=== PATIENT | male | born 1960 | race African-American/Black ===

== ENCOUNTER → 2019-12-31 13:37 | Outpatient (CLI) | payer MEDICAID, SELFPAY ==
--- NOTE | 2019-12-31 13:46 | CT_ITS ---
STUDY: CT BRAIN WITH AND WITHOUT CONTRAST REASON FOR EXAM: Male, 59 years old. HYPOPITUITARISM,HX-DB RADIATION DOSAGE (If Supplied By Facility): CTDIvol = ( 44.99 ) mGy, DLP = ( 1648.46 ) mGycm TECHNIQUE: Transaxial CT imaging of the brain was performed pre and post contrast administration. The examination was performed with intravenous administration of IV 50mL Isovue-370. Individualized dose optimization techniques were used for this CT. COMPARISON: None. FINDINGS: Normal soft tissue structures. Normal calvarium. Normal size ventricles and extra-axial spaces for the patient''s age. Normal white matter tracts of the cerebral hemispheres. Normal basal ganglia and thalami. Normal brainstem. Normal cerebellum. There is no intracranial hemorrhage. There are no findings of an acute ischemic infarction. Normal visualized paranasal sinuses. CT/Brain/Head W/WO Contrast IMPRESSION: Normal unenhanced and enhanced CT scan of the brain. Electronically Signed: Shai Vega, at 14:35 EDT , Service support ,
[2019-12-31 14:11] LABS: CREATININE FINGERSTICK 0.8 mg/dL (0.70-1.30); EGFR FINGERSTICK > 60.0000 mL/min (>60)
== END ==
PROVIDERS: PCP Family Medicine; Referring Provider Nurse Practitioner Family
DX: E23.0 Hypopituitarism (principal)
CPT/HCPCS: 70470; Q9967

== ENCOUNTER → 2020-03-03 | Outpatient (CLI) | payer MEDICAID, SELFPAY ==
--- NOTE | 2020-03-03 14:35 | CT_ITS ---
STUDY: CT ABDOMEN AND PELVIS WITH CONTRAST REASON FOR EXAM: Male, 59 years old. RT GROIN SWELLING X 2 DAYS, NO PREV SURG, HX-DB, HTN RADIATION DOSAGE (If Supplied By Facility): CTDIvol = ( 17.07 ) mGy, DLP = ( 1206.62 ) mGycm TECHNIQUE: Transaxial images were obtained from the dome of the diaphragm to the symphysis pubis with oral contrast. Oral and amp; IV Readi-CAT and amp; 100mL Isovue-300 was administered. Sagittal and coronal images were reconstructed. Individualized dose optimization techniques were used for this CT. COMPARISON: None. FINDINGS: The visualized lung bases are unremarkable. The visualized portions of the heart are within normal limits. There is decreased attenuation of the liver consistent with steatosis, there is a 1 cm right hepatic cyst. Normal gallbladder and extrahepatic biliary system. Normal spleen. Normal pancreas. Normal bilateral adrenal glands. Normal right kidney. Normal left kidney. Normal visualized stomach. Normal small intestine. Normal colon. The appendix is visualized and appears normal. Appendix best seen on coronal recon images 68 through 73 There is diffuse atherosclerotic calcification of the abdominal aorta, without a demonstrated aneurysm. Normal inferior vena cava. Normal retroperitoneum. Normal urinary bladder. There are subcentimeter right inguinal lymph nodes Normal abdominal wall. There are diffuse degenerative changes of the visualized lumbar spine, and pelvis. CT/Abdomen/Pelvis WITH Contrast IMPRESSION: No suspicious solid organ abnormality, right hepatic cyst. No specific follow-up needed No CT evidence of acute inflammatory process, normal appendix visualized No mass or fluid collection the right inguinal area, there are subcentimeter right inguinal lymph nodes Degenerative bony changes Electronically Signed: Cory Pickens MD at 16:32 EDT , Service support ,
[2020-03-03 15:00] LABS: CREATININE FINGERSTICK 1.1 mg/dL (0.70-1.30)
== END | disposition home or self-care (01) ==
LOC: CT 14:34
PROVIDERS: PCP Family Medicine; Referring Provider Nurse Practitioner Family; Visit Provider Nurse Practitioner Family
DX: R10.30 Lower abdominal pain, unspecified (principal)
CPT/HCPCS: 74177; Q9967

== ENCOUNTER → 2020-03-17 12:05 | Outpatient (CLI) | payer MEDICAID, SELFPAY ==
[2017-07-15 10:05] VITALS: BMI 43.4
[2020-03-17 13:49] LABS: Anion Gap 7 (5-15); BUN 8 mg/dL (7-18); BUN/Creat Ratio 7.5 RATIO (10-20); Calcium,Total 9.7 mg/dL (8.5-10.1); Chloride 103 mmol/L (98-107); Creatinine, Serum 1.07 mg/dL (0.70-1.30); EST Glomerular Filtration Rate 75 mL/min (>60); Est Glom Filt Rate - Afr Amer 91 mL/min (>60); Glucose 114 mg/dL (74-106); Potassium 3.1 mmol/L (3.5-5.1); Sodium Level 138 mmol/L (136-145)
== END ==
PROVIDERS: Nurse Practitioner Family
DX: E87.6 Hypokalemia (principal); I10 Essential (primary) hypertension
CPT/HCPCS: 36415; 80048

== ENCOUNTER → 2020-04-04 08:16 | Outpatient (CLI) | payer MEDICAID, SELFPAY ==
[2017-07-15 10:05] VITALS: BMI 43.4
[2020-04-04 09:40] LABS: Absolute Lymphocyte Count 1.81 X10^3/uL (0.83-4.51); Absolute Neutrophil Count 4.8 X10^3/uL (2.0-7.7); Basophil# 0.07 X10^3/uL; Basophil% 0.9 % (0-1); Eosinophil# 0.19 X10^3/uL; Eosinophils% 2.5 % (0-5); Hematocrit 40.3 % (40-54); Hemoglobin 13.4 g/dL (13.0-16.5); Lymphocyte # 1.81 X10^3/ul (4.0); Lymphocyte % 24.2 % (19-41); Mean Corp Hgb Conc 33.3 g/dL (32-36); Mean Corpuscular Hgb 28.5 pg (27.0-32.0); Mean Corpuscular Volume 85.7 fL (80-94); Mean Platelet Vol. 9.9 fl (6.2-12.0); Monocyte# 0.55 X10^3/uL; Monocyte% 7.4 % (0-10); NRBC Flagged by Analyzer 0 % (0-5); Neutrophil # 4.84 X10^3/uL (2.7-7.7); Neutrophil % 64.7 % (47-70); Platelet Count 325 K/mm3 (150-450); RBC Distribution Width SD 43.8 fl (35.1-43.9); White Blood Count 7.5 K/mm3 (4.4-11.0)
[2020-04-04 10:03] LABS: Vitamin D,25 Hydroxy 45.5 ng/mL
[2020-04-04 10:07] LABS: Hemoglobin A1c 8.1 % (3.8-5.6)
[2020-04-04 10:12] LABS: ALB/GLOB Ratio 0.8 RATIO (0.9-2.4); AST(SGOT) 31 U/L (15-37); Alanine Aminotransfer ALT/SGPT 38 U/L (16-61); Albumin, Serum 3.7 g/dL (3.2-5.0); Alkaline Phosphatase 102 U/L (45-117); Anion Gap 10 (5-15); BUN 10 mg/dL (7-18); BUN/Creat Ratio 8.5 RATIO (10-20); Calcium,Total 8.8 mg/dL (8.5-10.1); Chloride 98 mmol/L (98-107); Cholesterol 157 mg/dL (200); Creatinine, Serum 1.18 mg/dL (0.70-1.30); EST Glomerular Filtration Rate 67 mL/min (>60); Est Glom Filt Rate - Afr Amer 81 mL/min (>60); Globulin 4.4 g/dL (2.2-4.2); Glucose 144 mg/dL (74-106); High Density Lipoprotein 45 mg/dL; Potassium 3.3 mmol/L (3.5-5.1); Protein, Total 8.1 g/dL (6.4-8.2); Sodium Level 137 mmol/L (136-145); T4 Free Direct 0.95 ng/dL (0.76-1.46); Thyroid Stim Hormone (TSH) 2.39 uIU/mL (0.358-3.74); Triglycerides 58 mg/dL; Very Low Density Lipoprotein 12 mg/dL (5-40)
== END ==
PROVIDERS: Nurse Practitioner Family
DX: E11.9 Type 2 diabetes mellitus without complications (principal); I10 Essential (primary) hypertension; E78.5 Hyperlipidemia, unspecified; E23.0 Hypopituitarism; E55.9 Vitamin D deficiency, unspecified
CPT/HCPCS: 36415; 80053; 80061; 82306; 83036; 84439; 84443; 85025

== ENCOUNTER → 2020-04-16 08:17 | Outpatient (CLI) | payer MEDICAID, SELFPAY ==
[2020-04-16 09:27] LABS: Anion Gap 4 (5-15); BUN 11 mg/dL (7-18); BUN/Creat Ratio 9.2 RATIO (10-20); Calcium,Total 9.4 mg/dL (8.5-10.1); Chloride 100 mmol/L (98-107); Creatinine, Serum 1.19 mg/dL (0.70-1.30); EST Glomerular Filtration Rate 66 mL/min (>60); Est Glom Filt Rate - Afr Amer 80 mL/min (>60); Glucose 126 mg/dL (74-106); Sodium Level 136 mmol/L (136-145)
== END ==
PROVIDERS: Nurse Practitioner Family
DX: E87.6 Hypokalemia (principal)
CPT/HCPCS: 36415; 80048

== ENCOUNTER → 2020-06-27 12:25 | Outpatient (CLI) | payer MEDICAID, SELFPAY ==
[2020-06-24 13:29] VITALS: BMI 47.5
[2020-06-27 16:29] LABS: Anion Gap 7 (5-15); BUN 12 mg/dL (7-18); BUN/Creat Ratio 11.9 RATIO (10-20); Calcium,Total 8.9 mg/dL (8.5-10.1); Chloride 105 mmol/L (98-107); Creatinine, Serum 1.01 mg/dL (0.70-1.30); EST Glomerular Filtration Rate 80 mL/min (>60); Est Glom Filt Rate - Afr Amer 97 mL/min (>60); Glucose 143 mg/dL (74-106); Magnesium 2.1 mg/dL (1.6-2.6); Potassium 3.3 mmol/L (3.5-5.1); Sodium Level 138 mmol/L (136-145)
[2020-07-02 12:09] LABS: Testosterone, Free 4.88 ng/dL (5.00-21.00)
[2020-07-02 15:22] LABS: Testosterone, % Free 3.34 % (1.50-4.20); Testosterone, Total 146 ng/dL (264-916)
== END ==
PROVIDERS: PCP Internal Medicine; Referring Provider Internal Medicine; Visit Provider Internal Medicine
DX: R79.89 Other specified abnormal findings of blood chemistry (principal); E87.6 Hypokalemia; G47.30 Sleep apnea, unspecified
CPT/HCPCS: 36415; 80048; 83735; 84402; 84403

== ENCOUNTER → 2020-09-04 14:14 | Outpatient (CLI) | payer MEDICAID, SELFPAY ==
[2020-06-24 13:29] VITALS: BMI 47.5
[2020-09-04 15:18] LABS: Microalbumin,Random Urine 28.3 mg/L (NO RANGE EST.); Microalbumin:Creatinine Ratio 65.4 mg/g CRE (<30 mg/g CRE)
[2020-09-04 15:46] LABS: Anion Gap 6 (5-15); BUN 22 mg/dL (7-18); BUN/Creat Ratio 18.6 RATIO (10-20); Calcium,Total 9.3 mg/dL (8.5-10.1); Chloride 103 mmol/L (98-107); Creatinine, Serum 1.18 mg/dL (0.70-1.30); EST Glomerular Filtration Rate 67 mL/min (>60); Est Glom Filt Rate - Afr Amer 81 mL/min (>60); Glucose 93 mg/dL (74-106); Potassium 3.4 mmol/L (3.5-5.1); Sodium Level 136 mmol/L (136-145)
[2020-09-09 15:17] LABS: Testosterone, % Free 4.88 % (1.50-4.20); Testosterone, Total > 1500 ng/dL (264-916)
== END ==
PROVIDERS: PCP Internal Medicine; Visit Provider Internal Medicine Nephrology
DX: E87.6 Hypokalemia (principal); E11.9 Type 2 diabetes mellitus without complications; E29.1 Testicular hypofunction
CPT/HCPCS: 36415; 80048; 82043; 82570; 84133; 84402; 84403

== ENCOUNTER → 2020-09-10 10:54 | Outpatient (CLI) | payer MEDICAID, SELFPAY ==
[2020-09-10 09:38] VITALS: BMI 49.5
--- NOTE | 2020-09-10 10:55 | VDLE_ITS ---
Reason For Study: Swelling Procedure LEFT Exam performed in department. GSV is normal. A preliminary report was called and/or faxed CFV is compressible, spontaneous, phasic, to Dr. Chun. competent, and demonstrates normal augmentation. FV is compressible, spontaneous, phasic, competent and demonstrates normal augmentation. POP V is compressible, spontaneous, phasic, competent and demonstrates normal augmentation. T/P Trunk is compressible. PTV is compressible. LT PerV is compressible. Interpretation Summary Deep veins of the left lower extremity are patent and compressible segmentally. There is no evidence of left lower extremity deep vein thrombosis. Valvular competence appears intact within the proximal deep venous system on the left . The left great saphenous vein appears patent and compressible segmentally. Ordering Physician: Leydi Chun Referring Physician: Leydi Chun Performed By: Hanane Whyte, ERNST, RVT
== END ==
PROVIDERS: PCP Internal Medicine; Referring Provider Internal Medicine; Visit Provider Internal Medicine
DX: R60.0 Localized edema (principal)
CPT/HCPCS: 93971

== ENCOUNTER → 2020-09-19 13:16 | Outpatient (CLI) | payer MEDICAID, SELFPAY ==
[2020-09-10 09:38] VITALS: BMI 49.5
--- NOTE | 2020-09-19 13:19 | RAD_ITS ---
STUDY: X-RAY - LEFT ANKLE REASON FOR EXAM: Left foot pain and swelling for one week, no specific injury. TECHNIQUE: 3 view(s) of the ankle. COMPARISON: None. FINDINGS: Normal visualized distal tibia and fibula. Normal medial and lateral malleoli. There is a small posterior tibiotalar intra-articular body. Normal visualized talus and calcaneus. The visualized subtalar, talonavicular, calcaneocuboid and tarsal articulations are normal. There is soft tissue swelling. There is pes planus deformity. RAD/Ankle min 3 Views IMPRESSION: Small posterior tibiotalar intra-articular body. Pes planus deformity. Soft tissue swelling. Electronically Signed: Amauri Griggs MD at 14:52 EST Tel , Service support ,
--- NOTE | 2020-09-19 13:19 | RAD_ITS ---
STUDY: X-RAY - LEFT FOOT CLINICAL: Left lateral foot pain and swelling, no specific injury. TECHNIQUE: 3 view(s) of the foot. COMPARISON: None. FINDINGS: Normal talus, calcaneus, and tarsal bones. There is a small accessory navicular. Normal visualized subtalar, talonavicular, calcaneocuboid, tarsal and tarsometatarsal articulations. Normal metatarsi. Normal metatarsophalangeal joint of the great toe. Normal tibial and fibular sesamoid bones. There are marginal osteophytes and joint space loss of the interphalangeal joint of the great toe. Normal phalanges of the great toe. Normal second through fifth metatarsophalangeal joints. Normal interphalangeal joints and phalanges of the lesser toes. There is pes planus deformity. 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 Pes planus deformity. Electronically Signed: Amauri Griggs MD at 14:51 EST Tel , Service support ,
== END ==
PROVIDERS: PCP Internal Medicine; Referring Provider Internal Medicine; Visit Provider Internal Medicine
DX: M19.072 Primary osteoarthritis, left ankle and foot (principal)
CPT/HCPCS: 73610; 73630

== ENCOUNTER → 2020-11-06 13:40 | Outpatient (CLI) | payer MEDICAID, SELFPAY ==
[2020-06-24 13:29] VITALS: BMI 47.5
[2020-10-03 14:20] VITALS: BMI 49.5
[2020-11-06 15:35] LABS: BUN 21 mg/dL (7-18); BUN/Creat Ratio 15.8 RATIO (10-20); Calcium,Total 9.3 mg/dL (8.5-10.1); Chloride 105 mmol/L (98-107); Creatinine, Serum 1.33 mg/dL (0.70-1.30); EST Glomerular Filtration Rate 58 mL/min (>60); Est Glom Filt Rate - Afr Amer 71 mL/min (>60); Glucose 88 mg/dL (74-106); Magnesium 1.8 mg/dL (1.6-2.6); Phosphorus 3.4 mg/dL (2.5-4.9); Sodium Level 140 mmol/L (136-145)
[2020-11-13 09:08] LABS: Testosterone, Free 4.44 ng/dL (5.00-21.00)
[2020-11-13 11:34] LABS: Testosterone, % Free 2.63 % (1.50-4.20); Testosterone, Total 169 ng/dL (264-916)
== END ==
PROVIDERS: PCP Internal Medicine; Referring Provider Internal Medicine Nephrology; Visit Provider Internal Medicine Nephrology
DX: E87.6 Hypokalemia (principal); E29.1 Testicular hypofunction
CPT/HCPCS: 36415; 80069; 83735; 84402; 84403

== ENCOUNTER 2020-12-12 16:09 | Inpatient (IN) | payer MEDICAID, SELFPAY ==
[2020-10-03 14:20] VITALS: BMI 49.5
[2020-12-12] VITALS (16 sets, daily range): BP systolic 119–143; BP diastolic 78–116; PULSE 92–143; RESP 13–21; TEMP 36.4–36.9; O2SAT 18–99; BMI 44.7; BMI 48.1
--- NOTE | 2020-12-12 16:22 | EKG12_ITS ---
Test Reason : PALPS Blood Pressure : / mmHG Vent. Rate : 123 BPM Atrial Rate : 113 BPM P-R Int : 000 ms QRS Dur : 092 ms QT Int : 318 ms P-R-T Axes : 000 -34 059 degrees QTc Int : 455 ms Poor data quality, interpretation may be adversely affected Atrial fibrillation with rapid ventricular response Left axis deviation Inferior infarct , age undetermined Abnormal ECG Confirmed by SHAHEED ARDON, LINDA ([id number]), editor map RAE CARDOZA ([id number]) on 12/16/2020 1:43:03 PM Referred By: ROSALVA/GUERITA Confirmed By:LINDA HUMMEL MD
--- NOTE | 2020-12-12 16:40 | RAD_ITS ---
STUDY: X-RAY CHEST REASON FOR EXAM: Male, 59 years old. chest pain TECHNIQUE: 1 view COMPARISON: Prior chest radiograph of 04/20/2016 FINDINGS: The lungs are clear and expanded. There is no demonstrated pleural abnormality. Normal size heart. Normal mediastinum and brittany. Normal visualized pulmonary arteries. There is atherosclerotic tortuosity of the aortic arch and descending thoracic aorta. Normal visualized thoracic spine. Anterior cervical spine fusion hardware partly included in the [id number]. Normal visualized ribs, clavicles, and shoulders. There is no demonstrated abnormality of the visualized soft tissue structures of the upper abdomen. RAD/Chest 1 View (Portable) IMPRESSION: No acute cardiopulmonary findings or changes. Negative for new consolidation, focal atelectasis, cardiomegaly or pleural effusion. Electronically Signed: Maty Berger MD at 16:56 EDT , Service support ,
[2020-12-12] MEDS: dilTIAZem 25 MG/5 ML Vial IV BOLUS (16:58)
[2020-12-12 17:16] LABS: Absolute Lymphocyte Count 2.18 X10^3/uL (0.83-4.51); Absolute Neutrophil Count 5.7 X10^3/uL (2.0-7.7); Basophil# 0.08 X10^3/uL; Basophil% 0.9 % (0-1); Eosinophil# 0.26 X10^3/uL; Eosinophils% 2.9 % (0-5); Hematocrit 45.8 % (40-54); Hemoglobin 14.7 g/dL (13.0-16.5); Lymphocyte # 2.18 X10^3/ul (0.83-4.51); Lymphocyte % 24.3 % (19-41); Mean Corp Hgb Conc 32.1 g/dL (32-36); Mean Corpuscular Hgb 26.5 pg (27.0-32.0); Mean Corpuscular Volume 82.7 fL (80-94); Mean Platelet Vol. 9.8 fl (6.2-12.0); Monocyte% 7.8 % (0-10); NRBC Flagged by Analyzer 0 % (0-5); Neutrophil # 5.72 X10^3/uL (2.7-7.7); Neutrophil % 63.8 % (47-70); Platelet Count 314 K/mm3 (150-450); RBC Distribution Width CV 15.3 % (11.6-14.6); RBC Distribution Width SD 46.2 fl (35.1-43.9); Red Blood Count 5.54 M/mm3 (4.6-6.2)
[2020-12-12 17:24] LABS: Prothrombin Time (Protime)PT. 12.9 SECONDS (11.7-14.9)
[2020-12-12 17:26] LABS: Anion Gap 8 (5-15); BUN 17 mg/dL (7-18); BUN/Creat Ratio 13.8 RATIO (10-20); Calcium,Total 9.2 mg/dL (8.5-10.1); Chloride 102 mmol/L (98-107); Creatinine, Serum 1.23 mg/dL (0.70-1.30); EST Glomerular Filtration Rate 64 mL/min (>60); Est Glom Filt Rate - Afr Amer 77 mL/min (>60); Estimated Creatinine Clearance 70.98 ml/min; Glucose 163 mg/dL (74-106); Potassium 3.5 mmol/L (3.5-5.1); Sodium Level 137 mmol/L (136-145)
--- NOTE | 2020-12-12 18:09 | EDS_ITS ---
HPI History of Present Illness Chief Complaint: Palpitations Informant: patient Onset/Context/Timing Onset: Today Context: Sudden Onset Timing: Continuous Quality: Irregular Location: Chest Worsened by: Exertion Relieved by: Nothing Narrative Narrative: Patient presents with palpitations that began this morning. Patient states they began approximately 7 hours prior to arrival. Patient states that they began after he was eating this morning. Patient states he has had a history of atrial fibrillation in the past but his last episode was many years ago. Patient states he did break out into a sweat and felt short of breath with this. Patient states he can feel his heart beating irregularly. Patient states this is worse with exertion. Patient is on amlodipine for his blood pressure but does not take any medication to control his rate. Patient is not on any anticoagulants. Prior similar symptoms: Yes PFSH PFSH Medical History Arthritis Diabetes Diabetes Gout Hyperlipemia Hypertension Hypertension Primary hypogonadism in male Sleep apnea Vitamin D deficiency Home Medications atorvastatin 40 mg tablet 40 mg PO DAILY #90 tab 06/24/20 [Rx Last Taken Unknown] metformin 1,000 mg tablet 1,000 mg PO BID #180 tab 06/24/20 [Rx Last Taken Unknown] alcohol swabs 1 pad TOPICAL .weekly #100 ea 07/07/20 [Rx Last Taken Unknown] potassium chloride 10 mEq tablet,extended release 10 meq PO .QID #120 tab 07/16/20 [Rx Last Taken Unknown] cholecalciferol (vitamin D3) 1,250 mcg (50,000 unit) capsule 1,250 mcg PO QWEEK #90 cap 09/05/20 [Rx Last Taken Unknown] tamsulosin 0.4 mg capsule 0.4 mg PO DAILY cap 09/10/20 [History Last Taken Unknown] valsartan 320 mg-hydrochlorothiazide 12.5 mg tablet 1 tab PO DAILY #30 tab 11/26/20 [Rx Last Taken Unknown] amlodipine 10 mg tablet 10 mg PO DAILY #90 tab 12/02/20 [Rx Last Taken Unknown] testosterone 1 % (50 mg/5 gram) transdermal gel packet 50 mg TD DAILY #150 g 12/10/20 [Rx Last Taken Unknown] Allergy/AdvReac Type Severity Reaction Status Date / Time No Known Allergies Allergy Verified 12/12/20 16:12 Family History Other Adopted Surgical History History of left knee surgery History of neck surgery Hx of cardiac catheterization Hx of colonoscopy Social History Smoking Status: Never smoker second hand exposure: No alcohol intake: never substance use type: does not use caffeine: Yes what type of physical activity do you participate in: weight training frequency: 3-4 times per week seatbelt use: always ROS ROS ED Constitutional Constitutional ED: Denies fever(s) or subjective Eyes Eyes: Denies blurry vision or change in vision ENT ENT ED: Denies rhinorrhea or sore throat Cardiovascular Cardiovascular: Reports palpitations; Denies chest pain Respiratory/Chest Respiratory/Chest: Reports dyspnea; Denies cough Gastrointestinal Gastrointestinal: Denies nausea or vomiting Genitourinary Genitourinary ED: Denies dysuria or hematuria Musculoskeletal Musculoskeletal: Reports neck pain; Denies back pain Integumentary Denies abscess or rash Neurologic Neurologic: Reports headache(s); Denies weakness Allergic/Immunologic Allergic/Immunologic ED: Denies mouth swelling or urticaria EXAM Physical Exam Const Vital Signs: 12/12/20 16:11 12/12/20 16:20 12/12/20 16:26 Temperature 97.6 F L Temperature Source Temporal Pulse Rate 106 H Respiratory Rate 15 Respiratory Effort Normal Non-Labored Respiratory Pattern Normal Blood Pressure 139/78 H Blood Pressure Mean 98 Pulse Ox 97 98 Oxygen Delivery Method Room Air Room Air 12/12/20 18:17 Temperature Temperature Source Pulse Rate 108 H Respiratory Rate 21 H Respiratory Effort Respiratory Pattern Blood Pressure 143/116 H Blood Pressure Mean 125 Pulse Ox 96 Oxygen Delivery Method Room Air Positive well nourished and well developed General Appearance ED: well developed HEENT Reports moist mucous membranes Neck supple and no JVD Resp normal respiratory effort and clear to auscultation bilaterally Cardio Rate: tachycardic and other Rhythm: abnormal rhythm irregularly irregular GI normal to inspection, nondistended, normoactive bowel sounds and non-tender Palpation: soft Neuro oriented x3, CN's II-XII intact bilaterally and no sensory deficits noted Sensorium / Orientation: alert Motor Exam: strength 5/5 throughout Psych mental status grossly normal MDM MDM MDM Narrative Medical decision making narrative: EKG was obtained. On my interpretation, it showed atrial fibrillation with a rate of 123. There is left axis deviation. There are no acute ST or T wave changes. The atrial fibrillation is new compared to previous EKG dated 04/21/2016. Portable 1 view chest x-ray was obtained. On my interpretation, lung antoine are clear. There is normal cardiac silhouette. Bony thorax is normal. There is no acute process noted. Radiologist also interpreted the x-ray and agrees. CBC, PT with INR, basic metabolic profile, and troponin were obtained were all within normal limits. Case was discussed with the hospitalist. She will admit the patient to her service to PCU. Patient understood and was agreeable with the plan. All questions were answered. Lab Data Attestation: I reviewed the patient's lab results. Labs: Laboratory Results - last 24 hr 12/12/20 12/12/20 12/12/20 16:35 16:35 16:35 WBC 9.0 RBC 5.54 Hgb 14.7 Hct 45.8 MCV 82.7 MCH 26.5 L MCHC 32.1 RDW Std Deviation 46.2 H RDW Coeff of Cornelius 15.3 H Plt Count 314 MPV 9.8 Immature Gran % (Auto) 0.300 Neut % (Auto) 63.8 Lymph % (Auto) 24.3 [place] % (Auto) 7.8 Eos % (Auto) 2.9 Baso % (Auto) 0.9 Absolute Neuts (auto) 5.7 Absolute Lymphs (auto) 2.18 Nucleated RBC % 0 PT 12.9 INR 1.0 Sodium 137 Potassium 3.5 Chloride 102 Carbon Dioxide 27.0 Anion Gap 8 BUN 17 Creatinine 1.23 Estim Creat Clear Calc 70.98 Est GFR (MDRD) Af Amer 77 Est GFR (MDRD) Non-Af 64 BUN/Creatinine Ratio 13.8 Glucose 163 H Calcium 9.2 Troponin I < 0.015 Radiography Diagnostic Testing: Radiology Impression Chest X-Ray 12/12/20 16:40 IMPRESSION: No acute cardiopulmonary findings or changes. Negative for new consolidation, focal atelectasis, cardiomegaly or pleural effusion. Electronically Signed: Maty Berger MD at 16:56 EDT , Service support , EKG Initial EKG: Attestation: I personally reviewed and interpreted this EKG as follows: Interpretation: Atrial Fibrillation (123) and Non-Specific ST Changes Prior: Changed (The atrial fibrillation is new. The nonspecific ST-T wave changes are unchanged compared to previous EKG dated 04/21/2016.) Treatment and Re-Evaluation Vital Sign Attestation:: Vital signs were reviewed prior to patient being admitted. They are stable. Discharge Plan Dx/Rx/DC Orders Clinical Impression: Atrial fibrillation with rapid ventricular response Disposition Disposition: Acute Care Hospital [facility]
--- NOTE | 2020-12-12 18:15 | NURSING ---
HOSPITALIST FOR DR BLACKWELL
--- NOTE | 2020-12-12 18:18 | NURSING ---
WYATT Pearl RVR
--- NOTE | 2020-12-12 18:22 | HP.PCM.HOS_ITS ---
HPI - General General Date of Admission: 12/12/20 Date of Service: 12/12/20 Chief Complaint: Palpitations - 1 day HPI Narrative TOBY GARCIA, is a 59 M who presents with palpitations that started on the day of admission. Patient gives a history of A. fib diagnosed in the 80s, that went away. He has history of type II DM, hypertension, morbid obesity, SAÚL. He woke up this morning with palpitations and felt his heart rate was irregular. He had some lightheadedness and diaphoresis with it. He denied any chest discomfort or leg swelling or PND orthopnea. In the ED, patient was found to be in A. fib with RVR, his heart rate was 123. He received a dose of Cardizem. [facility] Medical History Arthritis Chronic pain CPAP (continuous positive airway pressure) dependence Diabetes Diabetes Former smoker GI bleed Gout Hyperlipemia Hypertension Hypertension Irregular heart beat Primary hypogonadism in male Sleep apnea Vitamin D deficiency Home Medications tamsulosin 0.4 mg capsule 0.4 mg PO DAILY cap 09/10/20 [History Last Taken 12/12/20] testosterone 1 % (50 mg/5 gram) transdermal gel packet 50 mg TD DAILY #150 g 12/10/20 [Rx Last Taken Unknown] amlodipine 10 mg PO DAILY 12/12/20 [History Last Taken 12/12/20] atorvastatin 40 mg PO DAILY 12/12/20 [History Last Taken 12/11/20] cholecalciferol (vitamin D3) 1,250 mcg PO QWEEK 12/12/20 [History Last Taken 12/10/20] metformin 1,000 mg PO BID 12/12/20 [History Last Taken 12/12/20] potassium chloride 10 meq PO .QID 12/12/20 [History Last Taken 12/12/20] valsartan-hydrochlorothiazide 1 tab PO DAILY 12/12/20 [History Last Taken 12/12/20] Allergy/AdvReac Type Severity Reaction Status Date / Time No Known Allergies Allergy Verified 12/12/20 16:12 Family History Other Adopted no significant family history Surgical History History of left knee surgery History of neck surgery Hx of cardiac catheterization Hx of colonoscopy Social History Smoking Status: Former smoker quit date: 07/18/15 second hand exposure: No alcohol intake: never substance use type: does not use caffeine: Yes what type of physical activity do you participate in: weight training frequency: 3-4 times per week seatbelt use: always ROS ROS Narrative Constitutional: Denies: Anorexia, Chills, Fever, Night Sweats, Weight Change, Malaise, Weakness, Fatigue. Eyes: Denies: Blurred vision, Cataracts, Conjunctivae Inflammation, Pain, Redness, Vision Change HEENT: Denies: Difficulty Hearing, Difficulty Swallowing, Head Aches, Hearing Changes, Sinus Congestion, Sinus Drainage Cardiovascular: See HPI Respiratory: Denies: Cough, Shortness of breath at rest, Sputum production Gastrointestinal: Denies: Abdominal Pain, Nausea, Vomiting Genitourinary: Denies: Dysuria Musculoskeletal: Denies: Joint Pain, Joint stiffness, Joint swelling, Joint Tenderness Skin: Denies: Rash, Wounds Neurological: Denies: Numbness, Tingling, Focal weakness Vital Signs Vital Signs Vital Signs: 12/12/20 16:11 12/12/20 16:20 12/12/20 16:26 Temperature 97.6 F L Temperature Source Temporal Pulse Rate 106 H Respiratory Rate 15 Respiratory Effort Normal Non-Labored Respiratory Pattern Normal Blood Pressure 139/78 H Blood Pressure Mean 98 Pulse Ox 97 98 Oxygen Delivery Method Room Air Room Air 12/12/20 18:17 Temperature Temperature Source Pulse Rate 108 H Respiratory Rate 21 H Respiratory Effort Respiratory Pattern Blood Pressure 143/116 H Blood Pressure Mean 125 Pulse Ox 96 Oxygen Delivery Method Room Air Weight Weight: 149.685 kg Body Mass Index (BMI) 44.7 Physical Exam Narrative Physical exam: General: Alert, Oriented x3, Cooperative, No apparent distress, Well developed HEENT: Atraumatic Oral: Moist Mucosa Neck: Supple Lungs: Clear to auscultation Cardiovascular: HS I+II, regular, no murmurs Abdomen: Bowel Sounds Present, Soft, Non Tender Extremities: No edema Skin: No rashes, No breakdown Neurological: Grossly intact Psych/Mental Status: Appropriate Lab / Micro Data Result Diagrams: 12/12/20 16:35 12/12/20 16:35 Labs: Laboratory Results - last 24 hr 12/12/20 12/12/20 12/12/20 16:35 16:35 16:35 WBC 9.0 RBC 5.54 Hgb 14.7 Hct 45.8 MCV 82.7 MCH 26.5 L MCHC 32.1 RDW Std Deviation 46.2 H RDW Coeff of Cornelius 15.3 H Plt Count 314 MPV 9.8 Immature Gran % (Auto) 0.300 Neut % (Auto) 63.8 Lymph % (Auto) 24.3 [place] % (Auto) 7.8 Eos % (Auto) 2.9 Baso % (Auto) 0.9 Absolute Neuts (auto) 5.7 Absolute Lymphs (auto) 2.18 Nucleated RBC % 0 PT 12.9 INR 1.0 Sodium 137 Potassium 3.5 Chloride 102 Carbon Dioxide 27.0 Anion Gap 8 BUN 17 Creatinine 1.23 Estim Creat Clear Calc 70.98 Est GFR (MDRD) Af Amer 77 Est GFR (MDRD) Non-Af 64 BUN/Creatinine Ratio 13.8 Glucose 163 H Calcium 9.2 Troponin I < 0.015 Radiology Impression Chest X-Ray 12/12/20 16:40 IMPRESSION: No acute cardiopulmonary findings or changes. Negative for new consolidation, focal atelectasis, cardiomegaly or pleural effusion. 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 use: without intermediate school teacher use Diabetes mellitus complication status: with other specified com plication Qualified Code(s): E11.69 - Type 2 diabetes mellitus with other specified complication (2) Morbid obesity with BMI of 45.0-49.9, adult: (3) Hypertension: QUALIFIERS: Hypertension type: essential hypertension Qualified Code(s): I10 - Essential (primary) hypertension (4) Atrial fibrillation with rapid ventricular response: (5) Sleep apnea: QUALIFIERS: Sleep apnea type: obstructive Qualified Code(s): G47.33 - Obstructive sleep apnea (adult) (pediatric) (6) Hyperlipemia: QUALIFIERS: Hyperlipidemia type: unspecified Qualified Code(s): E78.5 - Hyperlipidemia, unspecified PLAN: 1. A. fib with RVR, patient with remote history of A. fib Status post IV Cardizem bolus in the ED We will continue on Cardizem drip, 2D echo, Lovenox twice daily Cardiology consult, trend troponins, check TSH and magnesium 2. Type II DM, on Metformin, will hold Metformin, continue with blood glucose checks with insulin sliding scale 3. Rest of chronic medical conditions including morbid obesity, hypertension, sleep apnea, hyperlipidemia, all complicates care remain stable at this moment Continue on amlodipine, atorvastatin, hydrochlorothiazide, losartan 4. DVT prophylaxis?on therapeutic Lovenox Visit Charges Inpatient E&M: 31577 Init Hosp L3
--- NOTE | 2020-12-12 21:22 | ECHOCS_ITS ---
Reason For Study: Afib, Aflutter Procedure This was a 2D Doppler, Color Flow transthoracic echocardiogram. The study was technically difficult. Contrast injection was performed. Exam performed portable in patient room. Left Ventricle Normal left ventricle. The estimated ejection fraction is EF 55-60% %. Right Ventricle Normal right ventricle. Normal systolic function. Atria Normal left atrium. Normal right atrium. Mitral Valve The mitral valve is structurally normal. No prolapse or stenosis seen. Trivial mitral valve insufficiency. Tricuspid Valve Normal tricuspid valve. Trivial tricuspid valve insufficiency. Aortic Valve Normal aortic valve. Pulmonic Valve The pulmonic valve is not well visualized. Great Vessels Normal aortic root. Pericardium/Pleural No pericardial effusion. Medication Diluted definity 3ml given slow IV push to enhance endocardial definition. MMode/2D Measurements & Calculations LVIDd: 5.0 cm IVSd: 1.5 cm Ao root diam: 3.6 cm LVIDs: 3.5 cm LVPWd: 1.5 cm RVDd: 4.3 cm FS: 28.8 % LAV(MOD-bp): 43.3 ml LVAd ap4: 26.2 cm2 SV(MOD-sp4): 48.2 ml LAV(MOD-bp) Indexed: 15.9 ml/m2 LVLd ap4: 7.8 cm LAV(MOD-sp2): 32.5 ml EDV(MOD-sp4): 74.9 ml LAV(MOD-sp4): 56.4 ml EDV(sp4-el): 74.3 ml LVAs ap4: 12.9 cm2 LVLs ap4: 5.4 cm ESV(MOD-sp4): 26.7 ml ESV(sp4-el): 26.2 ml EF(MOD-sp4): 64.4 % EF(sp4-el): 64.8 % SV(sp4-el): 48.2 ml LA A4 area: 19.5 cm2 LA dimension(2D): 4.6 cm RA A4 area: 16.7 cm2 Doppler Measurements & Calculations MV E max arlen: 62.3 cm/sec Ao V2 max: 117.6 cm/sec LV V1 max: 82.3 cm/sec Ao max P.6 mmHg LV V1 max P.7 mmHg Ao V2 mean: 89.2 cm/sec Ao mean P.4 mmHg Ao V2 VTI: 18.9 cm PA V2 max: 55.9 cm/sec ECHO/Echo Complete W/ Contrast Interpretation Summary The estimated ejection fraction is EF 55-60% %. Normal LV systolic function Cardiac rhythm A fib Ordering Physician: Aliyah Osborne Referring Physician: Leydi Chun Performed By: Roof, Hanane, RDCS, RVT
[2020-12-12 21:55] LABS: Thyroid Stim Hormone (TSH) 1.78 uIU/mL (0.358-3.74)
[2020-12-12] MEDS: Enoxaparin 150 MG/ML Syringe SC (23:00)
[2020-12-12 23:05] LABS: Bedside Glucose 142 mg/dL (70-110)
[2020-12-13] VITALS (44 sets, daily range): BP systolic 105–151; BP diastolic 66–128; PULSE 80–119; RESP 14–25; TEMP 36.6–36.9; O2SAT 95–100
[2020-12-13] MEDS: Enoxaparin 150 MG/ML Syringe SC (06:42)
[2020-12-13 06:50] LABS: Bedside Glucose 142 mg/dL (70-110)
[2020-12-13 07:08] LABS: Absolute Lymphocyte Count 2.39 X10^3/uL (0.83-4.51); Absolute Neutrophil Count 4.2 X10^3/uL (2.0-7.7); Basophil# 0.07 X10^3/uL; Basophil% 0.9 % (0-1); Eosinophil# 0.23 X10^3/uL; Hematocrit 44.6 % (40-54); Hemoglobin 14.3 g/dL (13.0-16.5); Lymphocyte # 2.39 X10^3/ul (0.83-4.51); Lymphocyte % 31.4 % (19-41); Mean Corp Hgb Conc 32.1 g/dL (32-36); Mean Corpuscular Hgb 26.5 pg (27.0-32.0); Mean Corpuscular Volume 82.7 fL (80-94); Monocyte# 0.64 X10^3/uL; Monocyte% 8.4 % (0-10); NRBC Flagged by Analyzer 0 % (0-5); Neutrophil # 4.24 X10^3/uL (2.7-7.7); Neutrophil % 55.9 % (47-70); Platelet Count 318 K/mm3 (150-450); RBC Distribution Width CV 15.3 % (11.6-14.6); RBC Distribution Width SD 45.9 fl (35.1-43.9); Red Blood Count 5.39 M/mm3 (4.6-6.2); White Blood Count 7.6 K/mm3 (4.4-11.0)
[2020-12-13 07:40] LABS: ALB/GLOB Ratio 0.8 RATIO (0.9-2.4); AST(SGOT) 18 U/L (15-37); Alanine Aminotransfer ALT/SGPT 26 U/L (16-61); Albumin, Serum 3.4 g/dL (3.2-5.0); Alkaline Phosphatase 92 U/L (45-117); Anion Gap 7 (5-15); BUN 15 mg/dL (7-18); BUN/Creat Ratio 14.3 RATIO (10-20); Calcium,Total 8.8 mg/dL (8.5-10.1); Chloride 103 mmol/L (98-107); Creatinine, Serum 1.05 mg/dL (0.70-1.30); EST Glomerular Filtration Rate 77 mL/min (>60); Est Glom Filt Rate - Afr Amer 93 mL/min (>60); Estimated Creatinine Clearance 83.14 ml/min; Glucose 134 mg/dL (74-106); Potassium 3.5 mmol/L (3.5-5.1); Protein, Total 7.4 g/dL (6.4-8.2); Sodium Level 138 mmol/L (136-145)
[2020-12-13] MEDS: Potassium Chloride Oral Tablet 10 MEQ PO ×4 (09:10→21:37)
[2020-12-13] MEDS: hydroCHLOROthiazide 12.5mg 12.5 MG PO (09:11)
[2020-12-13] MEDS: Atorvastatin Calcium 40 MG Tablet PO (09:11)
[2020-12-13] MEDS: amLODIPine 10 MG Tablet PO (09:11)
[2020-12-13] MEDS: Losartan Potassium 100 MG Tablet PO (09:11)
[2020-12-13] MEDS: Acetaminophen 325 MG Tablet 650 MG PO (09:11)
[2020-12-13] MEDS: Tamsulosin HCl 0.4 MG Capsule PO (09:11)
--- NOTE | 2020-12-13 10:04 | CASEMGMT ---
RN FERNANDA Assessment: RN CM in to pt room for initial transition planning/care coordination assessment. RN CM introduced self and role at [facility], pt voices understanding and consents to assessment. Pt lying in bed in no distress. Care providers, pharmacy, and demographics verified/updated. Admitting Dx: Afib with RVR PCP: [facility] Specialists: melina Preston Preferred Pharmacy: [facility] Insurance: [place] Prescription Benefit: yes LW/HPOA: Pt states he has a LW/DPOA and the DPOA is his son Cali August. He is aware that it is not on file at [facility] and pt states he does not want it to be on file. LNOK: Jailyn August, sister; Cali August, son Living Arrangements: Pt lives alone in a two story duplex with 12 steps to enter with a rail. Pt reports being I in ADL's and denies concerns at home. Transportation: Pt states he drives self and denies issues with transportation. DME/HHC/SNF: Pt has a cane at home and denies further DME. Pt denies previous SNF or HHC. Pt states no further concerns/needs. CM to follow. Advised pt to contact CM if any further question/concerns/needs arise, voices understanding. Pt Goal: Home Plan: Home
--- NOTE | 2020-12-13 11:16 | PCM.DC ---
Discharge Instructions Follow Up Care Test Results: Test results from this visit will be discussed in further detail at your follow-up appointment, if applicable. Discharge Plan Admission Admit Date/Time: 12/12/20 21:00 Attending Provider: Nicole Preston Primary Care Provider: Leydi Chun Consulting Providers: Leslie Capone Discharge Orders/Prescriptions Prescriptions: No Action tamsulosin 0.4 mg capsule 0.4 mg PO DAILY RF: 0 atorvastatin 40 mg tablet 40 mg PO DAILY RF: 0 potassium chloride 10 mEq tablet extended release 10 meq PO .QID RF: 0 amlodipine 10 mg tablet 10 mg PO DAILY RF: 0 metformin 1,000 mg tablet 1,000 mg PO BID RF: 0 valsartan-hydrochlorothiazide 320-12.5 mg tablet 1 tab PO DAILY RF: 0 cholecalciferol (vitamin D3) 1,250 mcg (50,000 unit) capsule 1,250 mcg PO QWEEK RF: 0 testosterone 1 % (50 mg/5 gram) gel in packet 50 mg TD DAILY Qty: 150 RF: 2 Referrals / Follow Up: Leydi Chun MD [Primary Care Provider] -
[2020-12-13] MEDS: Insulin Lispro 100 UNIT/ML INSULN.PEN SC ×2 (11:36→21:32)
[2020-12-13 11:46] LABS: Bedside Glucose 168 mg/dL (70-110)
--- NOTE | 2020-12-13 13:03 | PCM.CONS.C ---
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 fib with RVR Has history of diabetes mellitus, hypertension, morbid obesity Bedside echocardiogram performed today I reviewed the echo showed LV function preserved Recommendation and plan; 1. I reviewed all his current medication patient is a high risk for stroke, according to [id number]. 2. I reviewed the current medication will start the patient on Eliquis based on his creatinine clearance. 3. Long-acting calcium channel rhett verapamil LA 4. Continue to cardiac care plan and follow-up with the delinquent tax collector assistant as outpatient With possible event monitor for monitoring of heart rate. We will follow-up clinically during this admission HPI Consult Data Date of Consult: 12/13/20 HPI Narrative Reason for Consultation: Cardiac consultation requested to evaluate this patient, for A. fib with RV HPI Narrative: TOBY GARCIA, is a 59 M who presents [facility] Medical History Arthritis Chronic pain CPAP (continuous positive airway pressure) dependence Diabetes Diabetes Former smoker GI bleed Gout Hyperlipemia Hypertension Hypertension Irregular heart beat Primary hypogonadism in male Sleep apnea Vitamin D deficiency Home Medications tamsulosin 0.4 mg capsule 0.4 mg PO DAILY cap 09/10/20 [History Last Taken 12/12/20] testosterone 1 % (50 mg/5 gram) transdermal gel packet 50 mg TD DAILY #150 g 12/10/20 [Rx Last Taken Unknown] amlodipine 10 mg PO DAILY 12/12/20 [History Last Taken 12/12/20] atorvastatin 40 mg PO DAILY 12/12/20 [History Last Taken 12/11/20] cholecalciferol (vitamin D3) 1,250 mcg PO QWEEK 12/12/20 [History Last Taken 12/10/20] metformin 1,000 mg PO BID 12/12/20 [History Last Taken 12/12/20] potassium chloride 10 meq PO .QID 12/12/20 [History Last Taken 12/12/20] valsartan-hydrochlorothiazide 1 tab PO DAILY 12/12/20 [History Last Taken 12/12/20] Allergy/AdvReac Type Severity Reaction Status Date / Time No Known Allergies Allergy Verified 12/12/20 16:12 Family History Other Adopted Surgical History History of left knee surgery History of neck surgery Hx of cardiac catheterization Hx of colonoscopy Social History Smoking Status: Former smoker quit date: 07/18/15 second hand exposure: No alcohol intake: never substance use type: does not use caffeine: Yes what type of physical activity do you participate in: weight training frequency: 3-4 times per week seatbelt use: always Physical Exam Narrative This patient seen and evaluated today at bedside along with the nursing staff Alert orientated x3 Not in acute distress Cardiac exam review of the telemetry showed underlying A. fib with better controlled ventricular rate on the current treatment with IV Cardizem Cardiac exam revealed also S1-S2 is irregular There is no murmur Chest exam clear to auscultation Examination of the abdomen is soft Examination lower extremity no lower extremity edema Pedal pulses palpable +2. Central nervous system exam no focal neurological deficit noted. Objective Data Vital Signs: Vital Signs Temp Pulse Resp BP Pulse Ox 98.1 F 99 18 118/85 H 97 12/13/20 07:00 12/13/20 12:10 12/13/20 12:10 12/13/20 12:10 12/13/20 12:10 Oxygen Delivery Method Room Air Weight: 355 lb 6.162 oz Body Mass Index (BMI) 48.1 Intake & Output: Intake and Output for Last 24 Hours 12/11/20 12/12/20 12/13/20 23:59 23:59 23:59 Intake Total 250.92 / 253.42 869.75 / 869.75 Output Total 150 / 150 1150 / 1150 Balance 100.92 / 103.42 -280.25 / -280.25 Lab / Micro Data Result Diagrams: 12/13/20 06:28 12/13/20 06:28 Labs: Laboratory Results - last 24 hr 12/12/20 12/12/20 12/12/20 16:35 16:35 16:35 WBC 9.0 RBC 5.54 Hgb 14.7 Hct 45.8 MCV 82.7 MCH 26.5 L MCHC 32.1 RDW Std Deviation 46.2 H RDW Coeff of Cornelius 15.3 H Plt Count 314 MPV 9.8 Immature Gran % (Auto) 0.300 Neut % (Auto) 63.8 Lymph % (Auto) 24.3 [place] % (Auto) 7.8 Eos % (Auto) 2.9 Baso % (Auto) 0.9 Absolute Neuts (auto) 5.7 Absolute Lymphs (auto) 2.18 Nucleated RBC % 0 PT 12.9 INR 1.0 Sodium 137 Potassium 3.5 Chloride 102 Carbon Dioxide 27.0 Anion Gap 8 BUN 17 Creatinine 1.23 Estim Creat Clear Calc 70.98 Est GFR (MDRD) Af Amer 77 Est GFR (MDRD) Non-Af 64 BUN/Creatinine Ratio 13.8 Glucose 163 H Calcium 9.2 Magnesium Total Bilirubin AST ALT Alkaline Phosphatase Troponin I < 0.015 Total Protein Albumin Globulin Albumin/Globulin Ratio TSH POC Glucose 12/12/20 12/12/20 12/12/20 16:35 16:35 22:59 WBC RBC Hgb Hct MCV MCH MCHC RDW Std Deviation RDW Coeff of Cornelius Plt Count MPV Immature Gran % (Auto) Neut % (Auto) Lymph % (Auto) [place] % (Auto) Eos % (Auto) Baso % (Auto) Absolute Neuts (auto) Absolute Lymphs (auto) Nucleated RBC % PT INR Sodium Potassium Chloride Carbon Dioxide Anion Gap BUN Creatinine Estim Creat Clear Calc Est GFR (MDRD) Af Amer Est GFR (MDRD) Non-Af BUN/Creatinine Ratio Glucose Calcium Magnesium 2.0 Total Bilirubin AST ALT Alkaline Phosphatase Troponin I Total Protein Albumin Globulin Albumin/Globulin Ratio TSH 1.78 POC Glucose 142 H 12/13/20 12/13/20 12/13/20 06:28 06:28 06:40 WBC 7.6 RBC 5.39 Hgb 14.3 Hct 44.6 MCV 82.7 MCH 26.5 L MCHC 32.1 RDW Std Deviation 45.9 H RDW Coeff of Cornelius 15.3 H Plt Count 318 MPV 10.0 Immature Gran % (Auto) 0.400 Neut % (Auto) 55.9 Lymph % (Auto) 31.4 [place] % (Auto) 8.4 Eos % (Auto) 3.0 Baso % (Auto) 0.9 Absolute Neuts (auto) 4.2 Absolute Lymphs (auto) 2.39 Nucleated RBC % 0 PT INR Sodium 138 Potassium 3.5 Chloride 103 Carbon Dioxide 28.0 Anion Gap 7 BUN 15 Creatinine 1.05 Estim Creat Clear Calc 83.14 Est GFR (MDRD) Af Amer 93 Est GFR (MDRD) Non-Af 77 BUN/Creatinine Ratio 14.3 Glucose 134 H Calcium 8.8 Magnesium Total Bilirubin 1.20 H AST 18 ALT 26 Alkaline Phosphatase 92 Troponin I Total Protein 7.4 Albumin 3.4 Globulin 4.0 Albumin/Globulin Ratio 0.8 L TSH POC Glucose 142 H 12/13/20 11:35 WBC RBC Hgb Hct MCV MCH MCHC RDW Std Deviation RDW Coeff of Cornelius Plt Count MPV Immature Gran % (Auto) Neut % (Auto) Lymph % (Auto) [place] % (Auto) Eos % (Auto) Baso % (Auto) Absolute Neuts (auto) Absolute Lymphs (auto) Nucleated RBC % PT INR Sodium Potassium Chloride Carbon Dioxide Anion Gap BUN Creatinine Estim Creat Clear Calc Est GFR (MDRD) Af Amer Est GFR (MDRD) Non-Af BUN/Creatinine Ratio Glucose Calcium Magnesium Total Bilirubin AST ALT Alkaline Phosphatase Troponin I Total Protein Albumin Globulin Albumin/Globulin Ratio TSH POC Glucose 168 H Cardiology Labs/Tests 12/12/20 16:35: WBC 9.0, RBC 5.54, Hgb 14.7, Hct 45.8, MCV 82.7, MCH 26.5 L, MCHC 32.1, Plt Count 314, MPV 9.8, Immature Gran % (Auto) 0.300, Neut % (Auto) 63.8, Lymph % (Auto) 24.3, [place] % (Auto) 7.8, Eos % (Auto) 2.9, Baso % (Auto) 0.9, Absolute Neuts (auto) 5.7, Nucleated RBC % 0 12/12/20 16:35: PT 12.9, INR 1.0 12/12/20 16:35: Sodium 137, Potassium 3.5, Chloride 102, Carbon Dioxide 27.0, Anion Gap 8, BUN 17, Creatinine 1.23, Est GFR (MDRD) Af Amer 77, Est GFR (MDRD) Non-Af 64, BUN/Creatinine Ratio 13.8, Glucose 163 H, Calcium 9.2, Troponin I < 0.015 12/12/20 16:35: Magnesium 2.0 12/13/20 06:28: WBC 7.6, RBC 5.39, Hgb 14.3, Hct 44.6, MCV 82.7, MCH 26.5 L, MCHC 32.1, Plt Count 318, MPV 10.0, Immature Gran % (Auto) 0.400, Neut % (Auto) 55.9, Lymph % (Auto) 31.4, [place] % (Auto) 8.4, Eos % (Auto) 3.0, Baso % (Auto) 0.9, Absolute Neuts (auto) 4.2, Nucleated RBC % 0 12/13/20 06:28: Sodium 138, Potassium 3.5, Chloride 103, Carbon Dioxide 28.0, Anion Gap 7, BUN 15, Creatinine 1.05, Est GFR (MDRD) Af Amer 93, Est GFR (MDRD) Non-Af 77, BUN/Creatinine Ratio 14.3, Glucose 134 H, Calcium 8.8, Total Bilirubin 1.20 H Rhythm: Atrial fibrillation with rapid ventricular rate. EKG: Atrial fibrillation rapid ventricular rate ECHO: Review of bedside echocardiogram with contrast revealed LV function preserved. Radiography Diagnostic Testing: Radiology Impression Chest X-Ray 12/12/20 16:40 IMPRESSION: No acute cardiopulmonary findings or changes. Negative for new consolidation, focal atelectasis, cardiomegaly or pleural effusion. Electronically Signed: Maty Berger MD at 16:56 EDT , Service support ,
--- NOTE | 2020-12-13 13:34 | PN.HOSP_ITS ---
Documented by User: Kingston MANCIA 12/13/20 14:01 Subjective Subjective Patient is a 59-year-old male comfortably resting in bed, alert and orient x3. Patient reports no progression of symptoms from admission. Denies chest pain, shortness of breath, palpitations, sputum production, hemoptysis, fever, chills, N/V/D. Objective Data Objective Data Vital Signs: Vital Signs Temp Pulse Resp BP Pulse Ox 97.8 F 102 H 17 142/121 H 95 12/13/20 13:00 12/13/20 13:00 12/13/20 13:00 12/13/20 13:00 12/13/20 13:00 Oxygen Delivery Method Room Air Weight: 355 lb 6.162 oz Body Mass Index (BMI) 48.1 Intake & Output: Intake and Output for Last 24 Hours 12/11/20 12/12/20 12/13/20 23:59 23:59 23:59 Intake Total 250.92 / 253.42 874.75 / 874.75 Output Total 150 / 150 1150 / 1150 Balance 100.92 / 103.42 -275.25 / -275.25 Lab / Micro Data Result Diagrams: 12/13/20 06:28 12/13/20 06:28 Labs: Laboratory Results - last 24 hr 12/12/20 12/12/20 12/12/20 16:35 16:35 16:35 WBC 9.0 RBC 5.54 Hgb 14.7 Hct 45.8 MCV 82.7 MCH 26.5 L MCHC 32.1 RDW Std Deviation 46.2 H RDW Coeff of Cornelius 15.3 H Plt Count 314 MPV 9.8 Immature Gran % (Auto) 0.300 Neut % (Auto) 63.8 Lymph % (Auto) 24.3 [place] % (Auto) 7.8 Eos % (Auto) 2.9 Baso % (Auto) 0.9 Absolute Neuts (auto) 5.7 Absolute Lymphs (auto) 2.18 Nucleated RBC % 0 PT 12.9 INR 1.0 Sodium 137 Potassium 3.5 Chloride 102 Carbon Dioxide 27.0 Anion Gap 8 BUN 17 Creatinine 1.23 Estim Creat Clear Calc 70.98 Est GFR (MDRD) Af Amer 77 Est GFR (MDRD) Non-Af 64 BUN/Creatinine Ratio 13.8 Glucose 163 H Calcium 9.2 Magnesium Total Bilirubin AST ALT Alkaline Phosphatase Troponin I < 0.015 Total Protein Albumin Globulin Albumin/Globulin Ratio TSH POC Glucose 12/12/20 12/12/20 12/12/20 16:35 16:35 22:59 WBC RBC Hgb Hct MCV MCH MCHC RDW Std Deviation RDW Coeff of Cornelius Plt Count MPV Immature Gran % (Auto) Neut % (Auto) Lymph % (Auto) [place] % (Auto) Eos % (Auto) Baso % (Auto) Absolute Neuts (auto) Absolute Lymphs (auto) Nucleated RBC % PT INR Sodium Potassium Chloride Carbon Dioxide Anion Gap BUN Creatinine Estim Creat Clear Calc Est GFR (MDRD) Af Amer Est GFR (MDRD) Non-Af BUN/Creatinine Ratio Glucose Calcium Magnesium 2.0 Total Bilirubin AST ALT Alkaline Phosphatase Troponin I Total Protein Albumin Globulin Albumin/Globulin Ratio TSH 1.78 POC Glucose 142 H 12/13/20 12/13/20 12/13/20 06:28 06:28 06:40 WBC 7.6 RBC 5.39 Hgb 14.3 Hct 44.6 MCV 82.7 MCH 26.5 L MCHC 32.1 RDW Std Deviation 45.9 H RDW Coeff of Cornelius 15.3 H Plt Count 318 MPV 10.0 Immature Gran % (Auto) 0.400 Neut % (Auto) 55.9 Lymph % (Auto) 31.4 [place] % (Auto) 8.4 Eos % (Auto) 3.0 Baso % (Auto) 0.9 Absolute Neuts (auto) 4.2 Absolute Lymphs (auto) 2.39 Nucleated RBC % 0 PT INR Sodium 138 Potassium 3.5 Chloride 103 Carbon Dioxide 28.0 Anion Gap 7 BUN 15 Creatinine 1.05 Estim Creat Clear Calc 83.14 Est GFR (MDRD) Af Amer 93 Est GFR (MDRD) Non-Af 77 BUN/Creatinine Ratio 14.3 Glucose 134 H Calcium 8.8 Magnesium Total Bilirubin 1.20 H AST 18 ALT 26 Alkaline Phosphatase 92 Troponin I Total Protein 7.4 Albumin 3.4 Globulin 4.0 Albumin/Globulin Ratio 0.8 L TSH POC Glucose 142 H 12/13/20 11:35 WBC RBC Hgb Hct MCV MCH MCHC RDW Std Deviation RDW Coeff of Cornelius Plt Count MPV Immature Gran % (Auto) Neut % (Auto) Lymph % (Auto) [place] % (Auto) Eos % (Auto) Baso % (Auto) Absolute Neuts (auto) Absolute Lymphs (auto) Nucleated RBC % PT INR Sodium Potassium Chloride Carbon Dioxide Anion Gap BUN Creatinine Estim Creat Clear Calc Est GFR (MDRD) Af Amer Est GFR (MDRD) Non-Af BUN/Creatinine Ratio Glucose Calcium Magnesium Total Bilirubin AST ALT Alkaline Phosphatase Troponin I Total Protein Albumin Globulin Albumin/Globulin Ratio TSH POC Glucose 168 H Radiography Diagnostic Testing: Radiology Impression Chest X-Ray 12/12/20 16:40 IMPRESSION: No acute cardiopulmonary findings or changes. Negative for new consolidation, focal atelectasis, cardiomegaly or pleural effusion. Electronically Signed: Maty Berger MD at 16:56 EDT , Service support , Physical Exam Narrative See subjective. Const alert, oriented x3 and no apparent distress HEENT head/scalp atraumatic and moist oral mucous membranes Head and Scalp: normocephalic Eyes PERRL, EOMs intact bilaterally and conjunctivae normal Neck no lymphadenopathy, supple and no JVD Resp normal respiratory effort, no retractions, no use of accessory muscles and clear to auscultation bilaterally Cardio regular rate, regular rhythm, no murmurs and no JVD GI normal to inspection, nondistended, normoactive bowel sounds, soft to palpation, non-tender and non-distended Extremity normal to inspection and full ROM Skin no rashes or lesions noted, no wounds, skin turgor normal and no jaundice Neuro CN's II-XII intact bilaterally Psych affect normal Assessment & Plan Assessment/Plan (1) Diabetes mellitus, type II: QUALIFIERS: Diabetes mellitus complication status: with other specified complication Diabetes mellitus longterm insulin use: without long wall shear operator use Qualified Code(s): E11.69 - Type 2 diabetes mellitus with other specified complication (2) Morbid obesity with BMI of 45.0-49.9, adult: (3) Hypertension: QUALIFIERS: Hypertension type: essential hypertension Qualified Code(s): I10 - Essential (primary) hypertension (4) Atrial fibrillation with rapid ventricular response: (5) Sleep apnea: QUALIFIERS: Sleep apnea type: obstructive Qualified Code(s): G47 .33 - Obstructive sleep apnea (adult) (pediatric) (6) Hyperlipemia: QUALIFIERS: Hyperlipidemia type: unspecified Qualified Code(s): E78.5 - Hyperlipidemia, unspecified PLAN: See subjective for patient presentation. Will monitor overnight for medication changes as indicated below. If patient tolerates well, will be discharged tomorrow morning. 1) A-Fib w/ RVR Cardiology following; echocardiogram demonstrated preserved left ventricular systolic function. Plan; initiate Eliquis, initiate verapamil, discontinue Cardizem after infusion is complete, discontinue amlodipine. 2) DM2 Plan; hold metformin, sliding scale insulin ordered, continue blood glucose checks, hemoglobin A1c ordered. 3) HTN Continue hydrochlorothiazide and losartan. 4) Hyperlipidemia Continue statin. DVT prophylaxis - Eliquis initiated Patient seen by Kingston Cabral PA-C, under the supervision of Dr. Preston Documented by User: Dr. Nicole Preston DO 12/13/20 16:26 Subjective Subjective This patient was seen in conjunction with GAVINO Riggins. The following is representation my independent history and physical examination. Patient reports that he has had A. fib a couple times in the past and he knows immediately when he goes into it. He states that this episode started yesterday morning while he was at work and did not laurie and therefore he came to the emergency department. He reports he feels better now that his heart rates better. He noticed that he got very winded and fatigued with even minimal exertion. Objective Data Lab / Micro Data Result Diagrams: 12/13/20 06:28 12/13/20 06:28 Physical Exam Const alert, oriented x3 and no apparent distress Constitutional Narrative: Very pleasant, morbidly obese, middle-aged - [place] male, lying in bed, watching television, appears comfortable, nontoxic Exam Limitations: no limitations HEENT head/scalp atraumatic and moist oral mucous membranes HEENT Narrative: Mallampati 3-4, no thrush Head and Scalp: normocephalic Mouth: oral and palatal mucosa normal Eyes PERRL, EOMs intact bilaterally and conjunctivae normal Neck no lymphadenopathy, supple, no JVD and no carotid bruits Neck Narrative: Short thick neck Resp normal respiratory effort, no retractions, no use of accessory muscles and clear to auscultation bilaterally Auscultation: Negative for crackles, rales, rhonchi or wheezes Cardio S1 normal heart sound, S2 normal heart sound, no murmurs, no rub, no gallops, no clicks and no JVD Cardio Narrative: Tachycardia with irregular rhythm GI normal to inspection, nondistended, normoactive bowel sounds, soft to palpation, non-tender and non-distended; Negative for hepatosplenomegaly Palpation: Negative for tender, guarding or hernia Extremity normal to inspection and no clubbing, cyanosis or edema Peripheral Pulses: Yes pulses 2+ throughout Skin no rashes or lesions noted, no wounds, skin turgor normal, no jaundice, no petechiae and no mottling Neuro oriented x3, CN's II-XII intact bilaterally, moves all extremities, no focal motor deficits and no sensory deficits noted Sensorium / Orientation: awake, alert, oriented to person, oriented to place and oriented to time Speech: speech normal Motor Exam: strength 5/5 throughout Psych affect normal Assessment & Plan Assessment/Plan (1) Atrial fibrillation with rapid ventricular response: PLAN: Assessment: A. fib with RVR Mild hyperbilirubinemia DM-2 Hypertension Hyperlipidemia Plan: -Cardiology has evaluated the patient discontinued the Cardizem drip and placed patient on p.o. Cardizem -If Cardizem at current dose maintains rate control patient should be able to be discharged tomorrow -Transitioned from therapeutic Lovenox to Eliquis -Echo was performed and shows an ejection fraction of 55 to 60% and normal LV function, no valvular abnormalities were noted -Not noted on this echo but noticed on previous echo from 2015 a faintly positive agitated saline contrast study for a right to left intra-atrial shunt was noted and was consistent for small PFO versus ASD--> this places patient at high risk for stroke -[id number] score is 2 giving him a yearly stroke risk of 2.9% -Probable discharge home tomorrow with follow-up in the outpatient office with cardiology Visit Charges Inpatient E&M: 21446 Subs Hosp L2
[2020-12-13 16:16] LABS: Bedside Glucose 133 mg/dL (70-110)
[2020-12-13] MEDS: APIXABAN 5 MG TABLET PO (21:32)
[2020-12-13 21:50] LABS: Bedside Glucose 182 mg/dL (70-110)
[2020-12-14] VITALS (14 sets, daily range): BP systolic 105–150; BP diastolic 77–96; PULSE 71–89; RESP 17–20; TEMP 36.4–36.7; O2SAT 94–99
--- NOTE | 2020-12-14 05:55 | EKG12_ITS ---
Test Reason : AM EKG Blood Pressure : / mmHG Vent. Rate : 071 BPM Atrial Rate : 071 BPM P-R Int : 176 ms QRS Dur : 104 ms QT Int : 396 ms P-R-T Axes : 067 007 034 degrees QTc Int : 430 ms Normal sinus rhythm Nonspecific T wave abnormality Abnormal ECG Confirmed by SOFIA ARDON, DAGMAR ([id number]), editorial specialist RAE CARDOZA ([id number]) on 12/17/2020 1:09:23 PM Referred By: WING Confirmed By:DAGMAR BLACK MD
[2020-12-14] MEDS: Insulin Lispro 100 UNIT/ML INSULN.PEN SC ×2 (06:40→12:22)
[2020-12-14 06:51] LABS: Bedside Glucose 157 mg/dL (70-110)
[2020-12-14 06:52] LABS: Anion Gap 6 (5-15); BUN 19 mg/dL (7-18); BUN/Creat Ratio 16.5 RATIO (10-20); Calcium,Total 9.2 mg/dL (8.5-10.1); Chloride 105 mmol/L (98-107); Creatinine, Serum 1.15 mg/dL (0.70-1.30); EST Glomerular Filtration Rate 69 mL/min (>60); Est Glom Filt Rate - Afr Amer 83 mL/min (>60); Estimated Creatinine Clearance 75.91 ml/min; Glucose 133 mg/dL (74-106); Potassium 3.6 mmol/L (3.5-5.1); Sodium Level 138 mmol/L (136-145)
[2020-12-14 07:56] LABS: Hemoglobin A1c 6.9 % (3.8-5.6)
[2020-12-14] MEDS: Tamsulosin HCl 0.4 MG Capsule PO (08:53)
[2020-12-14] MEDS: hydroCHLOROthiazide 12.5mg 12.5 MG PO (08:53)
[2020-12-14] MEDS: Losartan Potassium 100 MG Tablet PO (08:53)
[2020-12-14] MEDS: APIXABAN 5 MG TABLET PO (08:53)
[2020-12-14] MEDS: Atorvastatin Calcium 40 MG Tablet PO (08:54)
[2020-12-14] MEDS: Potassium Chloride Oral Tablet 10 MEQ PO ×2 (08:59→12:23)
--- NOTE | 2020-12-14 10:22 | PCM.DC ---
Discharge Instructions Diet Discharge Diet: No restrictions Activity Discharge Activity: Return to Normal Activity Follow Up Care Please Follow Up With: Primary care provider When: Within the next two weeks. Test Results: Test results from this visit will be discussed in further detail at your follow-up appointment, if applicable. Discharge Plan Admission Admit Date/Time: 12/12/20 21:00 Primary Reason for Your Visit: Atrial Fibrillation Attending Provider: Nicole Preston Primary Care Provider: Leydi Chun Consulting Providers: Leslie Capone Instructions Patient Instructions: Atrial Fibrillation Discharge Orders/Prescriptions Prescriptions: New Eliquis 5 mg tablet 5 mg PO BID Qty: 60 RF: 0 verapamil 120 mg tablet extended release 120 mg PO DAILY Qty: 30 RF: 0 metoprolol tartrate 25 mg tablet 25 mg PO DAILY Qty: 30 RF: 0 Continued tamsulosin 0.4 mg capsule 0.4 mg PO DAILY RF: 0 atorvastatin 40 mg tablet 40 mg PO DAILY RF: 0 potassium chloride 10 mEq tablet extended release 10 meq PO .QID RF: 0 metformin 1,000 mg tablet 1,000 mg PO BID RF: 0 valsartan-hydrochlorothiazide 320-12.5 mg tablet 1 tab PO DAILY RF: 0 cholecalciferol (vitamin D3) 1,250 mcg (50,000 unit) capsule 1,250 mcg PO QWEEK RF: 0 testosterone 1 % (50 mg/5 gram) gel in packet 50 mg TD DAILY Qty: 150 RF: 2 Discontinued amlodipine 10 mg tablet 10 mg PO DAILY RF: 0 Referrals / Follow Up: Leslie Capone MD [STAFF PHYSICIAN] - Leydi Chun MD [Primary Care Provider] - Disposition Disposition (needs filled in before D/C Order can be placed): Home, self care
[2020-12-14] MEDS: Verapamil SR 180 MG CAPSULE PO (10:35)
--- NOTE | 2020-12-14 12:23 | PCM.DC.SUM ---
Providers Date of Admission: 12/12/20 Primary Care Physician: Dr. Leydi Chun MD Consultations 12/12/20 21:17 Consult: Cardiology Routine Consulting Provider: Leslie Capone Reason for Consult: A fib with RVR EMERGENT Consult: No MD Notified: Yes Date Notified:: 12/13/20 Time Notified: 07:12 Method of Notification: Text Reason For Visit: AFIB WITH RVR Diagnosis Discharge Diagnosis (1) Atrial fibrillation with rapid ventricular response: Status: Acute Code(s): I48.91 - Unspecified atrial fibrillation Medications at Discharge Home Medications tamsulosin 0.4 mg capsule 0.4 mg PO DAILY cap 09/10/20 testosterone 1 % (50 mg/5 gram) transdermal gel packet 50 mg TD DAILY #150 g 12/10/20 atorvastatin 40 mg PO DAILY 12/12/20 cholecalciferol (vitamin D3) 1,250 mcg PO QWEEK 12/12/20 metformin 1,000 mg PO BID 12/12/20 potassium chloride 10 meq PO .QID 12/12/20 valsartan-hydrochlorothiazide 1 tab PO DAILY 12/12/20 apixaban [Eliquis] 5 mg PO BID #60 tab 12/14/20 metoprolol tartrate 25 mg PO DAILY #30 tab 12/14/20 verapamil 120 mg PO DAILY #30 tab 12/14/20 Hospital Course Summary of Care Provided Minutes Spent on Discharge: 35 Hospital Course: See subjective for patient presentation. Patient is a 59-year-old male who was admitted to [facility] on 12/12/2020 for atrial fibrillation with RVR. Echocardiogram was obtained and demonstrated an estimated EF of 55 to 60% and normal LV systolic function. [id number] score 2, not on anticoagulation prior to admission. Cardiology was consulted due to intermittent history of A. fib. Cardiology recommends outpatient follow-up as well as initiate metoprolol 25 mg p.o. twice daily, Eliquis 5 mg p.o. twice daily and verapamil 120 mg p.o. daily. 1) A-Fib w/ RVR As above. 2) DM2 Hemoglobin A1c 6.9, Within goal. Plan; continue Metformin, follow-up with primary care provider within the next 2 weeks. 3) HTN Continue hydrochlorothiazide and losartan. 4) Hyperlipidemia Continue statin. Patient seen by Kingston Cabral PA-C, under the supervision of Dr. Preston Physical Exam Narrative Patient is a 59-year-old male who is comfortably resting in bed, alert and oriented x3. Patient reports no change or progression of symptoms from yesterday. Denies chest pain, shortness of breath, palpitations, sputum production, hemoptysis, fever, chills, N/V/D. Const alert, oriented x3 and no apparent distress HEENT normocephalic, head/scalp atraumatic and hearing grossly normal bilaterally Eyes PERRL, EOMs intact bilaterally and conjunctivae normal Neck no lymphadenopathy, supple and no JVD Resp normal respiratory effort, no retractions, no use of accessory muscles and clear to auscultation bilaterally Cardio regular rate, regular rhythm, no murmurs and no JVD GI normal to inspection, nondistended, normoactive bowel sounds, soft to palpation, non-tender and non-distended Extremity normal to inspection, full ROM and no clubbing, cyanosis or edema Skin no rashes or lesions noted and no wounds Neuro CN's II-XII intact bilaterally Psych affect normal ABG / Lab / Microbiology Data Result Diagrams: 12/13/20 06:28 12/14/20 06:00 Laboratory: Laboratory Results - last 24 hr 12/13/20 12/13/20 12/14/20 16:07 21:28 06:00 Sodium Potassium Chloride Carbon Dioxide Anion Gap BUN Creatinine Estim Creat Clear Calc Est GFR (MDRD) Af Amer Est GFR (MDRD) Non-Af BUN/Creatinine Ratio Glucose Hemoglobin A1c 6.9 H Calcium POC Glucose 133 H 182 H 12/14/20 12/14/20 06:00 06:38 Sodium 138 Potassium 3.6 Chloride 105 Carbon Dioxide 27.0 Anion Gap 6 BUN 19 H Creatinine 1.15 Estim Creat Clear Calc 75.91 Est GFR (MDRD) Af Amer 83 Est GFR (MDRD) Non-Af 69 BUN/Creatinine Ratio 16.5 Glucose 133 H Hemoglobin A1c Calcium 9.2 POC Glucose 157 H Radiography Diagnostic Testing: Radiology Impression Echocardiogram 12/12/20 21:22 Interpretation Summary The estimated ejection fraction is EF 55-60% %. Normal LV systolic function Cardiac rhythm A fib Ordering Physician: Aliyah Osborne Referring Physician: Leydi Chun Performed By: Hanane Whyte, ERNST, RVT D/C Instructions Discharge Diet: No restrictions Discharge Activity: Return to Normal Activity Please Follow Up With: Primary care provider When: Within the next two weeks. Meaningful Use Info Meaningful Use Diagnoses (Choose all that apply): None applicable Discharge Plan Admission Admit Date/Time: 12/12/20 21:00 Primary Reason for Your Visit: Atrial Fibrillation Attending Provider: Nicole Preston Primary Care Provider: Leydi Chun Consulting Providers: Leslie Capone Instructions Patient Instructions: Atrial Fibrillation Additional Instructions / Restrictions: Patient Problems: Altered Health Status related to Hospitalization Patient Goals: *Optimal Level of Health *Keep Appointments *Medication Compliance *Remain Safe Discharge Orders/Prescriptions Prescriptions: New Eliquis 5 mg tablet 5 mg PO BID Qty: 60 RF: 0 verapamil 120 mg tablet extended release 120 mg PO DAILY Qty: 30 RF: 0 metoprolol tartrate 25 mg tablet 25 mg PO DAILY Qty: 30 RF: 0 Continued tamsulosin 0.4 mg capsule 0.4 mg PO DAILY RF: 0 atorvastatin 40 mg tablet 40 mg PO DAILY RF: 0 potassium chloride 10 mEq tablet extended release 10 meq PO .QID RF: 0 metformin 1,000 mg tablet 1,000 mg PO BID RF: 0 valsartan-hydrochlorothiazide 320-12.5 mg tablet 1 tab PO DAILY RF: 0 cholecalciferol (vitamin D3) 1,250 mcg (50,000 unit) capsule 1,250 mcg PO QWEEK RF: 0 testosterone 1 % (50 mg/5 gram) gel in packet 50 mg TD DAILY Qty: 150 RF: 2 Discontinued amlodipine 10 mg tablet 10 mg PO DAILY RF: 0 Referrals / Follow Up: Leslie Capone MD [STAFF PHYSICIAN] - (Please call to schedule follow up appointment) Leydi Chun MD [Primary Care Provider] - (Please call to schedule follow up appointment) Disposition Disposition (needs filled in before D/C Order can be placed): Home, self care
[2020-12-14 12:40] LABS: Bedside Glucose 172 mg/dL (70-110)
--- NOTE | 2020-12-14 12:58 | PCM.PN.CARD ---
Subjective Subjective Patient seen and evaluated today at bedside along with the nursing staff, sister at bedside at time of evaluation He been stable clinically he had no symptoms to report this morning. Objective Data Vital Signs: Vital Signs Temp Pulse Resp BP Pulse Ox 97.9 F 87 17 146/87 H 98 12/14/20 08:40 12/14/20 09:00 12/14/20 09:00 12/14/20 09:00 12/14/20 09:00 Oxygen Delivery Method Room Air Weight: 355 lb 2.635 oz Body Mass Index (BMI) 48.1 Intake & Output: Intake and Output for Last 24 Hours 12/12/20 12/13/20 12/14/20 23:59 23:59 23:59 Intake Total 250.92 / 253.42 1578.08 / 1588.08 452.5 / 452.5 Output Total 150 / 150 1974 350 / 350 Balance 100.92 / 103.42 -396.92 / -386.92 102.5 / 102.5 Lab / Micro Data Result Diagrams: 12/13/20 06:28 12/14/20 06:00 Labs: Laboratory Results - last 24 hr 12/13/20 12/13/20 12/14/20 16:07 21:28 06:00 Sodium Potassium Chloride Carbon Dioxide Anion Gap BUN Creatinine Estim Creat Clear Calc Est GFR (MDRD) Af Am Est GFR (MDRD) Non-Af BUN/Creatinine Ratio Glucose Hemoglobin A1c 6.9 H Calcium POC Glucose 133 H 182 H 12/14/20 12/14/20 12/14/20 06:00 06:38 11:54 Sodium 138 Potassium 3.6 Chloride 105 Carbon Dioxide 27.0 Anion Gap 6 BUN 19 H Creatinine 1.15 Estim Creat Clear Calc 75.91 Est GFR (MDRD) Af Amer 83 Est GFR (MDRD) Non-Af 69 BUN/Creatinine Ratio 16.5 Glucose 133 H Hemoglobin A1c Calcium 9.2 POC Glucose 157 H 172 H Cardiology Labs/Tests 12/14/20 06:00: Hemoglobin A1c 6.9 H 12/14/20 06:00: Sodium 138, Potassium 3.6, Chloride 105, Carbon Dioxide 27.0, Anion Gap 6, BUN 19 H, Creatinine 1.15, Est GFR (MDRD) Af Amer 83, Est GFR (MDRD) Non-Af 69, BUN/Creatinine Ratio 16.5, Glucose 133 H, Calcium 9.2 Rhythm: EKG: ECHO: Stress Test: Cardiac Cath: PCI: CT Surgery: Holter monitor: EPS: PPM: CXR: Chest CT Scan: Radiography Diagnostic Testing: Radiology Impression Echocardiogram 12/12/20 21:22 Interpretation Summary The estimated ejection fraction is EF 55-60% %. 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 fib with RVR Cardiac examination S1-S2 is regular There is no murmur no systolic or diastolic murmur. Chest examination is clear to auscultation with no added sounds Examination abdomen soft Examination of central nervous system no focal neurological deficit. Examination lower extremity no clubbing no cyanosis pedal pulses palpable no lower extremity edema. Assessment & Plan Assessment/Plan (1) Atrial fibrillation with rapid ventricular response: PLAN: 59-year-old patient who admitted with A. fib with RVR, converted to normal sinus rhythm. Review his risk for stroke patient had history of diabetes, hypertension. With a high risk for stroke according to [id number] Patient converted to normal sinus rhythm. Recommendation and plan; 1. We reviewed his current medication patient started on anticoagulation with Eliquis, risk-benefit explained in detail to the patient. 2. We will continue on verapamil LA with a beta-rhett metoprolol 3. The echocardiographic evaluation showed LV function is preserved. 4. Recommended to follow-up with cardiology, [facility] store mgr/for continuity of cardiac care plan and monitoring his medication. (2) Hypertension: QUALIFIERS: Hypertension type: essential hypertension Qualified Code(s): I10 - Essential (primary) hypertension (3) Morbid obesity with BMI of 45.0-49.9, adult:
--- NOTE | 2020-12-14 13:57 | DS.PCM_ITS ---
Providers Date of Admission: 12/12/20 Primary Care Physician: Dr. Leydi Chun MD Consultations 12/12/20 21:17 Consult: Cardiology Routine Consulting Provider: Leslie Capone Reason for Consult: A fib with RVR EMERGENT Consult: No MD Notified: Yes Date Notified:: 12/13/20 Time Notified: 07:12 Method of Notification: Text Reason For Visit: AFIB WITH RVR Diagnosis Discharge Diagnosis (1) Atrial fibrillation with rapid ventricular response: Status: Acute Code(s): I48.91 - Unspecified atrial fibrillation (2) Hypertension: Status: Chronic Code(s): I10 - Essential (primary) hypertension Qualifiers: Hypertension type: essential hypertension Qualified Code(s): I10 - Essential (primary) hypertension (3) Morbid obesity with BMI of 45.0-49.9, adult: Status: Chronic Code(s): E66.01 - Morbid (severe) obesity due to excess calories; Z68.42 - Body mass index [BMI] 45.0-49.9, adult Medications at Discharge Home Medications tamsulosin 0.4 mg capsule 0.4 mg PO DAILY cap 09/10/20 testosterone 1 % (50 mg/5 gram) transdermal gel packet 50 mg TD DAILY #150 g 12/10/20 atorvastatin 40 mg PO DAILY 12/12/20 cholecalciferol (vitamin D3) 1,250 mcg PO QWEEK 12/12/20 metformin 1,000 mg PO BID 12/12/20 potassium chloride 10 meq PO .QID 12/12/20 valsartan-hydrochlorothiazide 1 tab PO DAILY 12/12/20 apixaban [Eliquis] 5 mg PO BID #60 tab 12/14/20 metoprolol tartrate 25 mg PO DAILY #30 tab 12/14/20 verapamil 120 mg PO DAILY #30 tab 12/14/20 Hospital Course Operations None Procedures 2-D Echocardiogram (EF was 55 to 60% with normal LV systolic function, patient was in atrial fibrillation at the time of the study) Summary of Care Provided Minutes Spent on Discharge: 29 Hospital Course: Mr. August is a 59-year-old male who presented to the emergency department at [facility] on 12/12/2020 with a 1 day history of palpitations. Upon admission he reported that he had a history of atrial fibrillation although he had not been in atrial fibrillation for some time. On the morning of admission he woke up and stated he had palpitations and he felt that his heart rate was irregular. He had some associated lightheadedness and diaphoresis and exertional shortness of breath. Upon admission he denied chest pain PND or orthopnea. EKG in the emergency department revealed A. fib with RVR heart rate was 123 and he was given Cardizem and placed on a Cardizem drip. He was admitted to PCU with continued Cardizem drip and therapeutic Lovenox. He was evaluated by cardiology. They discontinued the Cardizem drip and placed him on verapamil and metoprolol as well as Eliquis for anticoagulation. He has a [id number] score of 2. His TSH was in with normal limits. His echocardiogram showed a normal EF with no left ventricular abnormalities. Upon questioning the patient states that he was taking something called vapor 5 which is a preworkout supplement he feels that this is likely what threw him in atrial fibrillation as it made him super focused and hyperactive for about 24 hours after taking it. I suggested that he stop taking this. He questioned if he could have some coffee daily. I asked him how much he takes and he reported he drinks probably 8 to 16 ounces daily. I told him was okay to continue doing this but with recurrence of atrial fibrillation he may need to stop this as micky oliver. Hemoglobin A1c was obtained and was 6.9 indicating good control. He is to follow-up in the outpatient office with cardiology in 4 to 6 weeks. He is to follow-up with primary care physician within the week. Discharge diagnoses Paroxysmal atrial fibrillation with rapid ventricular rate Mild hyperbilirubinemia DM-2 Hypertension Hyperlipidemia SAÚL Morbid obesity Physical Exam Narrative Physical exam: General: Alert, Oriented x3, Cooperative, No apparent distress, Well developed HEENT: Atraumatic Oral: Moist Mucosa Neck: Supple Lungs: Clear to auscultation Cardiovascular: HS I+II, regular, no murmurs Abdomen: Bowel Sounds Present, Soft, Non Tender Extremities: No edema Skin: No rashes, No breakdown Neurological: Grossly intact Psych/Mental Status: Appropriate Const alert, oriented x3 and no apparent distress Constitutional Narrative: Very pleasant, morbidly obese, middle-aged - [place] male, sitting up in bed watching television, appears comfortable, nontoxic General Appearance: cooperative, comfortable, well kempt and well developed Exam Limitations: no limitations HEENT normocephalic and head/scalp atraumatic Neck Neck Narrative: Short thick neck Resp normal respiratory effort, no retractions, no use of accessory muscles and clear to auscultation bilaterally Auscultation: Negative for crackles, rales, rhonchi or wheezes Cardio regular rate, regular rhythm, S1 normal heart sound, S2 normal heart sound, no murmurs, no rub, no gallops, no clicks and no JVD GI normal to inspection, nondistended, normoactive bowel sounds, soft to palpation, non-tender and non-distended; Negative for hepatosplenomegaly Palpation: Negative for tender, guarding or hernia Extremity normal to inspection and no clubbing, cyanosis or edema Skin no petechiae and no mottling Neuro oriented x3 Sensorium / Orientation: awake, alert, oriented to person, oriented to place and oriented to time ABG / Lab / Microbiology Data Result Diagrams: 12/13/20 06:28 12/14/20 06:00 Laboratory: Laboratory Results - last 24 hr 12/13/20 12/13/20 12/14/20 16:07 21:28 06:00 Sodium Potassium Chloride Carbon Dioxide Anion Gap BUN Creatinine Estim Creat Clear Calc Est GFR (MDRD) Af Amer Est GFR (MDRD) Non-Af BUN/Creatinine Ratio Glucose Hemoglobin A1c 6.9 H Calcium POC Glucose 133 H 182 H 12/14/20 12/14/20 12/14/20 06:00 06:38 11:54 Sodium 138 Potassium 3.6 Chloride 105 Carbon Dioxide 27.0 Anion Gap 6 BUN 19 H Creatinine 1.15 Estim Creat Clear Calc 75.91 Est GFR (MDRD) Af Amer 83 Est GFR (MDRD) Non-Af 69 BUN/Creatinine Ratio 16.5 Glucose 133 H Hemoglobin A1c Calcium 9.2 POC Glucose 157 H 172 H Radiography Diagnostic Testing: Radiology Impression Echocardiogram 12/12/20 21:22 Interpretation Summary The estimated ejection fraction is EF 55-60% %. Normal LV systolic function Cardiac rhythm A fib Ordering Physician: Aliyah Osborne Referring Physician: Leydi Chun Performed By: Hanane Whyte RDCS, RVT D/C Instructions Discharge Diet: No restrictions Discharge Activity: Return to Normal Activity Please Follow Up With: Primary care provider When: Within the next two weeks. Meaningful Use Info Meaningful Use Diagnoses (Choose all that apply): None applicable Discharge Plan Admission Admit Date/Time: 12/12/20 21:00 Primary Reason for Your Visit: Atrial Fibrillation Attending Provider: Nicole Preston Primary Care Provider: Leydi Chun Consulting Providers: Leslie Capone Instructions Patient Instructions: Atrial Fibrillation Additional Instructions / Restrictions: Patient Problems: Altered Health Status related to Hospitalization Patient Goals: *Optimal Level of Health *Keep Appointments *Medication Compliance *Remain Safe Discharge Orders/Prescriptions Prescriptions: New Eliquis 5 mg tablet 5 mg PO BID Qty: 60 RF: 0 verapamil 120 mg tablet extended release 120 mg PO DAILY Qty: 30 RF: 0 metoprolol tartrate 25 mg tablet 25 mg PO DAILY Qty: 30 RF: 0 Continued tamsulosin 0.4 mg capsule 0.4 mg PO DAILY RF: 0 atorvastatin 40 mg tablet 40 mg PO DAILY RF: 0 potassium chloride 10 mEq tablet extended release 10 meq PO .QID RF: 0 metformin 1,000 mg tablet 1,000 mg PO BID RF: 0 valsartan-hydrochlorothiazide 320-12.5 mg tablet 1 tab PO DAILY RF: 0 cholecalciferol (vitamin D3) 1,250 mcg (50,000 unit) capsule 1,250 mcg PO QWEEK RF: 0 testosterone 1 % (50 mg/5 gram) gel in packet 50 mg TD DAILY Qty: 150 RF: 2 Discontinued amlodipine 10 mg tablet 10 mg PO DAILY RF: 0 Referrals / Follow Up: Leslie Capone MD [STAFF PHYSICIAN] - (Please call to schedule follow up appointment) Leydi Chun MD [Primary Care Provider] - (Please call to schedule follow up appointment) Disposition Disposition (needs filled in before D/C Order can be placed): Home, self care Visit Charges Inpatient E&M: [id number] Disch Hosp
== END 2020-12-14 14:39 | disposition home or self-care (01) | DRG 201 ==
LOC: ED 18:18 → PCU 18:50
PROVIDERS: Physician Assistant; Admitting Provider Internal Medicine; Emergency Provider Emergency Medicine; PCP Internal Medicine; Visit Provider Internal Medicine
DX: I48.0 Paroxysmal atrial fibrillation (principal); I10 Essential (primary) hypertension; E66.01 Morbid (severe) obesity due to excess calories; G47.33 Obstructive sleep apnea (adult) (pediatric); E78.5 Hyperlipidemia, unspecified; R17 Unspecified jaundice; Z68.42 Body mass index [BMI] 45.0-49.9, adult; Z79.01 Long term (current) use of anticoagulants; Z79.84 Long term (current) use of oral hypoglycemic drugs; Z79.899 Other long term (current) drug therapy; Z87.891 Personal history of nicotine dependence
CPT/HCPCS: 36415; 71045; 80048; 80053; 82962; 83036; 83735; 84443; 84484; 85025; 85610; 93005; 93306; 99251; 99285; Q9957; A4216; C8929; G0463; J3490

== ENCOUNTER 2021-09-08 10:02 | Outpatient (CLI) | payer MEDICAID, SELFPAY ==
[2021-09-08 12:51] LABS: Vitamin D,25 Hydroxy 45.8 ng/mL
[2021-09-08 13:07] LABS: Hemoglobin A1c 7.3 % (3.8-5.6)
[2021-09-08 13:15] LABS: ALB/GLOB Ratio 0.8 RATIO (0.9-2.4); AST(SGOT) 25 U/L (15-37); Alanine Aminotransfer ALT/SGPT 38 U/L (16-61); Albumin, Serum 3.7 g/dL (3.2-5.0); Alkaline Phosphatase 104 U/L (45-117); Anion Gap 6 (5-15); BUN 13 mg/dL (7-18); BUN/Creat Ratio 12.7 RATIO (10-20); Calcium,Total 9.1 mg/dL (8.5-10.1); Chloride 103 mmol/L (98-107); Cholesterol 140 mg/dL (200); Creatinine, Serum 1.02 mg/dL (0.70-1.30); EST Glomerular Filtration Rate 79 mL/min (>60); Est Glom Filt Rate - Afr Amer 96 mL/min (>60); Globulin 4.7 g/dL (2.2-4.2); Glucose 157 mg/dL (74-106); High Density Lipoprotein 45 mg/dL; PSA,Total - Annual Screen 0.92 ng/mL (0.00-4.00); Potassium 3.5 mmol/L (3.5-5.1); Protein, Total 8.4 g/dL (6.4-8.2); Sodium Level 137 mmol/L (136-145); Thyroid Stim Hormone (TSH) 2.09 uIU/mL (0.358-3.74); Triglycerides 46 mg/dL; Very Low Density Lipoprotein 9 mg/dL (5-40)
[2021-09-08 14:11] LABS: Absolute Lymphocyte Count 1.26 X10^3/uL (0.83-4.51); Absolute Neutrophil Count 5.5 X10^3/uL (2.0-7.7); Basophil# 0.05 X10^3/uL; Basophil% 0.7 % (0-1); Eosinophil# 0.13 X10^3/uL; Eosinophils% 1.7 % (0-5); Hematocrit 44.9 % (40-54); Hemoglobin 14.6 g/dL (13.0-16.5); Lymphocyte # 1.26 X10^3/ul (0.83-4.51); Lymphocyte % 16.8 % (19-41); Mean Corp Hgb Conc 32.5 g/dL (32-36); Mean Corpuscular Hgb 27.1 pg (27.0-32.0); Mean Corpuscular Volume 83.3 fL (80-94); Monocyte# 0.54 X10^3/uL; Monocyte% 7.2 % (0-10); NRBC Flagged by Analyzer 0 % (0-5); Neutrophil # 5.48 X10^3/uL (2.7-7.7); Neutrophil % 73.3 % (47-70); Platelet Count 319 K/mm3 (150-450); RBC Distribution Width CV 14.6 % (11.6-14.6); RBC Distribution Width SD 43.7 fl (35.1-43.9); Red Blood Count 5.39 M/mm3 (4.6-6.2); White Blood Count 7.5 K/mm3 (4.4-11.0)
[2021-09-17 10:09] LABS: Testosterone, Free 8.71 ng/dL (5.00-21.00)
[2021-09-17 18:49] LABS: Testosterone, % Free 2.25 % (1.50-4.20); Testosterone, Total 387 ng/dL (264-916)
== END 2021-09-08 23:59 | disposition home or self-care (01) ==
LOC: BIMLAB 10:02
PROVIDERS: PCP Internal Medicine; Referring Provider Internal Medicine; Visit Provider Internal Medicine
DX: R53.83 Other fatigue (principal); E11.69 Type 2 diabetes mellitus with other specified complication; E66.01 Morbid (severe) obesity due to excess calories; Z68.42 Body mass index [BMI] 45.0-49.9, adult; G47.33 Obstructive sleep apnea (adult) (pediatric); I10 Essential (primary) hypertension; E78.5 Hyperlipidemia, unspecified; E55.9 Vitamin D deficiency, unspecified; Z12.5 Encounter for screening for malignant neoplasm of prostate
CPT/HCPCS: 84153; 36415; 80053; 80061; 82306; 83036; 84402; 84403; 84443; 85025; G0103

== ENCOUNTER 2021-09-20 17:22 | Inpatient (IN) | payer MEDICAID, SELFPAY ==
[2021-09-20] VITALS (10 sets, daily range): BP systolic 187–209; BP diastolic 101–119; PULSE 87–117; RESP 17–20; TEMP 36.9; O2SAT 95–97; BMI 48.8
--- NOTE | 2021-09-20 18:43 | EKG12_ITS ---
Test Reason : SOB Blood Pressure : / mmHG Vent. Rate : 088 BPM Atrial Rate : 088 BPM P-R Int : 176 ms QRS Dur : 098 ms QT Int : 376 ms P-R-T Axes : 073 026 036 degrees QTc Int : 454 ms Normal sinus rhythm Normal ECG Confirmed by SHAHEED ARDON, LINDA ([id number]), metropolitan editor RAE CARDOZA ([id number]) on 09/22/2021 9:22:19 AM Referred By: BETHEL Confirmed By:LINDA HUMMEL MD
[2021-09-20] MEDS: Ipratropium/Albuterol Sulfate 3 ML AMPUL.NEB INHALATION (18:53)
--- NOTE | 2021-09-20 18:55 | RAD_ITS ---
STUDY: X-RAY CHEST REASON FOR EXAM: Male, 60 years old. Dyspnea TECHNIQUE: AP portable COMPARISON: 12/12/2020 FINDINGS: Elevated right hemidiaphragm and mild subsegmental atelectasis at the right base. There is no demonstrated pleural abnormality. Normal size heart. Normal mediastinum and brittany. Normal visualized pulmonary arteries. Normal visualized aortic arch and descending thoracic aorta. Dorsal spine demonstrates mild degenerative change. Normal visualized ribs, clavicles, and shoulders. There is no demonstrated abnormality of the visualized soft tissue structures of the upper abdomen. RAD/Chest 1 View (Portable) IMPRESSION: Elevated right hemidiaphragm and mild subsegmental atelectasis at the right base Electronically Signed: James Dickerson MD at 19:25 EST ,
[2021-09-20 19:02] LABS: Absolute Neutrophil Count 6.5 X10^3/uL (2.0-7.7); Basophil# 0.07 X10^3/uL; Basophil% 0.8 % (0-1); Eosinophil# 0.38 X10^3/uL; Eosinophils% 4.2 % (0-5); Hematocrit 44.1 % (40-54); Hemoglobin 14.6 g/dL (13.0-16.5); Lymphocyte % 16.5 % (19-41); Mean Corp Hgb Conc 33.1 g/dL (32-36); Mean Corpuscular Hgb 27.5 pg (27.0-32.0); Mean Corpuscular Volume 83.2 fL (80-94); Mean Platelet Vol. 9.9 fl (6.2-12.0); Monocyte# 0.55 X10^3/uL; Monocyte% 6.1 % (0-10); NRBC Flagged by Analyzer 0 % (0-5); Neutrophil # 6.53 X10^3/uL (2.7-7.7); Platelet Count 307 K/mm3 (150-450); RBC Distribution Width CV 14.6 % (11.6-14.6); RBC Distribution Width SD 44.1 fl (35.1-43.9); White Blood Count 9.1 K/mm3 (4.4-11.0)
[2021-09-20 19:21] LABS: International Normalized Ratio 1.1; Prothrombin Time (Protime)PT. 13.9 SECONDS (11.7-14.9)
[2021-09-20 19:22] LABS: ALB/GLOB Ratio 0.8 RATIO (0.9-2.4); AST(SGOT) 26 U/L (15-37); Alanine Aminotransfer ALT/SGPT 38 U/L (16-61); Albumin, Serum 3.8 g/dL (3.2-5.0); Alkaline Phosphatase 104 U/L (45-117); Anion Gap 6 (5-15); BUN 13 mg/dL (7-18); BUN/Creat Ratio 12.7 RATIO (10-20); Calcium,Total 9.3 mg/dL (8.5-10.1); Chloride 104 mmol/L (98-107); Creatinine, Serum 1.02 mg/dL (0.70-1.30); EST Glomerular Filtration Rate 79 mL/min (>60); Est Glom Filt Rate - Afr Amer 96 mL/min (>60); Estimated Creatinine Clearance 84.53 ml/min; Globulin 4.6 g/dL (2.2-4.2); Glucose 128 mg/dL (74-106); Partial Thromboplast Time 31.1 Seconds (24.1-36.2); Potassium 3.4 mmol/L (3.5-5.1); Protein, Total 8.4 g/dL (6.4-8.2); Sodium Level 138 mmol/L (136-145); Troponin-I HS 21 pg/mL (3.0-78.0)
[2021-09-20 19:35] LABS: BNP,B-Type NATRIURETIC PEPTIDE 7.3 pg/mL (0-100)
[2021-09-20] MEDS: Albuterol 2.5 MG/3 ML VIAL.NEB. INHALATION (20:29)
[2021-09-20] MEDS: hydrALAZINE 20 MG/ML Vial 5 MG IV ×2 (20:48→21:49)
[2021-09-20] MEDS: predniSONE 20 MG Tablet 60 MG PO (20:50)
--- NOTE | 2021-09-20 22:05 | CT_ITS ---
EXAM: CT ANGIOGRAPHY CHEST WITHOUT AND WITH INTRAVENOUS CONTRAST : 1960 CLINICAL INDICATION: Dyspnea TECHNIQUE: Helically acquired angiography images were obtained of the chest without and with intravenous contrast. This CT exam was performed using one or more of the following dose reduction techniques: automated exposure control, adjustment of the mA and/or kV according to patient size, and/or use of iterative reconstruction technique. This report was created using [employer] report generation technology. MIP reconstructed images were created and reviewed. CONTRAST: IV 100mL [id number] COMPARISON: None. FINDINGS: PULMONARY ARTERIES: Unremarkable. Normal in caliber. No evidence of pulmonary embolism. AORTA: Unremarkable. Normal in caliber. No evidence of dissection. GREAT VESSELS OF AORTIC ARCH: Unremarkable. Normal in caliber. No evidence of dissection. LUNGS AND PLEURAL SPACES: Unremarkable. No mass. No consolidation or edema. No pleural effusion or thickening. No pneumothorax. HEART: Unremarkable. Heart size is normal. No pericardial effusion. No signs of right heart strain, ratio of right ventricle to left ventricle measures less than 1. MEDIASTINUM: Unremarkable. No mediastinal or hilar adenopathy. Esophagus is unremarkable. No hiatal hernia. THYROID: Unremarkable. No thyroid lesions. BONES/JOINTS: Unremarkable. No suspicious lytic or blastic abnormality. CT/CTA Chest W/WO Contrast IMPRESSION: Negative CTA chest. Individualized dose optimization techniques were used for this CT. at 2307 Reported and signed by: Leonard Green MD Electronically Signed: Leonard Green MD at 23:06 RUST ,
--- NOTE | 2021-09-20 22:18 | EDS_ITS ---
HPI History of Present Illness Chief Complaint: Shortness of Breath Informant: patient Onset/Context/Timing Onset: Yesterday Context: sudden Timing: Continuous Quality: Positive for Dyspnea on exertion and Wheezing Worsened by: Exertion Relieved by: Albuterol Associated Symptoms cough; Negative for rhinorrhea, ear pain, fever, sore throat, chills, clear sputum, white sputum, yellow sputum or green sputum Chest Pain: Positive for None Narrative Narrative: Patient presents with shortness of breath that has been getting worse since yesterday. Patient states it is constant. Patient states he feels like he is wheezing. Patient states his breathing is also worse with any exertion. Patient states he was using albuterol at home which has been helping. Patient admits to a mild cough. Patient denies any sputum production. Patient denies any chest pain. Patient denies any fevers or chills. Patient does have a history of atrial fibrillation and is on Eliquis for that. PE Risk Factors: Negative for Cancer, OCP + Smoking + > 35, Prior DVT or PE, Recent immobilization, Recent surgery and Recent travel [facility] Medical History Arthritis Chronic pain CPAP (continuous positive airway pressure) dependence Diabetes Diabetes Former smoker GI bleed Gout Hyperlipemia Hypersomnia Hypertension Hypertension Irregular heart beat SAÚL (obstructive sleep apnea) Paroxysmal A-fib Primary hypogonadism in male Sleep apnea Vitamin D deficiency Home Medications atorvastatin 40 mg tablet 40 mg PO DAILY #90 tab 01/30/21 [Rx Last Taken Unknown] metoprolol tartrate 50 mg tablet 50 mg PO BID #180 tab 01/30/21 [Rx Last Taken Unknown] potassium chloride 10 mEq tablet,extended release 10 meq PO 4X/DAY #120 tab 02/23/21 [Rx Last Taken Unknown] metformin 1,000 mg tablet 1,000 mg PO BID #180 tab 04/16/21 [Rx Last Taken Unknown] valsartan 320 mg-hydrochlorothiazide 12.5 mg tablet 1 tab PO DAILY #90 tab 05/07/21 [Rx Last Taken Unknown] apixaban 5 mg tablet 5 mg PO BID #60 tab 07/14/21 [Rx Last Taken Unknown] amlodipine 10 mg tablet 10 mg PO DAILY #90 tab 08/03/21 [Rx Last Taken Unknown] tamsulosin 0.4 mg capsule 0.4 mg PO DAILY #90 cap 09/03/21 [Rx Last Taken Unknown] albuterol sulfate 90 mcg/actuation aerosol inhaler 2 puff INHALATION Q6H PRN #8.5 g 09/08/21 [Rx Last Taken Unknown] testosterone 1 % (50 mg/5 gram) transdermal gel packet 50 mg TD DAILY #150 g 09/08/21 [Rx Last Taken Unknown] cholecalciferol (vitamin D3) 1,250 mcg (50,000 unit) capsule 1,250 mcg PO QWEEK #12 cap 09/09/21 [Rx Last Taken Unknown] BP monitor #1 ea 09/17/21 [Rx Last Taken Unknown] Allergy/AdvReac Type Severity Reaction Status Date / Time No Known Allergies Allergy Verified 09/20/21 17:25 Family History Other Adopted Surgical History History of left knee surgery History of neck surgery Hx of cardiac catheterization Hx of colonoscopy Social History Smoking Status: Former smoker quit date: 07/18/15 second hand exposure: No alcohol intake: never substance use type: does not use caffeine: Yes what type of physical activity do you participate in: weight training frequency: 3-4 times per week seatbelt use: always ROS ROS ED Constitutional Constitutional ED: Denies chills or fever(s) Eyes Eyes: Denies blurry vision or change in vision ENT ENT ED: Denies rhinorrhea or sore throat Cardiovascular Cardiovascular: Denies chest pain or palpitations Respiratory/Chest Respiratory/Chest: Reports cough and dyspnea Gastrointestinal Gastrointestinal: Denies nausea or vomiting Genitourinary Genitourinary ED: Denies dysuria or hematuria Musculoskeletal Musculoskeletal: Reports neck pain; Denies back pain Integumentary Denies abscess or rash Neurologic Neurologic: Denies headache(s) or weakness Allergic/Immunologic Allergic/Immunologic ED: Denies mouth swelling or urticaria EXAM Physical Exam Const Vital Signs: 09/20/21 17:22 09/20/21 18:30 09/20/21 18:49 Temperature 98.4 F Temperature Source Temporal Pulse Rate 100 Respiratory Rate 20 H Respiratory Effort Short of Breath Pursed Lip Respiratory Depth Deep Respiratory Pattern Tachypnea Blood Pressure 201/110 H Blood Pressure Mean 140 Pulse Ox 95 96 Oxygen Delivery Method Room Air Room Air Nasal Cannula Oxygen Flow Rate (L/min) 2 09/20/21 18:54 09/20/21 20:30 09/20/21 20:52 Temperature Temperature Source Pulse Rate 87 91 107 H Respiratory Rate 20 H 17 20 H Respiratory Effort Respiratory Depth Respiratory Pattern Blood Pressure 191/118 H Blood Pressure Mean 142 Pulse Ox 95 Oxygen Delivery Method Nasal Cannula Oxygen Flow Rate (L/min) 2 09/20/21 21:17 Temperature Temperature Source Pulse Rate Respiratory Rate Respiratory Effort Respiratory Depth Respiratory Pattern Blood Pressure 187/105 H Blood Pressure Mean 132 Pulse Ox Oxygen Delivery Method Oxygen Flow Rate (L/min) Positive well nourished and well developed General Appearance ED: well developed HEENT Reports moist mucous membranes Neck supple and no JVD Resp normal respiratory effort Auscultation: wheezes throughout Cardio regular rate, regular rhythm and no murmurs GI normal to inspection, nondistended, normoactive bowel sounds and non-tender Palpation: soft Extremity normal to inspection General Extremety ED: Negative for edema or tenderness General Extremity: Negative for edema Neuro oriented x3, CN's II-XII intact bilaterally and no sensory deficits noted Sensorium / Orientation: alert Motor Exam: strength 5/5 throughout Psych mental status grossly normal Skin no rashes or lesions noted MDM MDM MDM Narrative Medical decision making narrative: Patient was given a DuoNeb aerosol. EKG was obtained. On my interpretation, it showed a normal sinus rhythm with a rate of 88. IN interval, QRS interval, and QTc intervals were all normal. [place] was normal. There are no acute ST or T wave changes. Portable 1 view chest x-ray was obtained. On my interpretation, lung antoine show some subsegmental atelectasis on the right. There is normal cardiac silhouette. Bony thorax is normal. There is no acute process noted. Radiologist also interpreted the x- ray and agrees. CBC was within normal limits. PT with INR and PTT were normal. Comprehensive metabolic profile was essentially within normal limits. BNP was normal at 7.3. High-sensitivity troponin was normal at 21. Patient was given a repeat dose of albuterol aerosol here. Patient was given a dose of prednisone. Patient's blood pressure was persistently elevated. Patient was given a dose of hydralazine. This started to improve and then it returned to 201/110. Patient was given a repeat dose of hydralazine. Patient states his breathing still is n ot feeling better. Because of this, CTA of the chest was ordered. There is no evidence of pulmonary embolism or aortic dissection. This was interpreted by the radiologist and reviewed by myself. Patient's blood pressure went back up again to over 200 systolic. Because of this, patient was started on a Cardene drip. Case was discussed with the hospitalist. He'll be in to evaluate the patient and admit the patient to his service. Lab Data Attestation: I reviewed the patient's lab results. Labs: Laboratory Results - last 24 hr 09/20/21 09/20/21 09/20/21 18:50 18:50 18:50 WBC 9.1 RBC 5.30 Hgb 14.6 Hct 44.1 MCV 83.2 MCH 27.5 MCHC 33.1 RDW Std Deviation 44.1 H RDW Coeff of Cornelius 14.6 Plt Count 307 MPV 9.9 Immature Gran % (Auto) 0.400 Neut % (Auto) 72.0 H Lymph % (Auto) 16.5 L [place] % (Auto) 6.1 Eos % (Auto) 4.2 Baso % (Auto) 0.8 Absolute Neuts (auto) 6.5 Absolute Lymphs (auto) 1.50 Nucleated RBC % 0 PT 13.9 INR 1.1 APTT 31.1 Sodium 138 Potassium 3.4 L Chloride 104 Carbon Dioxide 28.0 Anion Gap 6 BUN 13 Creatinine 1.02 Estim Creat Clear Calc 84.53 Est GFR (MDRD) Af Amer 96 Est GFR (MDRD) Non-Af 79 BUN/Creatinine Ratio 12.7 Glucose 128 H Calcium 9.3 Total Bilirubin 0.80 AST 26 ALT 38 Alkaline Phosphatase 104 Troponin I High Sens 21 B-Natriuretic Peptide Total Protein 8.4 H Albumin 3.8 Globulin 4.6 H Albumin/Globulin Ratio 0.8 L 09/20/21 18:50 WBC RBC Hgb Hct MCV MCH MCHC RDW Std Deviation RDW Coeff of Cornelius Plt Count MPV Immature Gran % (Auto) Neut % (Auto) Lymph % (Auto) [place] % (Auto) Eos % (Auto) Baso % (Auto) Absolute Neuts (auto) Absolute Lymphs (auto) Nucleated RBC % PT INR APTT Sodium Potassium Chloride Carbon Dioxide Anion Gap BUN Creatinine Estim Creat Clear Calc Est GFR (MDRD) Af Amer Est GFR (MDRD) Non-Af BUN/Creatinine Ratio Glucose Calcium Total Bilirubin AST ALT Alkaline Phosphatase Troponin I High Sens B-Natriuretic Peptide 7.3 Total Protein Albumin Globulin Albumin/Globulin Ratio Radiography Chest X-Ray - ED: 1 View, Read by ED Physician, Read by Radiologist and No Acute Disease Diagnostic Testing: Clinical Impression(s) from Imaging Studies Chest X-Ray 09/20/21 18:55 IMPRESSION: Elevated right hemidiaphragm and mild subsegmental atelectasis at the right base Electronically Signed: James Dickerson MD at 19:25 EST , Chest CTA 09/20/21 22:05 IMPRESSION: Negative CTA chest. Individualized dose optimization techniques were used for this CT. at 2307 Reported and signed by: Leonard Green MD Electronically Signed: Leonard Green MD at 23:06 EST , EKG Initial EKG: Attestation: I personally reviewed and interpreted this EKG as follows: Interpretation: Sinus Rhythm (88) and No Acute Injury Pattern Prior EKG tracings: available for review Prior: Unchanged (12/14/2020) Treatment and Re-Evaluation Vital Sign Attestation:: Vital signs reviewed prior to admission. Patient's blood pressure is still elevated. Discharge Plan Dx/Rx/DC Orders Clinical Impression: Hypertensive urgency, Dyspnea Disposition Disposition: Acute Care Hospital [facility]
[2021-09-20] MEDS: Nicardipine HCl-0.9% Sod Chlor 20 MG/200 ML IV.SOLN 50 MG IV (23:15)
[2021-09-21] VITALS (51 sets, daily range): BP systolic 121–191; BP diastolic 68–122; PULSE 69–128; RESP 15–31; TEMP 36.2–37.1; O2SAT 92–98; BMI 48.8
--- NOTE | 2021-09-21 00:13 | HP.PCM.HOS_ITS ---
HPI - General General Date of Admission: 09/21/21 HPI Narrative TOBY GARCIA, is a 60 M who presents to the hospital with shortness of breath over the last couple of days. He presented because it had been getting worse, it does look like he has a history of asthma that he takes albuterol for and he has been wheezing. He denies any fevers or chills. There are some concern in the ER that this could be cardiogenic in nature secondary to his hypertensive urgency with blood pressures over. Of note on 09/17/2021, he met with his transport assistant and at that time though he has not taken any of his nighttime doses since he was here in the hospital. He denies any recent illnesses, states he has not been around anyone sick, he is vaccinated against Covid but did not obtain his [facility] Medical History Arthritis Chronic pain CPAP (continuous positive airway pressure) dependence Diabetes Diabetes Former smoker GI bleed Gout Hyperlipemia Hypersomnia Hypertension Hypertension Irregular heart beat SAÚL (obstructive sleep apnea) Paroxysmal A-fib Primary hypogonadism in male Sleep apnea Vitamin D deficiency Home Medications atorvastatin 40 mg tablet 40 mg PO DAILY #90 tab 01/30/21 [Rx Last Taken Unknown] potassium chloride 10 mEq tablet,extended release 10 meq PO 4X/DAY #120 tab 02/23/21 [Rx Last Taken Unknown] metformin 1,000 mg tablet 1,000 mg PO BID #180 tab 04/16/21 [Rx Last Taken Unknown] albuterol sulfate 90 mcg/actuation aerosol inhaler 2 puff INHALATION Q6H PRN #8.5 g 09/08/21 [Rx Last Taken Unknown] cholecalciferol (vitamin D3) 1,250 mcg (50,000 unit) capsule 1,250 mcg PO QWEEK #12 cap 09/09/21 [Rx Last Taken Unknown] BP monitor #1 ea 09/17/21 [Rx Last Taken Unknown] amlodipine 10 mg PO DAILY 09/20/21 [History Last Taken Unknown] apixaban [Eliquis] 5 mg PO BID 09/20/21 [History Last Taken Unknown] metoprolol tartrate 50 mg PO BID 09/20/21 [History Last Taken Unknown] tamsulosin 0.4 mg PO DAILY 09/20/21 [History Last Taken Unknown] testosterone 50 mg TD DAILY 09/20/21 [History Last Taken Unknown] valsartan-hydrochlorothiazide 1 tab PO DAILY 09/20/21 [History Last Taken Unknown] Allergy/AdvReac Type Severity Reaction Status Date / Time No Known Allergies Allergy Verified 09/20/21 17:25 Family History Other Adopted Surgical History History of left knee surgery History of neck surgery Hx of cardiac catheterization Hx of colonoscopy Social History Smoking Status: Former smoker quit date: 07/18/15 second hand exposure: No alcohol intake: never substance use type: does not use caffeine: Yes what type of physical activity do you participate in: weight training frequency: 3-4 times per week seatbelt use: always ROS Constitutional Constitutional: Denies chills, fatigue, fever(s) or malaise Eyes Eyes: Denies blurry vision ENT HEENT: Denies headache(s) or nasal discharge Cardiovascular Cardiovascular: Denies chest pain, dyspnea on exertion or syncope Respiratory/Chest Respiratory/Chest: Reports cough and shortness of breath at rest; Denies shortn ess of breath with exertion Gastrointestinal Gastrointestinal: Denies constipation, diarrhea, nausea or vomiting Genitourinary Genitourinary: Denies dysuria Neurologic Neurologic: Denies focal weakness, numbness or tremor(s) Psychiatric Psychiatric: Denies anxiety or depression Vital Signs Vital Signs Vital Signs: 09/20/21 17:22 09/20/21 18:30 09/20/21 18:49 Temperature 98.4 F Temperature Source Temporal Pulse Rate 100 Respiratory Rate 20 H Respiratory Effort Short of Breath Pursed Lip Respiratory Depth Deep Respiratory Pattern Tachypnea Blood Pressure 201/110 H Blood Pressure Mean 140 Pulse Ox 95 96 Oxygen Delivery Method Room Air Room Air Nasal Cannula Oxygen Flow Rate (L/min) 2 09/20/21 18:54 09/20/21 20:30 09/20/21 20:52 Temperature Temperature Source Pulse Rate 87 91 107 H Respiratory Rate 20 H 17 20 H Respiratory Effort Respiratory Depth Respiratory Pattern Blood Pressure 191/118 H Blood Pressure Mean 142 Pulse Ox 95 Oxygen Delivery Method Nasal Cannula Oxygen Flow Rate (L/min) 2 09/20/21 21:17 09/20/21 23:15 09/20/21 23:20 Temperature 98.4 F Temperature Source Temporal Pulse Rate 102 H 105 H Respiratory Rate 20 H 19 H Respiratory Effort Respiratory Depth Respiratory Pattern Blood Pressure 187/105 H 209/119 H 193/106 H Blood Pressure Mean 132 149 135 Pulse Ox 95 97 Oxygen Delivery Method Nasal Cannula Room Air Oxygen Flow Rate (L/min) 2 2 09/20/21 23:35 Temperature Temperature Source Pulse Rate 117 H Respiratory Rate Respiratory Effort Respiratory Depth Respiratory Pattern Blood Pressure 189/101 H Blood Pressure Mean 130 Pulse Ox Oxygen Delivery Method Oxygen Flow Rate (L/min) Weight Weight: 360 lb Body Mass Index (BMI) 48.8 Physical Exam Const alert, oriented x3 and no apparent distress General Appearance: cooperative HEENT normocephalic Mouth: dry mucous membranes Eyes PERRL, EOMs intact bilaterally and conjunctivae normal Neck supple and no JVD Resp normal respiratory effort, no retractions and no use of accessory muscles Auscultation: wheezes; Negative for crackles, rales or rhonchi Cardio S1 normal heart sound, S2 normal heart sound and no murmurs Rate: tachycardic Rhythm: abnormal rhythm GI soft to palpation, non-tender and non-distended; Negative for hepatosplenomegaly Extremity General Extremity: edema; Negative for clubbing or cyanosis Skin no rashes or lesions noted Neuro no focal motor deficits and no sensory deficits noted Psych affect normal Appearance: appropriate Results Lab / Micro Data Result Diagrams: 09/20/21 18:50 09/20/21 18:50 Labs: Laboratory Results - last 24 hr 09/20/21 18:50: WBC 9.1, RBC 5.30, Hgb 14.6, Hct 44.1, MCV 83.2, MCH 27.5, MCHC 33.1, RDW Std Deviation 44.1 H, RDW Coeff of Cornelius 14.6, Plt Count 307, MPV 9.9, Immature Gran % (Auto) 0.400, Neut % (Auto) 72.0 H, Lymph % (Auto) 16.5 L, [place] % (Auto) 6.1, Eos % (Auto) 4.2, Baso % (Auto) 0.8, Absolute Neuts (auto) 6.5, Absolute Lymphs (auto) 1.50, Nucleated RBC % 0 09/20/21 18:50: PT 13.9, INR 1.1, APTT 31.1 09/20/21 18:50: Sodium 138, Potassium 3.4 L, Chloride 104, Carbon Dioxide 28.0, Anion Gap 6, BUN 13, Creatinine 1.02, Estim Creat Clear Calc 84.53, Est GFR (MDRD) Af Amer 96, Est GFR (MDRD) Non-Af 79, BUN/Creatinine Ratio 12.7, Glucose 128 H, Calcium 9.3, Total Bilirubin 0.80, AST 26, ALT 38, Alkaline Phosphatase 104, Troponin I High Sens 21, Total Protein 8.4 H, Albumin 3.8, Globulin 4.6 H, Albumin/Globulin Ratio 0.8 L 09/20/21 18:50: B-Natriuretic Peptide 7.3 Radiology Impression Chest X-Ray 09/20/21 18:55 IMPRESSION: Elevated right hemidiaphragm and mild subsegmental atelectasis at the right base Electronically Signed: James Dickerson MD at 19:25 EST , Chest CTA 09/20/21 22:05 IMPRESSION: Negative CTA chest. Individualized dose optimization techniques were used for this CT. at 2307 Reported and signed by: Leonard Green MD Electronically Signed: Leonard Green MD at 23:06 EST , Assessment & Plan Assessment/Plan (1) Hypertensive urgency: PLAN: 1. Hypertensive urgency/A. fib/HTN/HLD ?Blood pressures were in the 200s systolic he was started on nicardipine drip in the ER ?We will transition his metoprolol to Coreg to better blood pressure support and also help control heart rate ?We will continue his other home blood pressure medications ?May benefit from Imdur ?He did have an echo in November 2020 with normal EF ?CT of the chest was negative for any PEs, and chest x-ray was unremarkable ?We will obtain a viral panel to see if this explains any of his respiratory symptoms ?Continue with Lipitor and Eliquis 2. DM2 ?Hold his Metformin and place him on sliding scale insulin ?Accu-Cheks AC at bedtime ?We will make adjustments as necessary 3. BPH ?Stable ?Continue with Flomax DVT: Eliquis Charges/Coding Visit Charges Inpatient E&M: 64359 Init Hosp L3
[2021-09-21] MEDS: Carvedilol 6.25 MG Tablet PO ×3 (01:09→21:37)
[2021-09-21] MEDS: Nicardipine HCl-0.9% Sod Chlor 20 MG/200 ML IV.SOLN 150 MG IV (01:26)
[2021-09-21 01:41] LABS: Bedside Glucose 280 mg/dL (74-106)
[2021-09-21] MEDS: Nicardipine HCl-0.9% Sod Chlor 20 MG/200 ML IV.SOLN 125 MG IV ×5 (02:47→09:32)
[2021-09-21 04:55] LABS: Absolute Lymphocyte Count 0.67 X10^3/uL (0.83-4.51); Absolute Neutrophil Count 7.9 X10^3/uL (2.0-7.7); Basophil# 0.04 X10^3/uL; Basophil% 0.5 % (0-1); Eosinophil# 0.01 X10^3/uL; Eosinophils% 0.1 % (0-5); Hematocrit 43.6 % (40-54); Hemoglobin 14.5 g/dL (13.0-16.5); Lymphocyte # 0.67 X10^3/ul (0.83-4.51); Lymphocyte % 7.6 % (19-41); Mean Corp Hgb Conc 33.3 g/dL (32-36); Mean Corpuscular Hgb 27.7 pg (27.0-32.0); Mean Corpuscular Volume 83.4 fL (80-94); Mean Platelet Vol. 10.2 fl (6.2-12.0); Monocyte# 0.17 X10^3/uL; Monocyte% 1.9 % (0-10); NRBC Flagged by Analyzer 0 % (0-5); Neutrophil # 7.85 X10^3/uL (2.7-7.7); Neutrophil % 89.6 % (47-70); Platelet Count 318 K/mm3 (150-450); RBC Distribution Width CV 14.6 % (11.6-14.6); RBC Distribution Width SD 44.2 fl (35.1-43.9); Red Blood Count 5.23 M/mm3 (4.6-6.2); White Blood Count 8.8 K/mm3 (4.4-11.0)
[2021-09-21 05:08] LABS: Anion Gap 7 (5-15); BUN 16 mg/dL (7-18); BUN/Creat Ratio 13.7 RATIO (10-20); Calcium,Total 9.3 mg/dL (8.5-10.1); Chloride 101 mmol/L (98-107); Creatinine, Serum 1.17 mg/dL (0.70-1.30); EST Glomerular Filtration Rate 67 mL/min (>60); Est Glom Filt Rate - Afr Amer 82 mL/min (>60); Estimated Creatinine Clearance 73.69 ml/min; Glucose 288 mg/dL (74-106); Potassium 3.9 mmol/L (3.5-5.1); Sodium Level 135 mmol/L (136-145)
[2021-09-21 07:30] LABS: Bedside Glucose 229 mg/dL (74-106)
[2021-09-21] MEDS: Insulin Lispro 100 UNIT/ML INSULN.PEN SC ×3 (07:30→21:38)
[2021-09-21] MEDS: amLODIPine 10 MG Tablet PO (09:29)
[2021-09-21] MEDS: hydroCHLOROthiazide 12.5mg 12.5 MG PO (09:29)
[2021-09-21] MEDS: Tamsulosin HCl 0.4 MG Capsule PO (09:29)
[2021-09-21] MEDS: Losartan Potassium 100 MG Tablet PO (09:30)
[2021-09-21] MEDS: APIXABAN 5 MG TABLET PO ×2 (09:30→21:38)
--- NOTE | 2021-09-21 10:00 | CASEMGMT ---
RN CM Face to Face with patient for initial transition planning/care coordination assessment. RN CM introduced self and role at [facility]. Patient sitting in chair, alert and oriented. Patient willing to participate in assessment and is able to answer all questions appropriately. Care providers, pharmacy, and demographics verified. Patient wishes to discharge home, denies need for home health at this time. Patient states he has no further needs or concerns at this time. CM to follow for discharge planning needs that may arise. PCP: [employer]: [employer] Preferred Pharmacy: [facility] retail Insurance: [place] Prescription Benefit: yes Living Will/HPOA: none LNOK: sister Living Arrangements: Patient lives alone in an apartment 12 steps enter the apartment with railing. Patient states he is independent and able to ambulate stairs. Transportation: [facility] Van DME/HHC: Patient states he has cpap machine at home. No previous HHC or SNF. Disposition Plan: Patient to discharge home with family support and follow-up plans in place. Emely ARCHER, RN, CM
[2021-09-21 11:11] LABS: Bedside Glucose 239 mg/dL (74-106)
--- NOTE | 2021-09-21 14:10 | PN.HOSP_ITS ---
Subjective Subjective Patient is on nicardipine drip. Blood pressure 146/78. Heart rate 83 per note. Objective Data Objective Data Vital Signs: Vital Signs Temp Pulse Resp BP Pulse Ox 98.4 F 83 22 H 146/78 H 95 09/21/21 12:00 09/21/21 14:00 09/21/21 14:00 09/21/21 14:00 09/21/21 14:00 Oxygen Flow Rate (L/min) 2 Oxygen Delivery Method Room Air Weight: 359 lb 12.71 oz Body Mass Index (BMI) 48.8 Intake & Output: Intake and Output for Last 24 Hours 09/19/21 09/20/21 09/21/21 23:59 23:59 23:59 Intake Total 16.67 / 47.92 2916.67 / 2916.67 Output Total 850 / 850 Balance 16.67 / -102.08 2066.67 / 2066.67 Lab / Micro Data Result Diagrams: 09/21/21 04:25 09/21/21 04:25 Labs: Laboratory Results - last 24 hr 09/20/21 18:50: WBC 9.1, RBC 5.30, Hgb 14.6, Hct 44.1, MCV 83.2, MCH 27.5, MCHC 33.1, RDW Std Deviation 44.1 H, RDW Coeff of Cornelius 14.6, Plt Count 307, MPV 9.9, Immature Gran % (Auto) 0.400, Neut % (Auto) 72.0 H, Lymph % (Auto) 16.5 L, [place] % (Auto) 6.1, Eos % (Auto) 4.2, Baso % (Auto) 0.8, Absolute Neuts (auto) 6.5, Absolute Lymphs (auto) 1.50, Nucleated RBC % 0 09/20/21 18:50: PT 13.9, INR 1.1, APTT 31.1 09/20/21 18:50: Sodium 138, Potassium 3.4 L, Chloride 104, Carbon Dioxide 28.0, Anion Gap 6, BUN 13, Creatinine 1.02, Estim Creat Clear Calc 84.53, Est GFR (M DRD) Af Amer 96, Est GFR (MDRD) Non-Af 79, BUN/Creatinine Ratio 12.7, Glucose 128 H, Calcium 9.3, Total Bilirubin 0.80, AST 26, ALT 38, Alkaline Phosphatase 104, Troponin I High Sens 21, Total Protein 8.4 H, Albumin 3.8, Globulin 4.6 H, Albumin/Globulin Ratio 0.8 L 09/20/21 18:50: B-Natriuretic Peptide 7.3 09/21/21 01:34: POC Glucose 280 H 09/21/21 04:25: WBC 8.8, RBC 5.23, Hgb 14.5, Hct 43.6, MCV 83.4, MCH 27.7, MCHC 33.3, RDW Std Deviation 44.2 H, RDW Coeff of Cornelius 14.6, Plt Count 318, MPV 10.2, Immature Gran % (Auto) 0.300, Neut % (Auto) 89.6 H, Lymph % (Auto) 7.6 L, [place] % (Auto) 1.9, Eos % (Auto) 0.1, Baso % (Auto) 0.5, Absolute Neuts (auto) 7.9 H, Absolute Lymphs (auto) 0.67 L, Nucleated RBC % 0 09/21/21 04:25: Sodium 135 L, Potassium 3.9, Chloride 101, Carbon Dioxide 27.0, Anion Gap 7, BUN 16, Creatinine 1.17, Estim Creat Clear Calc 73.69, Est GFR (MDRD) Af Amer 82, Est GFR (MDRD) Non-Af 67, BUN/Creatinine Ratio 13.7, Glucose 288 H, Calcium 9.3 09/21/21 07:25: POC Glucose 229 H 09/21/21 11:04: POC Glucose 239 H Radiography Diagnostic Testing: Radiology Impression Chest X-Ray 09/20/21 18:55 IMPRESSION: Elevated right hemidiaphragm and mild subsegmental atelectasis at the right base Electronically Signed: James Dickerson MD at 19:25 EST Reading Location ID and State: [facility] / [place] , Service support , Chest CTA 09/20/21 22:05 IMPRESSION: Negative CTA chest. Individualized dose optimization techniques were used for this CT. at 2307 Reported and signed by: Leonard Green MD Electronically Signed: Leonard Green MD at 23:06 EST , Physical Exam Narrative General: Alert, Oriented x3, Cooperative, morbid obese 48.8 kg/m? HEENT: Atraumatic, PERRLA, EOMI, Normocephalic Oral: No Gingival or Mucosal Lesions/ Ulcerations Neck: Supple, No JVD, Negative Carotid Bruits Lungs: Air entry diminished in bilateral lung bases. No crepitation/rhonchi Cardiovascular: Regular rate, Regular Rhythm, Normal S1, Normal S2, No murmurs Abdomen: Bowel Sounds Present, Soft, Non Tender, Non-Distended : No renal angle tenderness. No suprapubic tenderness. Extremities: Bilateral pitting edema, Capillary Refill Less than 3 Seconds Skin: No rashes, No breakdown Musculoskeletal: No Tenderness to Palpation of Joints or Extremities Neurological: Cranial nerves II-XII grossly intact, DTR 2+/4 and Symmetrical, Neuro grossly intact Psych/Mental Status: Normal Affect, Appropriate. Assessment & Plan Assessment/Plan (1) Hypertensive urgency: PLAN: 1. Hypertensive urgency with chronic essential hypertension: Patient blood pressure is chronically elevated in the range of 160 to 180 mmHg at home. Currently on nicardipine drip. Blood pressure was in 200s systolic in ED. Echo in November 2020 shows normal EF. CTA chest negative for PE. Patient on carvedilol HCTZ 12.5 mg daily and amlodipine 10 mg daily and losartan 100 mg daily.. Patient said for last 6-month he has leg swelling probably after start of a mlodipine. We will decrease the dose of amlodipine to 5 mg daily and increase HCTZ to 25 mg daily. 2. paroxysmal A. fib: threat monitoring analyst shows sinus rhythm. Heart rate is controlled. On Eliquis. 3. Dyslipidemia on atorvastatin. 2. DM2 ?Hold his Metformin and on short-acting insulin. Accu-Chek before meals and at bedtime, on Humalog sliding scale. 3. BPH: No acute symptoms of irritative or obstructive lower intact symptoms. On Flomax DVT: Eliquis
[2021-09-21 16:01] LABS: Bedside Glucose 134 mg/dL (74-106)
[2021-09-21] MEDS: Atorvastatin Calcium 40 MG Tablet PO (21:38)
[2021-09-21 21:50] LABS: Bedside Glucose 256 mg/dL (74-106)
[2021-09-21] MEDS: Albuterol 2.5 MG/3 ML VIAL.NEB. INHALATION (22:14)
--- NOTE | 2021-09-21 22:26 | CPS ---
patient refused wearing our CPAP machine tonight; He states that he doesn't like the way our mask fits his face. RN notified.
[2021-09-22] VITALS (33 sets, daily range): BP systolic 139–185; BP diastolic 79–115; PULSE 82–123; RESP 15–28; TEMP 36.2–37.2; O2SAT 91–97
[2021-09-22] MEDS: Albuterol 2.5 MG/3 ML VIAL.NEB. INHALATION ×4 (03:58→21:02)
[2021-09-22 04:37] LABS: Absolute Lymphocyte Count 1.87 X10^3/uL (0.83-4.51); Absolute Neutrophil Count 6.4 X10^3/uL (2.0-7.7); Basophil# 0.07 X10^3/uL; Basophil% 0.7 % (0-1); Eosinophil# 0.55 X10^3/uL; Eosinophils% 5.7 % (0-5); Hematocrit 41.5 % (40-54); Hemoglobin 13.6 g/dL (13.0-16.5); Lymphocyte # 1.87 X10^3/ul (0.83-4.51); Lymphocyte % 19.3 % (19-41); Mean Corp Hgb Conc 32.8 g/dL (32-36); Mean Corpuscular Hgb 27.5 pg (27.0-32.0); Mean Corpuscular Volume 83.8 fL (80-94); Mean Platelet Vol. 9.7 fl (6.2-12.0); Monocyte% 8.3 % (0-10); NRBC Flagged by Analyzer 0 % (0-5); Neutrophil # 6.35 X10^3/uL (2.7-7.7); Neutrophil % 65.7 % (47-70); Platelet Count 294 K/mm3 (150-450); RBC Distribution Width CV 15.1 % (11.6-14.6); RBC Distribution Width SD 45.2 fl (35.1-43.9); Red Blood Count 4.95 M/mm3 (4.6-6.2); White Blood Count 9.7 K/mm3 (4.4-11.0)
[2021-09-22 04:49] LABS: Anion Gap 6 (5-15); BUN 18 mg/dL (7-18); BUN/Creat Ratio 19.5 RATIO (10-20); Calcium,Total 8.2 mg/dL (8.5-10.1); Chloride 104 mmol/L (98-107); Creatinine, Serum 0.92 mg/dL (0.70-1.30); EST Glomerular Filtration Rate 89 mL/min (>60); Est Glom Filt Rate - Afr Amer 108 mL/min (>60); Estimated Creatinine Clearance 93.72 ml/min; Glucose 197 mg/dL (74-106); Potassium 3.6 mmol/L (3.5-5.1); Sodium Level 138 mmol/L (136-145)
[2021-09-22 07:46] LABS: Bedside Glucose 172 mg/dL (74-106)
[2021-09-22] MEDS: Insulin Lispro 100 UNIT/ML INSULN.PEN SC ×3 (07:47→17:23)
[2021-09-22] MEDS: Insulin Lispro 100 UNIT/ML INSULN.PEN 15 UNIT SC ×3 (07:47→17:23)
--- NOTE | 2021-09-22 08:10 | PN.HOSP_ITS ---
Subjective Subjective Seen and examined Patient blood pressure is controlled. Patient is transferred to PCU. Patient shortness of breath and wheezing. Getting breathing treatment. Objective Data Objective Data Vital Signs: Vital Signs Temp Pulse Resp BP Pulse Ox 97.2 F L 99 22 H 149/99 H 96 09/22/21 08:00 09/22/21 08:00 09/22/21 08:00 09/22/21 08:00 09/22/21 08:00 Oxygen Flow Rate (L/min) 2 Oxygen Delivery Method Room Air Weight: 359 lb 12.71 oz Body Mass Index (BMI) 48.8 Intake & Output: Intake and Output for Last 24 Hours 09/20/21 09/21/21 09/22/21 23:59 23:59 23:59 Intake Total 16.67 / 47.92 3416.67 / 3816.67 400 / 400 Output Total 1525 / 1525 500 / 500 Balance 16.67 / -102.08 1891.67 / 2291.67 -100 / -100 Lab / Micro Data Result Diagrams: 09/22/21 04:15 09/22/21 04:15 Labs: Laboratory Results - last 24 hr 09/21/21 11:04: POC Glucose 239 H 09/21/21 15:51: POC Glucose 134 H 09/21/21 21:34: POC Glucose 256 H 09/22/21 04:15: WBC 9.7, RBC 4.95, Hgb 13.6, Hct 41.5, MCV 83.8, MCH 27.5, MCHC 32.8, RDW Std Deviation 45.2 H, RDW Coeff of Cornelius 15.1 H, Plt Count 294, MPV 9.7, Immature Gran % (Auto) 0.300, Neut % (Auto) 65.7, Lymph % (Auto) 19.3, Kings % (Auto) 8.3, Eos % (Auto) 5.7 H, Baso % (Auto) 0.7, Absolute Neuts (auto) 6.4, Absolute Lymphs (auto) 1.87, Nucleated RBC % 0 09/22/21 04:15: Sodium 138, Potassium 3.6, Chloride 104, Carbon Dioxide 28.0, Anion Gap 6, BUN 18, Creatinine 0.92, Estim Creat Clear Calc 93.72, Est GFR (MDRD) Af Amer 108, Est GFR (MDRD) Non-Af 89, BUN/Creatinine Ratio 19.5, Glucose 197 H, Calcium 8.2 L 09/22/21 07:41: POC Glucose 172 H Physical Exam Narrative General: Alert, Oriented x3, Cooperative, morbid obese 48.8 kg/m? HEENT: Atraumatic, PERRLA, EOMI, Normocephalic Oral: No Gingival or Mucosal Lesions/ Ulcerations Neck: Supple, No JVD, Negative Carotid Bruits Lungs: Air entry diminished in bilateral lung bases. Bilateral wheezing and rhonchi Cardiovascular: Regular rate, Regular Rhythm, Normal S1, Normal S2, No murmurs Abdomen: Bowel Sounds Present, Soft, Non Tender, Non-Distended : No renal angle tenderness. No suprapubic tenderness. Extremities: Bilateral pitting edema, Capillary Refill Less than 3 Seconds Skin: No rashes, No breakdown Musculoskeletal: No Tenderness to Palpation of Joints or Extremities Neurological: Cranial nerves II-XII grossly intact, DTR 2+/4 and Symmetrical, Neuro grossly intact Psych/Mental Status: Normal Affect, Appropriate. Assessment & Plan Assessment/Plan (1) Hypertensive urgency: PLAN: 1. Hypertensive urgency with chronic essential hypertension: Patient blood pressure is chronically elevated in the range of 160 to 180 mmHg at home. Currently on nicardipine drip. Blood pressure was in 200s systolic in ED. Echo in November 2020 shows normal EF. CTA chest negative for PE. Patient on carvedilol HCTZ 12.5 mg daily and amlodipine 10 mg daily and losartan 100 mg daily.. Patient said for last 6-month he has leg swelling probably after start of amlodipine. We will decrease the dose of amlodipine to 5 mg daily and increase HCTZ to 25 mg daily. 09/22: Nicardipine drip was tapered and discontinued yesterday. Patient is transferred to PCU. Possible COPD undiagnosed: Patient has wheezing and crepitation. Does not seem to be acute respiratory distress. Patient had 1 DuoNeb and is getting better. Continue to monitor. Will need outpatient pulmonary follow-up for PFT sleep study. 2. paroxysmal A. fib: surveillance system monitor shows sinus rhythm. Heart rate is controlled. On Eliquis. 3. Dyslipidemia on atorvastatin. 2. DM2 ?Hold his Metformin and on short-acting insulin. Accu-Chek before meals and at bedtime, on Humalog sliding scale. 3. BPH: No acute symptoms of irritative or obstructive lower intact symptoms. On Flomax DVT: Eliquis Charges/Coding Visit Charges Inpatient E&M: 58363 Subs Hosp L2
[2021-09-22] MEDS: Losartan Potassium 100 MG Tablet PO (08:52)
[2021-09-22] MEDS: hydroCHLOROthiazide 12.5mg 25 MG PO (08:52)
[2021-09-22] MEDS: Tamsulosin HCl 0.4 MG Capsule PO (08:52)
[2021-09-22] MEDS: amLODIPine 5 MG Tablet PO (08:52)
[2021-09-22] MEDS: Carvedilol 6.25 MG Tablet PO ×2 (08:52→17:53)
[2021-09-22] MEDS: APIXABAN 5 MG TABLET PO ×2 (08:52→21:15)
[2021-09-22 11:15] LABS: Bedside Glucose 170 mg/dL (74-106)
[2021-09-22] MEDS: Ipratropium/Albuterol Sulfate 3 ML AMPUL.NEB INHALATION ×3 (12:03→18:53)
[2021-09-22 18:02] LABS: Bedside Glucose 164 mg/dL (74-106)
[2021-09-22] MEDS: Atorvastatin Calcium 40 MG Tablet PO (21:16)
[2021-09-22 21:31] LABS: Bedside Glucose 148 mg/dL (74-106)
[2021-09-22] MEDS: Ondansetron 4 MG/2 ML Vial IV (21:36)
[2021-09-22] MEDS: hydrALAZINE 20 MG/ML Vial 5 MG IV (22:56)
[2021-09-23] VITALS (12 sets, daily range): BP systolic 143–180; BP diastolic 81–115; PULSE 98–120; RESP 18–27; TEMP 36.7–37; O2SAT 96–98
[2021-09-23] MEDS: Albuterol 2.5 MG/3 ML VIAL.NEB. INHALATION (00:35)
[2021-09-23] MEDS: hydrALAZINE 20 MG/ML Vial 5 MG IV (03:01)
[2021-09-23] MEDS: Insulin Lispro 100 UNIT/ML INSULN.PEN SC (06:54)
[2021-09-23] MEDS: Insulin Lispro 100 UNIT/ML INSULN.PEN 15 UNIT SC (06:54)
[2021-09-23 07:01] LABS: Bedside Glucose 171 mg/dL (74-106)
[2021-09-23] MEDS: amLODIPine 5 MG Tablet PO (08:41)
[2021-09-23] MEDS: APIXABAN 5 MG TABLET PO (08:41)
[2021-09-23] MEDS: Carvedilol 6.25 MG Tablet PO ×2 (08:41→10:07)
[2021-09-23] MEDS: hydroCHLOROthiazide 12.5mg 25 MG PO (08:41)
[2021-09-23] MEDS: Tamsulosin HCl 0.4 MG Capsule PO (08:42)
[2021-09-23] MEDS: Losartan Potassium 100 MG Tablet PO (08:42)
[2021-09-23 08:59] LABS: Absolute Lymphocyte Count 1.32 X10^3/uL (0.83-4.51); Absolute Neutrophil Count 8.3 X10^3/uL (2.0-7.7); Basophil# 0.07 X10^3/uL; Basophil% 0.6 % (0-1); Eosinophil# 0.52 X10^3/uL; Eosinophils% 4.7 % (0-5); Hemoglobin 14.5 g/dL (13.0-16.5); Lymphocyte # 1.32 X10^3/ul (0.83-4.51); Mean Corp Hgb Conc 32.2 g/dL (32-36); Mean Corpuscular Volume 83.6 fL (80-94); Mean Platelet Vol. 9.6 fl (6.2-12.0); Monocyte# 0.77 X10^3/uL; NRBC Flagged by Analyzer 0 % (0-5); Neutrophil # 8.33 X10^3/uL (2.7-7.7); Neutrophil % 75.4 % (47-70); Platelet Count 341 K/mm3 (150-450); RBC Distribution Width CV 15.1 % (11.6-14.6); RBC Distribution Width SD 45.6 fl (35.1-43.9); Red Blood Count 5.38 M/mm3 (4.6-6.2)
[2021-09-23 09:33] LABS: Anion Gap 6 (5-15); BUN 19 mg/dL (7-18); BUN/Creat Ratio 18.4 RATIO (10-20); Calcium,Total 8.9 mg/dL (8.5-10.1); Chloride 101 mmol/L (98-107); Creatinine, Serum 1.03 mg/dL (0.70-1.30); EST Glomerular Filtration Rate 78 mL/min (>60); Est Glom Filt Rate - Afr Amer 95 mL/min (>60); Estimated Creatinine Clearance 83.71 ml/min; Glucose 140 mg/dL (74-106); Potassium 3.8 mmol/L (3.5-5.1); Sodium Level 137 mmol/L (136-145)
--- NOTE | 2021-09-23 10:58 | PCM.DC ---
Discharge Instructions Diet Discharge Diet: Low fat / Low cholesterol, 1800 Calorie Control Diet and 2000 mg Sodium Diet Activity Discharge Activity: Return to Normal Activity Dressing / Incision Call your doctor if you observe: Fever of 101 or Higher, Coldness, Increased Pain, Numbness or Tingling, Change in Color, Inability to urinate, Inability to have a bowel movement, Shortness of breath, Dizziness, Fainting spells, Swelling in the ankles, Chest pain, Prolonged hiccupping, Increased palpitations (irregular heartbeat), Calf discomfort and Uncontrolled pain Follow Up Care Test Results: Test results from this visit will be discussed in further detail at your follow-up appointment, if applicable. Discharge Plan Admission Admit Date/Time: 09/21/21 00:02 Primary Reason for Your Visit: Hypertensive urgency Attending Provider: Ajith De La Fuente Primary Care Provider: Leydi Chun Instructions Additional Instructions / Restrictions: Follow with PCP to follow-up for diabetes mellitus with hyperglycemia. In near future, he might need insulin. Discharge Orders/Prescriptions Prescriptions: New carvedilol 12.5 mg Tablet 12.5 mg PO BID Qty: 60 RF: 2 hydrochlorothiazide 12.5 mg tablet 12.5 mg PO DAILY Qty: 30 RF: 2 potassium chloride 20 mEq tablet,ER particles/crystals 20 meq PO DAILY Qty: 30 RF: 0 glipizide 10 mg tablet 10 mg PO BID Qty: 60 RF: 0 Continued albuterol sulfate 90 mcg/actuation HFA aerosol inhaler 2 puff inhalation Q6H PRN (Reason: shortness of breath or wheezing) Qty: 8.5 RF: 1 tamsulosin 0.4 mg capsule 0.4 mg PO DAILY RF: 0 testosterone 1 % (50 mg/5 gram) gel in packet 50 mg TD DAILY RF: 0 valsartan-hydrochlorothiazide 320-12.5 mg tablet 1 tab PO DAILY RF: 0 Eliquis 5 mg tablet 5 mg PO BID RF: 0 atorvastatin 40 mg tablet 40 mg PO DAILY Qty: 90 RF: 3 potassium chloride 10 mEq tablet extended release 10 meq PO 4X/DAY Qty: 120 RF: 5 metformin 1,000 mg tablet 1,000 mg PO BID Qty: 180 RF: 3 cholecalciferol (vitamin D3) 1,250 mcg (50,000 unit) capsule 1,250 mcg PO QWEEK Qty: 12 RF: 3 (DME) BP monitor Large cuff See Rx Instructions .Route .MEDSUPPLY Qty: 1 RF: 0 Changed amlodipine 10 mg tablet 5 mg PO DAILY Qty: 0 RF: 0 Discontinued metoprolol tartrate 50 mg tablet 50 mg PO BID RF: 0 Referrals / Follow Up: Sam Garcia DO [STAFF PHYSICIAN] - 10/07/21 11:15 am (Follow her PFT and sleep study.) Leydi Chun MD [Primary Care Provider] - Within 2 Weeks
--- NOTE | 2021-09-23 11:14 | DS.PCM_ITS ---
Providers Date of Admission: 09/21/21 Primary Care Physician: Dr. Leydi Chun MD Reason For Visit: HYPERTENSIVE URGENCY, DYSPNEA Diagnosis Discharge Diagnosis (1) Hypertensive urgency: Status: Acute Code(s): I16.0 - Hypertensive urgency Medications at Discharge Home Medications atorvastatin 40 mg tablet 40 mg PO DAILY #90 tab 01/30/21 potassium chloride 10 mEq tablet,extended release 10 meq PO 4X/DAY #120 tab 02/23/21 metformin 1,000 mg tablet 1,000 mg PO BID #180 tab 04/16/21 albuterol sulfate 90 mcg/actuation aerosol inhaler 2 puff INHALATION Q6H PRN #8.5 g 09/08/21 cholecalciferol (vitamin D3) 1,250 mcg (50,000 unit) capsule 1,250 mcg PO QWEEK #12 cap 09/09/21 BP monitor #1 ea 09/17/21 Eliquis 5 mg PO BID 09/20/21 tamsulosin 0.4 mg PO DAILY 09/20/21 testosterone 50 mg TD DAILY 09/20/21 valsartan-hydrochlorothiazide 1 tab PO DAILY 09/20/21 amlodipine 5 mg PO DAILY #0 tab 09/23/21 carvedilol 12.5 mg PO BID #60 tab 09/23/21 glipizide 10 mg PO BID #60 tab 09/23/21 hydrochlorothiazide 12.5 mg PO DAILY #30 tab 09/23/21 potassium chloride 20 meq PO DAILY #30 tab 09/23/21 Hospital Course Summary of Care Provided Hospital Course: This is a 60-year-old male admitted with shortness of breath along with wheezing for couple days along with history of asthma/COPD on albuterol at home. Patient was admitted with hypertensive urgency with blood pressure systolic in 200s in ED. Patient also had uncontrolled hyperglycemia, only on Metformin 1000 mg p.o. twice daily at home. 1. Hypertensive urgency with chronic essential hypertension: Patient blood pressure is chronically elevated in the range of 160 to 180 mmHg at home. Currently on nicardipine drip. Blood pressure was in 200s systolic in ED. Echo in November 2020 shows normal EF. CTA chest negative for PE. Patient on carvedilol, HCTZ 12.5 mg daily and amlodipine 10 mg daily and losartan 100 mg daily. Patient said for last 6-month he has leg swelling therefore amlodipine dose was decreased to 5 mg daily and HCTZ was increased to 25 mg daily. Patient on valsartan 320 mg daily at home continued. Blood pressure is controlled at this regimen. 2. paroxysmal A. 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 Heart rate is controlled. On Eliquis. 3. Dyslipidemia on atorvastatin. 2. DM2 During hospital course his Metformin was held and controlled with insulin short- acting and Lantus. On discharge, Metformin was resumed. Prescription given for glipizide 10 mg p.o. Advised follow-up PCP in 1 week to monitor blood sugar trend. Patient might need insulin in the near future. 3. BPH: No acute symptoms of irritative or obstructive lower intact symptoms. On Flomax 5. Possible COPD/asthma overlap syndrome and SAÚL/OHS: Patient has seen some associate manager affiliate marketing in [place] longtime back and a CPAP machine at home. It seems his CPAP machine is not titrated in recent past. Follow-up with Dr. Garcia for PFTs and sleep study. Patient has albuterol at home. His wheezing and shortness of breath got better during hospital course. DVT: Eliquis Discharge medication reconciliation done. Discharge follow-up instructions completed. Discharge process discussed with the patient and all questions were answered to patient's satisfaction. Total time spent, exact 35 minutes on discharge meds reconciliation, examination, coordination of care with nurses and ancillary staff, review of imaging and blood test and discussion with the patient on follow-up instructions. Physical Exam Narrative General: Alert, Oriented x3, Cooperative, morbid obese 48.8 kg/m? HEENT: Atraumatic, PERRLA, EOMI, Normocephalic Oral: No Gingival or Mucosal Lesions/ Ulcerations Neck: Supple, No JVD, Negative Carotid Bruits Lungs: Air entry diminished in bilateral lung bases. Bilateral wheezing and rhonchi improved. On CPAP. Cardiovascular: Regular rate, Regular Rhythm, Normal S1, Normal S2, No murmurs Abdomen: Bowel Sounds Present, Soft, Non Tender, Non-Distended : No renal angle tenderness. No suprapubic tenderness. Extremities: Bilateral pitting edema improved, Capillary Refill Less than 3 Seconds Skin: No rashes, No breakdown Musculoskeletal: No Tenderness to Palpation of Joints or Extremities Neurological: Cranial nerves II-XII grossly intact, DTR 2+/4 and Symmetrical, Neuro grossly intact Psych/Mental Status: Normal Affect, Appropriate. Weight / BMI Weight Weight: 359 lb 12.71 oz Body Mass Index (BMI) 48.8 ABG / Lab / Microbiology Data Result Diagrams: 09/23/21 08:45 09/23/21 08:45 Laboratory: Laboratory Results - last 24 hr 09/22/21 11:09: POC Glucose 170 H 09/22/21 17:22: POC Glucose 164 H 09/22/21 21:08: POC Glucose 148 H 09/23/21 06:46: POC Glucose 171 H 09/23/21 08:45: WBC 11.0, RBC 5.38, Hgb 14.5, Hct 45.0, MCV 83.6, MCH 27.0, MCHC 32.2, RDW Std Deviation 45.6 H, RDW Coeff of Cornelius 15.1 H, Plt Count 341, MPV 9.6, Immature Gran % (Auto) 0.300, Neut % (Auto) 75.4 H, Lymph % (Auto) 12.0 L, Taney % (Auto) 7.0, Eos % (Auto) 4.7, Baso % (Auto) 0.6, Absolute Neuts (auto) 8.3 H, Absolute Lymphs (auto) 1.32, Nucleated RBC % 0 09/23/21 08:45: Sodium 137, Potassium 3.8, Chloride 101, Carbon Dioxide 30.0, Anion Gap 6, BUN 19 H, Creatinine 1.03, Estim Creat Clear Calc 83.71, Est GFR (MDRD) Af Amer 95, Est GFR (MDRD) Non-Af 78, BUN/Creatinine Ratio 18.4, Glucose 140 H, Calcium 8.9 D/C Instructions Discharge Diet: Low fat / Low cholesterol, 1800 Calorie Control Diet and 2000 mg Sodium Diet Call your doctor if you observe: Fever of 101 or Higher, Coldness, Increased Pain, Numbness or Tingling, Change in Color, Inability to urinate, Inability to have a bowel movement, Shortness of breath, Dizziness, Fainting spells, Swelling in the ankles, Chest pain, Prolonged hiccupping, Increased palpitations (irregular heartbeat), Calf discomfort and Uncontrolled pain Meaningful Use Info Meaningful Use Diagnoses (Choose all that apply): None applicable Discharge Plan Admission Admit Date/Time: 09/21/21 00:02 Primary Reason for Your Visit: Hypertensive urgency Attending Provider: Ajith De La Fuente Primary Care Provider: Leydi Chun Instructions Additional Instructions / Restrictions: Follow with PCP to follow-up for diabetes mellitus with hyperglycemia. In near future, he might need insulin. Discharge Orders/Prescriptions Prescriptions: New carvedilol 12.5 mg Tablet 12.5 mg PO BID Qty: 60 RF: 2 hydrochlorothiazide 12.5 mg tablet 12.5 mg PO DAILY Qty: 30 RF: 2 potassium chloride 20 mEq tablet,ER particles/crystals 20 meq PO DAILY Qty: 30 RF: 0 glipizide 10 mg tablet 10 mg PO BID Qty: 60 RF: 0 Continued albuterol sulfate 90 mcg/actuation HFA aerosol inhaler 2 puff inhalation Q6H PRN (Reason: shortness of breath or wheezing) Qty: 8.5 RF: 1 tamsulosin 0.4 mg capsule 0.4 mg PO DAILY RF: 0 testosterone 1 % (50 mg/5 gram) gel in packet 50 mg TD DAILY RF: 0 valsartan-hydrochlorothiazide 320-12.5 mg tablet 1 tab PO DAILY RF: 0 Eliquis 5 mg tablet 5 mg PO BID RF: 0 atorvastatin 40 mg tablet 40 mg PO DAILY Qty: 90 RF: 3 potassium chloride 10 mEq tablet extended release 10 meq PO 4X/DAY Qty: 120 RF: 5 metformin 1,000 mg tablet 1,000 mg PO BID Qty: 180 RF: 3 cholecalciferol (vitamin D3) 1,250 mcg (50,000 unit) capsule 1,250 mcg PO QWEEK Qty: 12 RF: 3 (DME) BP monitor Large cuff See Rx Instructions .Route .MEDSUPPLY Qty: 1 RF: 0 Changed amlodipine 10 mg tablet 5 mg PO DAILY Qty: 0 RF: 0 Discontinued metoprolol tartrate 50 mg tablet 50 mg PO BID RF: 0 Referrals / Follow Up: Sam Garcia DO [STAFF PHYSICIAN] - 10/07/21 11:15 am (Follow her PFT and sleep study.) Leydi Chun MD [Primary Care Provider] - Within 2 Weeks Charges/Coding Visit Charges Inpatient E&M: 97023 Disch Hosp
[2021-09-23 11:37] LABS: Bedside Glucose 154 mg/dL (74-106)
--- NOTE | 2021-09-23 11:41 | CASEMGMT ---
Pt has been up independent in room and states no concerns with going home at time of discharge. SStmagali DE LEON CM
[2021-09-23] MEDS: Ipratropium/Albuterol Sulfate 3 ML AMPUL.NEB INHALATION (11:58)
== END 2021-09-23 12:39 | disposition home or self-care (01) | DRG 199 ==
LOC: ED 23:03 → ICU 09-21 00:11 → PCU 09-23 10:50
PROVIDERS: Admitting Provider Family Medicine; Emergency Provider Emergency Medicine; PCP Internal Medicine; Visit Provider Internal Medicine
DX: I16.0 Hypertensive urgency (principal); E66.2 Morbid (severe) obesity with alveolar hypoventilation; E11.65 Type 2 diabetes mellitus with hyperglycemia; I48.0 Paroxysmal atrial fibrillation; J44.9 Chronic obstructive pulmonary disease, unspecified; Z68.42 Body mass index [BMI] 45.0-49.9, adult; E78.5 Hyperlipidemia, unspecified; I10 Essential (primary) hypertension; N40.0 Benign prostatic hyperplasia without lower urinary tract symptoms; E55.9 Vitamin D deficiency, unspecified; Z79.01 Long term (current) use of anticoagulants; Z79.51 Long term (current) use of inhaled steroids; Z79.84 Long term (current) use of oral hypoglycemic drugs; Z79.899 Other long term (current) drug therapy; Z87.891 Personal history of nicotine dependence
CPT/HCPCS: 71045; 71275; 80048; 80053; 82962; 83880; 84484; 85025; 85610; 85730; 93005; 94003; 94640; 94660; 94667; 94668; 99251; 99285; J7050; Q9967; A4216; G0463; J2405

== ENCOUNTER → 2022-09-16 | Outpatient (CLI) | payer MEDICAID, SELFPAY ==
[2022-09-16 12:40] LABS: Absolute Lymphocyte Count 1.51 X10^3/uL (0.83-4.51); Basophil# 0.07 X10^3/uL; Eosinophil# 0.16 X10^3/uL; Eosinophils% 2.2 % (0-5); Hematocrit 44.6 % (40-54); Hemoglobin 14.3 g/dL (13.0-16.5); Lymphocyte # 1.51 X10^3/ul (0.83-4.51); Lymphocyte % 20.6 % (19-41); Mean Corp Hgb Conc 32.1 g/dL (32-36); Mean Corpuscular Hgb 26.6 pg (27.0-32.0); Mean Corpuscular Volume 82.9 fL (80-94); Mean Platelet Vol. 10.4 fl (6.2-12.0); Monocyte# 0.55 X10^3/uL; Monocyte% 7.5 % (0-10); NRBC Flagged by Analyzer 0 % (0-5); Neutrophil # 5.02 X10^3/uL (2.7-7.7); Neutrophil % 68.3 % (47-70); Platelet Count 342 K/mm3 (150-450); RBC Distribution Width CV 14.7 % (11.6-14.6); RBC Distribution Width SD 43.8 fl (35.1-43.9); Red Blood Count 5.38 M/mm3 (4.6-6.2); White Blood Count 7.3 K/mm3 (4.4-11.0)
[2022-09-16 13:19] LABS: Vitamin B12 1206 pg/mL (211-911); Vitamin D,25 Hydroxy 54.5 ng/mL
[2022-09-16 13:31] LABS: ALB/GLOB Ratio 0.8 RATIO (0.9-2.4); AST(SGOT) 27 U/L (15-37); Alanine Aminotransfer ALT/SGPT 32 U/L (16-61); Albumin, Serum 3.8 g/dL (3.2-5.0); Alkaline Phosphatase 88 U/L (45-117); Anion Gap 10 (5-15); BUN 15 mg/dL (7-18); BUN/Creat Ratio 12.4 RATIO (10-20); Calcium,Total 9.3 mg/dL (8.5-10.1); Chloride 103 mmol/L (98-107); Cholesterol 153 mg/dL (200); Creatinine, Serum 1.21 mg/dL (0.70-1.30); EST Glomerular Filtration Rate 65 mL/min (>60); Est Glom Filt Rate - Afr Amer 78 mL/min (>60); Globulin 4.9 g/dL (2.2-4.2); Glucose 116 mg/dL (74-106); High Density Lipoprotein 46 mg/dL; Magnesium 1.9 mg/dL (1.6-2.6); PSA,Total - Annual Screen 1.15 ng/mL (0.00-4.00); Potassium 3.6 mmol/L (3.5-5.1); Protein, Total 8.7 g/dL (6.4-8.2); Sodium Level 139 mmol/L (136-145); Thyroid Stim Hormone (TSH) 2.33 uIU/mL (0.358-3.74); Triglycerides 51 mg/dL; Very Low Density Lipoprotein 10 mg/dL (5-40)
[2022-09-16 13:57] LABS: Hemoglobin A1c 7.3 % (3.8-5.6)
[2022-09-19 14:05] LABS: Testosterone, % Free 2.71 % (1.50-4.20); Testosterone, Total > 1500 ng/dL (264-916)
== END | disposition home or self-care (01) ==
PROVIDERS: PCP Internal Medicine; Referring Provider Internal Medicine; Visit Provider Internal Medicine
DX: R06.00 Dyspnea, unspecified (principal); E66.01 Morbid (severe) obesity due to excess calories; Z68.42 Body mass index [BMI] 45.0-49.9, adult; E11.9 Type 2 diabetes mellitus without complications; R53.83 Other fatigue; G47.33 Obstructive sleep apnea (adult) (pediatric); I10 Essential (primary) hypertension; E78.5 Hyperlipidemia, unspecified; M19.90 Unspecified osteoarthritis, unspecified site; G47.30 Sleep apnea, unspecified; E29.1 Testicular hypofunction; Z12.5 Encounter for screening for malignant neoplasm of prostate
CPT/HCPCS: 84153; 36415; 80053; 80061; 82306; 82607; 83036; 83735; 84402; 84403; 84443; 85025; G0103

== ENCOUNTER 2022-10-30 23:07 | Emergency (ER) | payer MEDICAID, SELFPAY ==
[2022-10-30 23:07] VITALS: BP 200/93; PULSE 92; RESP 16; TEMP 36.6; O2SAT 97; BMI 50.5
[2022-10-31 00:18] LABS: Bacteria 0 SEEN /hpf (None Seen); Mucous, Urine 0 SEEN /hpf (<or=2+); Squamous Epithelial Cells - UA 0 SEEN /hpf (0-5); White Blood Cells 0 SEEN /hpf (0-5)
[2022-10-31 00:20] LABS: Color, Urine Yellow (Yellow); Glucose, Dipstick Normal (Normal); Ketone-Dipstick Negative (Negative); Leukocyte Esterase-Dipstick Negative /ul (Negative); Nitrite-Dipstick Negative (Negative); Occult Blood-Urine 150 /ul (Negative); Protein-Dipstick 15 mg/dl (Negative); Urine Bilirubin Dipstick Negative (Negative); Urine Clarity Clear (Clear); Urine Urobilinogen Normal (Normal); Urine pH 6.5 (5.0 - 8.0)
[2022-10-31 00:26] LABS: Absolute Lymphocyte Count 0.87 X10^3/uL (0.83-4.51); Basophil# 0.07 X10^3/uL; Basophil% 0.7 % (0-1); Eosinophil# 0.07 X10^3/uL; Eosinophils% 0.7 % (0-5); Hematocrit 41.7 % (40-54); Hemoglobin 13.6 g/dL (13.0-16.5); Lymphocyte # 0.87 X10^3/ul (0.83-4.51); Lymphocyte % 8.9 % (19-41); Mean Corp Hgb Conc 32.6 g/dL (32-36); Mean Corpuscular Hgb 26.7 pg (27.0-32.0); Mean Corpuscular Volume 81.8 fL (80-94); Mean Platelet Vol. 10.6 fl (6.2-12.0); Monocyte# 0.57 X10^3/uL; Monocyte% 5.8 % (0-10); NRBC Flagged by Analyzer 0 % (0-5); Neutrophil # 8.04 X10^3/uL (2.7-7.7); Platelet Count 308 K/mm3 (150-450); RBC Distribution Width CV 14.6 % (11.6-14.6); RBC Distribution Width SD 43.6 fl (35.1-43.9); White Blood Count 9.8 K/mm3 (4.4-11.0)
[2022-10-31 00:43] LABS: Red Blood Cells-Urine 0-5 SEEN /hpf (0-5)
[2022-10-31 01:01] LABS: ALB/GLOB Ratio 0.7 RATIO (0.9-2.4); AST(SGOT) 49 U/L (15-37); Alanine Aminotransfer ALT/SGPT 33 U/L (16-61); Albumin, Serum 3.5 g/dL (3.2-5.0); Alkaline Phosphatase 83 U/L (45-117); Anion Gap 6 (5-15); BUN 22 mg/dL (7-18); BUN/Creat Ratio 17.1 RATIO (10-20); Calcium,Total 9.4 mg/dL (8.5-10.1); Chloride 101 mmol/L (98-107); Creatinine, Serum 1.29 mg/dL (0.70-1.30); EST Glomerular Filtration Rate 60 mL/min (>60); Est Glom Filt Rate - Afr Amer 73 mL/min (>60); Globulin 4.9 g/dL (2.2-4.2); Glucose 175 mg/dL (74-106); Potassium 4.8 mmol/L (3.5-5.1); Protein, Total 8.4 g/dL (6.4-8.2); Sodium Level 133 mmol/L (136-145)
[2022-10-31 02:00] VITALS: BP 163/95; PULSE 92; RESP 20; O2SAT 95
--- NOTE | 2022-10-31 02:13 | CT_ITS ---
EXAM: CT ABDOMEN AND PELVIS WITHOUT INTRAVENOUS CONTRAST CLINICAL INDICATION: right flank pain TECHNIQUE: Helically acquired images were obtained of the abdomen and pelvis without intravenous contrast. This CT exam was performed using one or more of the following dose reduction techniques: automated exposure control, adjustment of the mA and/or kV according to patient size, and/or use of iterative reconstruction technique. This report was created using [employer] report generation technology. COMPARISON: 03/03/2020 FINDINGS: LOWER THORAX: Small hiatal hernia. Lung bases are clear. No cardiomegaly. No significant pericardial effusion. ABDOMEN: LIVER: Unremarkable. Homogeneous. GALLBLADDER AND BILE DUCTS: Unremarkable. No calcified gallstones. No gallbladder distention or wall edema. No intra- or extrahepatic biliary ductal dilation. PANCREAS: Unremarkable. No focal cystic mass. SPLEEN: Unremarkable. Normal size without focal cystic or solid mass. ADRENALS: Unremarkable. No nodules. KIDNEYS AND URETERS: There is a 4 mm stone in the right UVJ, causing mild obstructive changes. Small nonobstructing stones in the kidneys bilaterally. Normal renal size and position. STOMACH AND BOWEL: Unremarkable. No stomach or bowel distention. No focal inflammatory change. PELVIS: APPENDIX: The appendix is normal. BLADDER: Unremarkable. REPRODUCTIVE: Unremarkable as visualized. No mass. ABDOMEN and PELVIS: INTRAPERITONEAL SPACE: Unremarkable. No ascites or other fluid collection. No free air. BONES/JOINTS: Diffuse degenerative changes of the spine. No suspicious lytic or blastic abnormality. SOFT TISSUES: Unremarkable. No discrete abdominal or pelvic wall hernia. VASCULATURE: Unremarkable. Abdominal aorta is non-dilated. LYMPH NODES: Unremarkable. No enlarged lymph nodes. CT/Abdomen/Pelvis without Cont IMPRESSION: 1. There is a 4 mm stone in the right UVJ, causing mild obstructive changes. 2. Small nonobstructing stones in the kidneys bilaterally. Electronically Signed: Khanh Garrison MD at 3:11 EDT ,
[2022-10-31] MEDS: Ondansetron 4 MG/2 ML Vial IV (02:20)
[2022-10-31] MEDS: morphine 8 MG/ML Syringe IV (02:21)
[2022-10-31] MEDS: 0.9% Normal Saline 1,000 ML 999 ML IV (02:21)
--- NOTE | 2022-10-31 04:29 | EX.ED.DYSGE1 ---
HPI History of Present Illness Chief Complaint: Abd Pain Informant: patient Narrative Narrative: Patient is a 61-year-old male with history of diabetes, atrial fibrillation, hypertension and chronic Eliquis therapy. He is presenting with right flank pain that started suddenly. He states he was sitting in chair around 5 PM when he suddenly developed this pain in his right flank. It radiates to his groin. He had some nausea but no vomiting. Did not take anything for pain prior to arrival. He states he has had urinary frequency and urgency with this. Denies any blood in his urine. Denies any history of kidney stones. No other complaints at this time. [facility] Medical History Arthritis Chronic pain CPAP (continuous positive airway pressure) dependence Diabetes Diabetes Former smoker GI bleed Gout Hyperlipemia Hypersomnia Hypertension Hypertension Irregular heart beat SAÚL (obstructive sleep apnea) Paroxysmal A-fib Primary hypogonadism in male Sleep apnea Vitamin D deficiency Home Medications cholecalciferol (vitamin D3) 1,250 mcg (50,000 unit) capsule 1,250 mcg PO QWEEK supplement #12 caps 09/09/21 [Rx Last Taken Unknown] BP monitor #1 ea 09/17/21 [Rx Last Taken Unknown] potassium chloride 20 mEq tablet,extended release(part/cryst) 20 meq PO DAILY #90 tabs 11/03/21 [Rx Last Taken Unknown] carvedilol 12.5 mg tablet 12.5 mg PO BID #60 tabs 01/06/22 [Rx Last Taken Unknown] atorvastatin 40 mg tablet 40 mg PO DAILY cholesterol lowering #90 tabs 02/03/22 [Rx Last Taken Unknown] tamsulosin 0.4 mg capsule 0.4 mg PO DAILY Check with primary doctor #90 caps 03/08/22 [Rx Last Taken Unknown] metformin 1,000 mg tablet 1,000 mg PO BID diabetes #180 tabs 06/25/22 [Rx Last Taken Unknown] guaifenesin 600 mg tablet, extended release 12 hr 600 mg PO BID PRN congestion #30 tabs 06/28/22 [Rx Last Taken Unknown] testosterone 1 % (50 mg/5 gram) transdermal gel packet 50 mg transdermal DAILY Check with primary doctor #150 grams 07/07/22 [Rx Last Taken Unknown] apixaban 5 mg tablet (Eliquis) 5 mg PO BID #180 tabs 08/24/22 [Rx Last Taken Unknown] valsartan 320 mg-hydrochlorothiazide 25 mg tablet 1 tab PO DAILY #90 tabs 10/12/22 [Rx Last Taken Unknown] amlodipine 10 mg tablet 10 mg PO DAILY 10/31/22 [History Last Taken Unknown] ondansetron 4 mg disintegrating tablet 4 mg PO Q6H PRN nausea and vomiting #10 tabs 10/31/22 [Rx Last Taken Unknown] oxycodone-acetaminophen 5 mg-325 mg tablet (Percocet) 1 tab PO Q6H PRN pain 3 days #12 tabs 10/31/22 [Rx Last Taken Unknown] Allergy/AdvReac Type Severity Reaction Status Date / Time No Known Allergies Allergy Verified 10/30/22 23:09 Family History Other Adopted Surgical History History of left knee surgery History of neck surgery Hx of cardiac catheterization Hx of colonoscopy Social History Smoking Status: Former smoker quit date: 07/18/15 second hand exposure: No alcohol intake: never substance use type: does not use caffeine: Yes what type of physical activity do you participate in: weight training frequency: 3-4 times per week seatbelt use: always ROS ROS ED Constitutional Constitutional ED: Denies chills or fever(s) Cardiovascular Cardiovascular: Denies chest pain Respiratory/Chest Respiratory/Chest: Denies cough Gastrointestinal Gastrointestinal: Reports abdominal pain and nausea; Denies constipation or diarrhea Genitourinary Genitourinary ED: Reports urinary frequency; Denies dysuria or hematuria Musculoskeletal Musculoskeletal: Reports back pain; Denies arthralgias or myalgias Integumentary Denies rash EXAM Physical Exam Const Vital Signs: 10/30/22 23:07 10/31/22 02:00 10/31/22 04:50 Temperature 98 F Temperature Source Temporal Pulse Rate 92 92 78 Respiratory Rate 16 20 H 24 H Blood Pressure 200/93 H 163/95 H 143/92 H Blood Pressure Mean 128 117 Pulse Ox 97 95 94 Oxygen Delivery Method Room Air Room Air Positive well nourished, well developed and obese General Appearance ED: well developed and NAD Nutritional Appearance: obese HEENT Reports moist mucous membranes Neck supple Chest Wall inspection of chest normal and palpation of chest normal Resp normal respiratory effort and clear to auscultation bilaterally Cardio regular rate, regular rhythm and no murmurs GI normal to inspection, nondistended, normoactive bowel sounds and non-tender Palpation: soft; Negative for tender Back/Spine no CVA tenderness Extremity normal to inspection Neuro oriented x3 Sensorium / Orientation: alert Motor Exam: Negative for general weakness Psych mental status grossly normal Skin no rashes or lesions noted and no wounds MDM MDM MDM Narrative Medical decision making narrative: Patient is evaluated for sudden onset of right flank pain. Associated nausea but no vomiting. Patient does appear mildly uncomfortable. He is hypertensive but I suspect this is more secondary to pain. Differential includes muscle skeletal pain, shingles and renal colic. Urinalysis does show blood with no other signs of infection. CT shows a 4 mm right UVJ stone with mild obstructive changes. Kidney function is at his baseline. He does not have any anemia or leukocytosis. I do not suspect an infected stone. As the stone is less than 5 mm that should pass spontaneously. He had used pain control with IV morphine and then oxycodone. Patient is already on Flomax. Will be discharged home with pain medicine as well as nausea medicine. Is given outpatient urology referral. Will be treated conservatively at this time. Patient agreeable with this plan of care. Lab Data Labs: Laboratory Results - last 24 hr 10/31/22 10/31/22 10/31/22 00:12 00:12 00:12 WBC 9.8 RBC 5.10 Hgb 13.6 Hct 41.7 MCV 81.8 MCH 26.7 L MCHC 32.6 RDW Std Deviation 43.6 RDW Coeff of Cornelius 14.6 Plt Count 308 MPV 10.6 Immature Gran % (Auto) 1.900 H Neut % (Auto) 82.0 H Lymph % (Auto) 8.9 L [place] % (Auto) 5.8 Eos % (Auto) 0.7 Baso % (Auto) 0.7 Absolute Neuts (auto) 8.0 H Absolute Lymphs (auto) 0.87 Nucleated RBC % 0 Sodium 133 L Potassium 4.8 Chloride 101 Carbon Dioxide 26.0 Anion Gap 6 BUN 22 H Creatinine 1.29 Estim Creat Clear Calc 66.00 Est GFR (MDRD) Af Amer 73 Est GFR (MDRD) Non-Af 60 BUN/Creatinine Ratio 17.1 Glucose 175 H Calcium 9.4 Total Bilirubin 1.00 AST 49 H ALT 33 Alkaline Phosphatase 83 Total Protein 8.4 H Albumin 3.5 Globulin 4.9 H Albumin/Globulin Ratio 0.7 L Urine Color Yellow Urine Clarity Clear Urine pH 6.5 Ur Specific [place] 1.010 Urine Protein 15 H Urine Glucose (UA) Normal Urine Ketones Negative Urine Occult Blood 150 H Urine Nitrite Negative Urine Bilirubin Negative Urine Urobilinogen Normal Ur Leukocyte Esterase Negative Urine RBC 0-5 SEEN Urine WBC 0 SEEN Ur Squamous Epith Cells 0 SEEN Urine Bacteria 0 SEEN Urine Mucus 0 SEEN Radiography Diagnostic Testing: Clinical Impression(s) from Imaging Studies Abdomen/Pelvis CT 10/31/22 02:13 IMPRESSION: 1. There is a 4 mm stone in the right UVJ, causing mild obstructive changes. 2. Small nonobstructing stones in the kidneys bilaterally. Electronically Signed: Khanh Garrison MD at 3:11 EDT , Discharge Plan Triage Chief Complaint: Abd Pain ED Provider: Talita Chaney Dx/Rx/DC Orders Clinical Impression: Ureterolithiasis, Renal colic on right side Instructions: ED Kidney Stone w/ Colic Prescriptions: New oxycodone-acetaminophen [Percocet] 5-325 mg tablet 1 tab PO Q6H PRN (Reason: pain) 3 Days Qty: 12 0RF ondansetron 4 mg tablet,disintegrating 4 mg PO Q6H PRN (Reason: nausea and vomiting) Qty: 10 0RF No Action amlodipine 10 mg tablet 10 mg PO DAILY cholecalciferol (vitamin D3) 1,250 mcg (50,000 unit) capsule 1,250 mcg PO QWEEK Qty: 12 3RF (DME) BP monitor Large cuff See Rx Instructions .Route .MEDSUPPLY Qty: 1 0RF Rx Instructions: As directed potassium chloride 20 mEq tablet,ER particles/crystals 20 meq PO DAILY Qty: 90 3RF carvedilol 12.5 mg tablet 12.5 mg PO BID Qty: 60 11RF Rx Instructions: Hold for heart less than 60 or systolic blood pressure less than 100 mmHg. atorvastatin 40 mg tablet 40 mg PO DAILY Qty: 90 3RF tamsulosin 0.4 mg capsule 0.4 mg PO DAILY Qty: 90 3RF metformin 1,000 mg tablet 1,000 mg PO BID Qty: 180 3RF guaifenesin 600 mg tablet extended release 12hr 600 mg PO BID PRN (Reason: congestion) Qty: 30 1RF testosterone 1 % (50 mg/5 gram) gel in packet 50 mg TD DAILY Qty: 150 5RF Eliquis 5 mg tablet 5 mg PO BID Qty: 180 1RF valsartan-hydrochlorothiazide 320-25 mg tablet 1 tab PO DAILY Qty: 90 3RF Primary Care Provider: Leydi Chun Referrals: Yan Kang MD [Med Staff - Active Staff] - As soon as possible Leydi Chun MD [Primary Care Provider] - Activity Restrictions/Additional Instructions: You have a 4 mm kidney stone on the right side. It should pass spontaneously within the next few days. Drink lots of fluids and take pain medicine as prescribed. Continue taking your tamsulosin (Flomax). If you cannot control your pain or you have further issues please return to the emergency room. Disposition Disposition: Home, Self Care Discharge Date/Time: 10/31/22 05:09
[2022-10-31] MEDS: oxyCODONE 5 MG Tablet PO (04:49)
[2022-10-31 04:50] VITALS: BP 143/92; PULSE 78; RESP 24; O2SAT 94
== END 2022-10-31 05:09 | disposition home or self-care (01) ==
PROVIDERS: Emergency Provider Emergency Medicine; PCP Internal Medicine; Visit Provider Emergency Medicine
DX: N20.2 Calculus of kidney with calculus of ureter (principal); I48.91 Unspecified atrial fibrillation; E11.9 Type 2 diabetes mellitus without complications; E78.5 Hyperlipidemia, unspecified; I10 Essential (primary) hypertension; G47.33 Obstructive sleep apnea (adult) (pediatric); E66.9 Obesity, unspecified; E55.9 Vitamin D deficiency, unspecified; Z79.84 Long term (current) use of oral hypoglycemic drugs; Z79.01 Long term (current) use of anticoagulants; Z79.899 Other long term (current) drug therapy; Z87.891 Personal history of nicotine dependence
CPT/HCPCS: 74176; 80053; 81001; 85025; 96361; 96374; 96375; 99283; J7030; A4216; J2405

== ENCOUNTER → 2023-08-10 | Outpatient (CLI) | payer MEDICAID, SELFPAY ==
--- OUTSIDE RECORDS SUMMARY | 2023-08-10 12:28 | XMS RPT_ITS | CCD ---
Author Name Unknown Address [address] [place] [address] Organization [facility] Care Team Providers Care [employer] Name Role Phone WAYT, NICK Unavailable Unavailable MURIEL, CARL D Unavailable Unavailable WAYT, NICK Unavailable Unavailable MURIEL, CARL D Unavailable Unavailable UCHE, VINCEVANGELINA Unavailable Unavailable MURIEL, CARL D Unavailable Unavailable MURIEL, CARL D Unavailable Unavailable MURIEL, CARL D Unavailable Unavailable MURIEL, CARL D Unavailable Unavailable MURIEL, CARL D Unavailable Unavailable KINKOPF, ILANA W Unavailable Unavailable MURIEL, CARL Unavailable Unavailable MURIEL, CARL Unavailable Unavailable TEACH, MTS TEZ Unavailable Unavailable MORENA, NIHADQ Unavailable Unavailable MURIEL, CARL Unavailable Unavailable MURIEL, CARL Unavailable Unavailable Problems Active Problems Problem Classification Problem Date Documented Da te Episodic/Chronic Diabetes mellitus without complication (2 sources) Type 2 diabetes mellitus without complications; Translations: [Type 2 diabetes mellitus without complications] Onset: 12-26-2017 Chronic Other endocrine disorders (2 sources) Testicular hypofunction; Translations: [Testicular hypofunction] Onset: 12-26-2017 Chronic Unclassified (1 source) Unknown / UNK(Unknown) Onset: 01-19-2017 Past or Other Problems Problem Classification Problem Date Documented Da te Episodic/Chronic Gastrointestinal hemorrhage (2 sources) Hemorrhage of anus and rectum; Translations: [Hemorrhage of anus and rectum] Onset: 07-22-2017 Episodic Unclassified (1 source) DEHYDRATED Onset: 01-19-2017 Results Test Name Value Interpretation Reference Range Facil ity Encounters Encounter Date Encounter Type Care Provider Facility Start: 12-26-2017 End: 12-31-2017 Ambulatory CARL LLAMAS Facility:[facility] Start: 10-26-2017 End: 10-27-2017 Ambulatory CARL LLAMAS Facility:[facility] Start: 07-22-2017 End: 07-27-2017 Ambulatory LUCINA IVEY [facility] Start: 03-17-2017 Ambulatory NICK TOMLIN Facility:[facility] Start: 03-09-2017 End: 03-10-2017 Ambulatory [facility] Facility:[facility] Start: 01-19-2017 End: 01-19-2017 Evaluation and management of inpatient [facility] Facility:[facility] Start: 01-19-2017 End: 01-19-2017 Emergency department patient visit ILANA DAO Facility:[facility] Payers Date Payer Category Payer Unknown [id number] Summary Purpose Family History No Family History Records FoundNo Family History Records Found Advance Directives No Advanced Directives Records FoundNo Advanced Directives Records Found Additional Source Comments (unrecognized sect ion and content) No Status Records FoundNo Status Records Found INFORMATION SOURCE (unrecogn ized section and content) DATE CREATED AUTHOR AUTHOR'S ORGANIZ ATION 01/11/2018 [facility] [employer] FOR RECORDS PERTAINING TO PATIENTS WHO ARE OR HAVE BEEN ENROLLED IN A CHEMICAL DEPENDENCY/SUBSTANCEABUSE PROGRAM, SOME INFORMATION MAY BE OMITTED. This clinical summary was aggregated from multiple sources. Caution should be exercised in using it in the provision of clinical care. This summary normalizes information from multiple sources, and as a consequence, information in this document may materially change the coding, format and clinical context of patient data. In addition, data may be omitted in some cases. CLINICAL DECISIONS SHOULD BE BASED ON THE PRIMARY CLINICAL RECORDS. [facility] [employer] [facility]. provides no warranty or guarantee of the accuracy or completeness of information in this document.
[2023-08-10 13:45] LABS: Albumin, Serum 3.7 g/dL (3.2-5.0); BUN 18 mg/dL (7-18); BUN/Creat Ratio 17.1 RATIO (10-20); Calcium,Total 9.2 mg/dL (8.5-10.1); Chloride 103 mmol/L (98-107); Creatinine, Serum 1.05 mg/dL (0.70-1.30); EST Glomerular Filtration Rate 76 mL/min (>60); Est Glom Filt Rate - Afr Amer 92 mL/min (>60); Glucose 243 mg/dL (74-106); Phosphorus 2.9 mg/dL (2.5-4.9); Potassium 3.7 mmol/L (3.5-5.1); Sodium Level 136 mmol/L (136-145)
== END | disposition home or self-care (01) ==
LOC: POLAB3 12:05
PROVIDERS: PCP Internal Medicine; Visit Provider Internal Medicine Nephrology
DX: I10 Essential (primary) hypertension (principal)
CPT/HCPCS: 36415; 80069

== ENCOUNTER → 2024-07-26 | Outpatient (CLI) | payer MEDICAID, SELFPAY ==
--- NOTE | 2024-07-26 10:35 | RAD_ITS ---
STUDY: X-RAY - LEFT KNEE REASON FOR EXAM: Male, 63 years old. Left knee. TECHNIQUE: 4 views of the left knee. COMPARISON: None. FINDINGS: Normal visualized distal femur. Normal visualized proximal tibia and fibula. Normal proximal tibiofibular articulation. There is no demonstrated fracture. There is moderate degenerative arthrosis of the medial femorotibial compartment with moderate joint space narrowing. There is moderate degenerative arthrosis of the lateral femorotibial compartment with moderate joint space narrowing. There is moderate degenerative arthrosis of the patellofemoral articulation. There is a small joint effusion. The soft tissue structures are unremarkable. RAD/Knee 4 or More Views IMPRESSION: Moderate tricompartment degenerative arthrosis. Small joint effusion. Electronically Signed: Boston Preston MD at 9:50 EST ,
--- NOTE | 2024-07-26 10:35 | RAD_ITS ---
STUDY: X-RAY - BILATERAL KNEES REASON FOR EXAM: Male, 63 years old. PAIN TECHNIQUE: 2 views of the right knee were obtained. 2 views of the left knee were obtained. COMPARISON: None. FINDINGS - RIGHT KNEE: Normal visualized right distal femur. Normal visualized proximal right tibia and fibula. Normal right proximal tibiofibular articulation. There is no demonstrated fracture of the right knee. There is moderate degenerative arthrosis of the medial femorotibial compartment with moderate joint space narrowing. There is moderate degenerative arthrosis of the lateral femorotibial compartment with moderate joint space narrowing. The soft tissue structures are unremarkable. FINDING - LEFT KNEE: Normal visualized left distal femur. Normal visualized proximal left tibia and fibula. Normal left proximal tibiofibular articulation. There is no demonstrated fracture of the left knee. There is moderate degenerative arthrosis of the medial femorotibial compartment with moderate joint space narrowing. There is moderate degenerative arthrosis of the lateral femorotibial compartment with moderate joint space narrowing. The soft tissue structures are unremarkable. RAD/Knees Standing AP Bilateral IMPRESSION: Moderate degenerative arthrosis of the medial and lateral femorotibial compartments of the knees bilaterally. No demonstrated fracture. Electronically Signed: Boston Preston MD at 9:57 EST ,
[2024-07-26 10:38] LABS: Absolute Lymphocyte Count 1.49 X10^3/uL (0.83-4.51); Absolute Neutrophil Count 4.9 X10^3/uL (2.0-7.7); Basophil# 0.08 X10^3/uL; Basophil% 1.1 % (0-1); Eosinophil# 0.17 X10^3/uL; Eosinophils% 2.4 % (0-5); Hematocrit 44.6 % (40-54); Hemoglobin 14.6 g/dL (13.0-16.5); Lymphocyte # 1.49 X10^3/ul (0.83-4.51); Lymphocyte % 20.7 % (19-41); Mean Corp Hgb Conc 32.7 g/dL (32-36); Mean Corpuscular Volume 82.4 fL (80-94); Mean Platelet Vol. 9.8 fl (6.2-12.0); Monocyte# 0.58 X10^3/uL; Monocyte% 8.1 % (0-10); NRBC Flagged by Analyzer 0 % (0-5); Neutrophil # 4.85 X10^3/uL (2.7-7.7); Neutrophil % 67.4 % (47-70); Platelet Count 278 K/mm3 (150-450); RBC Distribution Width SD 41.7 fl (35.1-43.9); Red Blood Count 5.41 M/mm3 (4.6-6.2); White Blood Count 7.2 K/mm3 (4.4-11.0)
[2024-07-26 11:06] LABS: Vitamin D,25 Hydroxy 31.4 ng/mL
[2024-07-26 11:13] LABS: ALB/GLOB Ratio 0.9 RATIO (0.9-2.4); AST(SGOT) 27 U/L (15-37); Alanine Aminotransfer ALT/SGPT 32 U/L (16-61); Albumin, Serum 3.9 g/dL (3.2-5.0); Alkaline Phosphatase 102 U/L (45-117); Anion Gap 9 (5-15); BUN 18 mg/dL (7-18); BUN/Creat Ratio 16.4 RATIO (10-20); Calcium,Total 9.1 mg/dL (8.5-10.1); Chloride 103 mmol/L (98-107); Cholesterol 143 mg/dL (200); EST Glomerular Filtration Rate 72 mL/min (>60); Est Glom Filt Rate - Afr Amer 87 mL/min (>60); Globulin 4.5 g/dL (2.2-4.2); Glucose 128 mg/dL (74-106); High Density Lipoprotein 50 mg/dL; PSA,Total - Annual Screen 1.14 ng/mL (0.00-4.00); Potassium 3.4 mmol/L (3.5-5.1); Protein, Total 8.4 g/dL (6.4-8.2); Sodium Level 138 mmol/L (136-145); Triglycerides 47 mg/dL; Very Low Density Lipoprotein 9 mg/dL (5-40)
[2024-07-26 12:00] LABS: Hemoglobin A1c 7.2 % (3.8-5.6)
[2024-07-31 12:08] LABS: Testosterone, % Free 3.47 % (1.50-4.20); Testosterone, Total 778 ng/dL (264-916)
== END | disposition home or self-care (01) ==
PROVIDERS: PCP Internal Medicine; Referring Provider Internal Medicine; Visit Provider Internal Medicine
DX: Z13.220 Encounter for screening for lipoid disorders (principal); E66.01 Morbid (severe) obesity due to excess calories; Z68.42 Body mass index [BMI] 45.0-49.9, adult; E11.65 Type 2 diabetes mellitus with hyperglycemia; Z12.5 Encounter for screening for malignant neoplasm of prostate; G47.33 Obstructive sleep apnea (adult) (pediatric); I10 Essential (primary) hypertension; E55.9 Vitamin D deficiency, unspecified; E29.1 Testicular hypofunction; M25.561 Pain in right knee; M25.562 Pain in left knee
CPT/HCPCS: 84153; 36415; 73564; 73565; 80053; 80061; 82306; 83036; 84402; 84403; 84443; 85025; G0103

== ENCOUNTER 2025-01-04 16:55 | Emergency (ER) | payer MEDICAID, SELFPAY ==
[2025-01-04] VITALS (13 sets, daily range): BP systolic 127–174; BP diastolic 80–112; PULSE 82–121; RESP 14–28; TEMP 36.6–36.7; O2SAT 96–99; BMI 46.5
--- NOTE | 2025-01-04 18:16 | EKG12_ITS ---
Test Reason : ARRYTH Blood Pressure : */* mmHG Vent. Rate : 108 BPM Atrial Rate : * BPM P-R Int : * ms QRS Dur : 100 ms QT Int : 294 ms P-R-T Axes : * -24 66 degrees QTcB Int : 393 ms Atrial fibrillation with rapid ventricular response Cannot rule out Anterior infarct , age undetermined Abnormal ECG Confirmed by Milton Pearson ([id number]), commissioning editor DAWNA DRAKE ([id number]) on 01/08/2025 11:41:34 AM Referred By: Arturo Weeks Confirmed By: Milton eParson
[2025-01-04] MEDS: Metoprolol Tartrate 5 MG/5 ML Vial IV (18:41)
--- NOTE | 2025-01-04 18:50 | EX.ED.DYSGE1 ---
HPI History of Present Illness Chief Complaint: Palpitations Informant: patient Narrative Narrative: 64-year-old male with history of paroxysmal atrial fibrillation states that a few hours ago he felt himself going to A-fib. He states that he was baking some chicken and the seasoning lid fell off and he got a lot of extra salt and he has been drinking a lot of electrolyte drinks today. He states that he is on Eliquis and has not missed any doses recently. He is also on metoprolol 12.5 mg twice daily. He denies any chest pain but notes fatigue and sweating which have been telltale signs for him in the past of him being in A-fib. No history of CHF. [facility] Medical History Osteoarthritis of right knee Dystrophic nail SAÚL (obstructive sleep apnea) Hypersomnia Paroxysmal A-fib Chronic pain GI bleed Former smoker CPAP (continuous positive airway pressure) dependence Irregular heart beat Diabetes Primary hypogonadism in male Sleep apnea Hypertension Gout Arthritis Hypertension Hyperlipemia Vitamin D deficiency Diabetes Home Medications ?Medication ?Instructions ?Recorded ?Last Taken ?Type BP monitor #1 ea 09/17/21 Unknown Rx CPAP Machine #1 ea 09/08/23 Unknown Rx atorvastatin 40 mg tablet 40 mg PO DAILY cholesterol 02/06/24 Unknown Rx lowering #90 tabs tamsulosin 0.4 mg capsule 0.4 mg PO DAILY Check with primary 05/25/24 Unknown Rx doctor #90 caps apixaban 5 mg tablet (Eliquis) 5 mg PO BID #180 tabs 09/07/24 Unknown Rx metoprolol tartrate 25 mg tablet 12.5 mg (1/2 x 25 mg) PO BID #90 09/07/24 Unknown Rx tabs potassium chloride 20 mEq 20 meq PO DAILY #90 tabs 09/07/24 Unknown Rx tablet,extended release(part/cryst) valsartan 320 1 tab PO DAILY #90 tabs 10/03/24 Unknown Rx mg-hydrochlorothiazide 25 mg tablet amlodipine 10 mg tablet 20 mg (2 x 10 mg) PO DAILY #180 12/12/24 Unknown Rx tabs metformin 1,000 mg tablet 1,000 mg PO BID #180 tabs 01/02/25 Unknown Rx testosterone 1 % (50 mg/5 gram) 50 mg transdermal DAILY Check with 01/02/25 Unknown Rx transdermal gel packet primary doctor #150 grams cholecalciferol (vitamin D3) 1,250 1,250 mcg PO SA supplement 01/04/25 Unknown History mcg (50,000 unit) capsule Allergy/AdvReac Type Severity Reaction Status Date / Time No Known Allergies Allergy Verified 01/04/25 20:46 Family History Other Adopted Surgical History Hx of cardiac catheterization Hx of colonoscopy History of neck surgery History of left knee surgery Social History Smoking Status: Former smoker quit date: 07/18/15 second hand exposure: No alcohol intake: never substance use type: does not use caffeine: Yes what type of physical activity do you participate in: weight training frequency: 3-4 times per week seatbelt use: always ROS ROS ED ROS Narrative Generalized fatigue Constitutional Constitutional ED: Reports sweats; Denies chills, fever(s) or weight loss Eyes Eyes: Denies change in vision or diplopia ENT ENT ED: Denies ear pain, rhinorrhea or sore throat Cardiovascular Cardiovascular: Reports palpitations and racing heartbeat; Denies chest pain or orthopnea Respiratory/Chest Respiratory/Chest: Denies cough, dyspnea or orthopnea Gastrointestinal Gastrointestinal: Denies abdominal pain, diarrhea, nausea or vomiting Genitourinary Genitourinary ED: Denies dysuria, hematuria or urinary frequency Musculoskeletal Musculoskeletal: Denies arthralgias or myalgias Integumentary Denies abscess or rash Neurologic Neurologic: Denies headache(s) or weakness Psychiatric Psychiatric: Denies anxiety, depression, suicidal ideation or suicidal thoughts Endocrine Endocrinology: Denies polydipsia, polyphagia or polyuria Allergic/Immunologic Allergic/Immunologic ED: Denies mouth swelling, tongue swelling or urticaria EXAM Physical Exam Const Vital Signs: 01/04/25 16:56 01/04/25 18:11 01/04/25 18:11 Temperature 97.8 F Temperature Source Oral Pulse Rate 97 121 H Pulse Rate [1 (Initial Baseline)] Pulse Rate [2] Pulse Rate [3] Pulse Rate [4] Pulse Rate [5] Respiratory Rate 21 H 22 H Respiratory Rate [1 (Initial Baseline)] Respiratory Rate [2] Respiratory Rate [3] Respiratory Rate [4] Respiratory Rate [5] Respiratory Effort Normal Non-Labored Blood Pressure 147/97 H 158/103 H Blood Pressure [1 (Initial Baseline)] Blood Pressure [2] Blood Pressure [4] Blood Pressure [5] Blood Pressure Mean 113 121 Baseline BP Pulse Ox 98 97 Oxygen Delivery Method Room Air Room Air Oxygen Delivery Method [1 (Initial Baseline)] Oxygen Delivery Method [2] Oxygen Delivery Method [3] Oxygen Delivery Method [4] Oxygen Delivery Method [5] Oxygen Flow Rate (L/min) Oxygen Flow Rate (L/min) [1 (Initial Baseline)] Oxygen Flow Rate (L/min) [2] Oxygen Flow Rate (L/min) [3] Oxygen Flow Rate (L/min) [4] Oxygen Flow Rate (L/min) [5] EtCo2 - Document during CPR and with ROSC EtCo2 - Document during CPR and with ROSC [1 (Initial Baseline)] EtCo2 - Document during CPR and with ROSC [2] EtCo2 - Document during CPR and with ROSC [3] EtCo2 - Document during CPR and with ROSC [4] EtCo2 - Document during CPR and with ROSC [5] 01/04/25 18:33 01/04/25 18:40 01/04/25 18:48 Temperature Temperature Source Pulse Rate 104 H 119 H 96 Pulse Rate [1 (Initial Baseline)] Pulse Rate [2] Pulse Rate [3] Pulse Rate [4] Pulse Rate [5] Respiratory Rate 22 H 23 H 21 H Respiratory Rate [1 (Initial Baseline)] Respiratory Rate [2] Respiratory Rate [3] Respiratory Rate [4] Respiratory Rate [5] Respiratory Effort Blood Pressure 174/87 H 174/87 H 143/89 H Blood Pressure [1 (Initial Baseline)] Blood Pressure [2] Blood Pressure [4] Blood Pressure [5] Blood Pressure Mean 116 116 107 Baseline BP Pulse Ox 99 98 97 Oxygen Delivery Method Room Air Room Air Oxygen Delivery Method [1 (Initial Baseline)] Oxygen Delivery Method [2] Oxygen Delivery Method [3] Oxygen Delivery Method [4] Oxygen Delivery Method [5] Oxygen Flow Rate (L/min) Oxygen Flow Rate (L/min) [1 (Initial Baseline)] Oxygen Flow Rate (L/min) [2] Oxygen Flow Rate (L/min) [3] Oxygen Flow Rate (L/min) [4] Oxygen Flow Rate (L/min) [5] EtCo2 - Document during CPR and with ROSC EtCo2 - Document during CPR and with ROSC [1 (Initial Baseline)] EtCo2 - Document during CPR and with ROSC [2] EtCo2 - Document during CPR and with ROSC [3] EtCo2 - Document during CPR and with ROSC [4] EtCo2 - Document during CPR and with ROSC [5] 01/04/25 19:00 01/04/25 20:00 01/04/25 20:00 Temperature Temperature Source Pulse Rate 107 H 102 H Pulse Rate [1 (Initial Baseline)] Pulse Rate [2] Pulse Rate [3] Pulse Rate [4] Pulse Rate [5] Respiratory Rate 19 H Respiratory Rate [1 (Initial Baseline)] Respiratory Rate [2] Respiratory Rate [3] Respiratory Rate [4] Respiratory Rate [5] Respiratory Effort Blood Pressure 140/94 H Blood Pressure [1 (Initial Baseline)] Blood Pressure [2] Blood Pressure [4] Blood Pressure [5] Blood Pressure Mean 109 Baseline BP Pulse Ox 98 Oxygen Delivery Method Room Air Oxygen Delivery Method [1 (Initial Baseline)] Oxygen Delivery Method [2] Oxygen Delivery Method [3] Oxygen Delivery Method [4] Oxygen Delivery Method [5] Oxygen Flow Rate (L/min) Oxygen Flow Rate (L/min) [1 (Initial Baseline)] Oxygen Flow Rate (L/min) [2] Oxygen Flow Rate (L/min) [3] Oxygen Flow Rate (L/min) [4] Oxygen Flow Rate (L/min) [5] EtCo2 - Document during CPR and with ROSC 37 EtCo2 - Document during CPR and with ROSC [1 (Initial Baseline)] EtCo2 - Document during CPR and with ROSC [2] EtCo2 - Document during CPR and with ROSC [3] EtCo2 - Document during CPR and with ROSC [4] EtCo2 - Document during CPR and with ROSC [5] 01/04/25 20:46 01/04/25 20:52 01/04/25 21:00 Temperature Temperature Source Pulse Rate 96 84 Pulse Rate [1 (Initial Baseline)] 96 Pulse Rate [2] 103 H Pulse Rate [3] 104 H Pulse Rate [4] 100 Pulse Rate [5] 104 H Respiratory Rate 14 16 Respiratory Rate [1 (Initial Baseline)] 21 H Respiratory Rate [2] 19 H Respiratory Rate [3] 24 H Respiratory Rate [4] 28 H Respiratory Rate [5] 22 H Respiratory Effort Blood Pressure 156/99 H 140/100 H Blood Pressure [1 (Initial Baseline)] 156/99 H Blood Pressure [2] 167/111 H Blood Pressure [4] 164/95 H Blood Pressure [5] 156/98 H Blood Pressure Mean Baseline BP 156/99 Pulse Ox 98 99 Oxygen Delivery Method Nasal Cannula Nasal Cannula Oxygen Delivery Method [1 (Initial Baseline)] Nasal Cannula Oxygen Delivery Method [2] Nasal Cannula Oxygen Delivery Method [3] Nasal Cannula Oxygen Delivery Method [4] Nasal Cannula Oxygen Delivery Method [5] Nasal Cannula Oxygen Flow Rate (L/min) 2 2 Oxygen Flow Rate (L/min) [1 (Initial Baseline)] 2 Oxygen Flow Rate (L/min) [2] 2 Oxygen Flow Rate (L/min) [3] 2 Oxygen Flow Rate (L/min) [4] 2 Oxygen Flow Rate (L/min) [5] 2 EtCo2 - Document during CPR and with ROSC 36 26 EtCo2 - Document during CPR and with ROSC [1 (Initial Baseline)] 21 EtCo2 - Document during CPR and with ROSC [2] 25 EtCo2 - Document during CPR and with ROSC [3] 33 EtCo2 - Document during CPR and with ROSC [4] 33 EtCo2 - Document during CPR and with ROSC [5] 31 01/04/25 21:00 01/04/25 21:05 01/04/25 21:10 Temperature Temperature Source Pulse Rate 97 82 86 Pulse Rate [1 (Initial Baseline)] Pulse Rate [2] Pulse Rate [3] Pulse Rate [4] Pulse Rate [5] Respiratory Rate 19 H 18 18 Respiratory Rate [1 (Initial Baseline)] Respiratory Rate [2] Respiratory Rate [3] Respiratory Rate [4] Respiratory Rate [5] Respiratory Effort Blood Pressure 127/88 H 127/88 H 139/112 H Blood Pressure [1 (Initial Baseline)] Blood Pressure [2] Blood Pressure [4] Blood Pressure [5] Blood Pressure Mean 101 Baseline BP Pulse Ox 98 97 98 Oxygen Delivery Method Room Air Room Air Room Air Oxygen Delivery Method [1 (Initial Baseline)] Oxygen Delivery Method [2] Oxygen Delivery Method [3] Oxygen Delivery Method [4] Oxygen Delivery Method [5] Oxygen Flow Rate (L/min) Oxygen Flow Rate (L/min) [1 (Initial Baseline)] Oxygen Flow Rate (L/min) [2] Oxygen Flow Rate (L/min) [3] Oxygen Flow Rate (L/min) [4] Oxygen Flow Rate (L/min) [5] EtCo2 - Document during CPR and with ROSC 21 EtCo2 - Document during CPR and with ROSC [1 (Initial Baseline)] EtCo2 - Document during CPR and with ROSC [2] EtCo2 - Document during CPR and with ROSC [3] EtCo2 - Document during CPR and with ROSC [4] EtCo2 - Document during CPR and with ROSC [5] Positive well nourished and well developed General Appearance ED: well developed HEENT Reports normocephalic, head/scalp atraumatic and moist mucous membranes Eyes PERRL and EOMs intact bilaterally Neck no lymphadenopathy, supple and no JVD Resp normal respiratory effort and clear to auscultation bilaterally Cardio no murmurs Rate: tachycardic Rhythm: abnormal rhythm irregularly irregular GI normal to inspection, nondistended, normoactive bowel sounds and non-tender Palpation: soft Back/Spine no CVA tenderness and normal ROM Extremity normal to inspection General Extremety ED: Negative for edema General Extremity: Negative for edema Neuro oriented x3 and CN's II-XII intact bilaterally Sensorium / Orientation: alert Motor Exam: strength 5/5 throughout Psych mental status grossly normal Mood & Affect: Negative for depressed or tearful Skin no rashes or lesions noted and no wounds MDM MDM MDM Narrative Medical decision making narrative: Differential diagnosis includes cardiac dysrhythmia CHF electrolyte abnormalities dehydration My independent interpretation a chest x-ray is no acute process. EKG confirms A-fib with RVR. White count 7.7 hemoglobin of 14 platelet count of 262. Sodium potassium magnesium are within normal limits. Glucose of 121. Creatinine 1.50 with a BUN of 21. Patient received a dose of IV metoprolol which slowed his heart rate down to 90-100. Unfortunately he remains in A-fib. I spoke with cardiology. As the patient has not missed Eliquis in the past month and he is normally in a sinus rhythm we offered cardioversion. Patient provided informed written consent for the use of etomidate for synchronized electrical cardioversion. Once adequate sedation was achieved a 200 J synchronized shock was delivered. This resulted in several sinus beats but unfortunately return to atrial fibrillation. A second shock at 250 J was delivered. Patient remained in atrial fibrillation. However his rate has been around 80-90. Patient recovered without incident from the sedation. He was given metoprolol 25 mg p.o. I spoke again with cardiology. We both feel it is reasonable that the patient can go home. Increase metoprolol to 25 mg twice daily from the 12.5 mg twice daily dosing he is currently at. Continue the Eliquis. He is to call cardiology for follow-up on Tuesday for rate rhythm and blood pressure check. History & Record Review Discussion w/independent historian: Patient Additional record(s) reviewed:: Prior outpatient record, Prior ED visit and Prior labs Lab Data Attestation: I reviewed the patient's lab results. Labs: Laboratory Results - last 24 hr 01/04/25 01/04/25 01/04/25 18:25 18:25 19:15 WBC Cancelled 7.7 Corrected WBC Cancelled RBC Cancelled 5.14 Hgb Cancelled 14.0 Hct Cancelled 41.8 MCV Cancelled 81.3 MCH Cancelled 27.2 MCHC Cancelled 33.5 RDW Std Deviation Cancelled 43.1 RDW Coeff of Cornelius Cancelled 14.7 H Plt Count Cancelled 262 MPV Cancelled 9.2 Immature Gran % (Auto) Cancelled 0.300 Neut % (Auto) Cancelled 70.0 Lymph % (Auto) Cancelled 19.6 Donley % (Auto) Cancelled 7.9 Eos % (Auto) Cancelled 1.6 Baso % (Auto) Cancelled 0.6 Absolute Neuts (auto) Cancelled 5.4 Absolute Lymphs (auto) Cancelled 1.52 Total Counted Cancelled Neutrophils % (Manual) Cancelled Band Neutrophils % Cancelled Lymphocytes % (Manual) Cancelled Monocytes % (Manual) Cancelled Eosinophils % (Manual) Cancelled Basophils % (Manual) Cancelled Metamyelocytes % Cancelled Myelocytes % Cancelled Promyelocytes % Cancelled Blast Cells % Cancelled Plasma Cell % (Manual) Cancelled Other Cells % Cancelled Nucleated RBC % Cancelled 0 Nucleated RBCs/100 WBC Cancelled Differential Comment Cancelled Diff Path Review Cancelled Hypersegmented Neuts Cancelled Atypical Lymphocytes Cancelled Reactive Lymphocytes Cancelled Smudge Cells Cancelled Toxic Granulation Cancelled Toxic Vacuolation Cancelled Dohle Bodies Cancelled Justo Rods Cancelled Platelet Estimate Cancelled Plt Morphology Comment Cancelled RBC Morphology Cancelled Cancelled Polychromasia Cancelled Hypochromasia Cancelled Basophilic Stippling Cancelled Anisocytosis Cancelled Microcytosis Cancelled Macrocytosis Cancelled Spherocytes Cancelled Sickle Cells Cancelled Target Cells Cancelled Tear Drop Cells Cancelled Ovalocytes Cancelled Stomatocytes Cancelled [place] Bodies Cancelled Moshe Cells Cancelled Bite Cells Cancelled Crenated Cell Cancelled Acanthocytes (Spur) Cancelled Rouleaux Cancelled Schistocytes Cancelled Sodium 140 Potassium 4.3 Chloride 103 Carbon Dioxide 23.1 Anion Gap 13 BUN 21 H Creatinine 1.50 H Est GFR (MDRD) Non-Af 52 L BUN/Creatinine Ratio 13.7 Glucose 121 H Calcium 9.1 Magnesium 1.8 POC Glucose 01/04/25 21:01 WBC Corrected WBC RBC Hgb Hct MCV MCH MCHC RDW Std Deviation RDW Coeff of Cornelius Plt Count MPV Immature Gran % (Auto) Neut % (Auto) Lymph % (Auto) Donley % (Auto) Eos % (Auto) Baso % (Auto) Absolute Neuts (auto) Absolute Lymphs (auto) Total Counted Neutrophils % (Manual) Band Neutrophils % Lymphocytes % (Manual) Monocytes % (Manual) Eosinophils % (Manual) Basophils % (Manual) Metamyelocytes % Myelocytes % Promyelocytes % Blast Cells % Plasma Cell % (Manual) Other Cells % Nucleated RBC % Nucleated RBCs/100 WBC Differential Comment Diff Path Review Hypersegmented Neuts Atypical Lymphocytes Reactive Lymphocytes Smudge Cells Toxic Granulation Toxic Vacuolation Dohle Bodies Justo Rods Platelet Estimate Plt Morphology Comment RBC Morphology Polychromasia Hypochromasia Basophilic Stippling Anisocytosis Microcytosis Macrocytosis Spherocytes Sickle Cells Target Cells Tear Drop Cells Ovalocytes Stomatocytes [place] Bodies Seeley Cells Bite Cells Crenated Cell Acanthocytes (Spur) Rouleaux Schistocytes Sodium Potassium Chloride Carbon Dioxide Anion Gap BUN Creatinine Est GFR (MDRD) Non-Af BUN/Creatinine Ratio Glucose Calcium Magnesium POC Glucose 115 H Radiography Diagnostic Testing: Clinical Impression(s) from Imaging Studies Chest X-Ray 01/04/25 18:53 IMPRESSION: Cardiomegaly without overt failure. Reading Location: [facility] EKG Initial EKG: Attestation: I personally reviewed and interpreted this EKG as follows: Comments: Atrial fibrillation with rapid ventricular response of 108 bpm. Management Discussion w/another healthcare provider: Stationary Engineer Supervisor (Dr. Pearson (cardiology)) Procedures Procedural Sedation 1 (Initial Baseline): Consent Signed: Yes Any Problems With Anesthesia: No You/Your family experience fever (hyperthermia) w/anesthesia: No Sedation medication: Etomidate Dose: 20 Route: IV Total Moderate Sedation Units: 16 Maliampati Score: Class II ASA Classification: E and II Discharge Plan Triage Chief Complaint: Palpitations ED Provider: Arturo Weeks Dx/Rx/DC Orders Clinical Impression: AF (paroxysmal atrial fibrillation), Anticoagulated Instructions: AFib Dc Prescriptions: No Action cholecalciferol (vitamin D3) 1,250 mcg (50,000 unit) capsule 1,250 mcg PO SA (DME) BP monitor Large cuff See Rx Instructions .Route .MEDSUPPLY Qty: 1 0RF Rx Instructions: As directed (DME) CPAP Machine See Rx Instructions .Route .MEDSUPPLY Qty: 1 0RF Rx Instructions: As directed DX SAÚL G47.33 atorvastatin 40 mg tablet 40 mg PO DAILY Qty: 90 3RF tamsulosin 0.4 mg capsule 0.4 mg PO DAILY Qty: 90 3RF Eliquis 5 mg tablet 5 mg PO BID Qty: 180 3RF potassium chloride 20 mEq tablet,ER particles/crystals 20 meq PO DAILY Qty: 90 3RF metoprolol tartrate 25 mg tablet 12.5 mg PO BID Qty: 90 1RF valsartan-hydrochlorothiazide 320-25 mg tablet 1 tab PO DAILY Qty: 90 3RF amlodipine 10 mg tablet 20 mg PO DAILY Qty: 180 3RF testosterone 1 % (50 mg/5 gram) gel in packet 50 mg TD DAILY Qty: 150 5RF metformin 1,000 mg tablet 1,000 mg PO BID Qty: 180 1RF Primary Care Provider: Leydi Chun Referrals: Leydi Chun MD [Primary Care Provider] - Kingston Whyte SAND BOBBER, SAND BOBBER-C [Med Staff - Adv Practice Prof] - (call to arrange early follow up) Activity Restrictions/Additional Instructions: Continue your home medications including your Eliquis and your metoprolol Increase your metoprolol to 25 mg twice a day Please follow-up with cardiology on Tuesday, you are to call them and come in for rate rhythm and blood pressure check.. If you find your heart rate is significantly elevated he may return to emergency or contact on-call cardiology. Print Language: [place] Disposition Disposition: Home, Self Care
--- NOTE | 2025-01-04 18:53 | RAD_ITS ---
EXAM: XR Chest, 1 View CLINICAL INDICATION: HYPERTENSION TECHNIQUE: Frontal view of the chest. COMPARISON: No relevant prior studies available. FINDINGS: LUNGS AND PLEURAL SPACES: Unremarkable. No consolidation. No pneumothorax. HEART: Cardiomegaly without overt failure. MEDIASTINUM: Unremarkable. Normal mediastinal contour. BONES/JOINTS: Unremarkable. No acute fracture. RAD/Chest 1 View (Portable) IMPRESSION: Cardiomegaly without overt failure. Reading Location: [id number]
[2025-01-04 19:06] LABS: Anion Gap 13 (5-15); BUN 21 mg/dL (4-19); BUN/Creat Ratio 13.7 RATIO (10-20); Carbon Dioxide 23.1 mmol/L (21.0-32.0); Chloride 103 mmol/L (98-108); EST Glomerular Filtration Rate 52 (>60); Glucose 121 mg/dL (70-99); Magnesium 1.8 mg/dL (1.5-2.2); Potassium 4.3 mmol/L (3.3-5.1); Sodium Level 140 mmol/L (133-145)
[2025-01-04 19:22] LABS: Absolute Lymphocyte Count 1.52 X10^3/uL (0.83-4.51); Absolute Neutrophil Count 5.4 X10^3/uL (2.0-7.7); Basophil# 0.05 X10^3/uL; Basophil% 0.6 % (0-1); Eosinophil# 0.12 X10^3/uL; Eosinophils% 1.6 % (0-5); Hematocrit 41.8 % (40-54); Lymphocyte # 1.52 X10^3/ul (0.83-4.51); Lymphocyte % 19.6 % (19-41); Mean Corp Hgb Conc 33.5 g/dL (32-36); Mean Corpuscular Hgb 27.2 pg (27.0-32.0); Mean Corpuscular Volume 81.3 fL (80-94); Mean Platelet Vol. 9.2 fl (6.2-12.0); Monocyte# 0.61 X10^3/uL; Monocyte% 7.9 % (0-10); NRBC Flagged by Analyzer 0 % (0-5); Neutrophil # 5.42 X10^3/uL (2.7-7.7); Platelet Count 262 K/mm3 (150-450); RBC Distribution Width CV 14.7 % (11.6-14.6); RBC Distribution Width SD 43.1 fl (35.1-43.9); Red Blood Count 5.14 M/mm3 (4.6-6.2); White Blood Count 7.7 K/mm3 (4.4-11.0)
[2025-01-04 19:25] LABS: Calcium,Total 9.1 mg/dL (7.6-11.0)
[2025-01-04] MEDS: Etomidate 20 MG/10 ML Vial IV (20:45)
[2025-01-04 21:26] LABS: Bedside Glucose 115 mg/dL (74-106)
[2025-01-04] MEDS: Metoprolol Tartrate 25 MG Tablet PO (21:34)
== END 2025-01-04 22:00 | disposition home or self-care (01) ==
PROVIDERS: Emergency Provider Emergency Medicine; PCP Internal Medicine; Referring Provider Emergency Medicine; Visit Provider Emergency Medicine
DX: I48.0 Paroxysmal atrial fibrillation (principal); E11.9 Type 2 diabetes mellitus without complications; R00.2 Palpitations; Z87.891 Personal history of nicotine dependence; I10 Essential (primary) hypertension; E78.5 Hyperlipidemia, unspecified; Z79.01 Long term (current) use of anticoagulants; G47.33 Obstructive sleep apnea (adult) (pediatric); Z99.89 Dependence on other enabling machines and devices; Z79.899 Other long term (current) drug therapy; Z79.84 Long term (current) use of oral hypoglycemic drugs
CPT/HCPCS: 71045; 80048; 82962; 83735; 85025; 92960; 93005; 96374; 96376; 99152; 99284; A4216

== ENCOUNTER → 2025-02-01 | Outpatient (CLI) | payer MEDICAID, SELFPAY ==
--- NOTE | 2025-02-01 06:01 | ECHOCS_ITS ---
Reason For Study Reason For Study: Arrhythmia Procedure This was a 2D Doppler, Color Flow transthoracic echocardiogram. The study was technically difficult. Exam performed in department. Left Ventricle Normal LV size. Moderate concentric left ventricular hypertrophy. The left ventricular ejection fraction is 45 %. There is mild global hypokinesis of the left ventricle. Right Ventricle Normal RV size. Normal systolic function. Atria The left atrium is moderately enlarged. The right atrium is mildly enlarged. Mitral Valve Normal mitral valve. Tricuspid Valve Normal tricuspid valve. Mild tricuspid valve insufficiency. Aortic Valve Normal aortic valve. Great Vessels Normal aortic root. The pulmonary artery is normal size. Inferior vena cava collapse with respiration. Pericardium/Pleural No pericardial effusion. Medication Diluted definity 1.0ml given slow IV push to enhance endocardial definition. MMode/2D Measurements & Calculations LVIDd: 4.9 cm IVSd: 1.5 cm Ao root diam: 3.5 cm LVIDs: 3.6 cm LVPWd: 1.5 cm FS: 27.2 % LAV(MOD-bp): 98.2 ml LVAd ap4: 41.3 cm2 LVAd ap2: 33.8 cm2 LAV(MOD-bp) Indexed: 36.8 ml/m2 LVLd ap4: 8.6 cm LVLd ap2: 8.2 cm LAV(MOD-sp2): 91.7 ml EDV(MOD-sp4): 163.0 ml EDV(MOD-sp2): 112.5 ml LAV(MOD-sp4): 96.6 ml EDV(sp4-el): 168.9 ml EDV(sp2-el): 117.8 ml LVAs ap4: 33.4 cm2 LVAs ap2: 24.0 cm2 LVLs ap4: 8.0 cm LVLs ap2: 7.7 cm ESV(MOD-sp4): 115.4 ml ESV(MOD-sp2): 60.7 ml ESV(sp4-el): 118.3 ml ESV(sp2-el): 63.3 ml EF(MOD-sp4): 29.2 % EF(MOD-sp2): 46.1 % EF(sp4-el): 30.0 % SV(MOD-sp4): 47.6 ml SV(MOD-sp2): 51.8 ml SV(sp4-el): 50.6 ml SI(MOD-sp4): 17.9 ml/m2 SI(MOD-sp2): 19.4 ml/m2 LA A4 area: 28.2 cm2 LA dimension(2D): 5.0 cm RA A4 area: 22.3 cm2 Doppler Measurements & Calculations MV E max arlen: 104.8 cm/sec Ao V2 max: 104.1 cm/sec LV V1 max: 83.3 cm/sec Ao max P.3 mmHg LV V1 max P.8 mmHg PA V2 max: 78.4 cm/sec TR max arlen: 229.0 cm/sec TR max P.0 mmHg ECHO/Echo Complete W/ Contrast Interpretation Summary Normal LV size. The left ventricular ejection fraction is 45 %. Moderate concentric left ventricular hypertrophy. The left atrium is moderately enlarged. The right atrium is mildly enlarged. Contrast injection was performed. Ordering Physician: Jillian Prado Referring Physician: Leydi Chun Performed By: Flakita Rodriguez RDCS and Student
--- OUTSIDE RECORDS SUMMARY | 2025-02-01 06:03 | XMS RPT_ITS | CCD ---
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 Name Role Phone WAYT, NICK Unavailable Unavailable MURIEL, JAMIE D Unavailable Unavailable WAYT, NICK Unavailable Unavailable MURIEL, JAMIE D Unavailable Unavailable ASHVIN IVEY Unavailable Unavailable MURIEL, JAMIE D Unavailable Unavailable MURIEL, JAMIE D Unavailable Unavailable MURIEL, JAMIE D Unavailable Unavailable MURIEL, JAMIE D Unavailable Unavailable MURIEL, JAMIE D Unavailable Unavailable KINKOPF, ILANA W Unavailable Unavailable MURIEL, JAMIE Unavailable Unavailable MURIEL, JAMIE Unavailable Unavailable TEACH, MTS YASMANY Unavailable Unavailable MORENA, NIHADQ Unavailable Unavailable MURIEL, JAMIE Unavailable Unavailable MURIEL, JAMIE Unavailable Unavailable Dr. Leydi Chun MD Primary Care Provider Dr. Arturo Weeks DO Referring Provider [phone] Dr. Arturo Weeks DO Emergency Provider Dr. Leydi Chun MD Referring Provider Jillian Baires Attending Provider [phone] Leydi Chun Attending Unavailable Leydi Chun Primary Care Unavailable Leydi Chun Attending Unavailable Leydi Chun Referring Unavailable Leydi Chun Primary Care Unavailable Arturo Weeks Attending Unavailable Arturo Weeks Referring Unavailable Leydi Chun Primary Care Unavailable Leydi Chun Referring Unavailable Leydi Chun Primary Care Unavailable Jillian Baires Attending Unavail able Medications Current Medications Medication Drug Class(es) Dates Sig (Normalized) Sig (Original) BP monitor (3 sources) Start: 09-17-2021 BP monitor Act deja 0 .Route .MEDSUPPLY September 17, 2021 12:55pm As directed Start: 09-17-2021 End: 09-17-2021 BP monitor Discontinued 0 .R oute .MEDSUPPLY September 17, 2021 11:54am September 17, 2021 12:56pm As directed Start: 09-17-2021 End: 09-17-2021 BP monitor Discontinued 0 .R oute .MEDSUPPLY September 17, 2021 12:00am September 17, 2021 11:55am As directed BP monitor Large cuff (6 sources) Start: 09-17-2021 BP monitor Lar ge cuff Active 0 .Route .MEDSUPPLY September 17, 2021 1:55pm As directed Start: 09-17-2021 End: 09-17-2021 BP monitor Large cuff Discon tinued 0 .Route .MEDSUPPLY September 17, 2021 12:54pm September 17, 2021 1:56pm As directed Start: 09-17-2021 End: 09-17-2021 BP monitor Large cuff Discon tinued 0 .Route .MEDSUPPLY September 17, 2021 1:00am September 17, 2021 12:55pm As directed CPAP Machine (2 sources) Start: 09-08-2023 CPAP Machine A ctive 0 .Route .MEDSUPPLY 1 September 08, 2023 1:00am As directed DX SAÚL G47.33 metFORMIN hydrochloride 1000 mg oral tablet (20 sources) Biguanide Start: 01-02-2025 take 1 tablet by mouth twice daily Metformin 1,000 mg tablet Active 1000 mg PO TWICE A DAY 180 January 02, 2025 4:06pm Start: 06-24-2020 End: 07-26-2024 take 1 tablet by mouth twice daily Metformin 1,000 mg tablet Discontinued 1000 mg PO TWICE A DAY 180 November 09, 2023 10:45am July 26, 2024 9:43am Start: 07-15-2017 End: 06-24-2020 take 2 tablets by mouth twice daily at mealtime Metformin 500 MG tablet Discontinued 1000 mg PO TWICE DAILY WITH MEALS July 15, 2017 1:00am June 24, 2020 2:36pm Start: 07-15-2017 End: 06-24-2020 take 1000 mg by mouth twice daily at mealtime Metformin Discontinued 1000 MG PO TWICE DAILY WITH MEALS July 15, 2017 12:00am June 24, 2020 1:36pm metoprolol tartrate 25 mg oral tablet (20 sources) beta-Adrenergic Gale Start: 01-08-2025 End: 01-08-2025 take 1 tablet by mouth twice daily Metoprolol Tartrate 25 mg tablet Active 25 mg PO TWICE A DAY 180 January 08, 2025 1:52pm Start: 07-27-2024 End: 01-08-2025 Metoprolol Tartrate 25 mg ta blet Discontinued 12.5 mg PO TWICE A DAY 90 September 07, 2024 2:33pm January 08, 2025 1:09pm Start: 01-06-2021 End: 09-23-2021 take 1 tablet by mouth twice daily Metoprolol Tartrate 50 mg tablet Discontinued 50 mg PO TWICE A DAY 180 January 30, 2021 12:59pm September 21, 2021 12:38am Start: 12-14-2020 End: 01-06-2021 take 1 tablet by mouth once daily Metoprolol Tartrate 25 mg tablet Discontinued 25 mg PO DAILY January 02, 2021 11:11am January 06, 2021 1:29pm Completed/Discontinued Medications Medication Drug Class(es) Dates Sig (Normalized) Sig (Original) acetaminophen 325 mg / oxyCODONE hydrochloride 5 mg oral tablet (3 sources) Opioid Agonist Start: 10-31-2022 End: 07-26-2024 Oxycodone-Acetamino phen (Percocet) 5-325 mg tablet Discontinued 1 {tbl} PO EVERY 6 HOURS as needed for pain 12 3 October 31, 2022 July 26, 2024 9:43am [id number] 200 actuat albuterol 0.09 mg/actuat metered dose inhaler (3 sources) beta2-Adrenergic Agonist Start: 09-08-2021 End: 10-12-2021 Albuterol Sulfate 90 mcg/actuation HFA aerosol inhaler Discontinued 2 NMA INHALATION EVERY 6 HOURS as needed for shortness of breath or wheezing 8.September 08, 2021 1:00am October 12, 2021 9:53am Start: 09-08-2021 End: 10-12-2021 take 1 puff(s) by inhalation every six hours Albuterol Sulfate Discontinued 2 PUFF INHALATION EVERY 6 HOURS 8.September 08, 2021 12:00am October 12, 2021 8:53am amLODIPine 10 mg oral tablet (20 sources) Dihydropyridine Calcium Channel Gale Start: 12-06-2022 End: 12-12-2024 take 2 tablets by mouth once daily Amlodipine 10 mg tablet Discontinued 20 mg PO DAILY September 07, 2024 12:41pm December 12, 2024 12:31pm Start: 12-06-2022 take 20 mg by mouth once daily Amlodipine Active 20 MG PO DAILY December 06, 2022 11:41am Start: 10-31-2022 End: 12-06-2022 take 1 tablet by mouth once daily Amlodipine 10 mg tablet Discontinued 10 mg PO DAILY December 02, 2022 2:40pm December 06, 2022 12:41pm Start: 09-23-2021 End: 10-31-2022 take 5 mg by mouth once daily Amlodipine 10 mg tablet Discontinued 5 mg PO DAILY August 05, 2022 11:49am October 31, 2022 12:17am Start: 09-23-2021 End: 10-31-2022 take 5 mg by mouth once daily Amlodipine Discontinued 5 MG PO DAILY August 05, 2022 10:49am October 30, 2022 11:17pm Start: 01-30-2021 End: 09-23-2021 take 1 tablet by mouth once daily Amlodipine 10 mg tablet Discontinued 10 mg PO DAILY August 03, 2021 12:49pm September 21, 2021 12:38am Start: 04-20-2016 End: 12-14-2020 take 1 tablet by mouth once daily Amlodipine 10 mg tablet Discontinued 10 mg PO DAILY December 02, 2020 1:02pm December 12, 2020 7:33pm apixaban 5 mg oral tablet (20 sources) Factor Xa Inhibitor Start: 12-14-2020 End: 09-07-2024 take 1 tablet by mouth twice daily Apixaban (Eliquis) 5 mg tablet Discontinued 5 mg PO TWICE A DAY March 06, 2024 11:21am September 07, 2024 12:41pm atorvastatin 40 mg oral tablet (20 sources) HMG-CoA Reductase Inhibitor Start: 05-22-2020 End: 02-06-2024 take 1 tablet by mouth once daily Atorvastatin 40 mg tablet Discontinued 40 mg PO DAILY February 03, 2023 1:03pm February 06, 2024 11:52am carvedilol 12.5 mg oral tablet (9 sources) alpha-Adrenergic Gale, beta-Adrenergic Gale Start: 09-23-2021 End: 07-26-2024 Carvedilol 12.5 mg tablet Discontinued 12.5 mg PO TWICE A DAY 180 February 03, 2023 1:03pm July 26, 2024 9:42am Hold for heart less than 60 or systolic blood pressure less than 100 mmHg. chlorthalidone 25 mg oral tablet (9 sources) Thiazide-like Diuretic Start: 05-22-2020 End: 09-10-2020 take 1 tablet by mouth once daily Chlorthalidone 25 mg tablet Discontinued 25 mg PO DAILY June 24, 2020 5:17pm September 10, 2020 10:59am Start: 04-22-2016 End: 05-22-2020 Chlorthalidone 50 MG tablet Discontinued 25 mg PO DAILY April 22, 2016 12:00am May 22, 2020 12:45pm 1/2 tab daily....25 mg Start: 04-22-2016 End: 05-22-2020 take 1 tablet by mouth once daily Chlorthalidone Discontinued 25 MG PO DAILY April 21, 2016 11:00pm May 22, 2020 11:45am 1/2 tab daily....25 mg cholecalciferol 1.25 mg oral capsule (20 sources) Vitamin D Start: 05-22-2020 End: 01-04-2025 take 1 capsule by mouth every week Cholecalciferol (Vitamin D3) 1,250 mcg (50,000 unit) capsule Discontinued 1250 ug PO EVERY WEEK September 07, 2024 12:41pm January 04, 2025 9:07pm glipiZIDE 10 mg oral tablet (6 sources) Sulfonylurea Start: 09-23-2021 End: 09-16-2022 take 1 tablet by mouth twice daily Glipizide 10 mg tablet Discontinued 10 mg PO TWICE A DAY November 04, 2021 8:04am September 16, 2022 10:46am Hold if glucose less than 130 mg/dl 12 hr guaiFENesin 600 mg extended release oral tablet (9 sources) Start: 10-12-2021 End: 06-28-2022 take 600 mg by mouth twice daily Guaifenesin Active 600 MG PO TWICE A DAY June 28, 2022 11:37am Start: 10-12-2021 End: 07-26-2024 take 1 tablet by mouth twice daily as needed for congestion Guaifenesin 600 mg tablet extended release 12hr Discontinued 600 mg PO TWICE A DAY as needed for congestion June 28, 2022 12:37pm July 26, 2024 9:42am hydroCHLOROthiazide 12.5 mg oral tablet (3 sources) Thiazide Diuretic Start: 09-23-2021 End: 10-12-2021 take 1 tablet by mouth once daily Hydrochlorothiazide 12.5 mg tablet Discontinued 12.5 mg PO DAILY September 23, 2021 1:00am October 12, 2021 4:25pm hydroCHLOROthiazide 50 mg / triamterene 75 mg oral tablet (3 sources) Potassium-spa ring Diuretic, Thiazide Diuretic Start: 04-22-2016 End: 04-22-2016 Triamterene-Hydrochloro thiazid 1 TABLET tablet Discontinued 1 {tbl} PO DAILY April 22, 2016 12:00am April 22, 2016 5:20pm Start: 04-22-2016 End: 04-22-2016 take 1 tablet by mouth once daily Triamterene-Hydrochlorothiazid Discontin ued 1 TABLET PO DAILY April 21, 2016 11:00pm April 22, 2016 4:20pm hydroCHLOROthiazide 25 mg / valsartan 320 mg oral tablet (20 sources) Thiazide Diuretic, Angiotensin 2 Receptor Gale Start: 10-12-2021 End: 10-03-2024 Valsartan-Hydrochlorothiazid e 320-25 mg tablet Discontinued 1 {tbl} PO DAILY October 07, 2023 1:08pm October 03, 2024 11:57am Start: 10-12-2021 End: 10-12-2022 take 1 tablet by mouth once daily Valsartan-Hydrochlorothiazide Active 1 T ABLET PO DAILY October 12, 2022 1:58pm Start: 11-26-2020 End: 10-12-2021 Valsartan-Hydrochlorothiazid e 320-12.5 mg tablet Discontinued 1 {tbl} PO DAILY May 07, 2021 8:52am September 21, 2021 12:38am Start: 11-26-2020 End: 10-12-2021 take 1 tablet by mouth once daily Valsartan-Hydrochlorothiazide Discontinu ed 1 TABLET PO DAILY September 20, 2021 11:38pm October 12, 2021 3:23pm 3 ml insulin lispro 25 unt/ml / insulin lispro protamine, human 75 unt/ml pen injector (3 sources) Insulin Analog Start: 07-15-2017 End: 05-22-2020 Insulin Lispro Protamin-Lispro 100 UNIT/ML insulin pen Discontinued 35 U SQ TWICE A DAY July 15, 2017 1:00am May 22, 2020 12:46pm ondansetron 4 mg disintegrating oral tablet (3 sources) Serotonin-3 Receptor Antagonist Start: 10-31-2022 End: 07-26-2024 take 1 tablet by mouth every six hours as needed for nausea and vomiting Ondansetron 4 mg tablet,disintegratin g Discontinued 4 mg PO EVERY 6 HOURS as needed for nausea and vomiting October 31, 2022 12:00am July 26, 2024 9:43am microencapsulated potassium chloride 20 meq extended release oral tablet (20 sources) Start: 09-23-2021 End: 09-07-2024 take 1 tablet by mouth once daily Potassium Chloride 20 mEq tablet,ER particles/crystals Discontinued 20 meq PO DAILY October 27, 2023 7:45am September 07, 2024 12:41pm Start: 07-16-2020 End: 10-12-2021 take 1 tablet by mouth four times daily Potassium Chloride 10 mEq tablet extended release Discontinued 10 meq PO 4 TIMES DAILY 120 February 23, 2021 12:48pm October 12, 2021 9:54am Start: 05-22-2020 End: 07-16-2020 take 1 tablet by mouth twice daily Potassium Chloride 10 mEq tablet extended release Discontinued 10 meq PO TWICE A DAY 180 June 24, 2020 5:18pm July 16, 2020 4:32pm tamsulosin hydrochloride 0.4 mg oral capsule (20 sources) alpha-Adrenergic Gale Start: 01-29-2021 End: 05-25-2024 take 1 capsule by mouth once daily Tamsulosin 0.4 mg capsule Discontinued 0.4 mg PO DAILY 90 March 17, 2023 12:27pm May 25, 2024 10:22am Start: 09-10-2020 End: 01-06-2021 take 1 capsule by mouth once daily Tamsulosin 0.4 mg capsule Discontinued 0.4 mg PO DAILY September 10, 2020 1:00am January 06, 2021 1:08pm 5000 mg testosterone 0.01 mg/mg topical gel (20 sources) Androgen Start: 12-10-2020 End: 01-02-2025 Testosterone 1 % (50 mg/5 gram) gel in packet Discontinued 50 mg TD DAILY 150 June 28, 2024 4:26pm January 02, 2025 8:02am Start: 07-14-2020 End: 12-10-2020 Testosterone 1 % (50 mg/5 gr am) gel in packet Discontinued 1 NMA TD DAILY 150 September 10, 2020 10:59am December 10, 2020 4:31pm Start: 07-14-2020 End: 12-10-2020 Testosterone Discontinued 1 PACKET TD DAILY 150 September 10, 2020 9:59am December 10, 2020 3:31pm Start: 07-07-2020 End: 07-14-2020 Testosterone Cypionate (Depo -Testosterone) 200 mg/mL oil Discontinued 100 mg IM every 4 weeks July 07, 2020 1:00am July 14, 2020 10:52am valsartan 320 mg oral tablet (9 sources) Angiotensin 2 Receptor Gale Start: 09-10-2020 End: 11-26-2020 take 1 tablet by mouth once daily Valsartan 320 mg tablet Discontinued 320 mg PO DAILY September 10, 2020 1:00am November 26, 2020 4:10pm Start: 04-22-2016 End: 09-10-2020 take 1 tablet by mouth once daily Valsartan 160 mg tablet Discontinued 160 mg PO DAILY June 24, 2020 5:18pm September 10, 2020 10:37am verapamil hydrochloride 120 mg extended release oral tablet (9 sources) Calcium Channel Gale Start: 12-14-2020 End: 01-30-2021 take 1 tablet by mouth once daily Verapamil 120 mg tablet extended release Discontinued 120 mg PO DAILY January 27, 2021 3:56pm January 30, 2021 12:55pm Problems Active Problems Problem Classification Problem Date Documented Date Episodic/Chronic Calculus of urinary tract (6 sources) Ureteric stone; Translations: [Calculus of ureter] 11-08-2022 Episodic Cardiac dysrhythmias (11 sources) Paroxysmal atrial fibrillation; Translations: [Paroxysmal atrial fibrillation] Onset: 01-08-2025 01-06-2021 Chronic Cardiac dysrhythmias (1 source) Palpitations; Translations: [Palpitations] Onset: 01-10-2025 Episodic Diabetes mellitus without complication (9 sources) Type 2 diabetes mellitus without complications; Translations: [Diabetes mellitus] Onset: 12-26-2017 05-22-2020 Chronic Disorders of lipid metabolism (4 sources) Hyperlipidemia; Translations: [Hyperlipidemia, unspecified] 12-12-2020 Chronic Essential hypertension (10 sources) Hypertensive disorder; Translations: [Essential (primary) hypertension] 12-12-2020 Chronic Gout and other crystal arthropathies (3 sources) Gout; Translations: [Gout, unspecified] 05-22-2020 Chronic Hypertension with complications and secondary hypertension (3 sources) Hypertensive urgency ; Translations: [Hypertensive urgency] 09-20-2021 Chronic Malaise and fatigue (3 sources) Fatigue; Translations: [Other fatigue] 01-30-2021 Episodic Nutritional deficiencies (3 sources) Vitamin D deficiency; Translations: [Vitamin D deficiency, unspecified] 05-22-2020 Chronic Osteoarthritis (6 sources) Arthritis; Translations: [Unspecified osteoarthritis, unspecified site] Onset: 07-26-2024 05-22-2020 Chronic Other aftercare (2 sources) Drug therapy finding; Translations: [joint terminal attack controller (current) use of anticoagulants] 01-04-2025 Episodic Other endocrine disorders (2 sources) Testicular hypofunction; Translations: [Testicular hypofunction] Onset: 12-26-2017 Chronic Other endocrine disorders (3 sources) Testicular hypofunction; Translations: [Testicular hypofunction] 07-14-2020 Chronic Other lower respiratory disease (3 sources) Dyspnea; Translations: [Dyspnea, unspecified] 09-20-2021 Episodic Other lower respiratory disease (1 source) Shortness of breath; Translations: [Shortness of breath] Onset: 01-08-2025 Episodic Other nutritional; endocrine; and metabolic disorders (3 sources) Body mass index 40+ - severely obese; Translations: [Morbid (severe) obesity due to excess calories] 07-15-2017 Chronic Other screening for suspected conditions (not mental disorders or infectious disease) (2 sources) Abnormal electrocardiogram [ECG] [EKG]; Translations: [Encounter for screening for lipoid disorders] Onset: 08-15-2024 Episodic Other skin disorders (2 sources) Dystrophia unguium; Translations: [Nail dystrophy] 07-26-2024 Episodic Residual codes; unclassified (3 sources) Obstructive sleep apnea syndrome; Translations: [Obstructive sleep apnea (adult) (pediatric)] 01-06-2021 Chronic Residual codes; unclassified (3 sources) Sleep apnea; Translations: [Sleep apnea, unspecified] 12-12-2020 Chronic Residual codes; unclassified (3 sources) Hypersomnia; Translations: [Hypersomnia, unspecified] 01-06-2021 Chronic Residual codes; unclassified (3 sources) History of cardiac catheterization; Translations: [Other specified postprocedural states] 10-03-2020 Episodic Comment on above: 2015 Residual codes; unclassified (3 sources) History of colonoscopy; Translations: [Other specified postprocedural states] 10-03-2020 Episodic Unclassified (1 source) Unknown / UNK(Unknown) Onset: 01-19-2017 Unclassified (2 sources) call to arrange early follow up Unclassified (1 source) Other persistent atrial fibrillation; Translations: [Other persistent atrial fibrillation] Onset: 01-08-2025 Past or Other Problems Problem Classification Problem Date Documented Da te Episodic/Chronic Gastrointestinal hemorrhage (2 sources) Hemorrhage of anus and rectum; Translations: [Hemorrhage of anus and rectum] Onset: 07-22-2017 Episodic Other non-traumatic joint disorders (1 source) Pain in left knee; Translations: [Pain in left knee] Onset: 07-26-2024 Episodic Other skin disorders (1 source) Nail dystrophy; Translations: [Nail dystrophy] Onset: 07-26-2024 Episodic Unclassified (1 source) DEHYDRATED Onset: 01-19-2017 Results Test Name Value Interpretation Reference Range Facility Cardiology Visit Reporton Cardiology Visit Report [facility] [address] [place], [place] [address] OFFICE VISIT Date of Service: 01/08/25 MR#: [id number] Acct: [id number] Name: TOBY GARCIA Rep #: [id number] : 1960 Provider: GAVINO Kerr Age/Sex: 64/M [place] [facility] [place] Signed HPI HPI History of Present Illness Details: Toby Garcia is a 64-year-old gentleman that was last seen in the office in 2021. He does have a history of atrial fibrillation with RVR. Echocardiogram in 2020 demonstrated an ejection fraction of 55 to 60%. He does also have a history of hypertension, hyperlipidemia, diabetes type 2, obstructive sleep apnea and obesity. Patient was seen in the emergency room on 01/04/2025. He felt like he was having issues with palpitations. He was noted to have atrial fibs with RVR. He did undergo a cardioversion. EKG today demonstrates AFib with a HR of 88. Pt is not aware of this. He feels that it is because it better controlled. Intake Vital Signs 01/04/25 16:56 01/08/25 11:55 Height 6 ft 6 ft Weight: 339 lb BMI 45.9 BP 141/82 H Blood Pressure Location Lt brachial Position Sitting Respiration 16 Pulse 107 H Pulse Source NIBP Intake Visit Reasons: S/P ([facility] 01/04) NEEDS EKG [facility] [employer] Winder Required: No Is patient in pain?: No Allergies No Known Allergies Allergy (Verified 01/08/25 13:06) Medications ???Medication ???Instructions ???Recorded ???Confirmed ???Type BP monitor #1 ea 09/17/21 07/26/24 Rx CPAP Machine #1 ea 09/08/23 07/26/24 Rx atorvastatin 40 mg tablet 40 mg PO DAILY cholesterol 4 01/08/25 Rx lowering #90 tabs tamsulosin 0.4 mg capsule 0.4 mg PO DAILY Check with primary 05/25/24 01/08/25 Rx doctor #90 caps apixaban 5 mg tablet (Eliquis) 5 mg PO BID #180 tabs 09/07/24 Rx potassium chloride 20 mEq 20 meq PO DAILY #90 tabs 09/07/24 01/08/25 Rx tablet,extended release(part/cryst) valsartan 320 1 tab PO DAILY #90 tabs 10/03/24 0 01/08/25 Rx mg-hydrochlorothiazide 25 mg tablet amlodipine 10 mg tablet 20 mg (2 x 10 mg) PO DAILY #180 01/08/25 Rx tabs metformin 1,000 mg tablet 1,000 mg PO BID #180 tabs 01/02/25 01/08/25 Rx testosterone 1 % (50 mg/5 gram) 50 mg transdermal DAILY Check with 01/02/25 01/08/25 Rx transdermal gel packet primary doctor #150 grams cholecalciferol (vitamin D3) 1,250 1,250 mcg PO SA supplement 01/0401/08/25 History mcg (50,000 unit) capsule metoprolol tartrate 25 mg tablet 25 mg PO BID #180 tabs 01/08/25 R x Ejection fraction %: 50 (50-55) Have you fallen in the past year?: Yes (Trip and fall) PFS Medical History (Updated 01/08/25 @ 13:43 by Jillian Prado PA, PA) Persistent atrial fibrillation Osteoarthritis of right knee Dystrophic nail SAÚL (obstructive sleep apnea) Hypersomnia Paroxysmal A-fib Chronic pain GI bleed Former smoker CPAP (continuous positive airway pressure) dependence Irregular heart beat Diabetes Primary hypogonadism in male Sleep apnea Hypertension Gout Arthritis Hypertension Hyperlipemia Vitamin D deficiency Diabetes Surgical History Hx of cardiac catheterization Hx of colonoscopy History of neck surgery History of left knee surgery Family History Other Adopted Social History Smoking Status: Former smoker quit date: 07/18/15 second hand exposure: No alcohol intake: never substance use type: does not use caffeine: Yes what type of physical activity do you participate in: weight training frequency: 3-4 times per week seatbelt use: always ROS Const Const: Positive for fatigue (Feels worn out easily) and excessive sweating; Negative for weakness Eyes Eyes: Negative for change in vision ENT ENT: Negative for dizziness or balance problems Cardio Chest Pain: No Palpitations: No Edema: Bilateral Resp Respiratory: Negative for SOB with activity, SOB at rest or SOB orthopnea SOB lying down GI GI: Negative nausea or heartburn Musc Musc: Negative for balance problems Neuro Neuro: Positive for lightheadedness; Negative for dizziness, near syncope, syncope or weakness Endo Endo: Positive for fatigue (Feels worn out easily) and excessive sweating Cardiology Exam Const Appearance: cooperative, healthy appearing, comfortable and no acute distress Nutritional Appearance: well nourished and obese Orientation: alert, awake and oriented x3 Head Head: normal to inspection Ears: hearing grossly normal bilaterally Nose: external nose normal Face and Sinus: face symmetric Mouth: oral mucosae normal Eyes General: appearance normal, both eyes and all related (more content not included)... Normal [facility] 12 Lead EKGon 01-04-2025 12 Lead EKG [facility] [address] [address] 12 Lead EKG 01/04/25 1712 MR#: [id number] Acct: [id number] Name: TOBY GARCIA Rep #: [id number] : 1960 64 From: Milton Pearson MD Attending Dr: Status: DEP ER Ordering Dr: Arturo Weeks DO Date: 01/04/25 Location: ED Sex: M AA Admitted: Test Reason : ARRYTH Blood Pressure : */* mmHG Vent. Rate : 108 BPM Atrial Rate : * BPM P-R Int : * ms QRS Dur : 100 ms QT Int : 294 ms P-R-T Axes : * -24 66 degrees QTcB Int : 393 ms Atrial fibrillation with rapid ventricular response Cannot rule out Anterior infarct , age undetermined Abnormal ECG Confirmed by Milton Pearson ([id number]), newspaper or periodical editor DAWNA DRAKE ([id number]) on 01/08/2025 11:41:34 AM Referred By: Arturo Weeks Confirmed By: Milton Pearson 01/08/25 1141 Date Milton Pearson MD CC: Dr. Arturo Weeks DO; Dr. Leydi Chun MD Signed Normal [facility] Absolute lymphocyte countOrd ered By: Arturo Weeks on 01-04-2025 Lymphocytes Auto (Unsp spec) [#/Vol] 1.52 10*3/uL 0.83-4.51 [facility] Absolute neutrophil countOrd ered By: Arturo Weeks on 01-04-2025 Neutrophils (Bld) [#/Vol] 5.4 10*3/uL 2.0-7.7 [facility] Anion gap in Serum or Plasma Ordered By: Arturo Weeks on 01-04-2025 Anion gap [Moles/Vol] 13 mmol/L 5-15 [facility] Automated lymphocyte count a s percentage of total leukocytesOrdered By: Arturo Weeks on 01-04-2025 Lymphocytes/100 WBC Auto (Unsp spec) 19.6 % 19- [facility] BUN/creatinine ratioOrdered By: Arturo Weeks on 01-04-2025 Urea nitrogen/Creatinine [Mass ratio] 13.7 mg/mg 10- [facility] Basic Metabolic Profile (BMP )on 01-04-2025 Calcium [Mass/Vol] 9.1 mg/dL Normal 7.6-11.0 [facility] Comment on above: Performed By: #### L 100.0100, L501.5200, L500.2500 #### [facility] [address] [place], [place], [id number] Basophil percentageOrdered B y: Arturo Weeks on 01-04-2025 Basophils/100 WBC (Bld) 0.6 % 0-1 [facility] Bedside Glucoseon 01-04-2025 FINGERSTICK GLU 115 mg/dL High 74-106 [facility] Comment on above: Result Comment: ALISIA RODRIGUEZ OF PATIENT CARE PER NURSING PROTOCOL Performed By: #### L 501.080 ####[facility] [id number] [place], [place], [id number] CBC + diff autoon 01-04-2025 CBC W Auto Differential panel (Bld) [facility] CBC W/Diff, Automatedon 12-17 Absolute Lymph 1.52 X10 3/uL Normal 0.83-4.51 [facility] Comment on above: Performed By: #### L 100.0100 #### [facility] [address] [place], [address] Absolute Neut 5.4 X10 3/uL Normal 2.0-7.7 [facility] Comment on above: Performed By: #### L 100.0100 #### [facility] [address] [place], [address] Basophils/100 WBC (Bld) 0.6 % Normal 0-1 [facility] Comment on above: Performed By: #### L 100.0100 #### [facility] [address] [place], [address] Eosinophils/100 WBC (Bld) 1.6 % Normal 0-5 [facility] Comment on above: Performed By: #### L 100.0100 #### [facility] [address] [place], [address] Erythrocyte distribution width (RBC) [Ratio] 14.7 % High 11.6-14.6 [facility] Comment on above: Performed By: #### L 100.0100 #### [facility] [address] [place], [address] Hematocrit (Bld) [Volume fraction] 41.8 % Normal 40-54 [facility] Comment on above: Performed By: #### L 100.0100 #### [facility] [address] [place], [address] Hemoglobin (Bld) [Mass/Vol] 14.0 g/dL Normal 13.0-16.5 [facility] Comment on above: Performed By: #### L 100.0100 #### [facility] [address] [place], [address] IG% 0.300 Normal 0.0-0.9 [facility] Comment on above: Result Comment: IG% - Immature Granulocytes (promyelocytes, myelocytes and metamyelocytes) > 1% indicates that a LEFT SHIFT is Present. Performed By: #### L 100.0100 #### [facility] [address] [place], [address] Lymphocytes/100 WBC (Bld) 19.6 % Normal 19-41 [facility] Comment on above: Performed By: #### L 100.0100 #### [facility] [address] [place], [address] MCH (RBC) [Entitic mass] 27.2 pg Normal 27.0-32.0 [facility] Comment on above: Performed By: #### L 100.0100 #### [facility] [address] [place], [address] MCHC (RBC) [Mass/Vol] 33.5 g/dL Normal 32-36 [facility] Comment on above: Performed By: #### L 100.0100 #### [facility] [address] [place], [address] MCV (RBC) [Entitic vol] 81.3 fL Normal 80-94 [facility] Comment on above: Performed By: #### L 100.0100 #### [facility] [address] [place], [address] Monocytes/100 WBC (Bld) 7.9 % Normal 0-10 [facility] Comment on above: Performed By: #### L 100.0100 #### [facility] [address] [place], [address] Neutrophils/100 WBC (Bld) 70.0 % Normal 47-70 [facility] Comment on above: Performed By: #### L 100.0100 #### [facility] [address] [place], [address] Nucleated RBC (Bld) [#/Vol] 0 10*3/uL Normal 0-5 [facility] Comment on above: Performed By: #### L 100.0100 #### [facility] [address] [place], [address] Platelet mean volume (Bld) [Entitic vol] 9.2 fL Normal 6.2-12.0 [facility] Comment on above: Performed By: #### L 100.0100 #### [facility] [address] [place], [address] Platelets (Bld) [#/Vol] 262 10*3/uL Normal 150-450 [facility] Comment on above: Performed By: #### L 100.0100 #### [facility] [address] [place], [address] RBC (Bld) [#/Vol] 5.14 10*6/uL Normal 4.6-6.2 [facility] Comment on above: Performed By: #### L 100.0100 #### [facility] [address] [place], [address] RDW SD 43.1 fl Normal 35.1-43.9 [facility] Comment on above: Performed By: #### L 100.0100 #### [facility] [address] [place], [address] WBC (Bld) [#/Vol] 7.7 10*3/uL Normal 4.4-11.0 [facility] Comment on above: Performed By: #### L 100.0100 #### [facility] [address] [place], [address] Absolute Lymph 1.32 X10 3/uL Normal 0.83-4.51 [facility] Comment on above: Result Comment: This specimen has been REJECTED due to Laboratory criteria: Clotted. CLAUDIA MARSHALL has been notified of need of recollection. 01/04/251903 Laila Mayer Performed By: #### L 100.0100, L501.5200, L500.2500 #### [facility] [address] [place], [address] Absolute Neut 5.8 X10 3/uL Normal 2.0-7.7 [facility] Comment on above: Result Comment: This specimen has been REJECTED due to Laboratory criteria: Clotted. CLAUDIA MARSHALL has been notified of need of recollection. 01/04/251903 Laila Leyla Performed By: #### L 100.0100, L501.5200, L500.2500 #### [facility] [address] [place], [address] BASO# 0.05 X10 3/uL Normal [facility] Comment on above: Result Comment: This specimen has been REJECTED due to Laboratory criteria: Clotted. CLAUDIA GOINSR has been notified of need of recollection. 01/04/251903 Laila Leyla Performed By: #### L 100.0100, L501.5200, L500.2500 #### [facility] [address] [place], [address] Basophils/100 WBC (Bld) 0.6 % Normal 0-1 [facility] Comment on above: Result Comment: This specimen has been REJECTED due to Laboratory criteria: Clotted. CLAUDIA GOINSR has been notified of need of recollection. 01/04/251903 Laila Leyla Performed By: #### L 100.0100, L501.5200, L500.2500 #### [facility] [address] [place], [address] EOS# 0.14 X10 3/uL Normal [facility] Comment on above: Result Comment: This specimen has been REJECTED due to Laboratory criteria: Clotted. CLAUDIA GOINSR has been notified of need of recollection. 01/04/251903 Laila Leyla Performed By: #### L 100.0100, L501.5200, L500.2500 #### [facility] [address] [place], [address] Eosinophils/100 WBC (Bld) 1.8 % Normal 0-5 [facility] Comment on above: Result Comment: This specimen has been REJECTED due to Laboratory criteria: Clotted. CLAUDIA SPARR has been notified of need of recollection. 01/04/251903 Laila Leyla Performed By: #### L 100.0100, L501.5200, L500.2500 #### [facility] [address] [place], [address] Erythrocyte distribution width (RBC) [Ratio] 14.8 % High 11.6-14.6 [facility] Comment on above: Result Comment: This specimen has been REJECTED due to Laboratory criteria: Clotted. CLAUDIA SPARR has been notified of need of recollection. 01/04/251903 Laila Leyla Performed By: #### L 100.0100, L501.5200, L500.2500 #### [facility] [address] [place], [address] Hematocrit (Bld) [Volume fraction] 43.2 % Normal 40-54 [facility] Comment on above: Result Comment: This specimen has been REJECTED due to Laboratory criteria: Clotted. CLAUDIA SPARR has been notified of need of recollection. 01/04/251903 Laila Leyla Performed By: #### L 100.0100, L501.5200, L500.2500 #### [facility] [address] [place], [address] Hemoglobin (Bld) [Mass/Vol] 14.4 g/dL Normal 13.0-16.5 [facility] Comment on above: Result Comment: This specimen has been REJECTED due to Laboratory criteria: Clotted. CLAUDIA SPARR has been notified of need of recollection. 01/04/251903 Laila Leyla Performed By: #### L 100.0100, L501.5200, L500.2500 #### [facility] [address] [place], [address] IG# 0.020 X10 3/uL High 0.0-0.0 [facility] Comment on above: Result Comment: This specimen has been REJECTED due to Laboratory criteria: Clotted. CLAUDIA SPARR has been notified of need of recollection. 01/04/251903 Laila Leyla Performed By: #### L 100.0100, L501.5200, L500.2500 #### [facility] [address] [place], [address] IG% 0.300 Normal 0.0-0.9 [facility] Comment on above: Result Comment: This specimen has been REJECTED due to Laboratory criteria: Clotted. CLAUDIA MARSHALL has been notified of need of recollection. 01/04/251903 Laila Leyla IG% - Immature Granulocytes (promyelocytes, myelocytes and metamyelocytes) > 1% indicates that a LEFT SHIFT is Present. Performed By: #### L 100.0100, L501.5200, L500.2500 #### [facility] [address] [place], [address] LYMPH# 1.32 X10 3/ul Normal 0.83-4.51 [facility] Comment on above: Result Comment: This specimen has been REJECTED due to Laboratory criteria: Clotted. CLAUDIA MARSHALL has been notified of need of recollection. 01/04/251903 Laila Leyla Performed By: #### L 100.0100, L501.5200, L500.2500 #### [facility] [address] [place], [address] Lymphocytes/100 WBC (Bld) 16.8 % Low 19-41 [facility] Comment on above: Result Comment: This specimen has been REJECTED due to Laboratory criteria: Clotted. CLAUDIA MARSHALL has been notified of need of recollection. 01/04/251903 Laila Leyla Performed By: #### L 100.0100, L501.5200, L500.2500 #### [facility] [address] [place], [address] MCH (RBC) [Entitic mass] 27.2 pg Normal 27.0-32.0 [facility] Comment on above: Result Comment: This specimen has been REJECTED due to Laboratory criteria: Clotted. CLAUDIA MARSHALL has been notified of need of recollection. 01/04/251903 Laila Leyla Performed By: #### L 100.0100, L501.5200, L500.2500 #### [facility] [address] [place], [address] MCHC (RBC) [Mass/Vol] 33.3 g/dL Normal 32-36 [facility] Comment on above: Result Comment: This specimen has been REJECTED due to Laboratory criteria: Clotted. CLAUDIA GOINSR has been notified of need of recollection. 01/04/251903 Laila Leyla Performed By: #### L 100.0100, L501.5200, L500.2500 #### [facility] [address] [place], [address] MCV (RBC) [Entitic vol] 81.5 fL Normal 80-94 [facility] Comment on above: Result Comment: This specimen has been REJECTED due to Laboratory criteria: Clotted. CLAUDIA GOINSR has been notified of need of recollection. 01/04/251903 Laila Leyla Performed By: #### L 100.0100, L501.5200, L500.2500 #### [facility] [address] [place], [address] MONO # 0.56 X10 3/uL Normal [facility] Comment on above: Result Comment: This specimen has been REJECTED due to Laboratory criteria: Clotted. CLAUDIA GOINSR has been notified of need of recollection. 01/04/251903 Laila Leyla Performed By: #### L 100.0100, L501.5200, L500.2500 #### [facility] [address] [place], [address] Monocytes/100 WBC (Bld) 7.1 % Normal 0-10 [facility] Comment on above: Result Comment: This specimen has been REJECTED due to Laboratory criteria: Clotted. CLAUDIA GOINSR has been notified of need of recollection. 01/04/251903 Laila Leyla Performed By: #### L 100.0100, L501.5200, L500.2500 #### [facility] [address] [place], [address] Neutrophil # 5.78 X10 3/uL Normal 2.7-7.7 [facility] Comment on above: Result Comment: This specimen has been REJECTED due to Laboratory criteria: Clotted. CLAUDIA MARSHALL has been notified of need of recollection. 01/04/251903 Laila Leyla Performed By: #### L 100.0100, L501.5200, L500.2500 #### [facility] [address] [place], [address] Neutrophils/100 WBC (Bld) 73.4 % High 47-70 [facility] Comment on above: Result Comment: This specimen has been REJECTED due to Laboratory criteria: Clotted. CLAUDIA MARSHALL has been notified of need of recollection. 01/04/251903 Laila Leyla Performed By: #### L 100.0100, L501.5200, L500.2500 #### [facility] [address] [place], [address] Nucleated RBC (Bld) [#/Vol] 0 10*3/uL Normal 0-5 [facility] Comment on above: Result Comment: This specimen has been REJECTED due to Laboratory criteria: Clotted. CLAUDIA MARSHALL has been notified of need of recollection. 01/04/251903 Laila Leyla Performed By: #### L 100.0100, L501.5200, L500.2500 #### [facility] [address] [place], [address] POSITIVE COUNT YES Abnormal [facility] Comment on above: Result Comment: This specimen has been REJECTED due to Laboratory criteria: Clotted. CLAUDIA MARSHALL has been notified of need of recollection. 01/04/251903 Laila Leyla Performed By: #### L 100.0100, L501.5200, L500.2500 #### [facility] [address] [place], [address] RBC (Bld) [#/Vol] 5.30 10*6/uL Normal 4.6-6.2 [facility] Comment on above: Result Comment: This specimen has been REJECTED due to Laboratory criteria: Clotted. CLAUDIA MARSHALL has been notified of need of recollection. 01/04/251903 Laila Leyla Performed By: #### L 100.0100, L501.5200, L500.2500 #### [facility] [address] [place], [address] RDW SD 43.6 fl Normal 35.1-43.9 [facility] Comment on above: Result Comment: This specimen has been REJECTED due to Laboratory criteria: Clotted. CLAUDIA MARSHALL has been notified of need of recollection. 01/04/251903 Laila Leyla Performed By: #### L 100.0100, L501.5200, L500.2500 #### [facility] [address] [place], [address] WBC (Bld) [#/Vol] 7.9 10*3/uL Normal 4.4-11.0 [facility] Comment on above: Result Comment: This specimen has been REJECTED due to Laboratory criteria: Clotted. CLAUDIA MARSHALL has been notified of need of recollection. 01/04/251903 Laila Leyla Performed By: #### L 100.0100, L501.5200, L500.2500 #### [facility] [address] [place], [address] MPV Normal 6.2-12.0 [facility] Comment on above: Result Comment: This specimen has been REJECTED due to Laboratory criteria: Clotted. CLAUDIA MARSHALL has been notified of need of recollection. 01/04/251903 Laila Leyla Performed By: #### L 100.0100, L501.5200, L500.2500 #### [facility] [address] [place], [address] PLT Normal 150-450 [facility] Comment on above: Result Comment: This specimen has been REJECTED due to Laboratory criteria: Clotted. CLAUDIA MARSHALL has been notified of need of recollection. 01/04/25 1904 Laila Mayer Performed By: #### L 100.0100, L501.5200, L500.2500 #### [facility] [address] [place], [address] Carbon dioxide, total [Moles /volume] in Central venous bloodOrdered By: Arturo Weeks on 01-04-2025 CO2 [Moles/Vol] 23.1 mmol/L 21.0-32.0 [facility] Chest 1 View (Portable)on Chest 1 View (Portable) [facility] Imaging Services [address] [facility] [place] [address] Chest 1 View (Portable) MR#: [id number] Acct: [id number] Name: TOBY GARCIA Rep #: [id number] : 1960 M 64 From: Asya Medrano MD PCP: Dr. Leydi Chun MD Status: REG ER Study: Chest 1 View (Portable) Date of Exam: 01/04/25 Exam# [id number] Ordering Dr: Arturo Weeks DO EXAM: XR Chest, 1 View CLINICAL INDICATION: HYPERTENSION TECHNIQUE: Frontal view of the chest. COMPARISON: No relevant prior studies available. FINDINGS: LUNGS AND PLEURAL SPACES: Unremarkable. No consolidation. No pneumothorax. HEART: Cardiomegaly without overt failure. MEDIASTINUM: Unremarkable. Normal mediastinal contour. BONES/JOINTS: Unremarkable. No acute fracture. RAD/Chest 1 View (Portable) IMPRESSION: Cardiomegaly without overt failure. Reading Location: [id number] CC: Dr. Arturo Weeks DO; Dr. Leydi Chun MD Station Jailer: Signed Normal [facility] Chloride assayOrdered By: Star Weeks on 01-04-2025 Chloride [Moles/Vol] 103 mmol/L 98-108 [facility] Emergency Department Summary on 01-04-2025 Emergency Department Summary [facility] Medical Records Department [address] [place] [address] Emergency Department Summary 01/04/25 MR#: [id number] Acct: [id number] Name: TOBY GARCIA Rep #: [id number] : 1960 64 From: Arturo Weeks DO PCP: Dr. Leydi Chun MD Status:DEP ER Location: ED HPI History of Present Illness Chief Complaint: Palpitations Informant: patient Narrative Narrative: 64-year-old male with history of paroxysmal atrial fibrillation states that a few hours ago he felt himself going to A-fib. He states that he was baking some chicken and the seasoning lid fell off and he got a lot of extra salt and he has been drinking a lot of electrolyte drinks today. He states that he is on Eliquis and has not missed any doses recently. He is also on metoprolol 12.5 mg twice daily. He denies any chest pain but notes fatigue and sweating which have been telltale signs for him in the past of him being in A-fib. No history of CHF. [facility] Medical History Osteoarthritis of right knee Dystrophic nail SAÚL (obstructive sleep apnea) Hypersomnia Paroxysmal A-fib Chronic pain GI bleed Former smoker CPAP (continuous positive airway pressure) dependence Irregular heart beat Diabetes Primary hypogonadism in male Sleep apnea Hypertension Gout Arthritis Hypertension Hyperlipemia Vitamin D deficiency Diabetes Home Medications ???Medication ???Instructions ???Recorded ???Last Taken ???Type BP monitor #1 ea 09/17/21 Unknown Rx CPAP Machine #1 ea 09/08/23 Unknown Rx atorvastatin 40 mg tablet 40 mg PO DAILY cholesterol 4 Unknown Rx lowering #90 tabs tamsulosin 0.4 mg capsule 0.4 mg PO DAILY Check with primary 05/25/24 Unknown Rx doctor #90 caps apixaban 5 mg tablet (Eliquis) 5 mg PO BID #180 tabs 09/07/24 Unk nown Rx metoprolol tartrate 25 mg tablet 12.5 mg (1/2 x 25 mg) PO BID #90 0 09/07/24 Unknown Rx tabs potassium chloride 20 mEq 20 meq PO DAILY #90 tabs 09/07/24 Unknown Rx tablet,extended release(part/cryst) valsartan 320 1 tab PO DAILY #90 tabs 10/03/24 U nknown Rx mg-hydrochlorothiazide 25 mg tablet amlodipine 10 mg tablet 20 mg (2 x 10 mg) PO DAILY #180 Unknown Rx tabs metformin 1,000 mg tablet 1,000 mg PO BID #180 tabs 01/02/25 Unknown Rx testosterone 1 % (50 mg/5 gram) 50 mg transdermal DAILY Check with 01/02/25 Unknown Rx transdermal gel packet primary doctor #150 grams cholecalciferol (vitamin D3) 1,250 1,250 mcg PO SA supplement 01/04 Unknown History mcg (50,000 unit) capsule Allergy/AdvReac Type Severity Reaction Status Date / Time No Known Allergies Allergy Verified 01/04/25 20:46 Family History Other Adopted Surgical History Hx of cardiac catheterization Hx of colonoscopy History of neck surgery History of left knee surgery Social History Smoking Status: Former smoker quit date: 07/18/15 second hand exposure: No alcohol intake: never substance use type: does not use caffeine: Yes what type of physical activity do you participate in: weight training frequency: 3-4 times per week seatbelt use: always ROS ROS ED ROS Narrative Generalized fatigue Constitutional Constitutional ED: Reports sweats; Denies chills, fever(s) or weight loss Eyes Eyes: Denies change in vision or diplopia ENT ENT ED: Denies ear pain, rhinorrhea or sore throat Cardiovascular Cardiovascular: Reports palpitations and racing heartbeat; Denies chest pain or orthopnea Respiratory/Chest Respiratory/Chest: Denies cough, dyspnea or orthopnea Gastrointestinal Gastrointestinal: Denies abdominal pain, diarrhea, nausea or vomiting Genitourinary Genitourinary ED: Denies dysuria, hematuria or urinary frequency Musculoskeletal Musculoskeletal: Denies arthralgias or myalgias Integumentary Denies abscess or rash Neurologic Neurologic: Denies headache(s) or weakness Psychiatric Psychiatric: Denies anxiety, depression, suicidal ideation or suicidal thoughts Endocrine Endocrinology: Denies polydipsia, polyphagia or polyuria Allergic/Immunologic Allergic/Immunologic ED: Denies mouth swelling, tongue swelling or urticaria EXAM Physical Exam Const Vital Signs: 01/04/25 16:56 01/04/25 18:11 01/04/25 18:11 Temperature 97.8 F Temperature Source Oral Pulse Rate 97 121 H Pulse Rate [1 (Initial Baseline)] Pulse Rate [2] Pulse Rate [3] Pulse Rate [4] Pulse Rate [5] Respiratory Rate 21 H 22 H Respiratory Rate [1 (Initial Baseline)] Respiratory Rate [2] Respiratory Rate [3] Respiratory Rate [4] (more content not included)... Normal [facility] Eosinophil percentageOrdered By: Arturo Weeks on 01-04-2025 Eosinophils/100 WBC (Bld) 1.6 % 0-5 [facility] Erythrocyte distribution wid th ratioOrdered By: Arturo Weeks on 01-04-2025 Erythrocyte distribution width (RBC) [Ratio] 14.7 % High 11.6-14.6 [facility] Erythrocyte distribution wid th standard deviationOrdered By: Arturo Weeks on 01-04-2025 Erythrocyte distribution width (RBC) [Ratio] 43.1 fl 35.1-43.9 [facility] Glomerular filtration rate ( GFR) estimation/1.73 sq m using serum, plasma, or whole bOrdered By: Arturo Weeks on 01-04-2025 GFR/1.73 sq M.predicted among non-blacks MDRD (S/P/Bld) [Vol rate/Area] 52 mL/min/{1.73_m2} Low >60 [facility] Comment on above: mL/min/1.73m2 CKD-EP I Creatinine Equation (2020) [facility] deOrdered By: Arturo Weeks on 01-04-2025 Glucose [Mass/Vol] 115 mg/dL High 74-106 [facility] Comment on above: MANAGEMENT OF PATIEN T CARE PER NURSING PROTOCOL Hematocrit Auto (Bld) [Volum e fraction]Ordered By: Arturo Weeks on 01-04-2025 Hematocrit (Bld) [Volume fraction] 41.8 % 40-54 [facility] Hemoglobin measurementOrdere d By: Arturo Weeks on 01-04-2025 Hemoglobin (Bld) [Mass/Vol] 14.0 g/dL 13.0-16.5 [facility] Immature granulocytes/100 WB C Auto (Bld)Ordered By: Arturo Weeks on 01-04-2025 Immature granulocytes/100 WBC (Bld) 0.300 % 0.0-0.9 [facility] Comment on above: IG% - Immature Granu locytes (promyelocytes, myelocytes and metamyelocytes) > 1% indicates that a LEFT SHIFT is Present. MCV (mean corpuscular volume ) determinationOrdered By: Arturo Weeks on 01-04-2025 MCV (RBC) [Entitic vol] 81.3 fL 80-94 [facility] Magnesiumon 01-04-2025 Magnesium [Mass/Vol] 1.8 mg/dL Normal 1.5-2.2 [facility] Comment on above: Performed By: #### L 100.0100, L501.5200, L500.2500 #### [facility] [address] [place] [address], [address] Magnesium measurement (mass/ volume)Ordered By: Arturo Weeks on 01-04-2025 Magnesium (Unsp spec) [Mass/Vol] 1.8 mg/dL 1.5-2.2 [facility] Mean corpuscular hemoglobin (MCH) determinationOrdered By: Arturo Weeks on 01-04-2025 MCH (RBC) [Entitic mass] 27.2 pg 27.0-32.0 [facility] Mean corpuscular hemoglobin concentration (MCHC) determinationOrdered By: Arturo Weeks on 01-04-2025 MCHC (RBC) [Mass/Vol] 33.5 g/dL 32-36 [facility] Mean platelet volume determi nationOrdered By: Arturo Weeks on 01-04-2025 Platelet mean volume (Bld) [Entitic vol] 9.2 fL 6.2-12.0 [facility] Monocyte percentageOrdered B y: Arturo Weeks on 01-04-2025 Monocytes/100 WBC (Bld) 7.9 % 0-10 [facility] Neutrophil percentageOrdered By: Arturo Weeks on 01-04-2025 Neutrophils/100 WBC (Bld) 70.0 % 47-70 [facility] Nucleated red blood cell per centageOrdered By: Arturo Weeks on 01-04-2025 Nucleated RBC/100 WBC (Bld) [Ratio] 0 % 0-5 [facility] Platelet countOrdered By: Star Weeks on 01-04-2025 Platelets (Bld) [#/Vol] 262 10*3/uL 150-450 [facility] Potassium measurement (mass/ volume)Ordered By: Arturo Weeks on 01-04-2025 Potassium (Unsp spec) [Mass/Vol] 4.3 mmol/L 3.3-5.1 [facility] Comment on above: Hemolysis present, R esults could be affected. RBC Auto (Bld) [#/Vol]Ordere d By: Arturo Weeks on 01-04-2025 RBC (Bld) [#/Vol] 5.14 10*6/uL 4.6-6.2 [facility] Serum creatinine measurement (mass/volume)Ordered By: Arturo Weeks on 01-04-2025 Creatinine [Mass/Vol] 1.50 mg/dL High 0.70-1.20 [facility] Serum glucose measurement (m ass/volume)Ordered By: Arturo Weeks on 01-04-2025 Glucose [Mass/Vol] 121 mg/dL High 70-99 [facility] Serum or plasma calcium moriah urement (mass/volume)Ordered By: Arturo Weeks on 01-04-2025 Calcium [Mass/Vol] 9.1 mg/dL 7.6-11.0 [facility] Serum or plasma urea nitroge n measurement (mass/volume)Ordered By: Arturo Weeks on 01-04-2025 Urea nitrogen [Mass/Vol] 21 mg/dL High 4-19 [facility] Sodium levelOrdered By: Joe Weeks on 01-04-2025 Sodium [Moles/Vol] 140 mmol/L 133-145 [facility] White blood cell (WBC) count Ordered By: Arturo Weeks on 01-04-2025 WBC (Bld) [#/Vol] 7.7 10*3/uL 4.4-11.0 [facility] Testosterone, Total / Freeon 07-31-2024 TESTOSTER,FREE 27.00 ng/dL Abnormal 5.00-21.00 [facility] Comment on above: Order Comment: N Performed By: #### L 500.4050, L501.9910, L100.0100, L501.9985, L500.4100, L506.1000, L501.9520, L3100.5310 ####[facility] [address] [place], [place], [id number] TESTOSTER,TOTAL 778 ng/dL Normal 264-916 [facility] Comment on above: Order Comment: N Result Comment: Adul t male reference interval is based on a population of healthy nonobese males (BMI <30) between 19 and 39 years old. soham Lowry.al. JCEM 2017,102;9072-1744. PMID: [id number]. Performed By: #### L 500.4050, L501.9910, L100.0100, L501.9985, L500.4100, L506.1000, L501.9520, L3100.5310 ####[facility] [address] [place], [address] TESTOSTERONE,%F 3.47 Normal 1.50-4.20 [facility] Comment on above: Order Comment: N Result Comment: Perf ormed at: [facility] [address] [id number] Glass Polisher: Ashvin Black PhD, Phone: [phone] Performed at: [facility] [address] [id number] Glass Polisher: Zuleyka Guillaume MD, Phone: [phone] Performed By: #### L 500.4050, L501.9910, L100.0100, L501.9985, L500.4100, L506.1000, L501.9520, L3100.5310 ####[facility] [address] [place], [place], [phone] CBC W/Diff, Automatedon Absolute Lymph 1.49 X10 3/uL Normal 0.83-4.51 [facility] Comment on above: Performed By: #### L 500.4050, L501.9910, L100.0100, L501.9985, L500.4100, L506.1000, L501.9520, L3100.5310 #### [facility] [address] [place], [address] Absolute Neut 4.9 X10 3/uL Normal 2.0-7.7 [facility] Comment on above: Performed By: #### L 500.4050, L501.9910, L100.0100, L501.9985, L500.4100, L506.1000, L501.9520, L3100.5310 #### [facility] [address] [place], [address] Basophils/100 WBC (Bld) 1.1 % High 0-1 [facility] Comment on above: Performed By: #### L 500.4050, L501.9910, L100.0100, L501.9985, L500.4100, L506.1000, L501.9520, L3100.5310 #### [facility] [address] [place], [address] Eosinophils/100 WBC (Bld) 2.4 % Normal 0-5 [facility] Comment on above: Performed By: #### L 500.4050, L501.9910, L100.0100, L501.9985, L500.4100, L506.1000, L501.9520, L3100.5310 #### [facility] [address] [place], [address] Erythrocyte distribution width (RBC) [Ratio] 14.0 % Normal 11.6-14.6 [facility] Comment on above: Performed By: #### L 500.4050, L501.9910, L100.0100, L501.9985, L500.4100, L506.1000, L501.9520, L3100.5310 #### [facility] [address] [place], [address] Hematocrit (Bld) [Volume fraction] 44.6 % Normal 40-54 [facility] Comment on above: Performed By: #### L 500.4050, L501.9910, L100.0100, L501.9985, L500.4100, L506.1000, L501.9520, L3100.5310 #### [facility] [address] [place], [address] Hemoglobin (Bld) [Mass/Vol] 14.6 g/dL Normal 13.0-16.5 [facility] Comment on above: Performed By: #### L 500.4050, L501.9910, L100.0100, L501.9985, L500.4100, L506.1000, L501.9520, L3100.5310 #### [facility] [address] [place], [address] IG% 0.300 Normal 0.0-0.9 [facility] Comment on above: Result Comment: IG% - Immature Granulocytes (promyelocytes, myelocytes and metamyelocytes) > 1% indicates that a LEFT SHIFT is Present. Performed By: #### L 500.4050, L501.9910, L100.0100, L501.9985, L500.4100, L506.1000, L501.9520, L3100.5310 #### [facility] [address] [place], [address] Lymphocytes/100 WBC (Bld) 20.7 % Normal 19-41 [facility] Comment on above: Performed By: #### L 500.4050, L501.9910, L100.0100, L501.9985, L500.4100, L506.1000, L501.9520, L3100.5310 #### [facility] [address] [place], [address] MCH (RBC) [Entitic mass] 27.0 pg Normal 27.0-32.0 [facility] Comment on above: Performed By: #### L 500.4050, L501.9910, L100.0100, L501.9985, L500.4100, L506.1000, L501.9520, L3100.5310 #### [facility] [address] [place], [address] MCHC (RBC) [Mass/Vol] 32.7 g/dL Normal 32-36 [facility] Comment on above: Performed By: #### L 500.4050, L501.9910, L100.0100, L501.9985, L500.4100, L506.1000, L501.9520, L3100.5310 #### [facility] [address] [place], [address] MCV (RBC) [Entitic vol] 82.4 fL Normal 80-94 [facility] Comment on above: Performed By: #### L 500.4050, L501.9910, L100.0100, L501.9985, L500.4100, L506.1000, L501.9520, L3100.5310 #### [facility] [address] [place], [address] Monocytes/100 WBC (Bld) 8.1 % Normal 0-10 [facility] Comment on above: Performed By: #### L 500.4050, L501.9910, L100.0100, L501.9985, L500.4100, L506.1000, L501.9520, L3100.5310 #### [facility] [address] [place], [address] Neutrophils/100 WBC (Bld) 67.4 % Normal 47-70 [facility] Comment on above: Performed By: #### L 500.4050, L501.9910, L100.0100, L501.9985, L500.4100, L506.1000, L501.9520, L3100.5310 #### [facility] [address] [place], [address] Nucleated RBC (Bld) [#/Vol] 0 10*3/uL Normal 0-5 [facility] Comment on above: Performed By: #### L 500.4050, L501.9910, L100.0100, L501.9985, L500.4100, L506.1000, L501.9520, L3100.5310 #### [facility] [address] [place], [address] Platelet mean volume (Bld) [Entitic vol] 9.8 fL Normal 6.2-12.0 [facility] Comment on above: Performed By: #### L 500.4050, L501.9910, L100.0100, L501.9985, L500.4100, L506.1000, L501.9520, L3100.5310 #### [facility] [address] [place], [address] Platelets (Bld) [#/Vol] 278 10*3/uL Normal 150-450 [facility] Comment on above: Performed By: #### L 500.4050, L501.9910, L100.0100, L501.9985, L500.4100, L506.1000, L501.9520, L3100.5310 #### [facility] [address] [place], [address] RBC (Bld) [#/Vol] 5.41 10*6/uL Normal 4.6-6.2 [facility] Comment on above: Performed By: #### L 500.4050, L501.9910, L100.0100, L501.9985, L500.4100, L506.1000, L501.9520, L3100.5310 #### [facility] [address] [place], [address] RDW SD 41.7 fl Normal 35.1-43.9 [facility] Comment on above: Performed By: #### L 500.4050, L501.9910, L100.0100, L501.9985, L500.4100, L506.1000, L501.9520, L3100.5310 #### [facility] [address] [place], [address] WBC (Bld) [#/Vol] 7.2 10*3/uL Normal 4.4-11.0 [facility] Comment on above: Performed By: #### L 500.4050, L501.9910, L100.0100, L501.9985, L500.4100, L506.1000, L501.9520, L3100.5310 #### [facility] [address] [place], [address] Comprehensive Metabolic Prof ilon 07-26-2024 Albumin [Mass/Vol] 3.9 g/dL Normal 3.2-5.0 [facility] Comment on above: Performed By: #### L 500.4050, L501.9910, L100.0100, L501.9985, L500.4100, L506.1000, L501.9520, L3100.5310 ####[facility] [address] [place], [address] Albumin/Globulin [Mass ratio] 0.9 {ratio} Normal 0.9-2.4 [facility] Comment on above: Performed By: #### L 500.4050, L501.9910, L100.0100, L501.9985, L500.4100, L506.1000, L501.9520, L3100.5310 ####[facility] [address] [place], [address] ALK P 102 U/L Normal 45-117 [facility] Comment on above: Performed By: #### L 500.4050, L501.9910, L100.0100, L501.9985, L500.4100, L506.1000, L501.9520, L3100.5310 ####[facility] [address] [place], [address] ALT [Catalytic activity/Vol] 32 U/L Normal 16-61 [facility] Comment on above: Performed By: #### L 500.4050, L501.9910, L100.0100, L501.9985, L500.4100, L506.1000, L501.9520, L3100.5310 ####[facility] [address] [place], [address] AST [Catalytic activity/Vol] 27 U/L Normal 15-37 [facility] Comment on above: Performed By: #### L 500.4050, L501.9910, L100.0100, L501.9985, L500.4100, L506.1000, L501.9520, L3100.5310 ####[facility] [address] [place], [address] Bilirubin [Mass/Vol] 1.10 mg/dL High 0.20-1.00 [facility] Comment on above: Result Comment: For patients on eltrombopag therapy, use of Dimension Dagmar TBIL is not recommended. Performed By: #### L 500.4050, L501.9910, L100.0100, L501.9985, L500.4100, L506.1000, L501.9520, L3100.5310 ####[facility] [address] [place], [address] BUN/CRE 16.4 RATIO Normal 10-20 [facility] Comment on above: Performed By: #### L 500.4050, L501.9910, L100.0100, L501.9985, L500.4100, L506.1000, L501.9520, L3100.5310 ####[facility] [address] [place], [address] CA,Total 9.1 mg/dL Normal 8.5-10.1 [facility] Comment on above: Performed By: #### L 500.4050, L501.9910, L100.0100, L501.9985, L500.4100, L506.1000, L501.9520, L3100.5310 ####[facility] [address] [place], [address] Chloride [Moles/Vol] 103 mmol/L Normal 98-107 [facility] Comment on above: Performed By: #### L 500.4050, L501.9910, L100.0100, L501.9985, L500.4100, L506.1000, L501.9520, L3100.5310 ####[facility] [address] [place], [address] CO2 [Moles/Vol] 27.0 mmol/L Normal 21.0-32.0 [facility] Comment on above: Performed By: #### L 500.4050, L501.9910, L100.0100, L501.9985, L500.4100, L506.1000, L501.9520, L3100.5310 ####[facility] [address] [place], [address] Creatinine [Mass/Vol] 1.10 mg/dL Normal 0.70-1.30 [facility] Comment on above: Result Comment: The validity of the calculated GFR GFRAA in patients over 70 years has not been determined. Clinical correlation is essential. Performed By: #### L 500.4050, L501.9910, L100.0100, L501.9985, L500.4100, L506.1000, L501.9520, L3100.5310 ####[facility] [address] [place], [address] EST GFR - AA 87 mL/min Normal >60 [facility] Comment on above: Result Comment: Afri can Maur[place] GFR Calc Performed By: #### L 500.4050, L501.9910, L100.0100, L501.9985, L500.4100, L506.1000, L501.9520, L3100.5310 ####[facility] [address] [place], [address] GAP 9 Normal 5-15 [facility] Comment on above: Performed By: #### L 500.4050, L501.9910, L100.0100, L501.9985, L500.4100, L506.1000, L501.9520, L3100.5310 ####[facility] [address] [place], [place], [phone]) GFR/1.73 sq M.predicted among non-blacks MDRD (S/P/Bld) [Vol rate/Area] 72 mL/min/{1.73_m2} Normal >60 [facility] Comment on above: Result Comment: Non- GFR Calc Performed By: #### L 500.4050, L501.9910, L100.0100, L501.9985, L500.4100, L506.1000, L501.9520, L3100.5310 ####[facility] [address] [place], [address] Globulin (S) [Mass/Vol] 4.5 g/dL High 2.2-4.2 [facility] Comment on above: Performed By: #### L 500.4050, L501.9910, L100.0100, L501.9985, L500.4100, L506.1000, L501.9520, L3100.5310 ####[facility] [address] [place], [place], [phone](210) Glucose [Mass/Vol] 128 mg/dL High 74-106 [facility] Comment on above: Result Comment: Fast ing Glucose result greater than or equal to 126 mg/dL suggests DIABETES MELLITUS per A.D.A. criteria. Performed By: #### L 500.4050, L501.9910, L100.0100, L501.9985, L500.4100, L506.1000, L501.9520, L3100.5310 ####[facility] [address] [place], [address] Potassium [Moles/Vol] 3.4 mmol/L Low 3.5-5.1 [facility] Comment on above: Performed By: #### L 500.4050, L501.9910, L100.0100, L501.9985, L500.4100, L506.1000, L501.9520, L3100.5310 ####[facility] [address] [place], [address] Sodium [Moles/Vol] 138 mmol/L Normal 136-145 [facility] Comment on above: Performed By: #### L 500.4050, L501.9910, L100.0100, L501.9985, L500.4100, L506.1000, L501.9520, L3100.5310 ####[facility] [address] [place], [address] T PROT 8.4 g/dL High 6.4-8.2 [facility] Comment on above: Performed By: #### L 500.4050, L501.9910, L100.0100, L501.9985, L500.4100, L506.1000, L501.9520, L3100.5310 ####[facility] [address] [place], [address] Urea nitrogen [Mass/Vol] 18 mg/dL Normal 7-18 [facility] Comment on above: Performed By: #### L 500.4050, L501.9910, L100.0100, L501.9985, L500.4100, L506.1000, L501.9520, L3100.5310 ####[facility] [address] [place], [address] Hemoglobin A1con 07-26-2024 HbA1c (Bld) [Mass fraction] 7.2 % High 3.8-5.6 [facility] Comment on above: Result Comment: Norm al < 5.7 % Prediabetic 5.7 - 6.4 % Diabetic >or= 6.5 % Please note range changes. Performed By: #### L 500.4050, L501.9910, L100.0100, L501.9985, L500.4100, L506.1000, L501.9520, L3100.5310 ####[facility] [address] [facility] [place], [address] Knee 4 or More Viewson 07-26 Knee 4 or More Views [facility] [address] [place] [address] Knee 4 or More Views MR#: [id number] Acct: [id number] Name: TOBY GARCIA Rep #: [id number] : 1960 M 63 From: Boston Preston MD PCP: Dr. Leydi Chun MD Status: [facility] Study: Knee 4 or More Views Date of Exam: 07/26/24 Exam# [id number] Ordering Dr: Leydi Chun MD [id number] STUDY: X-RAY - LEFT KNEE REASON FOR EXAM: Male, 63 years old. Left knee. TECHNIQUE: 4 views of the left knee. COMPARISON: None. FINDINGS: Normal visualized distal femur. Normal visualized proximal tibia and fibula. Normal proximal tibiofibular articulation. There is no demonstrated fracture. There is moderate degenerative arthrosis of the medial femorotibial compartment with moderate joint space narrowing. There is moderate degenerative arthrosis of the lateral femorotibial compartment with moderate joint space narrowing. There is moderate degenerative arthrosis of the patellofemoral articulation. There is a small joint effusion. The soft tissue structures are unremarkable. RAD/Knee 4 or More Views IMPRESSION: Moderate tricompartment degenerative arthrosis. Small joint effusion. Electronically Signed: Boston Preston MD at 9:50 EST , CC: Dr. Leydi Chun MD Station Jailer: Signed Normal [facility] Knees Standing AP Bilateralo n 07-26-2024 Knees Standing AP Bilateral [facility] [address] [place] [address] Knees Standing AP Bilateral MR#: [id number] Acct: [id number] Name: TOBY GARCIA Rep #: [id number] : 1960 63 From: Boston Preston MD PCP: Dr. Leydi Chun MD Status: REG CLI Study: Knees Standing AP Bilateral Date of Exam: 04/11 Exam# [id number] Ordering Dr: Leydi Chun MD [id number] STUDY: X-RAY - BILATERAL KNEES REASON FOR EXAM: Male, 63 years old. PAIN TECHNIQUE: 2 views of the right knee were obtained. 2 views of the left knee were obtained. COMPARISON: None. FINDINGS - RIGHT KNEE: Normal visualized right distal femur. Normal visualized proximal right tibia and fibula. Normal right proximal tibiofibular articulation. There is no demonstrated fracture of the right knee. There is moderate degenerative arthrosis of the medial femorotibial compartment with moderate joint space narrowing. There is moderate degenerative arthrosis of the lateral femorotibial compartment with moderate joint space narrowing. The soft tissue structures are unremarkable. FINDING - LEFT KNEE: Normal visualized left distal femur. Normal visualized proximal left tibia and fibula. Normal left proximal tibiofibular articulation. There is no demonstrated fracture of the left knee. There is moderate degenerative arthrosis of the medial femorotibial compartment with moderate joint space narrowing. There is moderate degenerative arthrosis of the lateral femorotibial compartment with moderate joint space narrowing. The soft tissue structures are unremarkable. RAD/Knees Standing AP Bilateral IMPRESSION: Moderate degenerative arthrosis of the medial and lateral femorotibial compartments of the knees bilaterally. No demonstrated fracture. Electronically Signed: Boston Preston MD at 9:57 EST Reading Location ID and State: [address] [place] [address] , Service support , CC: Dr. Leydi Chun MD Station Jailer: Signed Normal [facility] Lipid Profileon 07-26-2024 Cholesterol [Mass/Vol] 143 mg/dL Normal 200 [facility] Comment on above: Result Comment: <200 mg/dL Desirable 200-240 mg/dL Borderline >240 mg/dL High Risk Performed By: #### L 500.4050, L501.9910, L100.0100, L501.9985, L500.4100, L506.1000, L501.9520, L3100.5310 ####[facility] [address] [place], [address] Cholesterol in HDL [Mass/Vol] 50 mg/dL Normal [facility] Comment on above: Result Comment: The drugs N-Acetylcysteine and Metamizole may falsely depress this assay. Reference Range HDL <40 mg/dL Low HDL Cholesterol HDL >or= 60 mg/dL High HDL Cholesterol Performed By: #### L 500.4050, L501.9910, L100.0100, L501.9985, L500.4100, L506.1000, L501.9520, L3100.5310 ####[facility] [address] [place], [address] Cholesterol in LDL [Mass/Vol] 84 mg/dL Normal 0-130 [facility] Comment on above: Performed By: #### L 500.4050, L501.9910, L100.0100, L501.9985, L500.4100, L506.1000, L501.9520, L3100.5310 ####[facility] [address] [place], [address] Cholesterol in VLDL [Mass/Vol] 9 mg/dL Normal 5-40 [facility] Comment on above: Performed By: #### L 500.4050, L501.9910, L100.0100, L501.9985, L500.4100, L506.1000, L501.9520, L3100.5310 ####[facility] [address] [place], [address] Triglyceride [Mass/Vol] 47 mg/dL Normal [facility] Comment on above: Result Comment: The drugs N-Acetylcysteine and Metamizole may falsely depress this assay. Serum Triglycerides Reference Interval Normal <150 mg/dL Borderline high 150 - 199 mg/dL High 200 - 499 mg/dL Very High > or = 500 mg/dL Performed By: #### L 500.4050, L501.9910, L100.0100, L501.9985, L500.4100, L506.1000, L501.9520, L3100.5310 ####[facility] [address] [place], [address] /Dionicio 07-26-2024 /CHARITY [facility] [address] [place] [address] OFFICE VISIT Date of Service: 07/26/24 MR#: [id number] Acct: [id number] Name: TOBY GARCIA Delio Rep #: [id number] : 1960 Provider: Dr. 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 Required: No Accompanied by: Self Is patient in pain?: Yes (L leg, back of leg) Pain scale (1-10): 1 Allergies No Known Allergies Allergy (Verified 07/26/24 08:34) Medications ???Medication ???Instructions ???Recorded ???Confirmed ???Type BP monitor #1 ea 09/17/21 07/26/24 Rx cholecalciferol (vitamin D3) 1,250 1,250 mcg PO QWEEK supplement #12 12/20/22 07/26/24 Rx mcg (50,000 unit) capsule caps CPAP Machine #1 ea 09/08/23 07/26/24 Rx valsartan 320 1 tab PO DAILY #90 tabs 10/07/23 07/26/24 Rx mg-hydrochlorothiazide 25 mg tablet potassium chloride 20 mEq 20 meq PO DAILY #90 tabs 10/27/23 07/26/24 Rx tablet,extended release(part/cryst) amlodipine 10 mg tablet 20 mg (2 x 10 mg) PO DAILY #180 11/28/23 07/26/24 Rx tabs atorvastatin 40 mg tablet 40 mg PO DAILY cholesterol 02/06/24 07/26/24 Rx lowering #90 tabs apixaban 5 mg tablet (Eliquis) 5 mg PO BID #180 tabs 03/06/24 07/26/24 Rx tamsulosin 0.4 mg capsule 0.4 mg PO DAILY Check with primary 05/25/24 07/26/24 Rx doctor #90 caps testosterone 1 % (50 mg/5 gram) 50 mg transdermal DAILY Check with 06/28/24 07/26/24 Rx transdermal gel packet primary doctor #150 [facility] Medical History (Updated 07/26/24 @ 09:[address] Leydi Chun MD) Osteoarthritis of right knee Dystrophic nail SAÚL (obstructive sleep apnea) Hypersomnia Paroxysmal A-fib Chronic pain GI bleed Former smoker CPAP (continuous positive airway pressure) dependence Irregular heart beat Diabetes Primary hypogonadism in male Sleep apnea Hypertension Gout Arthritis Hypertension Hyperlipemia Vitamin D deficiency Diabetes Surgical History Hx of cardiac catheterization Hx of colonoscopy History of neck surgery History of left knee surgery Family History Other Adopted Social History Smoking Status: Former smoker quit date: 07/18/15 second hand exposure: No alcohol intake: never substance use type: does not use caffeine: Yes what type of physical activity do you participate in: weight training frequency: 3-4 times per week seatbelt use: always HPI HPI Chief Complaint: annual/physical Details: TOBY GARCIA, is a 63 M who presents to the office today for annual checkup. It has been actually a little while since he has been in the office. In the event he has have type 2 diabetes but has not been taking any medication at this point as his blood pressures have been very well-controlled. He checks at times at home. Does have a history of hypertension, hyperlipidemia, vitamin D deficiency. He has a history of atrial fibrillation, paroxysmal. He is on amlodipine 20 mg daily, atorvastatin, apixaban 5 mg p.o. twice daily, Flomax, testosterone and valsartan???HCTZ 3 20???25. He has CPAP machine. He is hoping to go back to work at least part-time, and may be associated with the [employer] department. He was [employer] for many years. Currently not having any chest pain, chest tightness, shortness of breath wheeze cough or congestion. No fever or chills. No change in urinary pattern. He has been having ongoing left knee pain. Remotely had left knee arthroscopic surgery for lateral meniscus injury he states. No acute injury but if he tries to do certain physical activity, sometimes jogging etc. he will aggravate this. No locking or catching. Some mild swelling has been intermittently present. Review of systems per chart. Physical exam. Vital signs on chart. PERRLA. Sclera are clear. TMs are unremarkable with normal light reflexes. Canals are unremarkable. Posterior pharynx is unremarkable. Good dentition. No cervical or supraclavicular lymph nodes enlarged or tender. No clear thyromegaly. No thyroid nodules readily palpable. Lungs are without wheeze, rhonchi, rales. No E/A changes are heard. Heart is regular. Not tachycardic. No clear murmur, rub, or gallop is identified. The abdomen is soft, obese. Bowel sounds are present. Nontender nondistended (more content not included)... Normal [facility] PSA,Total - Annual Screenon 07-26-2024 PSA,TOT SCREEN 1.14 ng/mL Normal 0.00-4.00 [facility] Comment on above: Result Comment: This test was performed using the TPSA assay method for the [employer] chemistry system. Values obtained with different assay methods cannot be used interchangably. When changing PSA assays in the course of monitoring a patient, additional sequential testing should be carried out to confirm baseline values. Performed By: #### L 500.4050, L501.9910, L100.0100, L501.9985, L500.4100, L506.1000, L501.9520, L3100.5310 ####[facility] [address] [place], [place], [id number] Thyroid Stim Hormone (TSH)on 07-26-2024 TSH 2.530 uIU/mL Normal 0.358-3.740 [facility] Comment on above: Performed By: #### L 500.4050, L501.9910, L100.0100, L501.9985, L500.4100, L506.1000, L501.9520, L3100.5310 ####[facility] [id number] [place], [place], [id number] Vitamin D,25 Hydroxyon 07-26 Vitamin D 25-OH 31.4 ng/mL Normal [facility] Comment on above: Result Comment: Iris min D 25(OH) Status Range Deficiency <20 ng/mL (50nmol/L) Insufficiency 20 - 30 ng/mL (50 - 75 nmol/L) Sufficiency 30 - 100 ng/mL (75 - 250 nmol/L) Toxicity >100 ng/mL (>250 nmol/L) Performed By: #### L 500.4050, L501.9910, L100.0100, L501.9985, L500.4100, L506.1000, L501.9520, L3100.5310 #### [facility] [address] [place], [address] Basophil percentageOrdered B y: Christa Preston on 08-10-2023 Basophil percentage 2.9 mg/dL 2.5-4.9 [facility] Chloride [Moles/Vol] 103 mmol/L 98-107 [facility] Glucose [Mass/Vol] 243 mg/dL 74-106 [facility] Comment on above: Glucose result great er than or equal to 200 mg/dLsuggests DIABETES MELLITUS per A.D.A. criteria. Potassium [Moles/Vol] 3.7 mmol/L 3.5-5.1 [facility] Sodium [Moles/Vol] 136 mmol/L 136-145 [facility] Laboratory - Chemistry and C hemistry - challengeOrdered By: Christa Preston on 08-10-2023 CO2 [Moles/Vol] 26.0 mmol/L 21.0-32.0 [facility] Urea nitrogen/Creatinine [Mass ratio] 17.1 mg/mg 10-20 [facility] No Panel InformationOrdered By: Christa Preston on 08-10-2023 Estimated GFR (MDRD) Amer 92 mL/min >60 [facility] Comment on above: GFR Calc Estimated GFR (MDRD) Non-Af Amer 76 mL/min >60 [facility] Comment on above: Non- GFR Calc Serum or plasma calcium moriah urement (mass/volume)Ordered By: Christa Preston on 08-10-2023 Calcium [Mass/Vol] 9.2 mg/dL 8.5-10.1 [facility] Serum or plasma creatinine m easurement (mass/volume)Ordered By: Christa Preston on 08-10-2023 Creatinine [Mass/Vol] 1.05 mg/dL 0.70-1.30 [facility] Comment on above: The validity of the calculated GFR & GFRAA in patients over 70 years has not been determined. Clinical correlation is essential. Serum or plasma urea nitroge n measurement (mass/volume)Ordered By: Christa Preston on 08-10-2023 Urea nitrogen [Mass/Vol] 18 mg/dL 7-18 [facility] Thin prep Papanicolaou smear with manual screeningOrdered By: Christa Preston on 08-10-2023 Thin prep Papanicolaou smear with manual screening 3.7 g/dL 3.2-5.0 [facility] TESTOon 2017 Testosterone Lvl 179.4 ng/dL Low 241.0-827.0 [facility] ([place]) Comment on above: Performed By: #### G NORBERTO ####[place] [address] [place] [address]#### TESTO ####[place] [address] [place] [address] GLUon 12-26-2017 Glucose mass conc 766 mg/dL Critically abnormal 70-105 [facility] ([place] Comment on above: Performed By: #### G NORBERTO ####[address] [address]#### TESTO ####[address] [address] .GFRon 10-26-2017 eGFR (non-black) mL/min/{1.73_m2} Normal [facility] ([place]) Comment on above: Result Comment: GFR Population mean for , Non- Americans Ages 20-29 = 116 mL/min/1.73 sq.m. Ages 30-39 = 107 mL/min/1.73 sq.m. Ages 40-49 = 99 mL/min/1.73 sq.m. Ages 50-59 = 93 mL/min/1.73 sq.m. Ages 60-69 = 85 mL/min/1.73 sq.m. Ages 70+ = 75 mL/min/1.73 sq.m.Chronic Kidney Disease: Less than 60 mL/min/1.73 square metersEnd Stage Renal Disease: Less than 15 mL/min/1.73 square meters Performed By: #### L IPID, CMP, GFR, A1C ####[address] [place], [place] [address] eGFR (non-black) 81 ml/min/1.73sqm Normal A [facility] ([place]) Comment on above: Result Comment: GFR Population mean for , Non- Americans Ages 20-29 = 116 mL/min/1.73 sq.m. Ages 30-39 = 107 mL/min/1.73 sq.m. Ages 40-49 = 99 mL/min/1.73 sq.m. Ages 50-59 = 93 mL/min/1.73 sq.m. Ages 60-69 = 85 mL/min/1.73 sq.m. Ages 70+ = 75 mL/min/1.73 sq.m.Chronic Kidney Disease: Less than 60 mL/min/1.73 square metersEnd Stage Renal Disease: Less than 15 mL/min/1.73 square meters Performed By: #### L IPID, CMP, GFR, A1C ####[address] [place], [place] [address] A1Con 10-26-2017 Hemoglobin A1c/Hemoglobin.total mass fraction (Bld) 6.2 % High 4.8-5.9 [facility] ([place] Comment on above: Performed By: #### L IPID, CMP, GFR, A1C ####[address] [place], [place] [address] CMPon 10-26-2017 Alanine aminotransferase (ALT) 25 U/L Normal 10-35 [facility] ([place] Comment on above: Performed By: #### L IPID, CMP, GFR, A1C ####[address] [place], [place] [address] Albumin 4.5 G/dL Normal 3.5-5.0 [facility] ([place] Comment on above: Performed By: #### L IPID, CMP, GFR, A1C ####[address] [place], [place] [address] Albumin/Globulin Ratio 1.3 {ratio} Normal 1.1-2.5 [facility] ([place]) Comment on above: Performed By: #### L IPID, CMP, GFR, A1C ####[address] [place], [place] [address] Alk Phos 91 IU/L Normal 40-135 [facility] ([place] Comment on above: Performed By: #### L IPID, CMP, GFR, A1C ####[address] [place], [place] [address] Aspartate aminotransferase (AST) 21 U/L Normal 10-40 [facility] ([place] Comment on above: Performed By: #### L IPID, CMP, GFR, A1C ####[address] [place], [place] [address] Bili Total 0.8 mg/dL Normal 0.2-1.0 [facility] ([place] Comment on above: Performed By: #### L IPID, CMP, GFR, A1C ####[address] [place], [place] [address] BUN/Creatinine Ratio 11 ratio Normal 7-27 [facility] ([place]) Comment on above: Performed By: #### L IPID, CMP, GFR, A1C ####[address] [place], [place] [address] Calcium 10.0 mg/dL Normal 8.4-10.2 [facility] ([place] Comment on above: Performed By: #### L IPID, CMP, GFR, A1C ####[address] [place], [place] [address] Chloride 98 mmol/L Normal 98-107 [facility] ([place] Comment on above: Performed By: #### L IPID, CMP, GFR, A1C ####[address] [place], [place] [address] CO2 31 mmol/L High 22-29 [facility] ([place] Comment on above: Performed By: #### L IPID, CMP, GFR, A1C ####[address] [place], [place] [address] Creatinine 1.1 mg/dL Normal 0.6-1.2 [facility] ([place] Comment on above: Performed By: #### L IPID, CMP, GFR, A1C ####[address] [place], [place] [address] Electrolyte Balance 11.0 mEq/L Normal [facility] ([place]) Comment on above: Performed By: #### L IPID, CMP, GFR, A1C ####[address] [place], [place] [address] Globulin 3.4 G/dL Normal [facility] ([place] Comment on above: Performed By: #### L IPID, CMP, GFR, A1C ####[address] [place], [place] [address] Glucose mass conc 126 mg/dL High 70-105 [facility] ([place] Comment on above: Performed By: #### L IPID, CMP, GFR, A1C ####[address] [place], [place] [address] Potassium molar conc 3.4 mmol/L Low 3.5-5.1 [facility] ([place]) Comment on above: Performed By: #### L IPID, CMP, GFR, A1C ####[address] [place], [place] [address] Protein 7.9 G/dL Normal 6.0-8.3 [facility] ([place] Comment on above: Performed By: #### L IPID, CMP, GFR, A1C ####[address] [place], [place] [address] Sodium 140 mmol/L Normal 136-146 [facility] ([place] Comment on above: Performed By: #### L IPID, CMP, GFR, A1C ####[address] [place], [place] [address] Urea nitrogen 11.8 mg/dL Normal 7.0-18.0 [facility] ([place] Comment on above: Performed By: #### L IPID, CMP, GFR, A1C ####[address] [place], [place] [address] LIPIDon 10-26-2017 Cholesterol 189 mg/dL Normal 131-200 [facility] ([place] Comment on above: Result Comment: Chol esterol Reference Interval:Less than 200 [id number] Borderline high obvd645 and above High risk Performed By: #### L IPID, CMP, GFR, A1C ####[address] [place], [place] [address] HDL Cholesterol 46 mg/dL Normal 35-90 [facility] ([place] Comment on above: Result Comment: HDL Reference Interval:Less than 40 Low - high risk60 or above Optimal/lowers risk Performed By: #### L IPID, CMP, GFR, A1C ####[address] [place], [place] [address] LDL Cholesterol 123 mg/dL Normal 0-130 [facility] ([place] Comment on above: Result Comment: LDL is a calculated result and requires a 12- hr fast.LDL Reference Interval:Less than 100 [id number] Near or above [id number] Borderline high jukp008-202 High okau033 and above Very high risk Performed By: #### L IPID, CMP, GFR, A1C ####[address] [place], [place] [address] Triglyceride 98 mg/dL Normal 40-150 [facility] ([place] Comment on above: Result Comment: Trig lyceride Reference Interval:Less than 150 [id number] Borderline high miup081-230 High alwu614 or higher Very high risk Performed By: #### L IPID, CMP, GFR, A1C ####[address] [place], [place] [address] Final Surgical Pathology Rep maryanne 07-26-2017 Final Surgical Pathology Report . Pathology ReportsAccession: Collected Date/Time: Received Date/Time: Pathologist:[id number] 07/22/2017 13:43 EST 07/25/2017 13:43 EST DO ASYA COPELAND Final Surgical Pathology ReportDIAGNOSIS:ULCERATE D, INFLAMED RETENTION POLYP, COLON @ 35 CM.CLINICAL INFORMATION:RECTAL BLEEDINGSPECIMEN:A POLYP, COLORECT @ 35 CM. - R/O ADENOMAGROSS DESCRIPTION:_ Received in formalin labeled polyp at 35 cm is a 1.4 x 1.4 x 1.3 cm round lobular tissue with a 0.3 cm in length stalk. The tissue is rubbery. The base is inked, the specimen sectioned and entirely submitted in 2 cassettes.Dictated by LUNA MANCIA (ASCP)MICROSCOPIC DESCRIPTION:Slides reviewed.Electronically Signed byPathology Report verified by [facility] HospitalElectronically signed by ASYA Guillen out Date: 07/26/2017 09:53Performing Lab: [facility], [address] [place] [address] [facility] Normal [facility] ([place] Comment on above: Performed By: #### S PFR ####[facility] [place] [address] Discharge Summaryon 01-24-20 17 Discharge Summary Normal [facility] ([place]) A1C Hgbon 01-20-2017 Hemoglobin A1c/Hemoglobin.total mass fraction (Bld) 14.0 % High 4.0-6.0 [facility] Comment on above: Performed By: #### A CTON ####[address] [address] Acetone (s)on 01-19-2017 Acetaminophen mass conc SMALL Abnormal [facility] Comment on above: Order Comment: CBN Performed By: #### A CTON ####[address] [address] Arterial Blood Gason 017 Base excess -7.0 mmol/L Low -2.4-2.3 [facility] Comment on above: Order Comment: CBN Performed By: #### A BG ####[address] [address] Bicarbonate (HCO3) 19.0 mmol/L Low 22.0-26.0 [facility] Comment on above: Order Comment: CBN Performed By: #### A BG ####[address] [address] CO2 33.8 mm Hg Low 35.0-45.0 [facility] Comment on above: Order Comment: CBN Performed By: #### A BG ####[address] [address] CO2 20 mmol/L Normal 19-24 [facility] Comment on above: Order Comment: CBN Performed By: #### A BG ####[address] [address] O2 saturation ROOM AIR Normal [facility] Comment on above: Order Comment: CBN Performed By: #### A BG ####[address] [address] O2 saturation 92 % Low 95-98 [facility] Comment on above: Order Comment: CBN Performed By: #### A BG ####[address] [address] Oxygen in arterial blood 67.0 mm Hg Low 80.0-100.0 [facility] Comment on above: Order Comment: CBN Performed By: #### A BG ####[address] [address] pH of blood 7.36 [pH] Normal 7.35-7.45 [facility] Comment on above: Order Comment: CBN Performed By: #### A BG ####[address] [address] Basic Metabolic Panelon 07-0 BUN/Creatinine Ratio 27.5 mg/mg High 10.0-22.0 [facility] Comment on above: Performed By: #### A BG ####[address] [address] Creatinine 1.09 mg/dL Normal 0.60-1.40 [facility] Comment on above: Performed By: #### A BG ####[address] [address] Calcium 8.4 mg/dL Normal 8.4-10.1 [facility] Comment on above: Performed By: #### A BG ####[address] [address] CO2 23 mmol/L Normal 22-32 [facility] Comment on above: Performed By: #### A BG ####[address] [address] Electrolyte Balance 13.0 mEq/L Normal 4.0-15.0 [facility] Comment on above: Performed By: #### A BG ####[address] [address] Glucose mass conc 369 mg/dL High 70-110 [facility] Comment on above: Performed By: #### A BG ####[address] [address] Urea nitrogen 30.0 mg/dL High 8.0-22.0 [facility] Comment on above: Performed By: #### A BG ####[address] [address] Chloride 98 mmol/L Normal 98-110 [facility] Comment on above: Performed By: #### A BG ####[address] [address] Potassium molar conc 3.5 mmol/L Normal 3.5-5.0 [facility] Comment on above: Result Comment: Spec imen slightly hemolyzed. Results may be falsely elevated. Performed By: #### A BG ####[address] [address] Sodium 134 mmol/L Low 136-145 [facility] Comment on above: Performed By: #### A BG ####[address] [address] BUN/Creatinine Ratio 25.0 mg/mg High 10.0-22.0 [facility] Comment on above: Order Comment: While on insulin infusionCollection has been rescheduled by [email or web address] at 01/19/17 09:01. Reason: shellyadams to cancel 900 bmp, mg, phos Performed By: #### B MP ####[facility], [address] [place] [address] Creatinine 1.12 mg/dL Normal 0.60-1.40 [facility] Comment on above: Order Comment: While on insulin infusionCollection has been rescheduled by [email or web address] at 01/19/17 09:01. Reason: shellyadams to cancel 900 bmp, mg, phos Performed By: #### B MP ####[facility], [address] [place] [address] Glucose mass conc 251 mg/dL High 70-110 [facility] Comment on above: Order Comment: While on insulin infusionCollection has been rescheduled by [email or web address] at 01/19/17 09:01. Reason: shellyadams to cancel 900 bmp, mg, phos Performed By: #### B MP ####[facility], [address] [place] [address] Calcium 8.3 mg/dL Low 8.4-10.1 [facility] Comment on above: Order Comment: While on insulin infusionCollection has been rescheduled by [email or web address] at 01/19/17 09:01. Reason: shellyadams to cancel 900 bmp, mg, phos Performed By: #### B MP ####[facility], [address] [place] [address] CO2 28 mmol/L Normal 22-32 [facility] Comment on above: Order Comment: While on insulin infusionCollection has been rescheduled by [email or web address] at 01/19/17 09:01. Reason: shellyadams to cancel 900 bmp, mg, phos Performed By: #### B MP ####[facility], [address] [place] [address] Electrolyte Balance 8.0 mEq/L Normal 4.0-15.0 [facility] Comment on above: Order Comment: While on insulin infusionCollection has been rescheduled by [email or web address] at 01/19/17 09:01. Reason: shellyadams to cancel 900 bmp, mg, phos Performed By: #### B MP ####[facility], [address] [place] [address] Urea nitrogen 28.0 mg/dL High 8.0-22.0 [facility] Comment on above: Order Comment: While on insulin infusionCollection has been rescheduled by [email or web address] at 01/19/17 09:01. Reason: shellyadams to cancel 900 bmp, mg, phos Performed By: #### B MP ####[address] [address] Chloride 99 mmol/L Normal 98-110 [facility] Comment on above: Order Comment: While on insulin infusionCollection has been rescheduled by [email or web address] at 01/19/17 09:01. Reason: shellyadams to cancel 900 bmp, mg, phos Performed By: #### B MP ####[facility], [address] [place], [place] [address] Potassium molar conc 3.0 mmol/L Low 3.5-5.0 [facility] Comment on above: Order Comment: While on insulin infusionCollection has been rescheduled by [email or web address] at 01/19/17 09:01. Reason: shellyadams to cancel 900 bmp, mg, phos Performed By: #### B MP ####[place] [id number] Sodium 135 mmol/L Low 136-145 [facility] Comment on above: Order Comment: While on insulin infusionCollection has been rescheduled by [email or web address] at 01/19/17 09:01. Reason: shellyadams to cancel 900 bmp, mg, phos Performed By: #### B MP ####[place] [id number] Glucose mass conc 447 mg/dL Critically high 70-110 [facility] Comment on above: Performed By: #### B MP ####[place] [id number] BUN/Creatinine Ratio 23.7 mg/mg High 10.0-22.0 [facility] Comment on above: Performed By: #### B MP ####[place] [id number] Creatinine 1.35 mg/dL Normal 0.60-1.40 [facility] Comment on above: Performed By: #### B MP ####[place] [id number] CO2 24 mmol/L Normal 22-32 [facility] Comment on above: Performed By: #### B MP ####[facility], [address] [place] [address] Electrolyte Balance 13.0 mEq/L Normal 4.0-15.0 [facility] Comment on above: Performed By: #### B MP ####[facility], [address] [place] [address] Calcium 8.5 mg/dL Normal 8.4-10.1 [facility] Comment on above: Performed By: #### B MP ####[facility], [address] [place] [address] Urea nitrogen 32.0 mg/dL High 8.0-22.0 [facility] Comment on above: Performed By: #### B MP ####[facility], [address] [place] [address] Chloride 96 mmol/L Low 98-110 [facility] Comment on above: Performed By: #### B MP ####[facility], [address] [place] [address] Potassium molar conc 3.3 mmol/L Low 3.5-5.0 [facility] Comment on above: Performed By: #### B MP ####[address] [address] Sodium 133 mmol/L Low 136-145 [facility] Comment on above: Performed By: #### B MP ####[facility], [address] [place] [address] Glucose mass conc 673 mg/dL Critically high 70-105 [facility] Comment on above: Order Comment: CBN Performed By: #### B MP ####[address] [address] BUN/Creatinine Ratio 19 mg/mg Normal 7-27 [facility] Comment on above: Order Comment: CBN Performed By: #### B MP ####[address] [address] Creatinine 1.8 mg/dL High 0.6-1.2 [facility] Comment on above: Order Comment: CBN Performed By: #### B MP ####[address] [address] CO2 19 mmol/L Low 22-29 [facility] Comment on above: Order Comment: CBN Performed By: #### B MP ####[address] [address] Electrolyte Balance 21.0 mEq/L Normal [facility] Comment on above: Order Comment: CBN Performed By: #### B MP ####[address] [address] Calcium 8.9 mg/dL Normal 8.4-10.2 [facility] Comment on above: Order Comment: CBN Performed By: #### B MP ####[address] [address] Urea nitrogen 34 mg/dL High 7-18 [facility] Comment on above: Order Comment: CBN Performed By: #### B MP ####[address] [address] Chloride 89 mmol/L Low 98-107 [facility] Comment on above: Order Comment: CBN Performed By: #### B MP ####[address] [address] Potassium molar conc 3.7 mmol/L Normal 3.5-5.1 [facility] Comment on above: Order Comment: CBN Performed By: #### B MP ####[address] [address] Sodium 129 mmol/L Low 136-146 [facility] Comment on above: Order Comment: CBN Performed By: #### B MP ####[address] [address] CBCon 01-19-2017 Basophils/100 WBC Auto (Bld) 0.8 % Normal 0.0-2.5 [facility] Comment on above: Performed By: #### C BC ####[facility], [address] [place] [address] Eosinophils/100 leukocytes 1.2 % Normal 0.0-6.0 [facility] Comment on above: Performed By: #### C BC ####[facility], [address] [place] [address] Erythrocyte distribution width Auto Ratio (RBC) 13.5 % Normal 11.5-15.5 [facility] Comment on above: Performed By: #### C BC ####[facility], [address] [place] [address] Erythrocytes (RBC) 4.77 10 6/mcL Normal 4.50-6.00 [facility] Comment on above: Performed By: #### C BC ####[facility], [address] [place] [address] Hematocrit (HCT) 42.2 % Normal 40.0-52.0 [facility] Comment on above: Performed By: #### C BC ####[facility], [address] [place] [address] Hemoglobin mass conc (Bld) 14.5 G/dL Normal 13.0-17.5 [facility] Comment on above: Performed By: #### C BC ####[address] [address] Lymphocytes/100 leukocytes 26.5 % Normal 20.0-40.0 [facility] Comment on above: Performed By: #### C BC ####[facility], [address] [place] [address] MCH 30.3 pg Normal 27.0-33.0 [facility] Comment on above: Performed By: #### C BC ####[address] [address] MCHC mass conc (RBC) 34.3 G/dL Normal 32.0-36.0 [facility] Comment on above: Performed By: #### C BC ####[address] [address] MCV 88.5 fL Normal 81.0-100.0 [facility] Comment on above: Performed By: #### C BC ####[facility], [address] [place] [address] Monocytes/100 leukocytes 5.7 % Normal 2.0-13.0 [facility] Comment on above: Performed By: #### C BC ####[facility], [address] [place] [address] Neutrophils 6.80 10 3/mcL Normal 2.00-8.00 [facility] Comment on above: Performed By: #### C BC ####[facility], [address] [place] [address] Neutrophils/100 WBC Auto (Bld) 65.8 % Normal 50.0-75.0 [facility] Comment on above: Performed By: #### C BC ####[facility], [address] [place] [address] Platelet mean volume (PMV) 10.6 fL High 6.4-10.5 [facility] Comment on above: Performed By: #### C BC ####[facility], [address] [place] [address] Platelets 212 10 3/mcL Normal 150-450 [facility] Comment on above: Performed By: #### C BC ####[facility], [address] [place] [address] WBC (Leukocytes) 10.30 10 3/mcL Normal 4.50-10.80 [facility] [place] Comment on above: Performed By: #### C BC ####[facility], [address] [place] [address] CBC (AO)on 01-19-2017 Basophils Auto #/vol (Bld) 0.10 10 3/mcL Normal 0.00-0.19 [facility] Comment on above: Order Comment: CBN Performed By: #### C BCO ####[facility] [address] [place] [address] Basophils/100 WBC Auto (Bld) 0.8 % Normal 0.0-2.5 [facility] Comment on above: Order Comment: CBN Performed By: #### C BCO ####[address] [address] Eosinophils 0.20 10 3/mcL Normal 0.00-0.40 [facility] Comment on above: Order Comment: CBN Performed By: #### C BCO ####[address] [address] Eosinophils/100 leukocytes 1.5 % Normal 0.0-7.0 [facility] Comment on above: Order Comment: CBN Performed By: #### C BCO ####[place] [id number] Erythrocyte distribution width Auto Ratio (RBC) 13.4 % Normal 11.5-14.5 [facility] Comment on above: Order Comment: CBN Performed By: #### C BCO ####[address] [address] Erythrocytes (RBC) 5.05 10 6/mcL Normal 4.04-6.13 [facility] Comment on above: Order Comment: CBN Performed By: #### C BCO ####[address] [address] Hematocrit (HCT) 44.7 % Normal 42.0-52.0 [facility] Comment on above: Order Comment: CBN Performed By: #### C BCO ####[address] [address] Hemoglobin mass conc (Bld) 15.1 G/dL Normal 14.0-18.0 [facility] Comment on above: Order Comment: CBN Performed By: #### C BCO ####[address] [address] Lymphocytes 2.30 10 3/mcL Normal 0.77-3.85 [facility] Comment on above: Order Comment: CBN Performed By: #### C BCO ####[address] [address] Lymphocytes/100 leukocytes 21.2 % Normal 10.0-50.0 [facility] Comment on above: Order Comment: CBN Performed By: #### C BCO ####[address] [address] MCH 29.8 pg Normal 27.0-31.2 [facility] Comment on above: Order Comment: CBN Performed By: #### C BCO ####[address] [address] MCHC mass conc (RBC) 33.7 G/dL Normal 31.8-35.4 [facility] Comment on above: Order Comment: CBN Performed By: #### C BCO ####[address] [address] MCV 88.5 fL Normal 80.0-94.0 [facility] Comment on above: Order Comment: CBN Performed By: #### C BCO ####[address] [address] Monocytes 0.70 10 3/mcL Normal 0.15-1.00 [facility] Comment on above: Order Comment: CBN Performed By: #### C BCO ####[address] [address] Monocytes/100 leukocytes 6.7 % Normal 1.7-13.0 [facility] Comment on above: Order Comment: CBN Performed By: #### C BCO ####[address] [address] Neutrophils 7.40 10 3/mcL High 2.85-6.16 [facility] Comment on above: Order Comment: CBN Performed By: #### C BCO ####[address] [address] Neutrophils/100 WBC Auto (Bld) 69.8 % Normal 37.0-80.0 [facility] Comment on above: Order Comment: CBN Performed By: #### C BCO ####[address] [address] Platelet mean volume (PMV) 11.2 fL High 7.4-10.4 [facility] Comment on above: Order Comment: CBN Performed By: #### C BCO ####[address] [address] Platelets 228 10 3/mcL Normal 130-400 [facility] Comment on above: Order Comment: CBN Performed By: #### C BCO ####[address] [address] WBC (Leukocytes) 10.60 10 3/mcL Normal 4.60-10.80 [facility] Comment on above: Order Comment: CBN Performed By: #### C BCO ####[address] [address] Consultation Noteon 01-20-20 17 Consultation Note Normal [facility] Critical Care History and Ph ysicalon 01-19-2017 Critical Care History and Physical Normal [facility] Culture Urineon 01-19-2017 Culture Urine CBNCBNMRN#: [id number] Name: TOBY GARCIA D.o.b.: 1960 Sex: MOrd# Loc [facility] [id number] MICU UR Clean Void 01/19/17NTIBIOTICS AT COL.: See [place] [facility] [address] [place] [address] -------- Song Alfaro M M E N T S CBN CBNCulture Urine FINAL6,000 mixed organisms per mLSensitivity Testing: Not IndicatedComment: Probable contamination. Repeat culturesuggested.RAHMAN FOR RESULTS: - NEW RESULTATT.PHYS.: IATLO BERG LOCATION: [address]DATE: 01/19/17 PATIENT : TOBY GARCIA LMICROBIOLOGYPRINTED: 01/20/17 12:53 REGULAR 4 PAGE: 4 of 3 3 Normal [facility] Comment on above: Performed By: #### A CTON ####Yasmany [address] [address] Depart Summaryon 01-19-2017 Depart Summary Normal [facility] Endocrinology Consultationon 01-19-2017 Endocrinology Consultation Normal [facility] Endocrinology Consultation Normal [facility] Glomerular Filtration Rate E stimateon 01-19-2017 eGFR (non-black) mL/min/{1.73_m2} Normal [facility] Comment on above: Performed By: #### A BG ####[address] [address] Result Comment: [facility] mean GFR = 93 mL/min/1.73 sq.m. for ages 50-59 years. Chronic Kidney Disease: Less than 60 mL/min/1.73 square metersEnd Stage Renal Disease: Less than 15 mL/min/1.73 square meters eGFR (non-black) mL/min/{1.73_m2} Normal [facility] Comment on above: Order Comment: CBN Result Comment: Popu lation mean GFR = 93 mL/min/1.73 sq.m. for ages 50-59 years. Chronic Kidney Disease: Less than 60 mL/min/1.73 square metersEnd Stage Renal Disease: Less than 15 mL/min/1.73 square meters Performed By: #### A BG ####[address] [address] eGFR (non-black) 55 mL/min/1.73m 2 Normal [facility] Comment on above: Performed By: #### G FR ####[address] [address] eGFR (non-black) mL/min/{1.73_m2} Normal [facility] Comment on above: Result Comment: [facility] mean GFR = 93 mL/min/1.73 sq.m. for ages 50-59 years. Chronic Kidney Disease: Less than 60 mL/min/1.73 square metersEnd Stage Renal Disease: Less than 15 mL/min/1.73 square meters Performed By: #### G FR ####[address] [address] eGFR (non-black) 47 mL/min/1.73m 2 Normal [facility] Comment on above: Order Comment: CBN Result Comment: [facility] mean GFR = 93 mL/min/1.73 sq.m. for ages 50-59 years. Chronic Kidney Disease: Less than 60 mL/min/1.73 square metersEnd Stage Renal Disease: Less than 15 mL/min/1.73 square meters Performed By: #### G FR ####[address] [address] eGFR (non-black) 39 mL/min/1.73m 2 Normal [facility] Comment on above: Order Comment: CBN Performed By: #### G FR ####[address] [address] History and Physical (Blank) on 01-19-2017 History and Physical (Blank) Normal [facility] ([place] Inpatient Patient Summaryon 01-19-2017 Inpatient Patient Summary Normal [facility] MRSA PCRon 01-19-2017 MRSA PCR CBNCBNMRN#: [id number] Name: TOBY GARCIA Delio Singhb.: 1960 Sex: MOrd# Loc [facility] Site [id number] MICU NARES Nose 01/19/17NTIBIOTICS AT COL.: See eMARJHAVERI, [facility] [address] [place] [address] -------- Song O M M E N T S CBN CBNMRSA PCR FINALMRSA NEGATIVE..MRSA DNA not detected by Real-Time Polymerase ChainReaction (PCR). A negative result may be due tointermittent colonization. Colonization may vary dependingon patient treatment, patient status or exposure to highrisk environments..As with all PCR based in vitro tests, extremely low levelsof target below the limit of detection of the assay may bedetected, but results may not be reproducible.RAHMAN FOR RESULTS: - NEW RESULTATT.PHYS.: ITALO BERG LOCATION: [address]DATE: 01/19/17 PATIENT : TOBY GARCIA LMICROBIOLOGYPRINTED: 01/19/17 12:03 REGULAR 2 PAGE: 2 of 1 1 Normal [facility] Comment on above: Performed By: #### A ####Yasm[place] [address] [address] Magnesiumon 01-19-2017 Magnesium 2.6 mg/dL High 1.6-2.4 [facility] Comment on above: Order Comment: While on insulin infusionCollection has been rescheduled by [email or web address] at 01/19/17 09:01. Reason: shellyadams to cancel 900 bmp, mg, phos Performed By: #### M G ####[place] [address] [place] [address] Magnesium 2.6 mg/dL High 1.6-2.4 [facility] Comment on above: Performed By: #### M G ####[place] [address] [place] [address] [facility] Admi t Noteon 01-19-2017 [facility] Admit Note Normal [facility] Phosphoruson 01-19-2017 Phosphate 3.0 mg/dL Normal 2.5-4.5 [facility] Comment on above: Performed By: #### A BG ####[place] [address] [place] [address] Phosphate 2.4 mg/dL Low 2.5-4.5 [facility] Comment on above: Order Comment: While on insulin infusionCollection has been rescheduled by [email or web address] at 01/19/17 09:01. Reason: shellyadams to cancel 900 bmp, mg, phos Performed By: #### P HOS ####[facility], [address] [place] [address] Phosphate 2.5 mg/dL Normal 2.5-4.5 [facility] Comment on above: Performed By: #### P HOS ####[place] [address] [place] [address] Troponin Ion 01-19-2017 Troponin I.cardiac mass conc 0.016 ng/mL Normal 0.000-0.040 [facility] Comment on above: Order Comment: CBN Result Comment: Trop onin I reference ranges (03/25/14): 0.00-0.040 ng/mL Negative and non-diagnostic. >0.040 ng/mL Consistent with cardiac damage, increased clinical risk and possibility of myocardial infarction. Serial measurements, a rise & fall in test results, clinical history, appropriate symptoms and/or ECG changes may help assess possibility of PR. *Other non-acute coronary syndrome conditions such as CHF, myocarditis, pulmonary emboli, sepsis and cardiac surgery could result in myocardial damage and increased troponin levels. NOTE: This is a new and more precise Troponin assay started 03-25-14 Performed By: #### A BG ####[place] [address] [place] [address] Troponin I.cardiac mass conc ng/mL Normal 0.000-0.040 [facility] Comment on above: Result Comment: Trop onin I reference ranges (03/25/14): 0.00-0.040 ng/mL Negative and non-diagnostic. >0.040 ng/mL Consistent with cardiac damage, increased clinical risk and possibility of myocardial infarction. Serial measurements, a rise & fall in test results, clinical history, appropriate symptoms and/or ECG changes may help assess possibility of PR. *Other non-acute coronary syndrome conditions such as CHF, myocarditis, pulmonary emboli, sepsis and cardiac surgery could result in myocardial damage and increased troponin levels. NOTE: This is a new and more precise Troponin assay started 03-25-14 Performed By: #### T YECENIA ####[facility], [facility] [address] [place] [address] Troponin I.cardiac mass conc ng/mL Normal 0.00-0.30 [facility] Comment on above: Order Comment: CBN Result Comment: >=0. 30 Consistent with cardiac damage, increased clinicalrisk and possibility of myocardial infarction. Serialmeasurements, clinical history, appropriate symptomsand/or ECG changes may help assess possibility of PR.*Other non-acute coronary syndrome conditions such as CHF,myocarditis, pulmonary emboli, sepsis and cardiac surgerycould result in myocardial damage and increased troponinlevels. Performed By: #### T ROP ####[address] [address] Urinalysison 01-19-2017 Urine, color STRAW Normal [facility] Comment on above: Order Comment: CBN Performed By: #### U A ####[address] [address] Bilirubin (total) Negative Normal NEG - TRACE [facility] Comment on above: Order Comment: CBN Performed By: #### U A ####[place] [address] [place] [address] Glucose mass conc mg/dL Abnormal NEGATIVE [facility] Comment on above: Order Comment: CBN Performed By: #### U A ####[address] [address] Hemoglobin mass conc (Bld) Negative Normal NEG - TRACE [facility] Comment on above: Order Comment: CBN Performed By: #### U A ####[facility], [address] [place] [address] pH of blood 5.0 [pH] Normal 5.0 - 8.0 [facility] Comment on above: Order Comment: CBN Performed By: #### U A ####[facility], [address] [place] [address] Protein Negative Normal NEG - TRACE [facility] Comment on above: Order Comment: CBN Performed By: #### U A ####[facility], [address] [place] [address] Urine, appearance CLEAR Normal CLEAR [facility] Comment on above: Order Comment: CBN Performed By: #### U A ####[facility], [address] [place] [address] Urine, ketones presence 40 mg/dL Abnormal NEG - TRACE [facility] Comment on above: Order Comment: CBN Performed By: #### U A ####[facility], [address] [place] [address] Urine, nitrite presence Negative Normal NEGATIVE [facility] Comment on above: Order Comment: CBN Performed By: #### U A ####[facility], [address] [place] [address] Urine, specific gravity >=1.030 Abnormal 1.006-1.029 [facility] Comment on above: Order Comment: CBN Performed By: #### U A ####[facility], [address] [place] [address] Urine, urobilinogen 0.2 {Santiago'U}/dL Normal 0.2 - 1. 0 [facility] Comment on above: Order Comment: CBN Performed By: #### U A ####[facility], [address] [place] [address] WBC (Leukocytes) Negative Normal NEGATIVE [facility] Comment on above: Order Comment: CBN Performed By: #### U A ####[facility], [address] [place] [address] Specimen type (u) VOID Normal [facility] Comment on above: Order Comment: CBN Performed By: #### U A ####[facility], [address] [place] [address] XR CHEST 1 VIEWon 01-19-2017 XR CHEST 1 VIEW ORIGINALClinical history: Urinary frequency. Diabetes. COMPARISON: None Portable AP radiograph of the chest was obtained at 1:18 AM. The heart size is normal. The lungs are well aerated. There is no infiltrate or pulmonary edema. No pleural fluid or pneumothorax is present. The patient has had previous cervical spine surgery. IMPRESSION: No sign of acute chest abnormality. Interpreted By: Paulie Gutierresreliminary Report By: Paluie Gutierres MDElectronically Signed By: Paulie Gutierres MD Dictated Date: 01/19/2017 1:32:02 AM Prelim Date: 01/19/2017 1:32:02 AM Sign Date: 01/19/2017 1:33:06 AM Normal [facility] pH (venous)on 01-19-2017 pH of blood 7.347 [pH] Low 7.380-7.460 [facility] Comment on above: Performed By: #### P HV ####[facility], [address] [place], [place] [address] Vital Signs Date Time Vital Sign Value Performing Clinician Riai pham 01-08-2025 11:55-0400 Body height 182.[address] Leydi Chun MD Work Phone: [facility] 01-08-2025 11:55-0400 Body mass index (BMI) [Ratio] 45.9 kg/m2 Dr. Leydi Chun MD Work Phone: [facility] 01-08-2025 11:55-0400 Body weight 153.[address] Leydi Chun MD Work Phone: [facility] 01-08-2025 11:55-0400 Diastolic blood pressure 82 mm[Hg] Dr. Leydi Chun MD Work Phone: [facility] 01-08-2025 11:55-0400 Heart rate 107 /min Dr. Leydi Chun MD Work Phone: [facility] 01-08-2025 11:55-0400 Respiratory rate 16 /min Dr. Leydi Chun MD Work Phone: [facility] 01-08-2025 11:55-0400 Systolic blood pressure 141 mm[Hg] Dr. Leydi Chun MD Work Phone: [facility] 01-04-2025 21:57-0400 Body temperature 98.1 [degF] Dr. Leydi Chun MD Work Phone: [facility] 01-04-2025 21:57-0400 Diastolic blood pressure 80 mm[Hg] Dr. Leydi Chun MD Work Phone: [facility] 01-04-2025 21:57-0400 Heart rate 95 /min Dr. Leydi Chun MD Work Phone: [facility] 01-04-2025 21:57-0400 Respiratory rate 20 /min Dr. Leydi Chun MD Work Phone: [facility] 01-04-2025 21:57-0400 SaO2% (BldA) [Mass fraction] 96 % Dr. Leydi Chun MD Work Phone: [facility] 01-04-2025 21:57-0400 Systolic blood pressure 149 mm[Hg] Dr. Leydi Chun MD Work Phone: [facility] 01-04-2025 21:00-0400 Inhaled oxygen flow rate 2 L/min Dr. Leydi Chun MD Work Phone: [facility] 01-04-2025 19:58-0400 Body mass index (BMI) [Ratio] 46.5 kg/m2 Dr. Leydi Chun MD Work Phone: [facility] 01-04-2025 19:58-0400 Body weight 155.[address] Leydi Chun MD Work Phone: [facility] 01-04-2025 16:56-0400 Body height 182.[address] Leydi Chun MD Work Phone: [facility] Encounters Encounter Date Encounter Type Care Provider Facility Start: 01-08-2025 End: 01-08-2025 Patient encounter procedure Jillian Prado [place] [facility] Work Phone: Start: 01-08-2025 End: 01-08-[address] Leydi Chun MD Work Phone: [facility] Work Phone: Start: 01-04-2025 End: 01-04-2025 Emergency department patient visit Dr. Leydi Chun MD Work Phone: -Emergency Department Work Phone: Start: 07-26-2024 End: 07-26-2024 ambulatory Leydi Sheriffner Facility:[facility] Start: 07-26-2024 End: 07-26-2024 ambulatory [facility] Facility:[facility] Start: 08-10-2023 End: 08-10-2023 ambulatory [facility] Work Phone: Start: 08-10-2023 End: 08-10-2023 Patient encounter procedure [facility]-Laboratory, Phy Office 3rd Flr Start: 12-26-2017 End: 12-31-2017 Ambulatory JAMIE SNYDER Facility:[facility] Start: 10-26-2017 End: 10-27-2017 Ambulatory JAMIE SNYDER Facility:[facility] Start: 07-22-2017 End: 07-27-2017 Ambulatory ASHVIN IVEY Facility:[facility] Start: 03-17-2017 Ambulatory NICK TOMLIN Facility:[facility] Start: 03-09-2017 End: 03-10-2017 Ambulatory [facility] Facility:[facility] Start: 01-19-2017 End: 01-19-2017 Evaluation and management of inpatient [facility] Facility:[facility] Start: 01-19-2017 End: 01-19-2017 Emergency department patient visit ILANA DAO Facility:[facility] Procedures Date Procedure Procedure Detail Performing Clinician Start: 01-04-2025 Plain chest X-ray Dr. Delio Chun MD Work Phone: H/O: surgery History of neck surgery Comment on above: 2000 History of operative procedure on knee History of left knee surgery Comment on above: 1994 Plan of Treatment Date Care Activity Detail Author Start: 01-08-2025 Evaluation of diagno stic study results [facility] NM Heart Views W str ess and W radionuclide IV [facility] Patient Education AFib Dc [facility] Work Phone: Patient referral [facility] Work Phone: [facility] Immunizations Immunization Date Immunization Notes Care Provider Fa mathieuty 11-06-2020 [facility] Payers Date Payer Category Payer Self-pay [id number] 2024 Medicaid [id number] 2016 Unknown [id number] 2006 Unknown [facility] [id number] Unknown [facility] D *DO NOT USE* [id number] Unknown [id number] Unknown [id number] Unknown [id number] Unknown [id number] Social History Date Type Detail Facility Start: 10-31-2022 Tobacco smoking status NHIS Unknown if ever smoked [facility] Start: 07-15-2017 None [facility] Start: 07-15-2017 Spouse/ Signif icant Other [facility] Start: 04-21-2016 Cigars [facility] Start: 1960 Sex Assigned At Male [facility] Start: 01-04-2025 Tobacco smoking status NHIS Ex-smoker (finding) [facility] Medical Equipment Procedure Code Equipment Code Equipment Origin al Text Equipment Identifier Dates Safety [place] ( Bd Safetyglide Needle) 18 gauge x 1 1/2 needle Start: 07-07-2020 End: 07-07-2020 Safety [place] ( Bd Safetyglide Needle) 18 gauge x 1 1/2 needle Start: 07-07-2020 End: 07-07-2020 Safety [place] ( Bd Safetyglide Needle) 18 gauge x 1 1/2 needle Start: 07-07-2020 End: 07-14-2020 Syringe With Nee dle, Safety (Bd Eclipse Luer-Tasia) 3 mL 22 gauge x 1 1/2 syringe Start: 07-07-2020 End: 07-07-2020 Syringe With Nee dle, Safety (Bd Eclipse Luer-Tasia) 3 mL 22 gauge x 1 1/2 syringe Start: 07-07-2020 End: 07-07-2020 Syringe With Nee dle, Safety (Bd Eclipse Luer-Tasia) 3 mL 22 gauge x 1 1/2 syringe Start: 07-07-2020 End: 07-14-2020 Safety [place] ( Bd Safetyglide Needle) 18 gauge x 1 1/2 needle Start: 07-07-2020 End: 07-07-2020 Safety [place] ( Bd Safetyglide Needle) 18 gauge x 1 1/2 needle Start: 07-07-2020 End: 07-07-2020 Safety [place] ( Bd Safetyglide Needle) 18 gauge x 1 1/2 needle Start: 07-07-2020 End: 07-14-2020 Syringe With Nee dle, Safety (Bd Eclipse Luer-Tasia) 3 mL 22 gauge x 1 1/2 syringe Start: 07-07-2020 End: 07-07-2020 Syringe With Nee dle, Safety (Bd Eclipse Luer-Tasia) 3 mL 22 gauge x 1 1/2 syringe Start: 07-07-2020 End: 07-07-2020 Syringe With Nee dle, Safety (Bd Eclipse Luer-Tasia) 3 mL 22 gauge x 1 1/2 syringe Start: 07-07-2020 End: 07-14-2020 Safety [place] ( Bd Safetyglide Needle) 18 gauge x 1 1/2 needle Start: 07-07-2020 End: 07-07-2020 Safety [place] ( Bd Safetyglide Needle) 18 gauge x 1 1/2 needle Start: 07-07-2020 End: 07-07-2020 Safety [place] ( Bd Safetyglide Needle) 18 gauge x 1 1/2 needle Start: 07-07-2020 End: 07-14-2020 Syringe With Nee dle, Safety (Bd Eclipse Luer-Tasia) 3 mL 22 gauge x 1 1/2 syringe Start: 07-07-2020 End: 07-07-2020 Syringe With Nee dle, Safety (Bd Eclipse Luer-Tasia) 3 mL 22 gauge x 1 1/2 syringe Start: 07-07-2020 End: 07-07-2020 Syringe With Nee dle, Safety (Bd Eclipse Luer-Tasia) 3 mL 22 gauge x 1 1/2 syringe Start: 07-07-2020 End: 07-14-2020 Mental Status Date Assessment Result Facility 01-04-2025 Cognitive function Awake;Alert;A ppropriate;Fol lows Commands [facility] Work Phone: Radiology Diagnostic study note 01-04-2025 Note Date & Type Note Facility 01-04-2025 Radiology Diagnostic study note [facility] Imaging Services [address] [address] Chest 1 View (Portable) MR#: [id number] Acct: [id number] Name: TOBY GARCIA Rep #: [id number] : 1960 M 64 From: Alexandra Medrano MD PCP: Dr. Leydi Chun MD Status: REG ER Study:Chest 1 View (Portable) Date of Exam: 01/04/25 Exam# [id number] Ordering Dr: Priya Weeks DO EXAM: XR Chest, 1 View CLINICAL INDICATION: HYPERTENSION TECHNIQUE: Frontal view of the chest. COMPARISON: No relevant prior studies available. FINDINGS: LUNGS AND PLEURAL SPACES: Unremarkable. No consolidation. No pneumothorax. HEART: Cardiomegaly without overt failure. MEDIASTINUM: Unremarkable. Normal mediastinal contour. BONES/JOINTS: Unremarkable. No acute fracture. RAD/Chest 1 View (Portable) IMPRESSION: Cardiomegaly without overt failure. Reading Location: [id number] CC: Dr. Arturo Weeks, ; Dr. Leydi Chun MD ~ Station Jailer: Signed [facility] Evaluation note Note Date & Type Note Facility Evaluation note No assessment information availa ble [facility] Work Phone: Evaluation note Note Date & Type Note Facility Evaluation note Diagnosis Onset Date Resolution Persistent atrial fibrillation acute January 08, 2025 12:53pm Hyperlipemia chronic January 08 12:53pm Hypertension chronic January 08 12:53pm [facility] Work Phone: Hospital Discharge instructions Note Date & Type Note Facility Hospital Discharge instructions Additional Instructions Continue your home medications including your Eliquis and your metoprolol Increase your metoprolol to 25 mg twice a day Please follow-up with cardiology on Tuesday, you are to call them and come in for rate rhythm and blood pressure check.. If you find your heart rate is significantly elevated he may return to emergency or contact on-call cardiology. [facility] Work Phone: Summary Purpose Family History No Family History Records Found Relationship Condition Age at Onset Recorded Date/T mohamud Not Specified Adopted Unknown Advance Directives No Advanced Directives Records Found Advance Directive Response Recorded Date/ Time Living Will Yes October 30, 2022 11:17pm Power of Strand Galvanizer No October 30 11:17pm Advance Directive Response Recorded Date/ Time Do you have a Healthcare Power of Strand Galvanizer? No January 04, 2025 6:11pm Chief Complaint and Reason for Visit Chief Complaint Admit Date PALPITATIONS January 04, 2025 4:55 pm Chief Complaint Admit Date PALPITATIONS January 04, 2025 4:55 pm S/P ([facility] 01/04) NEEDS EKG January 08, 2025 12:53pm Reason for Visit Admit Date Persistent atrial fibrillation December 12:53pm Hyperlipemia January 08, 2025 12:5 3pm Hypertension January 08, 2025 12:5 3pm Additional Source Comments (unrecognized sect ion and content) No Status Records FoundNo Status Records FoundNo Status Records Found INFORMATION SOURCE (unrecogn ized section and content) DATE CREATED AUTHOR 01/03/2018 [facility] ([place]) DATE CREATED AUTHOR AUTHOR'S ORGANIZ ATION 01/11/2018 [facility] DATE CREATED AUTHOR AUTHOR'S ORGANIZ ATION 01/11/2025 [facility] Teams (unrecognized sec tion and content) Team Status: Active Member Role Status Dates Dr. Jamie Snyder DO Family Provider Active Dr. Leydi Chun MD Primary Care Provider Active Team Status: Inactive Member Role Status Dates Dr. Leydi Chun MD Primary Care Provider Active Dr. Christa Preston DO Attending Provider Active Team Status: Active Member Role Status Dates Dr. Leydi Chun MD Primary Care Provider Active Team Status: Inactive Member Role Status Dates Dr. Leydi Chun MD Primary Care Provider Active Start: January 04, 2025 End: January 04, 2025 Dr. Arturo Weeks DO Referring Provider Active Start: January 04, 2025 End: January 04, 2025 Dr. Arturo Weeks DO Emergency Provider Active Start: January 04, 2025 End: January 04, 2025 Team Status: Inactive Member Role Status Dates Dr. Leydi Chun MD Primary Care Provider Active Start: January 08, 2025 End: January 08, 2025 Dr. Leydi Chun MD Referring Provider Active Start: January 08, 2025 End: January 08, 2025 Jillian Prado PA, PA Attending Provider Active Start: January 08, 2025 End: January 08, 2025 Goals (unrecognized section and content) Goals may be documented in a n alternate sectionGoals may be documented in an alternate sectionGoals may be documented in an alternate section FOR RECORDS PERTAINING TO PATIENTS WHO ARE [...] BE BASED ON THE PRIMARY CLINICAL RECORDS. [employer] provides no warranty or guarantee of the accuracy or completeness of information in this document.
--- NOTE | 2025-02-01 12:49 | STRESSREP ---
Stress Test Report Pharmacologic myocardial perfusion stress test. 64-year-old man with a history of atrial fibrillation Resting EKG demonstrates atrial fibrillation with a rate of 97 bpm. Resting blood pressure is 122/92 mmHg. 0.4 mg of regadenoson was infused per usual protocol followed by rapid intravenous saline flush injection. Continuous EKG monitoring was performed. The maximum heart rate was 121 bpm which was 77% of max impacted heart rate the maximum workload was 1 metabolic equivalent. At rest there were no ST or T wave changes noted to suggest ischemia and at peak infusion nonspecific ST changes were noted which did not meet the criteria for ischemia. No clinical angina is noted. The final blood pressure was 122/82 mmHg. Myocardial perfusion protocol. 14.9 mCi of technetium 99m sestamibi was injected at rest. 0.4 mg of regadenoson was infused per usual protocol. At peak infusion 44.7 mCi of technetium 99m sestamibi was injected stress images were obtained stress and rest images were reconstructed and compared in the short axis vertical long and horizontal long axis. Gated images were also obtained. Perfusion SPECT analysis: Review of the stress images demonstrate normal uptake of tracer noted in all areas of the myocardium. There is a small area in the inferior wall which has reduced perfusion. The resting images similar demonstrated normal uptake of tracer noted in all areas of the myocardium. A small area in the inferior wall has reduced perfusion. The above is suggestive of a previous small inferior infarct. No reversibility is noted to suggest ischemia. Gated SPECT analysis: The gated ejection fraction is 50%. Conclusion: Normal pharmacologic myocardial perfusion stress test. Preserved ejection fraction. 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
== END | disposition home or self-care (01) ==
LOC: CVS 06:00
PROVIDERS: PCP Internal Medicine; Referring Provider Physician Assistant Medical; Visit Provider Physician Assistant Medical
DX: R06.02 Shortness of breath (principal); I48.19 Other persistent atrial fibrillation; R94.31 Abnormal electrocardiogram [ECG] [EKG]
CPT/HCPCS: 93306; 78452; 93017; A9500; Q9957; A4216; C8929; J2785

== ENCOUNTER 2025-03-06 10:40 | Day surgery (SDC) | payer MEDICAID, SELFPAY ==
[2025-02-19 13:47] LABS: Anion Gap 12 (5-15); BUN 24 mg/dL (4-19); BUN/Creat Ratio 24.9 RATIO (10-20); Calcium,Total 9.2 mg/dL (7.6-11.0); Carbon Dioxide 24.3 mmol/L (21.0-32.0); Chloride 102 mmol/L (98-108); Glucose 125 mg/dL (70-99); Potassium 3.4 mmol/L (3.3-5.1)
[2025-03-05 08:24] VITALS: BMI 45.9
--- NOTE | 2025-03-06 12:42 | PCM.OP.PRO2 ---
Non-invasive Procedural Procedure Information Date of Procedure: 03/06/25 Pre-Procedure Diagnosis: Atrial fibrillation Post-Procedure Diagnosis: Atrial fibrillation Procedure Performed:: DC cardioversion Procedure Time Out: 12:15 Procedure Start Time: 12:20 Procedure Stop Time: 12:30 Special Medications: Intravenous propofol 200 mg Description of procedure: Patient was brought to cardiac catheterization lab in the postabsorptive nonsedated state. Informed consent was obtained. Patient was seen by Dr. Garcia of the critical care division. Anterior-posterior pads were applied. The patient was administered 130 mg intravenous propofol and 300 J of biphasic DC cardioversion energy were applied atrial fibrillation persisted an additional 70 mg of propofol was administered. 360 J of biphasic synchronized DC cardioversion energy were applied, atrial fibrillation persisted and then an additional 360 J of biphasic DC cardioversion energy were applied with prompt reversal to sinus rhythm. Patient tolerated the procedure well. Procedure findings: Continue current medications Reduce amlodipine to 10 mg a day Increase metoprolol to 50 mg twice a day Continue flecainide 100 mg twice a day Follow-up as per office protocol
--- NOTE | 2025-03-06 13:05 | PCM.OP.PRO2 ---
Procedures Pulmonary Pulmonary Procedures /Diagnostic Testin Con Sedation Non-invasive Procedural Procedure Information Date of Procedure: 03/06/25 Description of procedure: CONSCIOUS SEDATION REPORT DATE OF SERVICE: March 06, 2025 BRIEF HISTORY OF PRESENT ILLNESS: The patient is a 64-year-old male who presented to [facility] to undergo an elective outpatient cardioversion due to underlying atrial fibrillation. The patient reported that he is a lifelong non-smoker. He does carry a diagnosis of obstructive sleep apnea and currently utilizes nocturnal CPAP therapy. He denied any prior anesthetic complications. The patient is systemically anticoagulated on Eliquis. His last surface echocardiogram demonstrated an ejection fraction of approximately 45%. PHYSICAL EXAMINATION: VITAL SIGNS: Reviewed and were acceptable. GENERAL: The patient is an -N[place]ien male, in no apparent distress, speaking in full sentences. HEENT: Normocephalic, atraumatic. Mucous membranes are moist and pink. Good mouth opening noted. Trachea is midline. Good neck mobility. CHEST: S1, S2 irregularly irregular. No murmurs, rubs or gallops were noted. LUNGS: Clear to auscultation bilaterally without appreciable wheezes, rales or rhonchi. ABDOMEN: Soft, nontender, nondistended. Positive bowel sounds. EXTREMITIES: There is no clubbing, cyanosis or edema. ASA Class: II DESCRIPTION OF PROCEDURE: After confirmation of informed consent, the patient's anesthesia plan was reviewed in detail. Propofol was chosen. Risks and benefits were reviewed and the patient agreed to proceed. At 1224, the patient was given his first bolus of propofol. In total, the patient required a total of 200 mg of propofol throughout the entire procedure to facilitate 3 separate attempts at cardioversion, the first at 300 J, the second at 360 J and the third at 360 J. Ultimately, the last attempted cardioversion was successful in restoring normal sinus rhythm. The patient was monitored until 1240, at which time he reached his baseline mental status and function. The patient tolerated the procedure well. COMPLICATIONS: None ESTIMATED BLOOD LOSS: None RECOMMENDATIONS: Okay to recover in usual fashion.
== END 2025-03-06 13:35 | disposition home or self-care (01) ==
PROVIDERS: Nurse Practitioner Gerontology; PCP Internal Medicine; Referring Provider Internal Medicine Cardiovascular Disease; Visit Provider Internal Medicine Cardiovascular Disease
DX: I48.19 Other persistent atrial fibrillation (principal); Z68.42 Body mass index [BMI] 45.0-49.9, adult; E11.9 Type 2 diabetes mellitus without complications; G47.33 Obstructive sleep apnea (adult) (pediatric); Z79.899 Other long term (current) drug therapy; Z79.01 Long term (current) use of anticoagulants; Z99.89 Dependence on other enabling machines and devices; I10 Essential (primary) hypertension; E78.5 Hyperlipidemia, unspecified; Z87.891 Personal history of nicotine dependence; R53.83 Other fatigue; R06.02 Shortness of breath; E66.9 Obesity, unspecified
CPT/HCPCS: 36415; 80048; 82962; 92960; 93005

== ENCOUNTER 2025-05-06 06:13 | Day surgery (SDC) | payer MEDICAID, SELFPAY ==
[2025-05-06] VITALS (9 sets, daily range): BP systolic 113–156; BP diastolic 71–91; PULSE 63–71; RESP 16–18; TEMP 36.5–36.8; O2SAT 92–99; BMI 46.6
[2025-05-06] MEDS: Lactated Ringers 1,000 ML 15 ML IV (07:00)
== END 2025-05-06 09:01 | disposition home or self-care (01) ==
LOC: EN 06:14 → AC 06:17
PROVIDERS: PCP Internal Medicine; Referring Provider Internal Medicine; Visit Provider Surgery
PROC: 0DJD8ZZ Inspection of Lower Intestinal Tract, Via Natural or Artificial Opening Endoscopic (ICD-10-PCS; CPT 45378; principal; 2025-05-06 07:25)
DX: Z12.11 Encounter for screening for malignant neoplasm of colon (principal); I48.19 Other persistent atrial fibrillation; E11.9 Type 2 diabetes mellitus without complications; E78.5 Hyperlipidemia, unspecified; I10 Essential (primary) hypertension; Z87.891 Personal history of nicotine dependence; Z86.0100 Personal history of colon polyps, unspecified; Z79.01 Long term (current) use of anticoagulants; G47.33 Obstructive sleep apnea (adult) (pediatric); Z99.89 Dependence on other enabling machines and devices; Z79.899 Other long term (current) drug therapy; K63.5 Polyp of colon
CPT/HCPCS: 45385; 82962; 88305; A4216; J2405

== ENCOUNTER → 2025-05-21 | Outpatient (CLI) | payer MEDICAID, SELFPAY ==
--- NOTE | 2025-05-21 10:24 | US_ITS ---
PROCEDURE: US/Kidney and Bladder
== END | disposition home or self-care (01) ==
LOC: US 09:28
PROVIDERS: PCP Internal Medicine; Referring Provider Internal Medicine; Visit Provider Internal Medicine
DX: R30.0 Dysuria (principal); R39.11 Hesitancy of micturition
CPT/HCPCS: 76770

== ENCOUNTER 2025-06-14 10:59 | Emergency (ER) | payer MEDICAID, SELFPAY ==
[2025-06-14 11:00] VITALS: BP 177/95; PULSE 71; RESP 18; TEMP 36.6; O2SAT 99; BMI 44.4
--- NOTE | 2025-06-14 11:23 | EX.ED.DYSGE1 ---
HPI History of Present Illness Chief Complaint: Overdose Informant: patient Onset/Context/Timing Onset: Today Context: Sudden Onset Worsened by: Nothing Relieved by: Nothing Narrative Narrative: Patient presents with possible overdose that occurred today. Patient took his normal metoprolol tablet which he believes is 50 mg. Patient states he took this at approximately 8:30 AM. Patient states that approximately 10:30 AM he took a dose of carvedilol. Patient states he was warned not to take these 2 together. Patient states that as soon as he realized that this, he attempted to vomit. Patient states he had some vomiting and the last time he vomited, he tasted medicine. Patient thinks he may have vomited his medication back up. Patient denies any fevers or chills. Patient denies any chest pain or shortness of breath. Patient denies any palpitations. Patient denies any lightheadedness or dizziness. [facility] Medical History Lower urinary tract symptoms (LUTS) Wears glasses History of edema History of cardioversion History of stress test History of echocardiogram Cardiology follow-up encounter Dysuria Urinary hesitancy Urinary frequency Persistent atrial fibrillation Osteoarthritis of right knee Dystrophic nail SAÚL (obstructive sleep apnea) Hypersomnia Paroxysmal A-fib Chronic pain GI bleed Former smoker CPAP (continuous positive airway pressure) dependence Irregular heart beat Primary hypogonadism in male Sleep apnea Hypertension Gout Arthritis Hypertension Hyperlipemia Vitamin D deficiency Diabetes Home Medications Medication Instructions Recorded Last Taken Type BP monitor #1 ea 09/17/21 Unknown Rx CPAP Machine #1 ea 09/08/23 Unknown Rx potassium chloride 20 mEq 20 meq PO DAILY #90 tabs 09/07/24 Unknown Rx tablet,extended release(part/cryst) valsartan 320 1 tab PO DAILY #90 tabs 10/03/24 Unknown Rx mg-hydrochlorothiazide 25 mg tablet cholecalciferol (vitamin D3) 1,250 1,250 mcg PO SA supplement 01/04/25 Unknown History mcg (50,000 unit) capsule atorvastatin 40 mg tablet 40 mg PO DAILY cholesterol 01/31/25 Unknown Rx lowering #90 tabs flecainide 100 mg tablet 100 mg PO Q12H #60 tabs 02/06/25 05/06/25 Rx tamsulosin 0.4 mg capsule 0.8 mg (2 x 0.4 mg) PO DAILY Check 02/06/25 Unknown Rx with primary doctor #180 caps amlodipine 10 mg tablet 10 mg PO DAILY 03/06/25 05/06/25 History carvedilol 12.5 mg tablet 12.5 mg PO BID Pt is to stop 06/07/25 Unknown Rx Metoprolol: I notified him. #30 tabs testosterone 1 % (50 mg/5 gram) 50 mg transdermal DAILY Check with 06/10/25 Unknown Rx transdermal gel packet primary doctor #150 grams apixaban 5 mg tablet (Eliquis) 5 mg PO BID #180 tabs 06/12/25 Unknown Rx Allergy/AdvReac Type Severity Reaction Status Date / Time No Known Allergies Allergy Verified 06/14/25 11:03 Family History Other Adopted Surgical History Hx of cardiac catheterization Hx of colonoscopy History of neck surgery History of left knee surgery Social History Smoking Status: Former smoker quit date: 07/18/15 second hand exposure: No alcohol intake: never substance use type: does not use caffeine: Yes what type of physical activity do you participate in: weight training frequency: 3-4 times per week seatbelt use: always ROS ROS ED Constitutional Constitutional ED: Denies chills or fever(s) Eyes Eyes: Denies blurry vision or change in vision ENT ENT ED: Denies rhinorrhea or sore throat Cardiovascular Cardiovascular: Denies chest pain or palpitations Respiratory/Chest Respiratory/Chest: Denies cough or dyspnea Gastrointestinal Gastrointestinal: Reports vomiting; Denies nausea Genitourinary Genitourinary ED: Denies dysuria or hematuria Musculoskeletal Musculoskeletal: Reports back pain; Denies neck pain Integumentary Denies abscess or rash Neurologic Neurologic: Reports headache(s); Denies weakness Allergic/Immunologic Allergic/Immunologic ED: Denies mouth swelling or urticaria EXAM Physical Exam Const Vital Signs: 06/14/25 11:00 06/14/25 11:36 06/14/25 12:31 Temperature 98 F 97.6 F L Temperature Source Oral Pulse Rate 71 61 Pulse Rate [Lying] 64 Pulse Rate [Sitting (for 1 minute prior to obtaining)] 59 L Pulse Rate [Standing (for 1 minute prior to obtaining)] 75 Respiratory Rate 18 17 Blood Pressure 177/95 H 133/89 H Blood Pressure [Lying] 134/83 H Blood Pressure [Sitting (for 1 minute prior to obtaining)] 134/87 H Blood Pressure [Standing (for 1 minute prior to obtaining)] 128/98 H Blood Pressure Mean 122 103 Blood Pressure Mean [Lying] 100 Blood Pressure Mean [Sitting (for 1 minute prior to obtaining)] 102 Blood Pressure Mean [Standing (for 1 minute prior to obtaining)] 108 Pulse Ox 99 94 Oxygen Delivery Method Room Air Positive well nourished and well developed General Appearance ED: well developed and NAD HEENT Reports moist mucous membranes Neck supple and no JVD Resp normal respiratory effort and clear to auscultation bilaterally Cardio regular rate and regular rhythm GI non-tender and non-distended Palpation: soft Extremity normal to inspection General Extremety ED: Negative for edema General Extremity: Negative for edema Neuro oriented x3, CN's II-XII intact bilaterally and no sensory deficits noted Sensorium / Orientation: alert Motor Exam: strength 5/5 throughout MDM MDM MDM Narrative Medical decision making narrative: Differential diagnosis includes beta-rhett overdose, electrolyte abnormality, dehydration, and anxiety. CBC will be obtained to assess for leukocytosis and anemia. Basic metabolic profile will be obtained to assess for electrolyte abnormality and renal function. Lab Data Attestation: I reviewed the patient's lab results. Lab results narrative: CBC was reviewed and was within normal limits. Basic metabolic profile was reviewed and was within normal limits. Labs: Laboratory Results - last 24 hr 06/14/25 11:44 WBC 5.1 RBC 5.52 Hgb 14.8 Hct 43.7 MCV 79.2 L MCH 26.8 L MCHC 33.9 RDW Std Deviation 44.6 H RDW Coeff of Cornelius 15.6 H Plt Count 247 MPV 9.1 Immature Gran % (Auto) 0.400 Neut % (Auto) 71.2 H Lymph % (Auto) 17.0 L [place] % (Auto) 8.8 Eos % (Auto) 1.6 Baso % (Auto) 1.0 Absolute Neuts (auto) 3.6 Absolute Lymphs (auto) 0.87 Nucleated RBC % 0 Sodium 140 Potassium 3.3 Chloride 102 Carbon Dioxide 26.0 Anion Gap 12 BUN 13 Creatinine 1.20 Estim Creat Clear Calc 93.22 Est GFR (MDRD) Non-Af 68 BUN/Creatinine Ratio 10.4 Glucose 115 H Calcium 9.0 Treatment and Re-Evaluation :: Patient was placed on continuous cardiac and pulse oximeter monitors. Patient's blood pressure and heart rate remained stable. Patient was advised of his findings. Patient was instructed to stop taking his metoprolol. Patient was instructed to follow-up with his primary care physician in 5 to 7 days. Patient was instructed return if worse in any way. Patient understood and was agreeable with the plan. All questions were answered. Discharge Plan Triage Chief Complaint: Overdose ED Provider: Osbaldo Irizarry Dx/Rx/DC Orders Clinical Impression: Accidental overdose of beta-adrenergic blocking drug, Hypertension Instructions: ED Accidental Ingestion ... 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 potassium chloride 20 mEq tablet,ER particles/crystals 20 meq PO DAILY Qty: 90 3RF valsartan-hydrochlorothiazide 320-25 mg tablet 1 tab PO DAILY Qty: 90 3RF atorvastatin 40 mg tablet 40 mg PO DAILY Qty: 90 3RF tamsulosin 0.4 mg capsule 0.8 mg PO DAILY Qty: 180 1RF flecainide 100 mg tablet 100 mg PO Q12H Qty: 60 11RF carvedilol 12.5 mg tablet 12.5 mg PO BID Qty: 30 11RF Rx Instructions: must administer with a meal/food testosterone 1 % (50 mg/5 gram) gel in packet 50 mg TD DAILY Qty: 150 5RF Eliquis 5 mg tablet 5 mg PO BID Qty: 180 3RF Primary Care Provider: Leydi Chun Referrals: Leydi Chun MD [Primary Care Provider, Internal Medicine - [facility]] - 5-7 Days Print Language: Lithuanian Disposition Disposition: Home, Self Care Discharge Date/Time: 06/14/25 12:43
[2025-06-14 11:36] VITALS: BP 128/98; BP 134/83; BP 134/87; PULSE 59; PULSE 64; PULSE 75
[2025-06-14 11:51] LABS: Hematocrit 43.7 % (40-54); Hemoglobin 14.8 g/dL (13.0-16.5); Immature Granulocytes Count 0.020 X10^3/uL (0.0-0.0); Mean Corp Hgb Conc 33.9 g/dL (32-36); Mean Corpuscular Volume 79.2 fL (80-94); Mean Platelet Vol. 9.1 fl (6.2-12.0); NRBC Flagged by Analyzer 0 % (0-5); Platelet Count 247 K/mm3 (150-450); RBC Distribution Width CV 15.6 % (11.6-14.6); RBC Distribution Width SD 44.6 fl (35.1-43.9); Red Blood Count 5.52 M/mm3 (4.6-6.2); White Blood Count 5.1 K/mm3 (4.4-11.0)
[2025-06-14 12:09] LABS: Anion Gap 12 (5-15); BUN 13 mg/dL (4-19); BUN/Creat Ratio 10.4 RATIO (10-20); Calcium,Total 9.0 mg/dL (7.6-11.0); Carbon Dioxide 26.0 mmol/L (21.0-32.0); Chloride 102 mmol/L (98-108); Estimated Creatinine Clearance 93.22 ml/min (50-250); Glucose 115 mg/dL (70-99); Potassium 3.3 mmol/L (3.3-5.1)
--- OUTSIDE RECORDS SUMMARY | 2025-06-14 12:19 | XMS RPT_ITS | CCD ---
Author Organization [facility] Care Team Providers Care Instructor Adjunct Pharmacy Technician Name Role Phone WAYT, NICK Unavailable Unavailable MURIEL, AJMIE D Unavailable Unavailable WAYT, NICK Unavailable Unavailable MURIEL, JAMIE D Unavailable Unavailable ASHVIN IVEY Unavailable Unavailable MURIEL, JAMIE D Unavailable Unavailable MURIEL, JAMIE D Unavailable Unavailable MURIEL, JAMIE D Unavailable Unavailable MURIEL, JAMIE D Unavailable Unavailable MURIEL, JAMIE D Unavailable Unavailable KINKOPF, ILANA W Unavailable Unavailable MURIEL, JAMIE Unavailable Unavailable MURIEL, JAMIE Unavailable Unavailable TEACH, MTS TEZ Unavailable Unavailable MORENA, NIHADQ Unavailable Unavailable MURIEL, JAMIE Unavailable Unavailable MURIEL, JAMIE Unavailable Unavailable Dr. Leydi Chun MD Primary Care Provider Dr. Arturo Weeks DO Referring Provider Dr. Arturo Weeks DO Emergency Provider Dr. Leydi Chun MD Referring Provider iJllian Baires Attending Provider Dr. Arturo Weeks DO Attending Provider Dr. Víctor Correia MD Attending Provider Jillian Baires Referring Provider Jillian Baires Other Provider Dr. Ivon Rothman MD Attending Provider Rafia Del Cid Attending Provider Dr. Víctor Correia MD Referring Provider Dr. Víctor Correia MD Other Provider Dr. Sma Garcia DO Attending Provider [phone] aLy ARDON, Dr. Holley Primary Care Physician Bren ARDON, Dr. Renee Attending Physician Jillian Baires Attending Physician Jillian Baires Referring Provider Jillian Baires Nurse Practitioner Dr. Leydi Chun MD Referring Provider Dr. Ivon Rothman MD Attending Physician Rafia Del Cid Attending Physician Bren ARDON, Dr. Renee Referring Provider Bren ARDON, Dr. Renee Nurse Practitioner Jose GREENWOOD, Dr. Vargas Attending Physician Stephan ARDON, Dr. Del Valle Nurse Practitioner Lay ARDON, Dr. Holley Attending Physician Lay, Leydi Primary Care Unavailable Arturo Weeks Referring Unavailable Arturo Weeks Attending Unavailable Lay, Leydi Primary Care Unavailable Lay, Leydi Referring Unavailable Robotham, Ivon Attending Unavailable Lay, Leydi Primary Care Unavailable Lay, Leydi Referring Unavailable Robotham, Ivon Attending Unavailable Lay, Leydi Primary Care Unavailable Lay, Leydi Referring Unavailable Jillian Baires Attending Unavail able Lay, Leydi Primary Care Unavailable Lay, Leydi Referring Unavailable Rafia Vidal NP Attending Unavailable Lay, Leydi Primary Care Unavailable Lay, Leydi Referring Unavailable Rafia Vidal NP Attending Unavailable Lay, Leydi Attending Unavailable Lay, Leydi Primary Care Unavailable Lay, Leydi Referring Unavailable Lay, Leydi Primary Care Unavailable Rafia Vidal NP Attending Unavailable Lay, Leydi Primary Care Unavailable Lay, Leydi Referring Unavailable Robotham, Ivon Attending Unavailable Robotham, Ivon Consulting Unavailable Lay, Leydi Primary Care Unavailable Víctor Correia Attending Unavailable Lay, Leydi Primary Care Unavailable Bren, Charlotte Attending Unavailable Jillian Baires Referring Unavail able Jillian Baires Consulting Unavail able Leydi Chun Primary Care Unavailable Bren, Víctor Consulting Unavailable Bren, Charlotte Referring Unavailable Bren, Víctor Attending Unavailable Lay, Leydi Primary Care Unavailable Bren, Víctor Consulting Unavailable Bren, Víctor Referring Unavailable Sam Garcia Attending Unavailable Lay, Leydi Primary Care Unavailable Lay, Leydi Referring Unavailable Lay, Leydi Attending Unavailable Aly, Leydi Attending Unavailable Lay, Leydi Primary Care Unavailable Lay, Leydi Referring Unavailable Lay, Leydi Primary Care Unavailable Jillian Baires Referring Unavail able Jillian Baires Attending Unavail able LayLeydi mcnamara Primary Care Unavailable Bren, Charlotte Referring Unavailable Bren, Charlotte Attending Unavailable Medications Current Medications Medication Drug Class(es) Dates Sig (Normalized) Sig (Original) amLODIPine 10 mg oral tablet (20 sources) Dihydropyridine Calcium Channel Gale Start: 03-06-2025 take 1 tablet by mouth once daily Amlodipine 10 mg tablet Active 10 mg PO DAILY March 05, 2025 11:00pm Complies with drug therapy Start: 01-28-2025 End: 03-06-2025 take 1 tablet by mouth twice daily Amlodipine 10 mg tablet Discontinued 10 mg PO TWICE A DAY 180 3 January 28, 2025 11:08am March 06, 2025 11:44am Start: 12-06-2022 End: 01-28-2025 take 2 tablets by mouth once daily Amlodipine 10 mg tablet Discontinued 20 mg PO DAILY 180 December 12, 2024 11:31am January 28, 2025 11:08am Start: 12-06-2022 take 20 mg by mouth once daily Amlodipine Active 20 MG PO DAILY 180 December 06, 2022 11:41am Start: 10-31-2022 End: 12-06-2022 take 1 tablet by mouth once daily Amlodipine 10 mg tablet Discontinued 10 mg PO DAILY 180 December 02, 2022 1:40pm December 06, 2022 11:41am Start: 09-23-2021 End: 10-31-2022 take 5 mg by mouth once daily Amlodipine 10 mg tablet Discontinued 5 mg PO DAILY August 05, 2022 10:49am October 30, 2022 11:17pm Start: 09-23-2021 End: 10-31-2022 take 5 mg by mouth once daily Amlodipine Discontinued 5 MG PO DAILY August 05, 2022 10:49am October 30, 2022 11:17pm Start: 01-30-2021 End: 09-23-2021 take 1 tablet by mouth once daily Amlodipine 10 mg tablet Discontinued 10 mg PO DAILY August 03, 2021 11:49am September 20, 2021 11:38pm Start: 04-20-2016 End: 12-14-2020 take 1 tablet by mouth once daily Amlodipine 10 mg tablet Discontinued 10 mg PO DAILY December 02, 2020 12:02pm December 12, 2020 6:33pm BP monitor (3 sources) Start: 09-17-2021 BP [...] 11:55am As directed BP monitor Large cuff (20 sources) Start: 09-17-2021 BP monitor Lar ge cuff Active 0 .Route .MEDSUPPLY 1 0 September 17, 2021 12:55pm Hypertension Obstructive sleep apnea syndrome Essential (primary) hypertension Obstructive sleep apnea (adult) (pediatric) I10 Essential Hypertension As directed Start: 09-17-2021 BP monitor Lar ge cuff Active 0 .Route .MEDSUPPLY 1 0 September 17, 2021 1:55pm Hypertension Obstructive sleep apnea syndrome Essential (primary) hypertension Obstructive sleep apnea (adult) (pediatric) I10 Essential Hypertension As directed Start: 09-17-2021 BP monitor Lar ge cuff Active 0 .Route .MEDSUPPLY September 17, 2021 1:55pm As directed Start: 09-17-2021 End: 09-17-2021 BP monitor Large cuff Discon tinued 0 .Route .MEDSUPPLY 1 0 September 17, 2021 11:54am September 17, 2021 12:56pm Hypertension Obstructive sleep apnea syndrome Essential (primary) hypertension Obstructive sleep apnea (adult) (pediatric) As directed Start: 09-17-2021 End: 09-17-2021 BP monitor Large cuff Discon tinued 0 .Route .MEDSUPPLY 1 0 September 17, 2021 12:54pm September 17, 2021 1:56pm Hypertension Obstructive sleep apnea syndrome Essential (primary) hypertension Obstructive sleep apnea (adult) (pediatric) As directed Start: 09-17-2021 End: 09-17-2021 BP monitor Large cuff Discon tinued 0 .Route .MEDSUPPLY 1 September 17, 2021 12:54pm September 17, 2021 1:56pm As directed Start: 09-17-2021 End: 09-17-2021 BP monitor Large cuff Discon tinued 0 .Route .MEDSUPPLY 1 0 September 17, 2021 12:00am September 17, 2021 11:55am Hypertension Obstructive sleep apnea syndrome Essential (primary) hypertension Obstructive sleep apnea (adult) (pediatric) As directed Start: 09-17-2021 End: 09-17-2021 BP monitor Large cuff Discon tinued 0 .Route .MEDSUPPLY 1 0 September 17, 2021 1:00am September 17, 2021 12:55pm Hypertension Obstructive sleep apnea syndrome Essential (primary) hypertension Obstructive sleep apnea (adult) (pediatric) As directed Start: 09-17-2021 End: 09-17-2021 BP monitor Large cuff Discon tinued 0 .Route .MEDSUPPLY 1 September 17, 2021 1:00am September 17, 2021 12:55pm As directed CPAP Machine (8 sources) Start: 09-08-2023 CPAP Machine A ctive 0 .Route .MEDSUPPLY 1 0 September 08, 2023 12:00am Obstructive sleep apnea syndrome Obstructive sleep apnea (adult) (pediatric) As directed DX SAÚL G47.33 Start: 09-08-2023 CPAP Machine A ctive 0 .Route .MEDSUPPLY 1 0 September 08, 2023 1:00am Obstructive sleep apnea syndrome Obstructive sleep apnea (adult) (pediatric) As directed DX SAÚL G47.33 Start: 09-08-2023 CPAP Machine A ctive 0 .Route .MEDSUPPLY September 08, 2023 1:00am As directed DX SAÚL G47.33 flecainide acetate 100 mg oral tablet (10 sources) Antiarrhythmic Start: 02-05-2025 End: 02-06-2025 take 1 tablet by mouth every twelve hours Flecainide 100 mg tablet Active 100 mg PO Q12H 60 February 06, 2025 11:03am Complies with drug therapy metoprolol tartrate 50 mg oral tablet (20 sources) beta-Adrenergic Gale Start: 04-11-2025 take 1 tablet by mouth twice daily Metoprolol Tartrate 50 mg tablet Active 50 mg PO TWICE A DAY 180 April 10, 2025 11:00pm Complies with drug therapy Start: 03-06-2025 End: 04-11-2025 take 2 tablets by mouth twice daily Metoprolol Tartrate 25 mg tablet Discontinued 50 mg PO TWICE A DAY March 05, 2025 11:00pm April 11, 2025 12:30pm Start: 01-08-2025 End: 03-06-2025 take 1 tablet by mouth twice daily Metoprolol Tartrate 25 mg tablet Discontinued 25 mg PO TWICE A DAY 180 February 25, 2025 11:30am March 06, 2025 11:44am Start: 07-27-2024 End: 01-08-2025 Metoprolol Tartrate 25 mg ta blet Discontinued 12.5 mg PO TWICE A DAY 90 September 07, 2024 1:33pm January 08, 2025 12:09pm Start: 01-06-2021 End: 09-23-2021 take 1 tablet by mouth twice daily Metoprolol Tartrate 50 mg tablet Discontinued 50 mg PO TWICE A DAY 180 January 30, 2021 11:59am September 20, 2021 11:38pm Start: 12-14-2020 End: 01-06-2021 take 1 tablet by mouth once daily Metoprolol Tartrate 25 mg tablet Discontinued 25 mg PO DAILY 30 January 02, 2021 10:11am January 06, 2021 12:29pm tamsulosin hydrochloride 0.4 mg oral capsule (20 sources) alpha-Adrenergic Gale Start: 02-06-2025 take 2 capsules by mouth once daily Tamsulosin 0.4 mg capsule Active 0.8 mg PO DAILY 180 1 February 06, 2025 9:03am Check with primary doctor Complies with drug therapy Start: 01-29-2021 End: 02-06-2025 take 1 capsule by mouth once daily Tamsulosin 0.4 mg capsule Discontinued 0.4 mg PO DAILY 90 3 May 25, 2024 9:22am February 06, 2025 9:04am Check with primary doctor Start: 09-10-2020 End: 01-06-2021 take 1 capsule by mouth once daily Tamsulosin 0.4 mg capsule Discontinued 0.4 mg PO DAILY September 10, 2020 12:00am January 06, 2021 12:08pm prostate Completed/Discontinued Medications Medication Drug Class(es) Dates Sig (Normalized) Sig (Original) acetaminophen 325 mg / oxyCODONE hydrochloride 5 mg oral tablet (9 sources) Opioid Agonist Start: 10-31-2022 End: 07-26-2024 Oxycodone-Acetamino phen (Percocet) 5-325 mg tablet Discontinued 1 {tbl} PO EVERY 6 HOURS as needed for pain 12 3 0 October 31, 2022 July 26, 2024 8:43am Renal colic on right side Unspecified renal colic [id number] actuat albuterol 0.09 mg/actuat metered dose inhaler (9 sources) beta2-Adrenergic Agonist Start: 09-08-2021 End: 10-12-2021 Albuterol Sulfate 90 mcg/actuation HFA aerosol inhaler Discontinued 2 NMA INHALATION EVERY 6 HOURS as needed for shortness of breath or wheezing 8.5 September 08, 2021 12:00am October 12, 2021 8:53am Start: 09-08-2021 End: 10-12-2021 take 1 puff(s) by inhalation every six hours Albuterol Sulfate Discontinued 2 PUFF INHALATION EVERY 6 HOURS 8.5 September 08, 2021 12:00am October 12, 2021 8:53am apixaban 5 mg oral tablet (20 sources) Factor Xa Inhibitor Start: 12-14-2020 End: 09-07-2024 take 1 tablet by mouth twice daily Apixaban (Eliquis) 5 mg tablet Discontinued 5 mg PO TWICE A DAY 180 March 06, 2024 10:21am September 07, 2024 11:41am atorvastatin 40 mg oral tablet (20 sources) HMG-CoA Reductase Inhibitor Start: 05-22-2020 End: 01-31-2025 take 1 tablet by mouth once daily Atorvastatin 40 mg tablet Discontinued 40 mg PO DAILY 90 3 February 06, 2024 10:52am January 31, 2025 10:11am cholesterol lowering carvedilol 12.5 mg oral tablet (20 sources) alpha-Adrenergic Gale, beta-Adrenergic Gale Start: 09-23-2021 End: 07-26-2024 Carvedilol 12.5 mg tablet Discontinued 12.5 mg PO TWICE A DAY 180 February 03, 2023 12:03pm July 26, 2024 8:42am Hold for heart less than 60 or systolic blood pressure less than 100 mmHg. chlorthalidone 25 mg oral tablet (20 sources) Thiazide-like Diuretic Start: 05-22-2020 End: 09-10-2020 take 1 tablet by mouth once daily Chlorthalidone 25 mg tablet Discontinued 25 mg PO DAILY 90 June 24, 2020 4:17pm September 10, 2020 9:59am Start: 04-22-2016 End: 05-22-2020 Chlorthalidone 50 MG tablet Discontinued 25 mg PO DAILY 30 April 21, 2016 11:00pm May 22, 2020 11:45am HTN 1/2 tab daily....25 mg Start: 04-22-2016 End: [...] capsule Discontinued 1250 ug PO EVERY WEEK 12 September 07, 2024 11:41am January 04, 2025 8:07pm supplement glipiZIDE 10 mg oral tablet (18 sources) Sulfonylurea Start: 09-23-2021 End: 09-16-2022 take 1 tablet by mouth twice daily Glipizide 10 mg tablet Discontinued 10 mg PO TWICE A DAY 180 1 November 04, 2021 7:04am September 16, 2022 9:46am Hold if glucose less than 130 mg/dl 12 hr guaiFENesin 600 mg extended release oral tablet (20 sources) Start: 10-12-2021 End: 06-28-2022 take 600 mg by mouth twice daily Guaifenesin Active 600 MG PO TWICE A DAY June 28, 2022 11:37am Start: 10-12-2021 End: 07-26-2024 take 1 tablet by mouth twice daily as needed for congestion Guaifenesin 600 mg tablet extended release 12hr Discontinued 600 mg PO TWICE A DAY as needed for congestion 16 08June 28, 2022 11:37am July 26, 2024 8:42am hydroCHLOROthiazide 12.5 mg oral tablet (9 sources) Thiazide Diuretic Start: 09-23-2021 End: 10-12-2021 take 1 tablet by mouth once daily Hydrochlorothiazide 12.5 mg tablet Discontinued 12.5 mg PO DAILY 30 September 23, 2021 12:00am October 12, 2021 3:25pm hydroCHLOROthiazide 50 mg / triamterene 75 mg oral tablet (9 sources) Potassium-spa ring Diuretic, Thiazide Diuretic Start: 04-22-2016 End: 04-22-2016 Triamterene-Hydrochloro thiazid 1 TABLET tablet Discontinued 1 {tbl} PO DAILY 30 April 21, 2016 11:00pm April 22, 2016 4:20pm Start: 04-22-2016 End: 04-22-2016 take 1 tablet by mouth once daily Triamterene-Hydrochlorothiazid Discontin ued 1 TABLET PO DAILY April 21, 2016 11:00pm April 22, 2016 4:20pm hydroCHLOROthiazide 25 mg / valsartan 320 mg oral tablet (20 sources) Thiazide Diuretic, Angiotensin 2 Receptor Gale Start: 10-12-2021 End: 10-03-2024 Valsartan-Hydrochlorothiazid e 320-25 mg tablet Discontinued 1 {tbl} PO DAILY October 07, 2023 12:08pm October 03, 2024 10:57am Start: 10-12-2021 End: 10-12-2022 take 1 tablet by mouth once daily Valsartan-Hydrochlorothiazide Active 1 T ABLET PO DAILY October 12, 2022 1:58pm Start: 11-26-2020 End: 10-12-2021 Valsartan-Hydrochlorothiazid e 320-12.5 mg tablet Discontinued 1 {tbl} PO DAILY 90 2 May 07, 2021 7:52am September 20, 2021 11:38pm Start: 11-26-2020 End: 10-12-2021 take 1 tablet by mouth once daily Valsartan-Hydrochlorothiazide Discontinu ed 1 TABLET PO DAILY September 20, 2021 11:38pm October 12, 2021 3:23pm 3 ml insulin lispro 25 unt/ml / insulin lispro protamine, human 75 unt/ml pen injector (9 sources) Insulin Analog Start: 07-15-2017 End: 05-22-2020 Insulin Lispro Protamin-Lispro 100 UNIT/ML insulin pen Discontinued 35 U SQ TWICE A DAY July 15, 2017 12:00am May 22, 2020 11:46am metFORMIN hydrochloride 1000 mg oral tablet (20 sources) Biguanide Start: 01-02-2025 End: 02-04-2025 take 1 tablet by mouth twice daily Metformin 1,000 mg tablet Discontinued 1000 mg PO TWICE A DAY 180 1 January 02, 2025 3:06pm February 04, 2025 1:40pm Start: 06-24-2020 End: 07-26-2024 take 1 tablet by mouth twice daily Metformin 1,000 mg tablet Discontinued 1000 mg PO TWICE A DAY 180 3 November 09, 2023 9:45am July 26, 2024 8:43am diabetes Start: 07-15-2017 End: 06-24-2020 take 2 tablets by mouth twice daily at mealtime Metformin 500 MG tablet Discontinued 1000 mg PO TWICE DAILY WITH MEALS July 15, 2017 12:00am June 24, 2020 1:36pm Start: 07-15-2017 End: 06-24-2020 take 1000 mg by mouth twice daily at mealtime Metformin Discontinued 1000 MG PO TWICE DAILY WITH MEALS July 15, 2017 12:00am June 24, 2020 1:36pm ondansetron 4 mg disintegrating oral tablet (9 sources) Serotonin-3 Receptor Antagonist Start: 10-31-2022 End: 07-26-2024 take 1 tablet by mouth every six hours as needed for nausea and vomiting Ondansetron 4 mg tablet,disintegrating Discontinued 4 mg PO EVERY 6 HOURS as needed for nausea and vomiting October 30, 2022 11:00pm July 26, 2024 8:43am microencapsulated potassium chloride 20 meq extended release oral tablet (20 sources) Start: 09-23-2021 End: 09-07-2024 take 1 tablet by mouth once daily Potassium Chloride 20 mEq tablet,ER particles/crystals Discontinued 20 meq PO DAILY 90 3 October 27, 2023 6:45am September 07, 2024 11:41am Start: 07-16-2020 End: 10-12-2021 take 1 tablet by mouth four times daily Potassium Chloride 10 mEq tablet extended release Discontinued 10 meq PO 4 TIMES DAILY 120 5 February 23, 2021 11:48am October 12, 2021 8:54am supplement Start: 05-22-2020 End: 07-16-2020 take 1 tablet by mouth twice daily Potassium Chloride 10 mEq tablet extended release Discontinued 10 meq PO TWICE A DAY 180 1 June 24, 2020 4:18pm July 16, 2020 3:32pm 5000 mg testosterone 0.01 mg/mg topical gel (20 sources) Androgen Start: 12-10-2020 End: 01-02-2025 Testosterone 1 % (50 mg/5 gram) gel in packet Discontinued 50 mg TD DAILY 150 5 June 28, 2024 3:26pm January 02, 2025 7:02am Check with primary doctor Start: 07-14-2020 End: 12-10-2020 Testosterone 1 % (50 mg/5 gr am) gel in packet Discontinued 1 NMA TD DAILY 150 2 September 10, 2020 9:59am December 10, 2020 3:31pm Testicular hypofunction Start: 07-14-2020 End: 12-10-2020 Testosterone Discontinued 1 PACKET TD DAILY 150 September 10, 2020 9:59am December 10, 2020 3:31pm Start: 07-07-2020 End: 07-14-2020 Testosterone Cypionate (Depo -Testosterone) 200 mg/mL oil Discontinued 100 mg IM every 4 weeks 5 0 July 07, 2020 12:00am July 14, 2020 9:52am valsartan 320 mg oral tablet (20 sources) Angiotensin 2 Receptor Gale Start: 09-10-2020 End: 11-26-2020 take 1 tablet by mouth once daily Valsartan 320 mg tablet Discontinued 320 mg PO DAILY September 10, 2020 12:00am November 26, 2020 3:10pm Start: 04-22-2016 End: 09-10-2020 take 1 tablet by mouth once daily Valsartan 160 mg tablet Discontinued 160 mg PO DAILY 90 1 June 24, 2020 4:18pm September 10, 2020 9:37am verapamil hydrochloride 120 mg extended release oral tablet (20 sources) Calcium Channel Gale Start: 12-14-2020 End: 01-30-2021 take 1 tablet by mouth once daily Verapamil 120 mg tablet extended release Discontinued 120 mg PO DAILY 30 0 January 27, 2021 2:56pm January 30, 2021 11:55am Problems Active Problems Problem Classification Problem Date Documented Date Episodic/Chronic Abdominal hernia (10 sources) Umbilical hernia; Translations: [Umbilical hernia without obstruction or gangrene] 02-05-2025 Episodic Calculus of urinary tract (18 sources) Ureteric stone; Translations: [Calculus of ureter] 11-08-2022 Episodic Cardiac dysrhythmias (20 sources) Paroxysmal atrial fibrillation; Translations: [Paroxysmal atrial fibrillation] Onset: 02-19-2025 01-06-2021 Chronic Diabetes mellitus without complication (20 sources) Type 2 diabetes mellitus without complications; Translations: [Diabetes mellitus] Onset: 12-26-2017 05-22-2020 Chronic Comment on above: NO MEDS, DIET Disorders of lipid metabolism (20 sources) Hyperlipidemia; Translations: [Hyperlipidemia, unspecified] 12-12-2020 Chronic Essential hypertension (20 sources) Hypertensive disorder; Translations: [Essential (primary) hypertension] 12-12-2020 Chronic Genitourinary symptoms and ill-defined conditions (6 sources) Increased frequency of urination; Translations: [Frequency of micturition] Onset: 05-21-2025 04-29-2025 Episodic Gout and other crystal arthropathies (9 sources) Gout; Translations: [Gout, unspecified] 05-22-2020 Chronic Hypertension with complications and secondary hypertension (9 sources) Hypertensive urgency ; Translations: [Hypertensive urgency] 09-20-2021 Chronic Malaise and fatigue (9 sources) Fatigue; Translations: [Other fatigue] 01-30-2021 Episodic Nutritional deficiencies (9 sources) Vitamin D deficiency; Translations: [Vitamin D deficiency, unspecified] 05-22-2020 Chronic Osteoarthritis (18 sources) Arthritis; Translations: [Unspecified osteoarthritis, unspecified site] Onset: 07-26-2024 05-22-2020 Chronic Other aftercare (8 sources) Drug therapy finding; Translations: [snf (current) use of anticoagulants] 01-04-2025 Episodic Other aftercare (11 sources) Long-term current use of anticoagulant; Translations: [snf (current) use of anticoagulants] 02-05-2025 Episodic Other aftercare (1 source) snf (current) use of anticoagulants; Translations: [intermediate card tender (current) use of anticoagulants] Onset: 05-23-2025 Episodic Other endocrine disorders (2 sources) Testicular hypofunction; Translations: [Testicular hypofunction] Onset: 12-26-2017 Chronic Other endocrine disorders (9 sources) Testicular hypofunction; Translations: [Testicular hypofunction] 07-14-2020 Chronic Other lower respiratory disease (9 sources) Dyspnea; Translations: [Dyspnea, unspecified] 09-20-2021 Episodic Other nutritional; endocrine; and metabolic disorders (9 sources) Body mass index 40+ - severely obese; Translations: [Morbid (severe) obesity due to excess calories] 07-15-2017 Chronic Other screening for suspected conditions (not mental disorders or infectious disease) (17 sources) History of polyp of colon; Translations: [Encounter for screening for malignant neoplasm of colon] Onset: 08-15-2024 02-04-2025 Episodic Other skin disorders (8 sources) Dystrophia unguium; Translations: [Nail dystrophy] 07-26-2024 Episodic Residual codes; unclassified (9 sources) Obstructive sleep apnea syndrome; Translations: [Obstructive sleep apnea (adult) (pediatric)] 01-06-2021 Chronic Residual codes; unclassified (9 sources) Sleep apnea; Translations: [Sleep apnea, unspecified] 12-12-2020 Chronic Residual codes; unclassified (9 sources) Hypersomnia; Translations: [Hypersomnia, unspecified] 01-06-2021 Chronic Residual codes; unclassified (9 sources) History of cardiac catheterization; Translations: [Other specified postprocedural states] 10-03-2020 Episodic Comment on above: 2016 Residual codes; unclassified (9 sources) History of colonoscopy; Translations: [Other specified postprocedural states] 10-03-2020 Episodic Unclassified (1 source) Unknown / UNK(Unknown) Onset: 01-19-2017 Unclassified (7 sources) call to arrange early follow up Unclassified (1 source) Personal history of colon polyps, unspecified; Translations: [Personal history of colon polyps, unspecified] Onset: 05-23-2025 Unclassified (2 sources) Other persistent atrial fibrillation; Translations: [Other persistent atrial fibrillation] Onset: 03-13-2025 Past or Other Problems Problem Classification Problem Date Documented Da te Episodic/Chronic Cardiac dysrhythmias (1 source) Palpitations; Translations: [Palpitations] Onset: 01-10-2025 Episodic Gastrointestinal hemorrhage (2 sources) Hemorrhage of anus and rectum; Translations: [Hemorrhage of anus and rectum] Onset: 07-22-2017 Episodic Other lower respiratory disease (2 sources) Shortness of breath; Translations: [Shortness of breath] Onset: 02-11-2025 Episodic Other non-traumatic joint disorders (1 source) Pain in left knee; Translations: [Pain in left knee] Onset: 07-26-2024 Episodic Other skin disorders (1 source) Nail dystrophy; Translations: [Nail dystrophy] Onset: 07-26-2024 Episodic Unclassified (1 source) DEHYDRATED Onset: 01-19-2017 Results Test Name Value Interpretation Reference Range Facility Cardiology Visit Reporton Cardiology Visit Report [facility] [address] [place] [address] OFFICE VISIT Date of Service: 05/21/25 MR#: [id number] Acct: [id number] Name: TOBY GARCIA Rep #: [id number] : [id number] Provider: MYLES lundy Age/Sex: 64/M Location: [facility] Status: Signed HPI HPI History of Present Illness Details: Toby Garcia is a 64-year-old gentleman who presents to the office today for a cardiovascular follow-up visit. He does have a history of atrial [...] with RVR. He did undergo a cardioversion. He was placed on Flecainide in January of 2025, and underwent a cardioversion in February. From a cardiac standpoint, the patient is doing well. He denies any palpitations, chest pain, pressure or heaviness. He does acknowledge occasional SOB with walking fast. He does acknowledge being able to jog short distances with out issues. He denies Orthopnea, and PND. He does not have bleeding issues; no blood in urine, stool, or nosebleeds. He does acknowledge fatigue after taking flecainide. He denies myalgias, or claudication. He does acknowledge occasional left lower extremity edema. This has improved. He does not have sudden weight gain. He does acknowledge occasional lightheadedness. He denies dizziness, syncopal or near syncopal episodes, and headaches. 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 Required: No Is patient in pain?: No Allergies No Known Allergies Allergy (Verified 05/21/25 09:47) Medications ???Medication ???Instructions ???Recorded ???Confirmed ???Type BP monitor #1 ea 09/17/21 05/21/25 Rx CPAP Machine #1 ea 09/08/23 05/21/25 Rx apixaban 5 mg tablet (Eliquis) 5 mg PO BID #180 tabs 09/07/2411/09 Rx potassium chloride 20 mEq 20 meq PO DAILY #90 tabs 09/07/24 05/21/25 Rx tablet,extended release(part/cryst) valsartan 320 1 tab PO DAILY #90 tabs 10/03/24 1 07/21/24 Rx mg-hydrochlorothiazide 25 mg tablet testosterone 1 % (50 mg/5 gram) 50 mg transdermal DAILY Check with 01/02/25 05/21/25 Rx transdermal gel packet primary doctor #150 grams cholecalciferol (vitamin D3) 1,250 1,250 mcg PO SA supplement 01/0405/21/25 History mcg (50,000 unit) capsule atorvastatin 40 mg tablet 40 mg PO DAILY cholesterol 5 05/21/25 Rx lowering #90 tabs flecainide 100 mg tablet 100 mg PO Q12H #60 tabs 02/06/25 1 07/21/24 Rx tamsulosin 0.4 mg capsule 0.8 mg (2 x 0.4 mg) PO DAILY Check 02/06/25 05/21/25 Rx with primary doctor #180 caps amlodipine 10 mg tablet 10 mg PO DAILY 03/06/25 05/21/25 H istory metoprolol tartrate 50 mg tablet 50 mg PO BID #180 tabs 04/11/25 Rx Ejection fraction %: 60 Have you fallen in the past year?: No PFSH Medical History (Updated 05/22/25 @ 16:[address] Leydi Chun MD) Lower urinary tract symptoms (LUTS) Wears glasses History of edema History of cardioversion History of stress test History of echocardiogram Cardiology follow-up encounter Dysuria Urinary hesitancy Urinary frequency Persistent atrial fibrillation Osteoarthritis of right knee Dystrophic nail SAÚL (obstructive sleep apnea) Hypersomnia Paroxysmal A-fib Chronic pain GI bleed Former smoker CPAP (continuous positive airway pressure) dependence Irregular heart beat Primary hypogonadism in male Sleep apnea Hypertension [...] use: always ROS Const Const: Positive for fatigue; Negative for weakness, headache(s) or frequ (more content not included)... Normal [facility] Kidney and Bladderon [address] [facility] Imaging Services [address] [place] [address] Kidney and Bladder MR#: [id number] Acct: [id number] Name: TOBY GARCIA Rep #: [id number] : 1960 M 64 From: Shai lorenzo MD PCP: Dr. Leydi Chun MD Status: REG CLI Study: Kidney and Bladder Date of Exam: 05/21/25 Exam# [id number] Ordering Dr: Leydi Chun MD PROCEDURE: KIDNEY AND BLADDER 05/21/2025 REASON FOR EXAM: URINARY HESITANCY/DYSURIA TECHNIQUE: Procedure Code: USKI Modality: US Procedure: KIDNEY AND BLADDER COMPARISON: None FINDINGS: Kidneys: Normal renal sizes, parenchymal thicknesses, and echotextures. Newman: No evidence of hydronephrosis. Cysts or Masses: 1.5 cm x 1.5 cm x 1.4 cm cyst in the upper pole of the right kidney. 1.8 cm 2.2 cm 1.3 cm cyst in the lower pole of the left kidney. Other: Irregular thickening of the posterior wall of the urinary bladder. RIGHT Kidney Size: 11.6 cm x 6.7 cm x 5.8 cm Cortical Thickness (if discernible): 14 mm (>6mm is normal) LEFT Kidney Size: 12.6 cm x 6 cm x 6.2 cm Cortical Thickness (if discernible): 14 mm (>6mm is normal) US/Kidney and Bladder IMPRESSION: Small bilateral renal cysts. Irregularity along the posterior wall of the urinary bladder. Small postvoid residual. Reading Location: [id number] CC: Dr. Leydi Chun MD [employer] Professor: Signed Normal [facility] Surgical pathology reportOrd ered By: Lee Ann Jose on 05-07-2025 Surgical pathology study [facility] Bedside Glucoseon 05-06-2025 FINGERSTICK GLU 132 mg/dL High 74-106 [facility] Comment on above: Result Comment: ALISIA GEMENT OF PATIENT CARE PER NURSING PROTOCOL Performed By: #### L 501.080 ####[facility] [id number] [facility] [place], [address] Colonoscopy Reporton [address] [facility] Medical Records Department [address] [place] [address] Colonoscopy Report MR#: [id number] Acct: [id number] Name: TOBY GARCIA Rep #: [id number] : 1960 64 From: Ivon Rothman MD PCP: Dr. Leydi Chun MD Status:REG [facility] Patient Name: Toby Garcia Procedure Date: 05/06/2025 7:07 AM Date of : 1960 Age: 64 Procedure: Colonoscopy Indications: High risk colon cancer surveillance: Personal history of colonic polyps Providers: Ivon Rothman MD Referring MD: Leydi Chun Medicines: Monitored Anesthesia Care Patient Profile: This is a 64 year old male. Last Colonoscopy: 2017. Complications: No immediate complications. Procedure: Pre-Anesthesia Assessment: - Prior to the procedure, a History and Physical was performed, and patient medications and allergies were reviewed. The patient's tolerance of previous anesthesia was also reviewed. The risks and benefits of the procedure and the sedation options and risks were discussed with the patient. All questions were answered, and informed consent was obtained. Prior Anticoagulants: The patient has taken Eliquis (apixaban), last dose was 3 days prior to procedure. ASA Grade Assessment: Per anesthesia. After reviewing the risks and benefits, the patient was deemed in satisfactory condition to undergo the procedure. After I obtained informed consent, the scope was passed under direct vision. Throughout the procedure, the patient's blood pressure, pulse, and oxygen saturations were monitored continuously. The pediatric colonoscope was introduced through the anus and advanced to the cecum, identified by the appendiceal orifice, ileocecal valve and palpation. The colonoscopy was performed without difficulty. The patient tolerated the procedure well. The quality of the bowel preparation was good. Scope In: 7:37:29 AM Scope Withdrawal Time 0 hours 10 minutes 26 seconds Scope Out: 7:50:38 AM Total Procedure Duration Time 0 hours 13 minutes 9 seconds Findings: The perianal and digital rectal examinations were normal. Two semi-pedunculated polyps were found in the ascending colon. The polyps were less than 5 mm in size. These polyps were removed with a hot snare. Resection and retrieval were complete. The exam was otherwise without abnormality on direct and retroflexion views. Impression: - Two less than 5 mm polyps in the ascending colon, removed with a hot snare. Resected and retrieved. - The examination was otherwise normal on direct and retroflexion views. Recommendation: - Discharge patient to home. - Resume previous diet. - Continue present medications. - Await pathology results. - Repeat colonoscopy in 5 years for surveillance based on pathology results. Procedure Code(s): --- Professional --- 18176, Colonoscopy, flexible; with removal of tumor(s), polyp(s), or other lesion(s) by snare technique Diagnosis Code(s): --- Professional --- Z86.010, Personal history of colonic polyps D12.2, Benign neoplasm of ascending colon CPT copyright 2021 [employer]. All rights reserved. The codes documented in this report are preliminary and upon mixing supervisor review may be revised to meet current compliance requirements. MD Ivon Rain MD 05/06/2025 7:59:08 AM This report has been signed electronically. Number of Addenda: 0 Note Initiated On: 05/06/2025 7:07 AM 05/06/25 0759 Date Ivon Rothman MD Cosigner Signature: Date (if indicated) CC: Dr. Leydi Chun MD; Dr. vIon Rothman MD Date Dictated: 05/06/25 0707 Date Transcribed: [employer] Professor: TR Signed Normal [facility] at [facility] deOrdered By: Ivon Rothman on 05-06-2025 Glucose [Mass/Vol] 132 mg/dL High 74-106 [facility] Comment on above: MANAGEMENT OF PATIEN T CARE PER NURSING PROTOCOL MR/OP.Wilfredo 05-06-2025 MR/OP.[facility] Medical Records Department [address] [place] [address] Provation Physician Letter MR#: [id number] Acct: [id number] Name: TOBY GARCIA Rep #: [id number] : 1960 64 From: Ivon Rothman MD PCP: Dr. Leydi Chun MD Status:REG [facility] 05/06/2025 Leydi Chun [facility] [address] [place] [id number] Re : Colonoscopy procedure for Toby Garcia Dear Dr. Chun This procedure was performed on Tuesday, May 06, 2025. My impressions and recommendations are as follows: Impressions : - Two less than 5 mm polyps in the ascending colon, removed with a hot snare. Resected and retrieved. - The examination was otherwise normal on direct and retroflexion views. Recommendations : - Discharge patient to home. - Resume previous diet. - Continue present medications. - Await pathology results. - Repeat colonoscopy in 5 years for surveillance based on pathology results. My findings are described in the full procedure note, which is enclosed. If I can be of further assistance, please feel free to contact me at Doctor phone number(s): , Work: . Sincerely, MD Ivon Rain MD 05/06/2025 7:59:08 AM This report has been signed electronically. 05/06/25 0759 Date Ivon Rothman MD Cosigner Signature: Date (if indicated) CC: Dr. Leydi Chun MD; Dr. Ivon Rothman MD Date Dictated: 05/06/25 0707 Date Transcribed: [employer] Professor: TR Signed [facility] MR/POSTOP.Vern 05-06-2025 MR/POSTOP.[facility] Medical Records Department [address] [place] [address] Anesthesia Postop Eval I 05/06/25 0800 MR#: [id number] Acct: [id number] Name: TOBY GARCIA Rep #: [id number] : 1960 64 From: Keenan Waters PCP: Dr. Leydi Chun MD Status:[facility] Y Race: AA Location: [place] [address] Anesthesia: Postop Eval I Current Vital Signs Temperature: 97.8 F Pulse Rate: 65 Blood Pressure: 114/75 Respiratory Rate: 16 Pulse Ox: 93 Oxygen Delivery Method: Room Air Assessment Airway patent: Yes Spontaneous unlabored respirations: Yes Mental status: Asleep nausea: No Vomiting: No Anesthesia Complication: No Fluid Hydration Crystalloid volume administer (ml): 500 Total IV fluid infused: 500 Progress Note Anesthesia document: Postop Eval 1 completed: Yes 05/06/25 0801 Date Keenan De Souza Signature: Date CC: Signed Normal [facility] MR/TEXAJCAE6cm 05-06-2025 [facility] Medical Records Department [address] [place] [address] Anesthesia Postop Eval II 05/06/25 1237 MR#: [id number] Acct: [id number] Name: TOBY GARCIA Rep #: [id number] : 1960 64 From: Geoff Hawkins MD PCP: Dr. Leydi Chun MD Status:[facility] Y Race: AA Location: EN Anesthesia Postop Eval I Sum Postop Eval Completion status Anesthesia document: Postop Eval 1 completed: Yes Anesthesia Postop Eval I Summary Anesthesia Postop Eval I Summary: Anesthesia Postop Eval I: Assessment Summary Airway patent Yes 05/06/25 08:01 [email or web address] Spontaneous unlabored Yes 05/06/25 08:01 AA.TBEND respirations Mental status Asleep 05/06/25 08:01 AA.TBEND nausea No 05/06/25 08:01 AA.TBEND Vomiting No 05/06/25 08:01 AA.TBEND Anesthesia Postop Eval I: Fluid Summary Crystalloid volume administer 500 05/06/25 08:01 AA.TBEND (ml) Colloids volume administered ( ml) Blood Product volume administered (ml) Total IV fluid infused 500 05/06/25 08:01 AA.TBEND Anesthesia Postop Eval I: Summary Notes Anesthesia Complication No 05/06/25 08:01 AA.TBEND Anesthesia Complication Comment: Post-operative progress note Anesthesia: Postop Eval II Evaluation Mental status: Awake Pain Level: 0 nausea: No Vomiting: No 05/06/25 1237 Date Geoff De Souza Signature: Date CC: Signed Normal [facility] Surgery Specimen Level Gayle 05-06-2025 Surgery Specimen Level IV Patient Age/Sex Location Account Attending Physician TOBY GARCIA 64/M EN [id number] Dr. Ivon Rothman MD Specimen: [id number] Received: 05/06/25 Status: REINALDO Pan Num: [id number] Spec Type: COLON BX Subm Dr: Dr. Ivon Rothman MD HEADER OPERATION: Colonoscopy, polypectomy PRE-OP DIAGNOSIS: Encounter for colonoscopy due to history of colonic polyps, anticoagulant long-term use TISSUE SUBMITTED: A- Ascending polyps x2 MICROSCOPIC DIAGNOSIS A. Ascending colon, polyp, biopsy: * Colonic mucosa with dilated crypts and thermal artifact MICROSCOPIC DESCRIPTION Slides are reviewed. GROSS DESCRIPTION A. Received in fixative is one container labeled with the patient's name and designated Ascending colon biopsy." The specimen consists of multiple irregular fragments of snow tissue that in aggregate measure 0.7 x 0.7 x 0.1 cm, admixed with flocculent material. The specimen is totally submitted in one cassette. OR 05/06/2025 CPT:90707 Patient Age/Sex Location Account Attending Physician TOBY GARCIA 64/M EN [id number] Dr. Ivon Rothman MD Signed (signature on file) Dr. Lee Ann Jose DO 05/07/25 1025 Normal [facility] Comment on above: Performed By: #### P SUIV ####[facility] [address] [place], [place], [address] MR/PATGOGOon 05-02-2025 MR/PATGOGO [facility] Medical Records Department [address] [place] [address] PAT - Anesthesia 05/02/25 1536 MR#: [id number] Acct: [id number] Name: TOBY GARCIA Rep #: [id number] : 1960 64 From: Tyson Park MD PCP: Dr. 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 When Was Last Pacemaker Check QUESTION #4 FULL TEXT: You/Your Family Experience fever (hyperthermia) with Anesthesia Last Oral Intake Last Oral intake: Last Oral Intake NPO since Meds taken in AM with sips of water? Meds patient instructed to take am of surgery PONV PONV - inspector experimental assembly: PONV - inspector experimental assembly Female No 05/02/25 13:49 HX of Motion Sickness No 05/02/25 13:49 HX of N/V After Surgery No 05/02/25 13:49 Non-Smoker Yes 05/02/25 13:49 Duration of Surgery greater No 05/02/25 13:49 than 60 minutes Number of Risk Factors 1 05/02/25 13:49 PONV Score Low Risk 05/02/25 13:49 Height Weight Height Weight: Anesthesia: Height Weight Height 6 ft 03/06/25 11:00 Respiratory Assessment Respiratory Assessment - inspector experimental assembly: Respiratory Tract Infection Hx - inspector experimental assembly Hx Respiratory Tract Infection No 05/02/25 13:49 STOP Sleep Apnea STOP Sleep Apnea - inspector experimental assembly: STOP Sleep Apnea - inspector experimental assembly Hx Hypertension Yes: CONTROLLED WITH MEDS 05/02/25 13:49 Hx Sleep Apnea Yes 05/02/25 13:49 CPAP Yes 05/02/25 13:49 BIPAP No 05/02/25 13:49 Do you snore loudly (louder than talking or can be heard Do you often feel tired/ fatigued/ sleepy during daytime? Has anyone observed you stop breathing during sleep? STOP Results Positive 05/02/25 13:49 QUESTION #5 FULL TEXT : Do you snore loudly (louder than talking or can be heard through closed doors)? 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 Specify any problems Hx of Preganancy in last 3 N/A 05/02/25 13:49 Months Nurse Filling Out Transfusion [email or web address] 05/02/25 13:49 Questions: Date: 05/02/25 05/02/25 13:49 Time: 13:52 05/02/25 13:49 Patient unable to answer at this time (ie. confused, unrespo /Reproduction History /Reproductive History - inspector experimental assembly: /Reproductive Hx- inspector experimental assembly Hx Now No 05/02/25 13:49 Gestational Age (in weeks): EDC: Hx Hx Para Hx Section SAB No 05/02/25 13:49 PFSH Medical History (Updated 05/02/25 @ 14:01 by Daron Evans) Wears glasses History of edema History of cardioversion History of stress test History of echocardiogram Cardiology follow-up encounter Dysuria Urinary hesitancy Urinary frequency Persistent atrial fibrillation Osteoarthritis of right knee Dystrophic nail SAÚL (obstructive sleep apnea) Hypersomnia Paroxysmal A-fib Chronic pain GI bleed Former smoker CPAP (continuous positive airway pressure) dependence Irregular heart beat Primary hypogonadism in male Sleep apnea Hypertension Gout Arthritis Hypertension Hyperlipemia Vitamin D deficiency Diabetes Home Medications ???Medication ???Instructions ???Recorded ???Last Taken ???Type BP monitor #1 ea 09/17/21 Unknown Rx CPAP Machine #1 ea 09/08/23 Unknown Rx apixaban 5 mg tab (more content not included)... Normal [facility] Bedside Glucoseon 03-06-2025 FINGERSTICK GLU 115 mg/dL High 74-106 [facility] Comment on above: Result Comment: ALISIA RODRIGUEZ OF PATIENT CARE PER NURSING PROTOCOL Performed By: #### L 501.080 #### [facility] [address] [place], [address] [facility] deOrdered By: Víctor Correia on 03-06-2025 Glucose [Mass/Vol] 115 mg/dL High 74-106 [facility] Comment on above: MANAGEMENT OF PATIEN T CARE PER NURSING PROTOCOL Procedure Reporton Procedure Report [facility] Medical Records Department [address] [place] [address] Procedure Report 03/06/25 1305 MR#: [id number] Acct: [id number] Name: TOBY GARCIA Rep #: [id number] : 1960 64 From: Sam Garcia DO PCP: Dr. Leydi Chun MD Status:REG [facility] Location: [facility] Procedures Pulmonary Pulmonary Procedures /Diagnostic Testin Con Sedation Non-invasive Procedural Procedure Information Date of Procedure: 03/06/25 Description of procedure: CONSCIOUS SEDATION REPORT DATE OF SERVICE: March 06, 2025 BRIEF HISTORY OF PRESENT ILLNESS: The patient is a 64-year-old male who presented to [facility] to undergo an elective outpatient cardioversion due to underlying atrial fibrillation. The patient reported that he is a lifelong non-smoker. He does carry a diagnosis of obstructive sleep apnea and currently utilizes nocturnal CPAP therapy. He denied any prior anesthetic complications. The patient is systemically anticoagulated on Eliquis. His last surface echocardiogram demonstrated an ejection fraction of approximately 45%. PHYSICAL EXAMINATION: VITAL SIGNS: Reviewed and were acceptable. GENERAL: The patient is an -[place] male, in no apparent distress, speaking in full sentences. HEENT: Normocephalic, atraumatic. Mucous membranes are moist and pink. Good mouth opening noted. Trachea is midline. Good neck mobility. CHEST: S1, S2 irregularly irregular. No murmurs, rubs or gallops were noted. LUNGS: Clear to auscultation bilaterally without appreciable wheezes, rales or rhonchi. ABDOMEN: Soft, nontender, nondistended. Positive bowel sounds. EXTREMITIES: There is no clubbing, cyanosis or edema. ASA Class: II DESCRIPTION OF PROCEDURE: After confirmation of informed consent, the patient's anesthesia plan was reviewed in detail. Propofol was chosen. Risks and benefits were reviewed and the patient agreed to proceed. At 1224, the patient was given his first bolus of propofol. In total, the patient required a total of 200 mg of propofol throughout the entire procedure to facilitate 3 separate attempts at cardioversion, the first at 300 J, the second at 360 J and the third at 360 J. Ultimately, the last attempted cardioversion was successful in restoring normal sinus rhythm. The patient was monitored until 1240, at which time he reached his baseline mental status and function. The patient tolerated the procedure well. COMPLICATIONS: None ESTIMATED BLOOD LOSS: None RECOMMENDATIONS: Okay to recover in usual fashion. 03/06/25 1308 Cosigner Signature (if applicable): CC: Dr. Víctor Correia MD; Dr. Sam Garcia DO; Dr. Leydi Chun MD Signed Normal [facility] Procedure Report [facility] Medical Records Department [address] [place] [address] Procedure Report 03/06/25 1242 MR#: [id number] Acct: [id number] Name: TOBY GARCIA Rep #: [id number] : 1960 64 From: Víctor Correia MD PCP: Dr. Leydi Chun MD Status:[facility] Location: [facility] Non-invasive Procedural Procedure Information Date of Procedure: 03/06/25 Pre-Procedure Diagnosis: Atrial fibrillation Post-Procedure Diagnosis: Atrial fibrillation Procedure Performed:: DC cardioversion Procedure Time Out: 12:15 Procedure Start Time: 12:20 Procedure Stop Time: 12:30 Special Medications: Intravenous propofol 200 mg Description of procedure: Patient was brought to cardiac catheterization lab in the postabsorptive nonsedated state. Informed consent was obtained. Patient was seen by Dr. Garcia of the critical care division. Anterior- posterior pads were applied. The patient was administered 130 mg intravenous propofol and 300 J of biphasic DC cardioversion energy were applied atrial fibrillation persisted an additional 70 mg of propofol was administered. 360 J of biphasic synchronized DC cardioversion energy were applied, atrial fibrillation persisted and then an additional 360 J of biphasic DC cardioversion energy were applied with prompt reversal to sinus rhythm. Patient tolerated the procedure well. Procedure findings: Continue current medications Reduce amlodipine to 10 mg a day Increase metoprolol to 50 mg twice a day Continue flecainide 100 mg twice a day Follow-up as per office protocol 03/06/25 1245 Cosigner Signature (if applicable): CC: Dr. Víctor Correia MD; Dr. Leydi Chun MD Signed Normal [facility] Anion gap in Serum or Plasma Ordered By: Rafia Vidal on 02-19-2025 Anion gap [Moles/Vol] 12 mmol/L - [facility] BUN/creatinine ratioOrdered By: Rafia Vidal on 02-19-2025 Urea nitrogen/Creatinine [Mass ratio] 24.9 mg/mg High 05-06 [facility] Basic Metabolic Profile (BMP )on 02-19-2025 BUN/CRE 24.9 RATIO High 05-06 [facility] Comment on above: Performed By: #### L 500.2500 ####[facility] [id number] [facility] [address] Calcium [Mass/Vol] 9.2 mg/dL Normal 7.6-11.0 [facility] Comment on above: Performed By: #### L 500.2500 ####[facility] [address] [facility] [address] Chloride [Moles/Vol] 102 mmol/L Normal 98-108 [facility] Comment on above: Performed By: #### L 500.2500 ####[facility] [address] [facility] [address] CO2 [Moles/Vol] 24.3 mmol/L Normal 21.0-32.0 [facility] Comment on above: Performed By: #### L 500.2500 ####[facility] [address] [place], [address] Creatinine [Mass/Vol] 0.96 mg/dL Normal 0.70-1.20 [facility] Comment on above: Performed By: #### L 500.2500 ####[facility] [address] [place], [address] GAP 12 Normal 5-15 [facility] Comment on above: Performed By: #### L 500.2500 ####[facility] [address] [place], [address] GFR/1.73 sq M.predicted among non-blacks MDRD (S/P/Bld) [Vol rate/Area] 88 mL/min/{1.73_m2} Normal >60 [facility] Comment on above: Result Comment: mL/m in/1.73m2 CKD-EPI Creatinine Equation (2020) Performed By: #### L 500.2500 ####[facility] [address] [place], [address] Glucose [Mass/Vol] 125 mg/dL High 70-99 [facility] Comment on above: Performed By: #### L 500.2500 ####[facility] [address] [place], [address] Potassium [Moles/Vol] 3.4 mmol/L Normal 3.3-5.1 [facility] Comment on above: Performed By: #### L 500.2500 ####[facility] [address] [place], [address] Sodium [Moles/Vol] 138 mmol/L Normal 133-145 [facility] Comment on above: Performed By: #### L 500.2500 ####[facility] [address] [place], [address] Urea nitrogen [Mass/Vol] 24 mg/dL High 4-19 [facility] Comment on above: Performed By: #### L 500.2500 ####[facility] [address] [place], [address] Carbon dioxide, total [Moles /volume] in Central venous bloodOrdered By: Rafia Vidal on 02-19-2025 CO2 [Moles/Vol] 24.3 mmol/L 21.0-32.0 [facility] Cardiology Visit Reporton Cardiology Visit Report [facility] [address] [place] [address] OFFICE VISIT Date of Service: 02/19/25 MR#: [id number] Acct: [id number] Name: TOBY GARCIA Rep #: [id number] : 1960 Provider: MYLES lundy Age/Sex: 64/M Location: [facility] Status: Signed HPI HPI History of Present Illness Surgical H P: Yes Details: Toby Garcia is a 64-year-old gentleman who presents to the office today for a cardiovascular follow-up visit. He does have a history of atrial [...] with RVR. He did undergo a cardioversion. He was placed on Flecainide in January of 2025. From a cardiac standpoint, the patient is doing well. He denies any palpitations, chest pain, pressure or heaviness. He does acknowledge occasional SOB with humid/hot temperatures. He denies Orthopnea, and PND. He does not have bleeding issues; no blood in urine, stool, or nosebleeds. He does acknowledge fatigue. He denies myalgias, or claudication. He does not have edema, or sudden weight gain. He does acknowledge occasional lightheadedness. He denies dizziness, syncopal or near syncopal episodes, and headaches. Intake Vital Signs 02/04/25 14:39 02/19/25 08:44 Height 6 ft 6 ft Weight: 348 lb BMI 47.2 BP 182/96 H Blood Pressure Location Lt brachial Position Sitting Respiration 22 H Pulse 90 Pulse Source Monitor Pulse Oximetry (%) 96 Intake Visit Reasons: Set Up DCCV/Needs EKG Printer Slotter Feeder Required: No Is patient in pain?: No Allergies No Known Allergies Allergy (Verified 02/19/25 11:11) Medications ???Medication ???Instructions ???Recorded ???Confirmed ???Type BP monitor #1 ea 09/17/21 02/19/25 Rx CPAP Machine #1 ea 09/08/23 02/19/25 Rx apixaban 5 mg tablet (Eliquis) 5 mg PO BID #180 tabs 09/07/2412/09 Rx potassium chloride 20 mEq 20 meq PO DAILY #90 tabs 09/07/24 02/19/25 Rx tablet,extended release(part/cryst) valsartan 320 1 tab PO DAILY #90 tabs 10/03/24 0 02/19/25 Rx mg-hydrochlorothiazide 25 mg tablet testosterone 1 % (50 mg/5 gram) 50 mg transdermal DAILY Check with 01/02/25 02/19/25 Rx transdermal gel packet primary doctor #150 grams cholecalciferol (vitamin D3) 1,250 1,250 mcg PO SA supplement 01/0402/19/25 History mcg (50,000 unit) capsule metoprolol tartrate 25 mg tablet 25 mg PO BID #180 tabs 01/08/25 Rx amlodipine 10 mg tablet 10 mg PO BID #180 tabs 01/28/25 Rx atorvastatin 40 mg tablet 40 mg PO DAILY cholesterol 5 02/19/25 Rx lowering #90 tabs flecainide 100 mg tablet 100 mg PO Q12H #60 tabs 02/06/25 0 02/19/25 Rx tamsulosin 0.4 mg capsule 0.8 mg (2 x 0.4 mg) PO DAILY Check 02/06/25 02/19/25 Rx with primary doctor #180 caps Ejection fraction %: 45 Have you fallen in the past year?: No PFSH Medical History (Reviewed 02/19/25 @ 12:27 by Rafia Vidal MANAGER WEALTH MANAGEMENT, MANAGER WEALTH MANAGEMENT-C) Persistent atrial fibrillation Osteoarthritis of right knee [...] History of left knee surgery Family History (Reviewed 02/19/25 @ 12:27 by Rafia Vidal MANAGER WEALTH MANAGEMENT, MANAGER WEALTH MANAGEMENT-C) Other Adopted Social History Smoking Status: Former smoker quit date: 07/18/15 second hand exposure: No alcohol intake: never substance use type: does not use caffeine: Yes what type of physical activity do you participate in: weight training frequency: 3-4 times per week seatbelt use: always ROS Const Const: Positive for fatigue; Negative for weakness, headache(s) or frequent falls Eyes Eyes: Negative for blurry vision ENT ENT: Negative for headache(s), dizziness or Nosebleed/epistaxis Cardio Chest Pain: No Palpitations: No Edema: Bilateral and None Muscle aches with walking: None Resp Respiratory: Positive for SOB with activity; Negative for SOB at rest or SOB orthopnea SOB lying down GI GI: Negative nausea, vomiting, heartburn, bright, red blood in stools or black,tarry stools : Negative f (more content not included)... Normal [facility] Chloride assayOrdered By: Billy Vidal on 02-19-2025 Chloride [Moles/Vol] 102 mmol/L 98-108 [facility] Glomerular filtration rate ( GFR) estimation/1.73 sq m using serum, plasma, or whole bOrdered By: Rafia Vidal on 02-19-2025 GFR/1.73 sq M.predicted among non-blacks MDRD (S/P/Bld) [Vol rate/Area] 88 mL/min/{1.73_m2} >60 [facility] Comment on above: mL/min/1.73m2 CKD-EP I Creatinine Equation (2020) Potassium measurement (mass/ volume)Ordered By: Rafia Vidal on 02-19-2025 Potassium (Unsp spec) [Mass/Vol] 3.4 mmol/L 3.3-5.1 [facility] Serum creatinine measurement (mass/volume)Ordered By: Rafia Vidal on 02-19-2025 Creatinine [Mass/Vol] 0.96 mg/dL 0.70-1.20 [facility] Serum glucose measurement (m ass/volume)Ordered By: Rafia Vidal on 02-19-2025 Glucose [Mass/Vol] 125 mg/dL High 70-99 [facility] Serum or plasma calcium moriah urement (mass/volume)Ordered By: Rfaia Vidal on 02-19-2025 Calcium [Mass/Vol] 9.2 mg/dL 7.6-11.0 [facility] Serum or plasma urea nitroge n measurement (mass/volume)Ordered By: Rafia Vidal on 02-19-2025 Urea nitrogen [Mass/Vol] 24 mg/dL High 4-19 [facility] Sodium levelOrdered By: Wendy Vidal on 02-19-2025 Sodium [Moles/Vol] 138 mmol/L 133-145 [facility] Surgery Visit Reporton 02-04 Surgery Visit Report [facility] [address] [place] [address] [address] [place] [address] OFFICE VISIT Date of Service: 02/04/25 MR#: [id number] Acct: [id number] Name: TOBY GARCIA Delio Rep #: [id number] : 1960 Provider: Dr. Ivon goyal MD Age/Sex: 64/M Location: [facility] Status: Signed Intake Vital Signs 01/08/25 11:55 02/04/25 14:39 Height 6 ft 6 ft Weight: 339 lb 346 lb BMI 45.9 46.9 BP 141/82 H 136/85 H Blood Pressure Location Lt brachial Rt brachial Position Sitting Sitting Respiration 16 17 Pulse 107 H 93 Pulse Source NIBP Monitor Pulse Oximetry (%) 97 Oxygen Delivery Method room air Intake Visit Reasons: colonoscopy Chief Complaint: colonoscopy Is patient in pain?: No Allergies No Known Allergies Allergy (Verified 02/04/25 14:40) Medications ???Medication ???Instructions ???Recorded ???Confirmed ???Type BP monitor #1 ea 09/17/21 02/04/25 Rx CPAP Machine #1 ea 09/08/23 02/04/25 Rx tamsulosin 0.4 mg capsule 0.4 mg PO DAILY Check with primary 05/25/24 02/04/25 Rx doctor #90 caps apixaban 5 mg tablet (Eliquis) 5 mg PO BID #180 tabs 09/07/24 Rx potassium chloride 20 mEq 20 meq PO DAILY #90 tabs 09/07/24 02/04/25 Rx tablet,extended release(part/cryst) valsartan 320 1 tab PO DAILY #90 tabs 10/03/24 0 02/04/25 Rx mg-hydrochlorothiazide 25 mg tablet testosterone 1 % (50 mg/5 gram) 50 mg transdermal DAILY Check with 01/02/25 02/04/25 Rx transdermal gel packet primary doctor #150 grams cholecalciferol (vitamin D3) 1,250 1,250 mcg PO SA supplement 01/0402/04/25 History mcg (50,000 unit) capsule metoprolol tartrate 25 mg tablet 25 mg PO BID #180 tabs 01/08/25 Rx amlodipine 10 mg tablet 10 mg PO BID #180 tabs 01/28/25 Rx atorvastatin 40 mg tablet 40 mg PO DAILY cholesterol 5 02/04/25 Rx lowering #90 tabs PFSH Medical History (Updated 02/05/25 @ 13:[address] Ivon Rothman MD) Persistent atrial fibrillation Osteoarthritis of right knee [...] per week seatbelt use: always HPI HPI HPI: 64-year-old male presents for colonoscopy. Patient last colonoscopy was in [address] Ivey patient had rectal bleeding due to a retention polyp which was removed with snare at time of colonoscopy. Patient was recommended to have repeat colonoscopy in 5 years. Patient is currently on Eliquis due to A-fib recently diagnosed and patient did just complete echo as well as stress test still waiting to talk to cardiology about results. Patient states he does have bowel movements daily denies any blood. Patient is adopted does not know his family history. Patient states he has very occasional constipation which he takes magnesium citrate for which resolves the issue. ROS General General: Yes weight change and fatigue; No appetite, colon cancer or breast cancer HEENT HEENT: No difficulty swallowing, eye injury, eye surgery, swollen glands or hoarseness Endo Endocrine: Yes diabetes mellitus; No thyroid disease, thyroid cancer, Hair loss, heat intolerance or cold intolerance Skin Skin: No rash or changing moles Musc Musculoskeletal: Yes arthritis and rheumatoid arthritis; No back problems, gout or joint pain Cardio Cardiovascular: Yes atrial fibrillation, high blood pressure and heart attack; No murmur, pacemaker, heart disease, heart stent, palpitations, shortness of breath with exertion or chest pain Psych Psychiatric: Yes depression and anxiety; No hearing voices Resp Respiratory: No shortness of breath, No sleep apnea, No cough, No COPD, No asthma, No emphysema and No wheezing Gastro Gastrointestinal: No abdominal pain, No nausea or vomiting, No diarrhea, Yes constipation, No blood in stool, No acid reflux, Yes hemorrhoids, No ulcers, No gallbladder problem and No black,tarry stools Sammy Hematologic: Yes blood thinne (more content not included)... Normal [facility] Cardiovascular stress test r eportOrdered By: Víctor Correia on 02-01-2025 Study report [facility] [address] [place] [address] MR#: [id number] Acct: [id number] Name: TOBY GARCIA Rep #: [id number] : 1960 64 From: Víctor Correia MD Primary Care: Dr. Leydi Chun MD Stat us: REG CLI Referring Dr: Jillian Prado Sex : M AA Stress Test Report Pharmacologic myocardial perfusion stress test. 64-year-old man with a history of atrial fibrillation Resting EKG demonstrates atrial fibrillation with a rate of 97 bpm. Resting blood pressure is 122/92 mmHg. 0.4 mg of regadenoson was infused per usual protocol followed by rapid intravenous saline flush injection. Continuous EKG monitoring was performed. The maximum heart rate was 121 bpm which was 77% of max impacted heart rate the maximum workload was 1 metabolic equivalent. At rest there were no ST or T wave changes noted to suggest ischemia and at peak infusion nonspecific ST changes were noted which did not meet the criteria for ischemia. No clinical angina is noted. The final blood pressure was 122/82 mmHg. Myocardial perfusion protocol. 14.9 mCi of technetium 99m sestamibi was injected at rest. 0.4 mg of regadenoson was infused per usual protocol. At peak infusion 44.7 mCi of technetium 99m sestamibi was injected stress images were obtained stress and rest images were reconstructed and compared in the short axis vertical long and horizontal long axis. Gated images were also obtained. Perfusion SPECT analysis: Review of the stress images demonstrate normal uptake of tracer noted in all areas of the myocardium. There is a small area in the inferior wall which has reduced perfusion. The resting images similar demonstrated normal uptake of tracer noted in all areas of the myocardium. A small area in the inferior wall has reduced perfusion. The above is suggestive of a previous small inferior infarct. No reversibility is noted to suggest ischemia. Gated SPECT analysis: The gated ejection fraction is 50%. Conclusion: Normal pharmacologic myocardial perfusion stress test. Preserved ejection fraction. 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 Leydi Chun MD; GAVINO Johnson ~ Date Dictated: 02/01/25 1249 Date Transcribed: 02/01/25 124 [employer] Professor: [place] Signed [facility] Work Phone: Echo Complete W/ Contraston 02-01-2025 Echo Complete W/ Contrast [facility] [address] [facility] [place] [address] Echo Complete W/ Contrast 01/31/251950 MR#: [id number] Acct: [id number] Name: TOBY GARCIA Rep #: [id number] : 1960 64 From: Víctor Correia MD Attending Dr: GAVINO Johnson Status: REG CLI Ordering Dr: Jillian Prado PA Date: 01/15 03/11 Location: [facility] Sex: M AA Admitted: Reason For Study Reason For Study: Arrhythmia Procedure This was a 2D Doppler, Color Flow transthoracic echocardiogram. The study was technically difficult. Exam performed in department. Left Ventricle Normal LV size. Moderate concentric left ventricular hypertrophy. The left ventricular ejection fraction is 45 %. There is mild global hypokinesis of the left ventricle. Right Ventricle Normal RV size. Normal systolic function. Atria The left atrium is moderately enlarged. The right atrium is mildly enlarged. Mitral Valve Normal mitral valve. Tricuspid Valve Normal tricuspid valve. Mild tricuspid valve insufficiency. Aortic Valve Normal aortic valve. Great Vessels Normal aortic root. The pulmonary artery is normal size. Inferior vena cava collapse with respiration. Pericardium/Pleural No pericardial effusion. Medication Diluted definity 1.0ml given slow IV push to enhance endocardial definition. MMode/2D Measurements Calculations LVIDd: 4.9 cm IVSd: 1.5 cm Ao root diam: 3.5 cm LVIDs: 3.6 cm LVPWd: 1.5 cm FS: 27.2 % _ LAV(MOD-bp): 98.2 ml LVAd ap4: 41.3 cm2 LVAd ap2: 33.8 cm2 LAV(MOD-bp) Indexed: 36.8 ml/m2 LVLd ap4: 8.6 cm LVLd ap2: 8.2 cm LAV(MOD-sp2): 91.7 ml EDV(MOD-sp4): 163.0 ml EDV(MOD-sp2): 112.5 ml LAV(MOD-sp4): 96.6 ml EDV(sp4-el): 168.9 ml EDV(sp2-el): 117.8 ml LVAs ap4: 33.4 cm2 LVAs ap2: 24.0 cm2 LVLs ap4: 8.0 cm LVLs ap2: 7.7 cm ESV(MOD-sp4): 115.4 ml ESV(MOD-sp2): 60.7 ml ESV(sp4-el): 118.3 ml ESV(sp2-el): 63.3 ml EF(MOD-sp4): 29.2 % EF(MOD-sp2): 46.1 % EF(sp4-el): 30.0 % _ SV(MOD-sp4): 47.6 ml SV(MOD-sp2): 51.8 ml SV(sp4-el): 50.6 ml SI(MOD-sp4): 17.9 ml/m2 SI(MOD-sp2): 19.4 ml/m2 _ LA A4 area: 28.2 cm2 LA dimension(2D): 5.0 cm RA A4 area: 22.3 cm2 Doppler Measurements Calculations MV E max arlen: 104.8 cm/sec Ao V2 max: 104.1 cm/sec LV V1 max: 83.3 cm/sec Ao max P.3 mmHg LV V1 max P.8 mmHg _ PA V2 max: 78.4 cm/sec TR max arlen: 229.0 cm/sec TR max P.0 mmHg ECHO/Echo Complete W/ Contrast Interpretation Summary Normal LV size. The left ventricular ejection fraction is 45 %. Moderate concentric left ventricular hypertrophy. The left atrium is moderately enlarged. The right atrium is mildly enlarged. Contrast injection was performed. Ordering Physician: Jillian Prado Referring Physician: Leydi Chun Performed By: Flakita Rodriguez RDCS and Student 02/01/25 1545 Date Víctor Correia MD CC: Dr. Leydi Chun MD; GAVINO Johnson Date Dictated: 01/31/251950 Date Transcribed: 02/01/251544 [employer] Professor: Signed Normal [facility] Echocardiogram study reportO rdered By: Víctor Correia on 02-01-2025 Study report [facility] [address] [place] [address] Echo Complete W/ Contrast 01/31/251950 MR#: [id number] Acct: [id number] Name: TOBY GARCIA Rep #:[id number] : 1960 64 From: Víctor Powers Attending Dr: GAVINO Johnson Status: REG CLI Ordering Dr: Jillian Prado Date: 02/01/25 Location: [facility] Sex: M AA Admitted: Reason For Study Reason For Study: Arrhythmia Procedure This was a 2D Doppler, Color Flow transthoracic echocardiogram. The study was technically difficult. Exam performed in department. Left Ventricle Normal LV size. Moderate concentric left ventricular hypertrophy. The left ventricular ejection fraction is 45 %. There is mild global hypokinesis of the left ventricle. Right Ventricle Normal RV size. Normal systolic function. Atria The left atrium is moderately enlarged. The right atrium is mildly enlarged. Mitral Valve Normal mitral valve. Tricuspid Valve Normal tricuspid valve. Mild tricuspid valve insufficiency. Aortic Valve Normal aortic valve. Great Vessels Normal aortic root. The pulmonary artery is normal size. Inferior vena cava collapse with respiration. Pericardium/Pleural No pericardial effusion. Medication Diluted definity 1.0ml given slow IV push to enhance endocardial definition. MMode/2D Measurements & Calculations LVIDd: 4.9 cm IVSd: 1.5 cm Ao root diam: 3.5 cm LVIDs: 3.6 cm LVPWd: 1.5 cm FS: 27.2 % _ LAV(MOD-bp): 98.2 ml LVAd ap4: 41.3 cm2 LVAd ap2: 33.8 cm2 LAV(MOD-bp) Indexed: 36.8 ml/m2 LVLd ap4: 8.6 cm LVLd ap2: 8.2 cm LAV(MOD-sp2): 91.7 ml EDV(MOD-sp4): 163.0 ml EDV(MOD-sp2): 112.5 ml LAV(MOD-sp4): 96.6 ml EDV(sp4-el): 168.9 ml EDV(sp2-el): 117.8 ml LVAs ap4: 33.4 cm2 LVAs ap2: 24.0 cm2 LVLs ap4: 8.0 cm LVLs ap2: 7.7 cm ESV(MOD-sp4): 115.4 ml ESV(MOD-sp2): 60.7 ml ESV(sp4-el): 118.3 ml ESV(sp2-el): 63.3 ml EF(MOD-sp4): 29.2 % EF(MOD-sp2): 46.1 % EF(sp4-el): 30.0 % SV(MOD-sp4): 47.6 ml SV(MOD-sp2): 51.8 ml SV(sp4-el): 50.6 ml SI(MOD-sp4): 17.9 ml/m2 SI(MOD-sp2): 19.4 ml/m2 _ LA A4 area: 28.2 cm2 LA dimension(2D): 5.0 cm RA A4 area: 22.3 cm2 Doppler Measurements & Calculations MV E max arlen: 104.8 cm/sec Ao V2 max: 104.1 cm/sec LV V1 max: 83.3 cm/sec Ao max P.3 mmHg LV V1 max P.8 mmHg PA V2 max: 78.4 cm/sec TR max arlen: 229.0 cm/sec TR max P.0 mmHg ECHO/Echo Complete W/ Contrast Interpretation Summary Normal LV size. The left ventricular ejection fraction is 45 %. Moderate concentric left ventricular hypertrophy. The left atrium is moderately enlarged. The right atrium is mildly enlarged. Contrast injection was performed. Ordering Physician: Jillian Prado Referring Physician: Leydi Chun Performed By: Flakita Rodriguez RDCS and Student 02/01/25 1542 Date _ Víctor Correia MD CC: Dr. Leydi Chun MD; GAVINO Johnson ~ Date Dictated: 01/31/251950 Date Transcribed: 02/01/251544 [employer] Professor: Signed [facility] Work Phone: Stress Reporton 02-01-2025 Stress Report [facility] [address] [place] [id number] MR#: [id number] Acct: [id number] Name: TOBY GARCIA Rep #: [id number] : 1960 64 From: Víctor Correia MD Primary Care: Dr. Leydi Chun MD Status: REG CLI Referring Dr: Jillian Prado PA Sex: M AA Stress Test Report Pharmacologic myocardial perfusion stress test. 64-year-old man with a history of atrial fibrillation Resting EKG demonstrates atrial fibrillation with a rate of 97 bpm. Resting blood pressure is 122/92 mmHg. 0.4 mg of regadenoson was infused per usual protocol followed by rapid intravenous saline flush injection. Continuous EKG monitoring was performed. The maximum heart rate was 121 bpm which was 77% of max impacted heart rate the maximum workload was 1 metabolic equivalent. At rest there were no ST or T wave changes noted to suggest ischemia and at peak infusion nonspecific ST changes were noted which did not meet the criteria for ischemia. No clinical angina is noted. The final blood pressure was 122/82 mmHg. Myocardial perfusion protocol. 14.9 mCi of technetium 99m sestamibi was injected at rest. 0.4 mg of regadenoson was infused per usual protocol. At peak infusion 44.7 mCi of technetium 99m sestamibi was injected stress images were obtained stress and rest images were reconstructed and compared in the short axis vertical long and horizontal long axis. Gated images were also obtained. Perfusion SPECT analysis: Review of the stress images demonstrate normal uptake of tracer noted in all areas of the myocardium. There is a small area in the inferior wall which has reduced perfusion. The resting images similar demonstrated normal uptake of tracer noted in all areas of the myocardium. A small area in the inferior wall has reduced perfusion. The above is suggestive of a previous small inferior infarct. No reversibility is noted to suggest ischemia. Gated SPECT analysis: The gated ejection fraction is 50%. Conclusion: Normal pharmacologic myocardial perfusion stress test. Preserved ejection fraction. 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 Leydi Chun MD; GAVINO Johnson Date Dictated: 02/01/25 1249 Date Transcribed: 02/01/25 124 [employer] Professor: [place] Signed Normal [facility] Cardiology Visit Reporton Cardiology Visit Report [facility] [address] [facility] [place], [place] [address] OFFICE VISIT Date of Service: 01/08/25 MR#: [id number] Acct: [id number] Name: TOBY GARCIA Rep #: [id number] : 1960 Provider: GAVINO Kerr Age/Sex: 64/M Location: [facility] Status: Signed HPI HPI History [...] Pulse Source NIBP Intake Visit Reasons: S/P ([facility] 01/04) NEEDS EKG Printer Slotter Feeder Required: No Is patient in pain?: No [...] the past year?: Yes (Trip and fall) [facility] Medical History (Updated 01/08/25 @ 13:43 by [...] all related (more content not included)... Normal [facility] 12 Lead EKGon 01-04-[address] [facility] [address] [place] [address] 12 Lead EKG 01/04/25 1712 MR#: [id number] Acct: [id number] Name: TOBY GARCIA Rep #: [id number] : 1960 64 From: Milton Pearson MD [...] undetermined Abnormal ECG Confirmed by Milton Pearson ([id number]), purchase request editor DAWNA DRAKE ([id number]) on 01/08/2025 11:41:34 AM Referred By: Arturo Weeks Confirmed By: Milton Pearson 01/08/25 1141 Date Milton Pearson MD CC: Dr. Arturo Weeks DO; Dr. Leydi Chun MD Signed Normal [facility] Absolute lymphocyte countOrd ered By: Arturo Weeks on 01-04-2025 Lymphocytes Auto (Unsp spec) [#/Vol] 1.52 10*3/uL 0.83-4.51 [facility] Absolute neutrophil countOrd ered By: Arturo Weeks on 01-04-2025 Neutrophils (Bld) [#/Vol] 5.4 10*3/uL 2.0-7.7 [facility] Anion gap in Serum or Plasma Ordered By: Arturo Weeks on 01-04-2025 Anion gap [Moles/Vol] 13 mmol/L 5-15 [facility] Automated lymphocyte count a s percentage of total leukocytesOrdered By: Arturo Agarwalne on 01-04-2025 Lymphocytes/100 WBC Auto (Unsp spec) 19.6 % 19-41 [facility] BUN/creatinine ratioOrdered By: Arturo Pierreehne on 01-04-2025 Urea nitrogen/Creatinine [Mass ratio] 13.7 mg/mg 10- [facility] Basic Metabolic Profile (BMP )on 01-04-2025 Calcium [Mass/Vol] 9.1 mg/dL Normal 7.6-11.0 [facility] Comment on above: Performed By: #### L 100.0100, L501.5200, L500.2500 #### [facility] [address] [place], [address] Basophil percentageOrdered B y: Arturo Pierreehne on 01-04-2025 Basophils/100 WBC (Bld) 0.6 % 0-1 [facility] Bedside Glucoseon 01-04-2025 FINGERSTICK GLU 115 mg/dL High 74-106 [facility] Comment on above: Result Comment: ALISIA RODRIGUEZ OF PATIENT CARE PER NURSING PROTOCOL Performed By: #### L 501.080 ####[facility] [address] [place], [address] CBC + diff autoon 01-04-2025 CBC W Auto Differential panel (Bld) [facility] Health CBC W/Diff, Automatedon 12-17 Absolute Lymph 1.52 X10 3/uL Normal 0.83-4.51 [facility] Comment on above: Performed By: #### L 100.0100 #### [facility] [address] [place], [address] Absolute Neut 5.4 X10 3/uL Normal 2.0-7.7 [facility] Comment on above: Performed By: #### L 100.0100 #### [facility] [address] [place], [address] Basophils/100 WBC (Bld) 0.6 % Normal 0-1 [facility] Comment on above: Performed By: #### L 100.0100 #### [facility] [address] [place], [address] Eosinophils/100 WBC (Bld) 1.6 % Normal 0-5 [facility] Comment on above: Performed By: #### L 100.0100 #### [facility] [address] [place], [address] Erythrocyte distribution width (RBC) [Ratio] 14.7 % High 11.6-14.6 [facility] Comment on above: Performed By: #### L 100.0100 #### [facility] [address] [place], [address] Hematocrit (Bld) [Volume fraction] 41.8 % Normal 40-54 [facility] Comment on above: Performed By: #### L 100.0100 #### [facility] [address] [place], [address] Hemoglobin (Bld) [Mass/Vol] 14.0 g/dL Normal 13.0-16.5 [facility] Comment on above: Performed By: #### L 100.0100 #### [facility] [address] [place], [address] IG% 0.300 Normal 0.0-0.9 [facility] Comment on above: Result Comment: IG% - Immature Granulocytes (promyelocytes, myelocytes and metamyelocytes) > 1% indicates that a LEFT SHIFT is Present. Performed By: #### L 100.0100 #### [facility] [address] [place], [address] Lymphocytes/100 WBC (Bld) 19.6 % Normal 19-41 [facility] Comment on above: Performed By: #### L 100.0100 #### [facility] [address] [place], [address] MCH (RBC) [Entitic mass] 27.2 pg Normal 27.0-32.0 [facility] Comment on above: Performed By: #### L 100.0100 #### [facility] [address] [place], [address] MCHC (RBC) [Mass/Vol] 33.5 g/dL Normal 32-36 [facility] Comment on above: Performed By: #### L 100.0100 #### [facility] [address] [place], [address] MCV (RBC) [Entitic vol] 81.3 fL Normal 80-94 [facility] Comment on above: Performed By: #### L 100.0100 #### [facility] [address] [place], [address] Monocytes/100 WBC (Bld) 7.9 % Normal 0-10 [facility] Comment on above: Performed By: #### L 100.0100 #### [facility] [address] [place], [address] Neutrophils/100 WBC (Bld) 70.0 % Normal 47-70 [facility] Comment on above: Performed By: #### L 100.0100 #### [facility] [address] [place], [address] Nucleated RBC (Bld) [#/Vol] 0 10*3/uL Normal 0-5 [facility] Comment on above: Performed By: #### L 100.0100 #### [facility] [address] [place], [address] Platelet mean volume (Bld) [Entitic vol] 9.2 fL Normal 6.2-12.0 [facility] Comment on above: Performed By: #### L 100.0100 #### [facility] [address] [place], [address] Platelets (Bld) [#/Vol] 262 10*3/uL Normal 150-450 [facility] Comment on above: Performed By: #### L 100.0100 #### [facility] [address] [place], [address] RBC (Bld) [#/Vol] 5.14 10*6/uL Normal 4.6-6.2 [facility] Comment on above: Performed By: #### L 100.0100 #### [facility] [address] [place], [address] RDW SD 43.1 fl Normal 35.1-43.9 [facility] Comment on above: Performed By: #### L 100.0100 #### [facility] [address] [place], [address] WBC (Bld) [#/Vol] 7.7 10*3/uL Normal 4.4-11.0 [facility] Comment on above: Performed By: #### L 100.0100 #### [facility] [address] [place], [address] Absolute Lymph 1.32 X10 3/uL Normal 0.83-4.51 [facility] Comment on above: Result Comment: This specimen has been REJECTED due to Laboratory criteria: Clotted. CLAUDIA MARSHALL has been notified of need of recollection. 01/04/251903 Laila Mayer Performed By: #### L 100.0100, L501.5200, L500.2500 #### [facility] [address] [place], [address] Absolute Neut 5.8 X10 3/uL Normal 2.0-7.7 [facility] Comment on above: Result Comment: This specimen has been REJECTED due to Laboratory criteria: Clotted. CLAUDIA MARSHALL has been notified of need of recollection. 01/04/251903 Laila Mayer Performed By: #### L 100.0100, L501.5200, L500.2500 #### [facility] [address] [place], [address] BASO# 0.05 X10 3/uL Normal [facility] Comment on above: Result Comment: This specimen has been REJECTED due to Laboratory criteria: Clotted. CLAUDIA GOINSR has been notified of need of recollection. 01/04/251903 Laila Leyla Performed By: #### L 100.0100, L501.5200, L500.2500 #### [facility] [address] [place], [address] Basophils/100 WBC (Bld) 0.6 % Normal 0-1 [facility] Comment on above: Result Comment: This specimen has been REJECTED due to Laboratory criteria: Clotted. CLAUDIA GOINSR has been notified of need of recollection. 01/04/251903 Laila Leyla Performed By: #### L 100.0100, L501.5200, L500.2500 #### [facility] [address] [place], [address] EOS# 0.14 X10 3/uL Normal [facility] Comment on above: Result Comment: This specimen has been REJECTED due to Laboratory criteria: Clotted. CLAUDIA GOINSR has been notified of need of recollection. 01/04/251903 Laila Leyla Performed By: #### L 100.0100, L501.5200, L500.2500 #### [facility] [address] [place], [address] Eosinophils/100 WBC (Bld) 1.8 % Normal 0-5 [facility] Comment on above: Result Comment: This specimen has been REJECTED due to Laboratory criteria: Clotted. CLAUDIA GOINSR has been notified of need of recollection. 01/04/251903 Laila Leyla Performed By: #### L 100.0100, L501.5200, L500.2500 #### [facility] [address] [place], [address] Erythrocyte distribution width (RBC) [Ratio] 14.8 % High 11.6-14.6 [facility] Comment on above: Result Comment: This specimen has been REJECTED due to Laboratory criteria: Clotted. CLAUDIA MARSHALL has been notified of need of recollection. 01/04/251903 Laila Leyla Performed By: #### L 100.0100, L501.5200, L500.2500 #### [facility] [address] [place], [address] Hematocrit (Bld) [Volume fraction] 43.2 % Normal 40-54 [facility] Comment on above: Result Comment: This specimen has been REJECTED due to Laboratory criteria: Clotted. CLAUDIA MARSHALL has been notified of need of recollection. 01/04/251903 Laila Leyla Performed By: #### L 100.0100, L501.5200, L500.2500 #### [facility] [address] [place], [address] Hemoglobin (Bld) [Mass/Vol] 14.4 g/dL Normal 13.0-16.5 [facility] Comment on above: Result Comment: This specimen has been REJECTED due to Laboratory criteria: Clotted. CLAUDIA GOINSR has been notified of need of recollection. 01/04/251903 Laila Leyla Performed By: #### L 100.0100, L501.5200, L500.2500 #### [facility] [address] [place], [address] IG# 0.020 X10 3/uL High 0.0-0.0 [facility] Comment on above: Result Comment: This specimen has been REJECTED due to Laboratory criteria: Clotted. CLAUDIA GOINSR has been notified of need of recollection. 01/04/251903 Laila Leyla Performed By: #### L 100.0100, L501.5200, L500.2500 #### [facility] [address] [place], [address] IG% 0.300 Normal 0.0-0.9 [facility] Comment on above: Result Comment: This specimen has been REJECTED due to Laboratory criteria: Clotted. CLAUDIA MARSHALL has been notified of need of recollection. 01/04/251903 Laila Leyla IG% - Immature Granulocytes (promyelocytes, myelocytes and metamyelocytes) > 1% indicates that a LEFT SHIFT is Present. Performed By: #### L 100.0100, L501.5200, L500.2500 #### [facility] [address] [place], [address] LYMPH# 1.32 X10 3/ul Normal 0.83-4.51 [facility] Comment on above: Result Comment: This specimen has been REJECTED due to Laboratory criteria: Clotted. CLAUDIA MARSHALL has been notified of need of recollection. 01/04/251903 Laila Leyla Performed By: #### L 100.0100, L501.5200, L500.2500 #### [facility] [address] [place], [address] Lymphocytes/100 WBC (Bld) 16.8 % Low 19-41 [facility] Comment on above: Result Comment: This specimen has been REJECTED due to Laboratory criteria: Clotted. CLAUDIA MARSHALL has been notified of need of recollection. 01/04/251903 Laila Leyla Performed By: #### L 100.0100, L501.5200, L500.2500 #### [facility] [address] [place], [address] MCH (RBC) [Entitic mass] 27.2 pg Normal 27.0-32.0 [facility] Comment on above: Result Comment: This specimen has been REJECTED due to Laboratory criteria: Clotted. CLAUDIA MARSHALL has been notified of need of recollection. 01/04/251903 Laila Leyla Performed By: #### L 100.0100, L501.5200, L500.2500 #### [facility] [address] [place], [address] MCHC (RBC) [Mass/Vol] 33.3 g/dL Normal 32-36 [facility] Comment on above: Result Comment: This specimen has been REJECTED due to Laboratory criteria: Clotted. CLAUDIA MARSHALL has been notified of need of recollection. 01/04/251903 Laila Leyla Performed By: #### L 100.0100, L501.5200, L500.2500 #### [facility] [address] [place], [address] MCV (RBC) [Entitic vol] 81.5 fL Normal 80-94 [facility] Comment on above: Result Comment: This specimen has been REJECTED due to Laboratory criteria: Clotted. CLAUDIA MARSHALL has been notified of need of recollection. 01/04/251903 Laila Leyla Performed By: #### L 100.0100, L501.5200, L500.2500 #### [facility] [address] [place], [address] MONO # 0.56 X10 3/uL Normal [facility] Comment on above: Result Comment: This specimen has been REJECTED due to Laboratory criteria: Clotted. CLAUDIA MARSHALL has been notified of need of recollection. 01/04/251903 Laila Leyla Performed By: #### L 100.0100, L501.5200, L500.2500 #### [facility] [address] [place], [address] Monocytes/100 WBC (Bld) 7.1 % Normal 0-10 [facility] Comment on above: Result Comment: This specimen has been REJECTED due to Laboratory criteria: Clotted. CLAUDIA MARSHALL has been notified of need of recollection. 01/04/251903 Laila Leyla Performed By: #### L 100.0100, L501.5200, L500.2500 #### [facility] [address] [place], [address] Neutrophil # 5.78 X10 3/uL Normal 2.7-7.7 [facility] Comment on above: Result Comment: This specimen has been REJECTED due to Laboratory criteria: Clotted. CLAUDIA MARSHALL has been notified of need of recollection. 01/04/251903 Laila Leyla Performed By: #### L 100.0100, L501.5200, L500.2500 #### [facility] [address] [place], [address] Neutrophils/100 WBC (Bld) 73.4 % High 47-70 [facility] Comment on above: Result Comment: This specimen has been REJECTED due to Laboratory criteria: Clotted. CLAUDIA GOINSR has been notified of need of recollection. 01/04/251903 Laila Leyla Performed By: #### L 100.0100, L501.5200, L500.2500 #### [facility] [address] [place], [address] Nucleated RBC (Bld) [#/Vol] 0 10*3/uL Normal 0-5 [facility] Comment on above: Result Comment: This specimen has been REJECTED due to Laboratory criteria: Clotted. CLAUDIA GOINSR has been notified of need of recollection. 01/04/251903 Laila Leyla Performed By: #### L 100.0100, L501.5200, L500.2500 #### [facility] [address] [place], [address] POSITIVE COUNT YES Abnormal [facility] Comment on above: Result Comment: This specimen has been REJECTED due to Laboratory criteria: Clotted. CLAUDIA GOINSR has been notified of need of recollection. 01/04/251903 Laila Leyla Performed By: #### L 100.0100, L501.5200, L500.2500 #### [facility] [address] [place], [address] RBC (Bld) [#/Vol] 5.30 10*6/uL Normal 4.6-6.2 [facility] Comment on above: Result Comment: This specimen has been REJECTED due to Laboratory criteria: Clotted. CLAUDIA MARSHALL has been notified of need of recollection. 01/04/251903 Laila Leyla Performed By: #### L 100.0100, L501.5200, L500.2500 #### [facility] [address] [place], [address] RDW SD 43.6 fl Normal 35.1-43.9 [facility] Comment on above: Result Comment: This specimen has been REJECTED due to Laboratory criteria: Clotted. CLAUDIA MARSHALL has been notified of need of recollection. 01/04/251903 Laila Leyla Performed By: #### L 100.0100, L501.5200, L500.2500 #### [facility] [address] [place], [address] WBC (Bld) [#/Vol] 7.9 10*3/uL Normal 4.4-11.0 [facility] Comment on above: Result Comment: This specimen has been REJECTED due to Laboratory criteria: Clotted. CLAUDIA MARSHALL has been notified of need of recollection. 01/04/251903 Laila Leyla Performed By: #### L 100.0100, L501.5200, L500.2500 #### [facility] [address] [place], [address] MPV Normal 6.2-12.0 [facility] Comment on above: Result Comment: This specimen has been REJECTED due to Laboratory criteria: Clotted. CLAUDIA MARSHALL has been notified of need of recollection. 01/04/251903 Laila Leyla Performed By: #### L 100.0100, L501.5200, L500.2500 #### [facility] [address] [place], [address] PLT Normal 150-450 [facility] Comment on above: Result Comment: This specimen has been REJECTED due to Laboratory criteria: Clotted. CLAUDIA AMRSHALL has been notified of need of recollection. 01/04/251903 Laila Mayer Performed By: #### L 100.0100, L501.5200, L500.2500 #### [facility] [address] [place], [address] Carbon dioxide, total [Moles /volume] in Central venous bloodOrdered By: Arturo Weeks on 01-04-2025 CO2 [Moles/Vol] 23.1 mmol/L 21.0-32.0 [facility] Chest 1 View (Portable)on Chest 1 View (Portable) [facility] Imaging Services [address] [place] [address] Chest 1 View (Portable) MR#: [id number] Acct: [id number] Name: TOBY GARCIA Rep #: [id number] : 1960 M 64 From: Asya Medrano MD PCP: Dr. Leydi Chun MD Status: REG ER Study: Chest 1 View (Portable) Date of Exam: 01/04/25 Exam# [id number] Ordering Dr: Arturo Weeks DO EXAM: XR Chest, 1 View CLINICAL INDICATION: HYPERTENSION TECHNIQUE: Frontal view of the chest. COMPARISON: No relevant prior studies available. FINDINGS: LUNGS AND PLEURAL SPACES: Unremarkable. No consolidation. No pneumothorax. HEART: Cardiomegaly without overt failure. MEDIASTINUM: Unremarkable. Normal mediastinal contour. BONES/JOINTS: Unremarkable. No acute fracture. RAD/Chest 1 View (Portable) IMPRESSION: Cardiomegaly without overt failure. Reading Location: [facility]HOME CC: Dr. Arturo Weeks DO; Dr. Leydi Chun MD [employer] Professor: Signed Normal [facility] Chloride assayOrdered By: Star Weeks on 01-04-2025 Chloride [Moles/Vol] 103 mmol/L 98-108 [facility] Emergency Department Summary on 01-04-2025 Emergency Department Summary [facility] Medical Records Department [address] [place] [address] Emergency Department Summary 01/04/25 MR#: [id number] Acct: [id number] Name: TOBY GARCIA Rep #: [id number] : 1960 64 From: Arturo Weeks DO [...] being in A-fib. [facility] history of CHF[facility] Medical History Osteoarthritis of right knee Dystrophic [...] Rate [4] (more content not included)... Normal [facility] Eosinophil percentageOrdered By: Arturo Weeks on 01-04-2025 Eosinophils/100 WBC (Bld) 1.6 % 0-5 [facility] Erythrocyte distribution wid th ratioOrdered By: Arturo Wekes on 01-04-2025 Erythrocyte distribution width (RBC) [Ratio] 14.7 % High 11.6-14.6 [facility] Erythrocyte distribution wid th standard deviationOrdered By: Arturo Weeks on 01-04-2025 Erythrocyte distribution width (RBC) [Ratio] 43.1 fl 35.1-43.9 [facility] Glomerular filtration rate ( GFR) estimation/1.73 sq m using serum, plasma, or whole bOrdered By: Arturo Weeks on 01-04-2025 GFR/1.73 sq M.predicted among non-blacks MDRD (S/P/Bld) [Vol rate/Area] 52 mL/min/{1.73_m2} Low >60 [facility] Comment on above: mL/min/1.73m2 CKD-EP I Creatinine Equation (2020) Glucose measurement at bedsi deOrdered By: Arturo Weeks on 01-04-2025 Glucose [Mass/Vol] 115 mg/dL High 74-106 [facility] Comment on above: MANAGEMENT OF PATIEN T CARE PER NURSING PROTOCOL Hematocrit Auto (Bld) [Volum e fraction]Ordered By: Arturo Weeks on 01-04-2025 Hematocrit (Bld) [Volume fraction] 41.8 % 40-54 [facility] Hemoglobin measurementOrdere d By: Arturo Weeks on 01-04-2025 Hemoglobin (Bld) [Mass/Vol] 14.0 g/dL 13.0-16.5 [facility] Immature granulocytes/100 WB C Auto (Bld)Ordered By: Arturo Weeks on 01-04-2025 Immature granulocytes/100 WBC (Bld) 0.300 % 0.0-0.9 [facility] Comment on above: IG% - Immature Granu locytes (promyelocytes, myelocytes and metamyelocytes) > 1% indicates that a LEFT SHIFT is Present. MCV (mean corpuscular volume ) determinationOrdered By: Arturo Weeks on 01-04-2025 MCV (RBC) [Entitic vol] 81.3 fL 80-94 [facility] Magnesiumon 01-04-2025 Magnesium [Mass/Vol] 1.8 mg/dL Normal 1.5-2.2 [facility] Comment on above: Performed By: #### L 100.0100, L501.5200, L500.2500 #### [facility] [address] [place] [address], [address] Magnesium measurement (mass/ volume)Ordered By: Arturo Weeks on 01-04-2025 Magnesium (Unsp spec) [Mass/Vol] 1.8 mg/dL 1.5-2.2 [facility] Mean corpuscular hemoglobin (MCH) determinationOrdered By: Arturo Weeks on 01-04-2025 MCH (RBC) [Entitic mass] 27.2 pg 27.0-32.0 [facility] Mean corpuscular hemoglobin concentration (MCHC) determinationOrdered By: Arturo Weeks on 01-04-2025 MCHC (RBC) [Mass/Vol] 33.5 g/dL 32-36 [facility] Mean platelet volume determi nationOrdered By: Arturo Weeks on 01-04-2025 Platelet mean volume (Bld) [Entitic vol] 9.2 fL 6.2-12.0 [facility] Monocyte percentageOrdered B y: Arturo Weeks on 01-04-2025 Monocytes/100 WBC (Bld) 7.9 % 0-10 [facility] Neutrophil percentageOrdered By: Arturo Weeks on 01-04-2025 Neutrophils/100 WBC (Bld) 70.0 % 47-70 [facility] Nucleated red blood cell per centageOrdered By: Arturo Weeks on 01-04-2025 Nucleated RBC/100 WBC (Bld) [Ratio] 0 % 0-5 [facility] Platelet countOrdered By: Star Weeks on 01-04-2025 Platelets (Bld) [#/Vol] 262 10*3/uL 150-450 [facility] Potassium measurement (mass/ volume)Ordered By: Arturo Weeks on 01-04-2025 Potassium (Unsp spec) [Mass/Vol] 4.3 mmol/L 3.3-5.1 [facility] Comment on above: Hemolysis present, R esults could be affected. RBC Auto (Bld) [#/Vol]Ordere d By: Arturo Weeks on 01-04-2025 RBC (Bld) [#/Vol] 5.14 10*6/uL 4.6-6.2 [facility] Serum creatinine measurement (mass/volume)Ordered By: Arturo Weeks on 01-04-2025 Creatinine [Mass/Vol] 1.50 mg/dL High 0.70-1.20 [facility] Serum glucose measurement (m ass/volume)Ordered By: Arturo Weeks on 01-04-2025 Glucose [Mass/Vol] 121 mg/dL High 70-99 [facility] Serum or plasma calcium moriah urement (mass/volume)Ordered By: Arturo Weeks on 01-04-2025 Calcium [Mass/Vol] 9.1 mg/dL 7.6-11.0 [facility] Serum or plasma urea nitroge n measurement (mass/volume)Ordered By: Arturo Weeks on 01-04-2025 Urea nitrogen [Mass/Vol] 21 mg/dL High 4-19 [facility] Sodium levelOrdered By: Joe Weeks on 01-04-2025 Sodium [Moles/Vol] 140 mmol/L 133-145 [facility] White blood cell (WBC) count Ordered By: Arturo Weeks on 01-04-2025 WBC (Bld) [#/Vol] 7.7 10*3/uL 4.4-11.0 [facility] Testosterone, Total / Freeon 07-31-2024 TESTOSTER,FREE 27.00 ng/dL Abnormal 5.00-21.00 [facility] Comment on above: Order Comment: N Performed By: #### L 501.9520, L3100.5310, L500.4050, L501.9910, L100.0100, L501.9985, L500.4100, L506.1000 ####[facility] [address] [place], [place], [id number](809) TESTOSTER,TOTAL 778 ng/dL Normal 264-916 [facility] Comment on above: Order Comment: N Result Comment: Adul t male reference interval is based on a population of healthy nonobese males (BMI <30) between 19 and 39 years old. soham Lowry.al. JCEM 2017,102;9945-0406. PMID: [id number]. Performed By: #### L 501.9520, L3100.5310, L500.4050, L501.9910, L100.0100, L501.9985, L500.4100, L506.1000 ####[facility] [address] [place], [place], [id number] TESTOSTERONE,%F 3.47 Normal 1.50-4.20 [facility] Comment on above: Order Comment: N Result Comment: Perf ormed at: [facility] [id number] It Risk And Assurance Manager: Ashvin Black PhD, Phone: [phone] Performed at: [facility] [address] [id number] It Risk And Assurance Manager: Zuleyka Guillaume MD, Phone: [phone] Performed By: #### L 501.9520, L3100.5310, L500.4050, L501.9910, L100.0100, L501.9985, L500.4100, L506.1000 ####[facility] [address] [place], [place], [id number] CBC W/Diff, Automatedon 01-0 Absolute Lymph 1.49 X10 3/uL Normal 0.83-4.51 [facility] Comment on above: Performed By: #### L 501.9520, L3100.5310, L500.4050, L501.9910, L100.0100, L501.9985, L500.4100, L506.1000 #### [facility] [address] [place], [address] Absolute Neut 4.9 X10 3/uL Normal 2.0-7.7 [facility] Comment on above: Performed By: #### L 501.9520, L3100.5310, L500.4050, L501.9910, L100.0100, L501.9985, L500.4100, L506.1000 #### [facility] [address] [place], [address] Basophils/100 WBC (Bld) 1.1 % High 0-1 [facility] Comment on above: Performed By: #### L 501.9520, L3100.5310, L500.4050, L501.9910, L100.0100, L501.9985, L500.4100, L506.1000 #### [facility] [address] [place], [address] Eosinophils/100 WBC (Bld) 2.4 % Normal 0-5 [facility] Comment on above: Performed By: #### L 501.9520, L3100.5310, L500.4050, L501.9910, L100.0100, L501.9985, L500.4100, L506.1000 #### [facility] [address] [place], [address] Erythrocyte distribution width (RBC) [Ratio] 14.0 % Normal 11.6-14.6 [facility] Comment on above: Performed By: #### L 501.9520, L3100.5310, L500.4050, L501.9910, L100.0100, L501.9985, L500.4100, L506.1000 #### [facility] [address] [place], [address] Hematocrit (Bld) [Volume fraction] 44.6 % Normal 40-54 [facility] Comment on above: Performed By: #### L 501.9520, L3100.5310, L500.4050, L501.9910, L100.0100, L501.9985, L500.4100, L506.1000 #### [facility] [address] [place], [address] Hemoglobin (Bld) [Mass/Vol] 14.6 g/dL Normal 13.0-16.5 [facility] Comment on above: Performed By: #### L 501.9520, L3100.5310, L500.4050, L501.9910, L100.0100, L501.9985, L500.4100, L506.1000 #### [facility] [address] [place], [address] IG% 0.300 Normal 0.0-0.9 [facility] Comment on above: Result Comment: IG% - Immature Granulocytes (promyelocytes, myelocytes and metamyelocytes) > 1% indicates that a LEFT SHIFT is Present. Performed By: #### L 501.9520, L3100.5310, L500.4050, L501.9910, L100.0100, L501.9985, L500.4100, L506.1000 #### [facility] [address] [place], [address] Lymphocytes/100 WBC (Bld) 20.7 % Normal 19-41 [facility] Comment on above: Performed By: #### L 501.9520, L3100.5310, L500.4050, L501.9910, L100.0100, L501.9985, L500.4100, L506.1000 #### [facility] [address] [place], [address] MCH (RBC) [Entitic mass] 27.0 pg Normal 27.0-32.0 [facility] Comment on above: Performed By: #### L 501.9520, L3100.5310, L500.4050, L501.9910, L100.0100, L501.9985, L500.4100, L506.1000 #### [facility] [address] [place], [address] MCHC (RBC) [Mass/Vol] 32.7 g/dL Normal 32-36 [facility] Comment on above: Performed By: #### L 501.9520, L3100.5310, L500.4050, L501.9910, L100.0100, L501.9985, L500.4100, L506.1000 #### [facility] [address] [place], [address] MCV (RBC) [Entitic vol] 82.4 fL Normal 80-94 [facility] Comment on above: Performed By: #### L 501.9520, L3100.5310, L500.4050, L501.9910, L100.0100, L501.9985, L500.4100, L506.1000 #### [facility] [address] [place], [address] Monocytes/100 WBC (Bld) 8.1 % Normal 0-10 [facility] Comment on above: Performed By: #### L 501.9520, L3100.5310, L500.4050, L501.9910, L100.0100, L501.9985, L500.4100, L506.1000 #### [facility] [address] [place], [address] Neutrophils/100 WBC (Bld) 67.4 % Normal 47-70 [facility] Comment on above: Performed By: #### L 501.9520, L3100.5310, L500.4050, L501.9910, L100.0100, L501.9985, L500.4100, L506.1000 #### [facility] [address] [place], [address] Nucleated RBC (Bld) [#/Vol] 0 10*3/uL Normal 0-5 [facility] Comment on above: Performed By: #### L 501.9520, L3100.5310, L500.4050, L501.9910, L100.0100, L501.9985, L500.4100, L506.1000 #### [facility] [address] [place], [address] Platelet mean volume (Bld) [Entitic vol] 9.8 fL Normal 6.2-12.0 [facility] Comment on above: Performed By: #### L 501.9520, L3100.5310, L500.4050, L501.9910, L100.0100, L501.9985, L500.4100, L506.1000 #### [facility] [address] [place], [address] Platelets (Bld) [#/Vol] 278 10*3/uL Normal 150-450 [facility] Comment on above: Performed By: #### L 501.9520, L3100.5310, L500.4050, L501.9910, L100.0100, L501.9985, L500.4100, L506.1000 #### [facility] [address] [place], [address] RBC (Bld) [#/Vol] 5.41 10*6/uL Normal 4.6-6.2 [facility] Comment on above: Performed By: #### L 501.9520, L3100.5310, L500.4050, L501.9910, L100.0100, L501.9985, L500.4100, L506.1000 #### [facility] [address] [place], [address] RDW SD 41.7 fl Normal 35.1-43.9 [facility] Comment on above: Performed By: #### L 501.9520, L3100.5310, L500.4050, L501.9910, L100.0100, L501.9985, L500.4100, L506.1000 #### [facility] [address] [place], [address] WBC (Bld) [#/Vol] 7.2 10*3/uL Normal 4.4-11.0 [facility] Comment on above: Performed By: #### L 501.9520, L3100.5310, L500.4050, L501.9910, L100.0100, L501.9985, L500.4100, L506.1000 #### [facility] [address] [place], [address] Comprehensive Metabolic Prof [facility] 07-26-2024 Albumin [Mass/Vol] 3.9 g/dL Normal 3.2-5.0 [facility] Comment on above: Performed By: #### L 501.9520, L3100.5310, L500.4050, L501.9910, L100.0100, L501.9985, L500.4100, L506.1000 ####[facility] [address] [place], [address] Albumin/Globulin [Mass ratio] 0.9 {ratio} Normal 0.9-2.4 [facility] Comment on above: Performed By: #### L 501.9520, L3100.5310, L500.4050, L501.9910, L100.0100, L501.9985, L500.4100, L506.1000 ####[facility] [address] [place], [address] ALK P 102 U/L Normal 45-117 [facility] Comment on above: Performed By: #### L 501.9520, L3100.5310, L500.4050, L501.9910, L100.0100, L501.9985, L500.4100, L506.1000 ####[facility] [address] [place], [address] ALT [Catalytic activity/Vol] 32 U/L Normal 16-61 [facility] Comment on above: Performed By: #### L 501.9520, L3100.5310, L500.4050, L501.9910, L100.0100, L501.9985, L500.4100, L506.1000 ####[facility] [address] [place], [address] AST [Catalytic activity/Vol] 27 U/L Normal 15-37 [facility] Comment on above: Performed By: #### L 501.9520, L3100.5310, L500.4050, L501.9910, L100.0100, L501.9985, L500.4100, L506.1000 ####[facility] [address] [place], [address] Bilirubin [Mass/Vol] 1.10 mg/dL High 0.20-1.00 [facility] Comment on above: Result Comment: For patients on eltrombopag therapy, use of Dimension [place] TBIL is not recommended. Performed By: #### L 501.9520, L3100.5310, L500.4050, L501.9910, L100.0100, L501.9985, L500.4100, L506.1000 ####[facility] [address] [place], [address] BUN/CRE 16.4 RATIO Normal 10-20 [facility] Comment on above: Performed By: #### L 501.9520, L3100.5310, L500.4050, L501.9910, L100.0100, L501.9985, L500.4100, L506.1000 ####[facility] [address] [place], [address] CA,Total 9.1 mg/dL Normal 8.5-10.1 [facility] Comment on above: Performed By: #### L 501.9520, L3100.5310, L500.4050, L501.9910, L100.0100, L501.9985, L500.4100, L506.1000 ####[facility] [address] [place], [address] Chloride [Moles/Vol] 103 mmol/L Normal 98-107 [facility] Comment on above: Performed By: #### L 501.9520, L3100.5310, L500.4050, L501.9910, L100.0100, L501.9985, L500.4100, L506.1000 ####[facility] [address] [place], [address] CO2 [Moles/Vol] 27.0 mmol/L Normal 21.0-32.0 [facility] Comment on above: Performed By: #### L 501.9520, L3100.5310, L500.4050, L501.9910, L100.0100, L501.9985, L500.4100, L506.1000 ####[facility] [address] [place], [address] Creatinine [Mass/Vol] 1.10 mg/dL Normal 0.70-1.30 [facility] Comment on above: Result Comment: The validity of the calculated GFR GFRAA in patients over 70 years has not been determined. Clinical correlation is essential. Performed By: #### L 501.9520, L3100.5310, L500.4050, L501.9910, L100.0100, L501.9985, L500.4100, L506.1000 ####[facility] [address] [place], [address] EST GFR - AA 87 mL/min Normal >60 [facility] Comment on above: Result Comment: Afri can [place] GFR Calc Performed By: #### L 501.9520, L3100.5310, L500.4050, L501.9910, L100.0100, L501.9985, L500.4100, L506.1000 ####[facility] [address] [place], [place], [phone]) GAP 9 Normal 5-15 [facility] Comment on above: Performed By: #### L 501.9520, L3100.5310, L500.4050, L501.9910, L100.0100, L501.9985, L500.4100, L506.1000 ####[facility] [address] [place], [place], [phone]) GFR/1.73 sq M.predicted among non-blacks MDRD (S/P/Bld) [Vol rate/Area] 72 mL/min/{1.73_m2} Normal >60 [facility] Comment on above: Result Comment: Non- GFR Calc Performed By: #### L 501.9520, L3100.5310, L500.4050, L501.9910, L100.0100, L501.9985, L500.4100, L506.1000 ####[facility] [address] [place], [place], [phone]) Globulin (S) [Mass/Vol] 4.5 g/dL High 2.2-4.2 [facility] Comment on above: Performed By: #### L 501.9520, L3100.5310, L500.4050, L501.9910, L100.0100, L501.9985, L500.4100, L506.1000 ####[facility] [address] [place], [place], [phone] Glucose [Mass/Vol] 128 mg/dL High 74-106 [facility] Comment on above: Result Comment: Fast ing Glucose result greater than or equal to 126 mg/dL suggests DIABETES MELLITUS per A.D.A. criteria. Performed By: #### L 501.9520, L3100.5310, L500.4050, L501.9910, L100.0100, L501.9985, L500.4100, L506.1000 ####[facility] [address] [place], [address] Potassium [Moles/Vol] 3.4 mmol/L Low 3.5-5.1 [facility] Comment on above: Performed By: #### L 501.9520, L3100.5310, L500.4050, L501.9910, L100.0100, L501.9985, L500.4100, L506.1000 ####[facility] [address] [place], [address] Sodium [Moles/Vol] 138 mmol/L Normal 136-145 [facility] Comment on above: Performed By: #### L 501.9520, L3100.5310, L500.4050, L501.9910, L100.0100, L501.9985, L500.4100, L506.1000 ####[facility] [address] [place], [address] T PROT 8.4 g/dL High 6.4-8.2 [facility] Comment on above: Performed By: #### L 501.9520, L3100.5310, L500.4050, L501.9910, L100.0100, L501.9985, L500.4100, L506.1000 ####[facility] [address] [place], [address] Urea nitrogen [Mass/Vol] 18 mg/dL Normal 7-18 [facility] Comment on above: Performed By: #### L 501.9520, L3100.5310, L500.4050, L501.9910, L100.0100, L501.9985, L500.4100, L506.1000 ####[facility] [address] [place], [address] Hemoglobin A1con 07-26-2024 HbA1c (Bld) [Mass fraction] 7.2 % High 3.8-5.6 [facility] Comment on above: Result Comment: Norm al < 5.7 % Prediabetic 5.7 - 6.4 % Diabetic >or= 6.5 % Please note range changes. Performed By: #### L 501.9520, L3100.5310, L500.4050, L501.9910, L100.0100, L501.9985, L500.4100, L506.1000 ####[facility] [address] [place], [address] Knee 4 or More Viewson 07-[address] [facility] Services [address] [place] [address] Knee 4 or More Views MR#: [id number] Acct: [id number] Name: TOBY GARCIA Rep #: [id number] : 1960 M 63 From: Boston Preston MD PCP: Dr. Leydi Chun MD Status: [facility] Study: Knee 4 or More Views Date of Exam: 07/26/24 Exam# [id number] Ordering Dr: Leydi Chun MD [id number] STUDY: X-RAY - LEFT KNEE REASON FOR [...] Signed: Boston Preston MD at 9:50 EST Reading Location ID and State: [facility] / [place] , Service support , CC: Dr. Leydi Chun MD [employer] Professor: Signed Normal [facility] Knees Standing AP Bilateralo n 07-26-2024 Knees Standing AP Bilateral [facility] Services [address] [place] [address] Knees Standing AP Bilateral MR#: [id number] Acct: [id number] Name: TOBY GARCIA Rep #: [id number] : 1960 63 From: Boston Preston MD PCP: Dr. Leydi Chun MD Status: REG CLI Study: Knees Standing AP Bilateral Date of Exam: 04/11 Exam# [id number] Ordering Dr: Leydi Chun MD [id number] STUDY: X-RAY - BILATERAL KNEES REASON FOR [...] 9:57 EST Reading Location ID and State: [facility] / [place] , Service support , CC: Dr. Leydi Chun MD [employer] Professor: Signed Normal [facility] Lipid Profileon 07-26-2024 Cholesterol [Mass/Vol] 143 mg/dL Normal 200 [facility] Comment on above: Result Comment: <200 mg/dL Desirable 200-240 mg/dL Borderline >240 mg/dL High Risk Performed By: #### L 501.9520, L3100.5310, L500.4050, L501.9910, L100.0100, L501.9985, L500.4100, L506.1000 ####[facility] [address] [place], [address] Cholesterol in HDL [Mass/Vol] 50 mg/dL Normal [facility] Comment on above: Result Comment: The drugs N-Acetylcysteine and Metamizole may falsely depress this assay. Reference Range HDL <40 mg/dL Low HDL Cholesterol HDL >or= 60 mg/dL High HDL Cholesterol Performed By: #### L 501.9520, L3100.5310, L500.4050, L501.9910, L100.0100, L501.9985, L500.4100, L506.1000 ####[facility] [address] [place], [address] Cholesterol in LDL [Mass/Vol] 84 mg/dL Normal 0-130 [facility] Comment on above: Performed By: #### L 501.9520, L3100.5310, L500.4050, L501.9910, L100.0100, L501.9985, L500.4100, L506.1000 ####[facility] [address] [place], [address] Cholesterol in VLDL [Mass/Vol] 9 mg/dL Normal 5-40 [facility] Comment on above: Performed By: #### L 501.9520, L3100.5310, L500.4050, L501.9910, L100.0100, L501.9985, L500.4100, L506.1000 ####[facility] [address] [place], [address] Triglyceride [Mass/Vol] 47 mg/dL Normal [facility] Comment on above: Result Comment: The drugs N-Acetylcysteine and Metamizole may falsely depress this assay. Serum Triglycerides Reference Interval Normal <150 mg/dL Borderline high 150 - 199 mg/dL High 200 - 499 mg/dL Very High > or = 500 mg/dL Performed By: #### L 501.9520, L3100.5310, L500.4050, L501.9910, L100.0100, L501.9985, L500.4100, L506.1000 ####[facility] [address] [place], [address] MR/BMS.IANBon 07-26-2024 MR/BMS.IMB [facility] [address] [facility] [place] [address] OFFICE VISIT Date of Service: 07/26/24 MR#: [id number] Acct: [id number] Name: TOBY GARCIA Rep #: [id number] : 1960 Provider: Dr. Leydi myles MD Age/Sex: 63/M Location: [facility] Status: Signed Intake Vital Signs 10/30/22 23:07 07/26/24 08:47 Height 6 ft 6 ft Weight: 349 lb 4 oz BMI 47.3 BP 148/92 H Blood Pressure Location Rt brachial Position Sitting Respiration 16 Pulse 87 Pulse Source Monitor Temp 98.9 F Temp Source Temporal Pulse Oximetry (%) 94 Oxygen Delivery Method room air Intake Visit Reasons: Annual/Physical Chief Complaint: annual/physical [employer] Fe[employer] Required: No Accompanied by: Self Is patient [...] transdermal gel packet primary doctor #150 grams PFSH Medical History (Updated 07/26/24 @ 09:52 by [...] part-time, and may be associated with the [employer] department. He was [employer] [facility] [employer] for many years. Currently not having any [...] Nontender nondistended (more content not included)... Normal [facility] PSA,Total - Annual Screenon 07-26-2024 PSA,TOT SCREEN 1.14 ng/mL Normal 0.00-4.00 [facility] Comment on above: Result Comment: This test was performed using the TPSA assay method for the [employer] chemistry system. Values obtained with different assay methods cannot be used interchangably. When changing PSA assays in the course of monitoring a patient, additional sequential testing should be carried out to confirm baseline values. Performed By: #### L 501.9520, L3100.5310, L500.4050, L501.9910, L100.0100, L501.9985, L500.4100, L506.1000 ####[facility] [address] [place], [place], [id number] Thyroid Stim Hormone (TSH)on 07-26-2024 TSH 2.530 uIU/mL Normal 0.358-3.740 [facility] Comment on above: Performed By: #### L 501.9520, L3100.5310, L500.4050, L501.9910, L100.0100, L501.9985, L500.4100, L506.1000 ####[facility] [address] [place], [place], [id number] Vitamin D,25 Hydroxyon 07-26 Vitamin D 25-OH 31.4 ng/mL Normal [facility] Comment on above: Result Comment: Iris min D 25(OH) Status Range Deficiency <20 ng/mL (50nmol/L) Insufficiency 20 - 30 ng/mL (50 - 75 nmol/L) Sufficiency 30 - 100 ng/mL (75 - 250 nmol/L) Toxicity >100 ng/mL (>250 nmol/L) Performed By: #### L 501.9520, L3100.5310, L500.4050, L501.9910, L100.0100, L501.9985, L500.4100, L506.1000 ####[facility] [address] [place], [address] Basophil percentageOrdered B y: Christa Preston on 08-10-2023 Basophil percentage 2.9 mg/dL 2.5-4.9 [facility] Chloride [Moles/Vol] 103 mmol/L 98-107 [facility] Glucose [Mass/Vol] 243 mg/dL 74-106 [facility] Comment on above: Glucose result great er than or equal to 200 mg/dLsuggests DIABETES MELLITUS per A.D.A. criteria. Potassium [Moles/Vol] 3.7 mmol/L 3.5-5.1 [facility] Sodium [Moles/Vol] 136 mmol/L 136-145 [facility] - Chemistry and C hemistry - challengeOrdered By: Christa Preston on 08-10-2023 CO2 [Moles/Vol] 26.0 mmol/L 21.0-32.0 [facility] Urea nitrogen/Creatinine [Mass ratio] 17.1 mg/mg 10-20 [facility] No Panel InformationOrdered By: Christa Preston on 08-10-2023 Estimated GFR (MDRD) Amer 92 mL/min >60 [facility] Comment on above: GFR Calc Estimated GFR (MDRD) Non-Af Amer 76 mL/min >60 [facility] Comment on above: Non- GFR Calc Serum or plasma calcium moriah urement (mass/volume)Ordered By: Christa Preston on 08-10-2023 Calcium [Mass/Vol] 9.2 mg/dL 8.5-10.1 [facility] Serum or plasma creatinine m easurement (mass/volume)Ordered By: Christa Preston on 08-10-2023 Creatinine [Mass/Vol] 1.05 mg/dL 0.70-1.30 [facility] Comment on above: The validity of the calculated GFR & GFRAA in patients over 70 years has not been determined. Clinical correlation is essential. Serum or plasma urea nitroge n measurement (mass/volume)Ordered By: Christa Preston on 08-10-2023 Urea nitrogen [Mass/Vol] 18 mg/dL 7-18 [facility] Thin prep Papanicolaou smear with manual screeningOrdered By: Christa Preston on 08-10-2023 Thin prep Papanicolaou smear with manual screening 3.7 g/dL 3.2-5.0 [facility] TESTOon 2017 Testosterone Lvl 179.4 ng/dL Low 241.0-827.0 [facility] ([place]) Comment on above: Performed By: #### G NORBERTO ####[place] [address] [place] [address]#### TESTO ####[place] [id number] [place] [address] GLUon 12-26-2017 Glucose mass conc 766 mg/dL Critically abnormal 70-105 [facility] ([place]) Comment on above: Performed By: #### G NORBERTO ####[place] [address]#### TESTO ####[place] [address] [place] [address] .GFRon 10-26-2017 eGFR (non-black) mL/min/{1.73_m2} Normal [facility] ([place]) Comment on above: Result Comment: GFR Population [...] By: #### L IPID, CMP, GFR, A1C ####[address] [place], [place] [address] eGFR (non-black) 81 ml/min/1.73sqm Normal [facility] ([place]) Comment on above: Result Comment: GFR Population [...] By: #### L IPID, CMP, GFR, A1C ####[address] [place], [place] [address] A1Con 10-26-2017 Hemoglobin A1c/Hemoglobin.total mass fraction (Bld) 6.2 % High 4.8-5.9 [facility] ([place]) Comment on above: Performed By: #### L IPID, CMP, GFR, A1C ###[address] [place], [place] [address] CMPon 10-26-2017 Alanine aminotransferase (ALT) 25 U/L Normal 10-35 [facility] ([place]) Comment on above: Performed By: #### L IPID, CMP, GFR, A1C ####[address] [place], [place] [address] Albumin 4.5 G/dL Normal 3.5-5.0 [facility] ([place]) Comment on above: Performed By: #### L IPID, CMP, GFR, A1C ####[address] [place], [place] [address] Albumin/Globulin Ratio 1.3 {ratio} Normal 1.1-2.5 [facility] ([place]) Comment on above: Performed By: #### L IPID, CMP, GFR, A1C ####[address] [place], [place] [address] Alk Phos 91 IU/L Normal 40-135 [facility] ([place]) Comment on above: Performed By: #### L IPID, CMP, GFR, A1C ####[address] [place], [place] [address] Aspartate aminotransferase (AST) 21 U/L Normal 10-40 [facility] ([place]) Comment on above: Performed By: #### L IPID, CMP, GFR, A1C ####[address] [place], [place] [address] Bili Total 0.8 mg/dL Normal 0.2-1.0 [facility] ([place]) Comment on above: Performed By: #### L IPID, CMP, GFR, A1C ####[address] [place], [place] [address] BUN/Creatinine Ratio 11 ratio Normal 7-27 [facility] ([place]) Comment on above: Performed By: #### L IPID, CMP, GFR, A1C ####[address] [place], [place] [address] Calcium 10.0 mg/dL Normal 8.4-10.2 [facility] ([place]) Comment on above: Performed By: #### L IPID, CMP, GFR, A1C ####[address] [place], [place] [address] Chloride 98 mmol/L Normal 98-107 [facility] ([place]) Comment on above: Performed By: #### L IPID, CMP, GFR, A1C ####[address] [place], [place] [address] CO2 31 mmol/L High 22-29 [facility] ([place]) Comment on above: Performed By: #### L IPID, CMP, GFR, A1C ####[address] [place], [place] [address] Creatinine 1.1 mg/dL Normal 0.6-1.2 [facility] ([place]) Comment on above: Performed By: #### L IPID, CMP, GFR, A1C ####[address] [place], [place] [address] Electrolyte Balance 11.0 mEq/L Normal [facility] ([place]) Comment on above: Performed By: #### L IPID, CMP, GFR, A1C ####[address] [place], [place] [address] Globulin 3.4 G/dL Normal [facility] ([place]) Comment on above: Performed By: #### L IPID, CMP, GFR, A1C ####[address] [place], [place] [address] Glucose mass conc 126 mg/dL High 70-105 [facility] ([place]) Comment on above: Performed By: #### L IPID, CMP, GFR, A1C ####[address] [place], [place] [address] Potassium molar conc 3.4 mmol/L Low 3.5-5.1 [facility] ([place]) Comment on above: Performed By: #### L IPID, CMP, GFR, A1C ####[address] [place], [place] [address] Protein 7.9 G/dL Normal 6.0-8.3 [facility] ([place]) Comment on above: Performed By: #### L IPID, CMP, GFR, A1C ####[address] [place], [place] [address] Sodium 140 mmol/L Normal 136-146 [facility] ([place]) Comment on above: Performed By: #### L IPID, CMP, GFR, A1C ####[address] [place], [place] [address] Urea nitrogen 11.8 mg/dL Normal 7.0-18.0 [facility] ([place]) Comment on above: Performed By: #### L IPID, CMP, GFR, A1C ####[address] [place], [place] [address] LIPIDon 10-26-2017 Cholesterol 189 mg/dL Normal 131-200 [facility] ([place]) Comment on above: Result Comment: Chol esterol Reference Interval:Less than 200 [id number] Borderline high argv934 and above High risk Performed By: #### L IPID, CMP, GFR, A1C ####[address] [place], [place] [address] HDL Cholesterol 46 mg/dL Normal 35-90 [facility] ([place]) Comment on above: Result Comment: HDL Reference Interval:Less than 40 Low - high risk60 or above Optimal/lowers risk Performed By: #### L IPID, CMP, GFR, A1C ####[address] [place], [place] [address] LDL Cholesterol 123 mg/dL Normal 0-130 [facility] ([place]) Comment on above: Result Comment: LDL is a calculated result and requires a 12- hr fast.LDL Reference Interval:Less than 100 [id number] Near or above oekjnxn860-173 Borderline high sknc734-568 High yvll255 and above Very high risk Performed By: #### L IPID, CMP, GFR, A1C ####[address] [place], [place] [address] Triglyceride 98 mg/dL Normal 40-150 [facility] ([place]) Comment on above: Result Comment: Trig lyceride Reference Interval:Less than 150 Dnuklo481-012 Borderline high zvtw213-327 High hoof278 or higher Very high risk Performed By: #### L IPID, CMP, GFR, A1C ####[address] [place], [place] [address] Final Surgical Pathology Rep maryanne 07-26-2017 Final Surgical Pathology Report . Pathology ReportsAccession: Collected Date/Time: Received Date/Time: Pathologist:[id number] 07/22/2017 13:43 EST 07/25/2017 13:43 EST DO [...] submitted in 2 cassettes.Dictated by LUNA MANCIA ([facility])MICROSCOPIC DESCRIPTION:Slides reviewed.Electronically Signed byPathology Report verified by [facility] CenterElectronically signed by ASYA Guillen out Date: 07/26/2017 09:53Performing Lab: [facility], [address] [place] [address] [facility] Normal [facility] ([place]) Comment on above: Performed By: #### S PFR ####[facility] [place], [place] [address] Discharge Summaryon 01-24-20 17 Discharge Summary Normal [facility] ([place]) A1C Hgbon 01-20-2017 Hemoglobin A1c/Hemoglobin.total mass fraction (Bld) 14.0 % High 4.0-6.0 [facility] Comment on above: Performed By: #### A CTON ####Te[address] [address] Acetone (s)on 01-19-2017 Acetaminophen mass conc SMALL Abnormal [facility] Comment on above: Order Comment: CBN Performed By: #### A CTON ####[address] [address] Arterial Blood Gason 017 Base excess -7.0 mmol/L Low -2.4-2.3 [facility] Comment on above: Order Comment: CBN Performed By: #### A BG ####[address] [address] Bicarbonate (HCO3) 19.0 mmol/L Low 22.0-26.0 [facility] Comment on above: Order Comment: CBN Performed By: #### A BG ####[address] [address] CO2 33.8 mm Hg Low 35.0-45.0 [facility] Comment on above: Order Comment: CBN Performed By: #### A BG ####[address] [address] CO2 20 mmol/L Normal 19-24 [facility] Comment on above: Order Comment: CBN Performed By: #### A BG ####[address] [address] O2 saturation ROOM AIR Normal [facility] Comment on above: Order Comment: CBN Performed By: #### A BG ####Tez [address] [address] O2 saturation 92 % Low 95-98 [facility] Comment on above: Order Comment: CBN Performed By: #### A BG ####[address] [address] Oxygen in arterial blood 67.0 mm Hg Low 80.0-100.0 [facility] Comment on above: Order Comment: CBN Performed By: #### A BG ####[address] [address] pH of blood 7.36 [pH] Normal 7.35-7.45 [facility] Comment on above: Order Comment: CBN Performed By: #### A BG ####[address] [address] Basic Metabolic Panelon 07-0 BUN/Creatinine Ratio 27.5 mg/mg High 10.0-22.0 [facility] Comment on above: Performed By: #### A BG ####[address] [address] [address] Creatinine 1.09 mg/dL Normal 0.60-1.40 [facility] Comment on above: Performed By: #### A BG ####[address] [address] Calcium 8.4 mg/dL Normal 8.4-10.1 [facility] Comment on above: Performed By: #### A BG ####[address] [address] CO2 23 mmol/L Normal 22-32 [facility] Comment on above: Performed By: #### A BG ####[address] [address] Electrolyte Balance 13.0 mEq/L Normal 4.0-15.0 [facility] Comment on above: Performed By: #### A BG ####[address] [address] Glucose mass conc 369 mg/dL High 70-110 [facility] Comment on above: Performed By: #### A BG ####[address] [address] Urea nitrogen 30.0 mg/dL High 8.0-22.0 [facility] Comment on above: Performed By: #### A BG ####[address] [address] Chloride 98 mmol/L Normal 98-110 [facility] Comment on above: Performed By: #### A BG ####[address] [address] Potassium molar conc 3.5 mmol/L Normal 3.5-5.0 [facility] Comment on above: Result Comment: Spec imen slightly hemolyzed. Results may be falsely elevated. Performed By: #### A BG ####[address] [address] Sodium 134 mmol/L Low 136-145 [facility] Comment on above: Performed By: #### A BG ####[address] [address] BUN/Creatinine Ratio 25.0 mg/mg High 10.0-22.0 [facility] Comment on above: Order Comment: While on insulin infusionCollection has been rescheduled by [email or web address] at 01/19/17 09:01. Reason: shellyadams to cancel 900 bmp, mg, phos Performed By: #### B MP ####[facility] [address] [place] [address] Creatinine 1.12 mg/dL Normal 0.60-1.40 [facility] Comment on above: Order Comment: While on insulin infusionCollection has been rescheduled by [email or web address] at 01/19/17 09:01. Reason: shellyadams to cancel 900 bmp, mg, phos Performed By: #### B MP ####[facility], [address] [place] [address] Glucose mass conc 251 mg/dL High 70-110 [facility] Comment on above: Order Comment: While on insulin infusionCollection has been rescheduled by [email or web address] at 01/19/17 09:01. Reason: shellyadams to cancel 900 bmp, mg, phos Performed By: #### B MP ####[facility], [address] [place] [address] Calcium 8.3 mg/dL Low 8.4-10.1 [facility] Comment on above: Order Comment: While on insulin infusionCollection has been rescheduled by [email or web address] at 01/19/17 09:01. Reason: shellyadams to cancel 900 bmp, mg, phos Performed By: #### B MP ####[facility], [address] [place] [address] CO2 28 mmol/L Normal 22-32 [facility] Comment on above: Order Comment: While on insulin infusionCollection has been rescheduled by [email or web address] at 01/19/17 09:01. Reason: shellyadams to cancel 900 bmp, mg, phos Performed By: #### B MP ####[facility], [address] [place] [address] Electrolyte Balance 8.0 mEq/L Normal 4.0-15.0 [facility] Comment on above: Order Comment: While on insulin infusionCollection has been rescheduled by [email or web address] at 01/19/17 09:01. Reason: shellyadams to cancel 900 bmp, mg, phos Performed By: #### B MP ####[facility], [address] [place], [place] [id number] Urea nitrogen 28.0 mg/dL High 8.0-22.0 [facility] Comment on above: Order Comment: While on insulin infusionCollection has been rescheduled by [email or web address] at 01/19/17 09:01. Reason: shellyadams to cancel 900 bmp, mg, phos Performed By: #### B MP ####[facility], [address] [place] [address] Chloride 99 mmol/L Normal 98-110 [facility] Comment on above: Order Comment: While on insulin infusionCollection has been rescheduled by [email or web address] at 01/19/17 09:01. Reason: shellyadams to cancel 900 bmp, mg, phos Performed By: #### B MP ####[facility], [address] [place], [place] [phone] Potassium molar conc 3.0 mmol/L Low 3.5-5.0 [facility] Comment on above: Order Comment: While on insulin infusionCollection has been rescheduled by [email or web address] at 01/19/17 09:01. Reason: shellyadams to cancel 900 bmp, mg, phos Performed By: #### B MP ####[place] [id number] Sodium 135 mmol/L Low 136-145 [facility] Comment on above: Order Comment: While on insulin infusionCollection has been rescheduled by [email or web address] at 01/19/17 09:01. Reason: shellyadams to cancel 900 bmp, mg, phos Performed By: #### B MP ####[address] [address] Glucose mass conc 447 mg/dL Critically high 70-110 [facility] Comment on above: Performed By: #### B MP ####[place] [id number] BUN/Creatinine Ratio 23.7 mg/mg High 10.0-22.0 [facility] Comment on above: Performed By: #### B MP ####[place] [id number] Creatinine 1.35 mg/dL Normal 0.60-1.40 [facility] Comment on above: Performed By: #### B MP ####[place] [id number] CO2 24 mmol/L Normal 22-32 [facility] Comment on above: Performed By: #### B MP ####[facility], [address] [place] [address] Electrolyte Balance 13.0 mEq/L Normal 4.0-15.0 [facility] Comment on above: Performed By: #### B MP ####[facility], [address] [place] [address] Calcium 8.5 mg/dL Normal 8.4-10.1 [facility] Comment on above: Performed By: #### B MP ####[facility], [address] [place] [address] Urea nitrogen 32.0 mg/dL High 8.0-22.0 [facility] Comment on above: Performed By: #### B MP ####[facility], [address] [place] [address] Chloride 96 mmol/L Low 98-110 [facility] Comment on above: Performed By: #### B MP ####[facility], [address] [place] [address] Potassium molar conc 3.3 mmol/L Low 3.5-5.0 [facility] Comment on above: Performed By: #### B MP ####[facility], [address] [place] [address] Sodium 133 mmol/L Low 136-145 [facility] Comment on above: Performed By: #### B MP ####[facility], [address] [place] [address] Glucose mass conc 673 mg/dL Critically high 70-105 [facility] Comment on above: Order Comment: CBN Performed By: #### B MP ####Tez [address] [address] BUN/Creatinine Ratio 19 mg/mg Normal 7-27 [facility] Comment on above: Order Comment: CBN Performed By: #### B MP ####[place] [address] [place] [address] Creatinine 1.8 mg/dL High 0.6-1.2 [facility] Comment on above: Order Comment: CBN Performed By: #### B MP ####[address] [address] CO2 19 mmol/L Low 22-29 [facility] Comment on above: Order Comment: CBN Performed By: #### B MP ####[address] [address] Electrolyte Balance 21.0 mEq/L Normal [facility] Comment on above: Order Comment: CBN Performed By: #### B MP ####[address] [address] Calcium 8.9 mg/dL Normal 8.4-10.2 [facility] Comment on above: Order Comment: CBN Performed By: #### B MP ####[address] [address] Urea nitrogen 34 mg/dL High 7-18 [facility] Comment on above: Order Comment: CBN Performed By: #### B MP ####[address] [address] Chloride 89 mmol/L Low 98-107 [facility] Comment on above: Order Comment: CBN Performed By: #### B MP ####[address] [address] Potassium molar conc 3.7 mmol/L Normal 3.5-5.1 [facility] Comment on above: Order Comment: CBN Performed By: #### B MP ####[address] [address] Sodium 129 mmol/L Low 136-146 [facility] Comment on above: Order Comment: CBN Performed By: #### B MP ####[address] [address] CBCon 01-19-2017 Basophils/100 WBC Auto (Bld) 0.8 % Normal 0.0-2.5 [facility] Comment on above: Performed By: #### C BC ####[facility], [address] [place] [address] Eosinophils/100 leukocytes 1.2 % Normal 0.0-6.0 [facility] Comment on above: Performed By: #### C BC ####[facility], [address] [place] [address] Erythrocyte distribution width Auto Ratio (RBC) 13.5 % Normal 11.5-15.5 [facility] Comment on above: Performed By: #### C BC ####[facility], [address] [place] [address] Erythrocytes (RBC) 4.77 10 6/mcL Normal 4.50-6.00 [facility] Comment on above: Performed By: #### C BC ####[facility], [address] [place] [address] Hematocrit (HCT) 42.2 % Normal 40.0-52.0 [facility] Comment on above: Performed By: #### C BC ####[facility], [address] [place] [address] Hemoglobin mass conc (Bld) 14.5 G/dL Normal 13.0-17.5 [facility] Comment on above: Performed By: #### C BC ####[facility], [address] [place] [address] Lymphocytes/100 leukocytes 26.5 % Normal 20.0-40.0 [facility] Comment on above: Performed By: #### C BC ####[address] [address] MCH 30.3 pg Normal 27.0-33.0 [facility] Comment on above: Performed By: #### C BC ####[facility], [address] [place] [address] MCHC mass conc (RBC) 34.3 G/dL Normal 32.0-36.0 [facility] Comment on above: Performed By: #### C BC ####[address] [address] MCV 88.5 fL Normal 81.0-100.0 [facility] Comment on above: Performed By: #### C BC ####[facility], [address] [place] [address] Monocytes/100 leukocytes 5.7 % Normal 2.0-13.0 [facility] Comment on above: Performed By: #### C BC ####[facility], [address] [place] [address] Neutrophils 6.80 10 3/mcL Normal 2.00-8.00 [facility] Comment on above: Performed By: #### C BC ####[facility], [address] [place] [address] Neutrophils/100 WBC Auto (Bld) 65.8 % Normal 50.0-75.0 [facility] Comment on above: Performed By: #### C BC ####[facility], [address] [place] [address] Platelet mean volume (PMV) 10.6 fL High 6.4-10.5 [facility] Comment on above: Performed By: #### C BC ####[facility], [address] [place] [address] Platelets 212 10 3/mcL Normal 150-450 [facility] Comment on above: Performed By: #### C BC ####[facility], [address] [place] [address] WBC (Leukocytes) 10.30 10 3/mcL Normal 4.50-10.80 [facility] Comment on above: Performed By: #### C BC ####[address] [address] CBC (AO)on 01-19-2017 Basophils Auto #/vol (Bld) 0.10 10 3/mcL Normal 0.00-0.19 [facility] Comment on above: Order Comment: CBN Performed By: #### C BCO ####Tez [facility] [address] [place] [address] Basophils/100 WBC Auto (Bld) 0.8 % Normal 0.0-2.5 [facility] Comment on above: Order Comment: CBN Performed By: #### C BCO ####[address] [address] Eosinophils 0.20 10 3/mcL Normal 0.00-0.40 [facility] Comment on above: Order Comment: CBN Performed By: #### C BCO ####[address] [address] Eosinophils/100 leukocytes 1.5 % Normal 0.0-7.0 [facility] Comment on above: Order Comment: CBN Performed By: #### C BCO ####[address] [address] Erythrocyte distribution width Auto Ratio (RBC) 13.4 % Normal 11.5-14.5 [facility] Comment on above: Order Comment: CBN Performed By: #### C BCO ####[address] [address] Erythrocytes (RBC) 5.05 10 6/mcL Normal 4.04-6.13 [facility] Comment on above: Order Comment: CBN Performed By: #### C BCO ####[address] [address] Hematocrit (HCT) 44.7 % Normal 42.0-52.0 [facility] Comment on above: Order Comment: CBN Performed By: #### C BCO ####[address] [address] Hemoglobin mass conc (Bld) 15.1 G/dL Normal 14.0-18.0 [facility] Comment on above: Order Comment: CBN Performed By: #### C BCO ####[address] [address] Lymphocytes 2.30 10 3/mcL Normal 0.77-3.85 [facility] Comment on above: Order Comment: CBN Performed By: #### C BCO ####[address] [address] Lymphocytes/100 leukocytes 21.2 % Normal 10.0-50.0 [facility] Comment on above: Order Comment: CBN Performed By: #### C BCO ####[address] [address] MCH 29.8 pg Normal 27.0-31.2 [facility] Comment on above: Order Comment: CBN Performed By: #### C BCO ####[address] [address] MCHC mass conc (RBC) 33.7 G/dL Normal 31.8-35.4 [facility] Comment on above: Order Comment: CBN Performed By: #### C BCO ####[address] [address] MCV 88.5 fL Normal 80.0-94.0 [facility] Comment on above: Order Comment: CBN Performed By: #### C BCO ####[address] [address] Monocytes 0.70 10 3/mcL Normal 0.15-1.00 [facility] Comment on above: Order Comment: CBN Performed By: #### C BCO ####[address] [address] Monocytes/100 leukocytes 6.7 % Normal 1.7-13.0 [facility] Comment on above: Order Comment: CBN Performed By: #### C BCO ####[address] [address] Neutrophils 7.40 10 3/mcL High 2.85-6.16 [facility] Comment on above: Order Comment: CBN Performed By: #### C BCO ####[address] [address] Neutrophils/100 WBC Auto (Bld) 69.8 % Normal 37.0-80.0 [facility] Comment on above: Order Comment: CBN Performed By: #### C BCO ####[address] [address] Platelet mean volume (PMV) 11.2 fL High 7.4-10.4 [facility] Comment on above: Order Comment: CBN Performed By: #### C BCO ####Tez [address] [address] Platelets 228 10 3/mcL Normal 130-400 [facility] Comment on above: Order Comment: CBN Performed By: #### C BCO ####Tez [address] [address] WBC (Leukocytes) 10.60 10 3/mcL Normal 4.60-10.80 [facility] Comment on above: Order Comment: CBN Performed By: #### C BCO ####[address] [address] Consultation Noteon 01-20-20 17 Consultation Note Normal [facility] Critical Care History and Ph ysicalon 01-19-2017 Critical Care History and Physical Normal [facility] Culture Urineon 01-19-2017 Culture Urine CBNCBNMRN#: [id number] Name: TOBY GARCIA Delio Arellano: 1960 Sex: MOrd# Loc [facility] Site [id number] MICU UR Clean Void 01/19/17NTIBIOTICS AT COL.: See [place] [facility] [address] [place] [address] -------- Song Kaur M E N T S CBN CBNCulture Urine FINAL6,000 mixed organisms per mLSensitivity Testing: Not IndicatedComment: Probable contamination. Repeat culturesuggested.RAHMAN FOR RESULTS: - NEW RESULTATT.PHYS.: ITALO BERG LOCATION: [address]DATE: 01/19/17 PATIENT : TOBY GARCIA LMICROBIOLOGYPRINTED: 01/20/17 12:53 REGULAR 4 PAGE: 4 of 3 3 [facility] Comment on above: Performed By: #### A CTON ####[address] [address] Depart Summaryon 01-19-2017 Depart Summary [facility] Endocrinology Consultationon 01-19-2017 Endocrinology Consultation Normal [facility] Endocrinology Consultation [facility] Glomerular Filtration Rate E stimateon 01-19-2017 eGFR (non-black) mL/min/{1.73_m2} [facility] Comment on above: Performed By: #### A BG ####[address] [address] Result Comment: [facility] mean GFR = 93 mL/min/1.73 sq.m. for ages 50-59 years. Chronic Kidney Disease: Less than 60 mL/min/1.73 square metersEnd Stage Renal Disease: Less than 15 mL/min/1.73 square meters eGFR (non-black) mL/min/{1.73_m2} Normal [facility] Comment on above: Order Comment: CBN Result Comment: [facility] mean GFR = 93 mL/min/1.73 sq.m. for ages 50-59 years. Chronic Kidney Disease: Less than 60 mL/min/1.73 square metersEnd Stage Renal Disease: Less than 15 mL/min/1.73 square meters Performed By: #### A BG ####[address] [address] eGFR (non-black) 55 mL/min/1.73m 2 Normal [facility] Comment on above: Performed By: #### G FR ####[address] [address] eGFR (non-black) mL/min/{1.73_m2} Normal [facility] Comment on above: Result Comment: [facility] mean GFR = 93 mL/min/1.73 sq.m. for ages 50-59 years. Chronic Kidney Disease: Less than 60 mL/min/1.73 square metersEnd Stage Renal Disease: Less than 15 mL/min/1.73 square meters Performed By: #### G FR ####[facility], [facility] [address] [place] [address] eGFR (non-black) 47 mL/min/1.73m 2 Normal [facility] Comment on above: Order Comment: CBN Result Comment: [facility] mean GFR = 93 mL/min/1.73 sq.m. for ages 50-59 years. Chronic Kidney Disease: Less than 60 mL/min/1.73 square metersEnd Stage Renal Disease: Less than 15 mL/min/1.73 square meters Performed By: #### G FR ####[address] [address] eGFR (non-black) 39 mL/min/1.73m 2 Normal [facility] Comment on above: Order Comment: CBN Performed By: #### G FR ####[address] [address] History and Physical (Blank) on 01-19-2017 History and Physical (Blank) Normal [facility] ([place]) Inpatient Patient Summaryon 01-19-2017 Inpatient Patient Summary Normal [facility] MRSA PCRon 01-19-2017 MRSA PCR CBNCBNMRN#: [id number] Name: TOBY GARCIA D.o.b.: 1960 Sex: MOrd# Loc [facility] Site [id number] MICU NARES Nose 01/19/17NTIBIOTICS AT COL.: See ELEUTERIO Briggs[address] [address] -------- Song O M M E N [...] be reproducible.RAHMAN FOR RESULTS: - NEW RESULTATT.PHYS.: JACKIE BERGESTER LOCATION: [address]DATE: 01/19/17 PATIENT : TOBY GARCIA LMICROBIOLOGYPRINTED: 01/19/17 12:03 REGULAR 2 PAGE: 2 of 1 1 Normal [facility] Comment on above: Performed By: #### A BG ####Tez [address] [address] Magnesiumon 01-19-2017 Magnesium 2.6 mg/dL High 1.6-2.4 [facility] Comment on above: Order Comment: While on insulin infusionCollection has been rescheduled by [email or web address] at 01/19/17 09:01. Reason: shellyadams to cancel 900 bmp, mg, phos Performed By: #### M G ####[address] [address] Magnesium 2.6 mg/dL High 1.6-2.4 [facility] Comment on above: Performed By: #### M G ####[place] [id number] [place], [place] [id number] [facility] Admi t Noteon 01-19-2017 [facility] Admit Note Normal [facility] Phosphoruson 01-19-2017 Phosphate 3.0 mg/dL Normal 2.5-4.5 [facility] Comment on above: Performed By: #### A BG ####[place] [address] [place] [address] Phosphate 2.4 mg/dL Low 2.5-4.5 [facility] Comment on above: Order Comment: While on insulin infusionCollection has been rescheduled by [email or web address] at 01/19/17 09:01. Reason: shellyadams to cancel 900 bmp, mg, phos Performed By: #### P HOS ####[address] [address] Phosphate 2.5 mg/dL Normal 2.5-4.5 [facility] Comment on above: Performed By: #### P HOS ####[address] [address] Troponin Ion 01-19-2017 Troponin I.cardiac mass conc 0.016 ng/mL Normal 0.000-0.040 [facility] Comment on above: Order Comment: CBN Result Comment: Trop onin I reference ranges (03/25/14): 0.00-0.040 ng/mL Negative and non-diagnostic. >0.040 ng/mL Consistent with cardiac damage, increased clinical risk and possibility of myocardial infarction. Serial measurements, a rise & fall in test results, clinical history, appropriate symptoms and/or ECG changes may help assess possibility of CO. *Other non-acute coronary syndrome conditions such as CHF, myocarditis, pulmonary emboli, sepsis and cardiac surgery could result in myocardial damage and increased troponin levels. NOTE: This is a new and more precise Troponin assay started 03-25-14 Performed By: #### A BG ####[address] [address] Troponin I.cardiac mass conc ng/mL Normal 0.000-0.040 [facility] Comment on above: Result Comment: Trop onin I reference ranges (03/25/14): 0.00-0.040 ng/mL Negative and non-diagnostic. >0.040 ng/mL Consistent with cardiac damage, increased clinical risk and possibility of myocardial infarction. Serial measurements, a rise & fall in test results, clinical history, appropriate symptoms and/or ECG changes may help assess possibility of CO. *Other non-acute coronary syndrome conditions such as CHF, myocarditis, pulmonary emboli, sepsis and cardiac surgery could result in myocardial damage and increased troponin levels. NOTE: This is a new and more precise Troponin assay started 03-25-14 Performed By: #### T YECENIA ####[facility], [facility] [address] [place] [address] Troponin I.cardiac mass conc ng/mL Normal 0.00-0.30 [facility] Comment on above: Order Comment: CBN Result Comment: >=0. 30 Consistent with cardiac damage, increased clinicalrisk and possibility of myocardial infarction. Serialmeasurements, clinical history, appropriate symptomsand/or ECG changes may help assess possibility of CO.*Other non-acute coronary syndrome conditions such as CHF,myocarditis, pulmonary emboli, sepsis and cardiac surgerycould result in myocardial damage and increased troponinlevels. Performed By: #### T ROP ####[place] [address] [place] [address] Urinalysison 01-19-2017 Urine, color STRAW Normal [facility] Comment on above: Order Comment: CBN Performed By: #### U A ####[address] [address] Bilirubin (total) Negative Normal NEG - TRACE [facility] Comment on above: Order Comment: CBN Performed By: #### U A ####[place] [id number] [place] [address] Glucose mass conc mg/dL Abnormal NEGATIVE [facility] Comment on above: Order Comment: CBN Performed By: #### U A ####[address] [address] Hemoglobin mass conc (Bld) Negative Normal NEG - TRACE [facility] Comment on above: Order Comment: CBN Performed By: #### U A ####[facility], [address] [place] [address] pH of blood 5.0 [pH] Normal 5.0 - 8.0 [facility] Comment on above: Order Comment: CBN Performed By: #### U A ####[facility], [address] [place] [address] Protein Negative Normal NEG - TRACE [facility] Comment on above: Order Comment: CBN Performed By: #### U A ####[facility], [address] [place] [address] Urine, appearance CLEAR Normal CLEAR [facility] Comment on above: Order Comment: CBN Performed By: #### U A ####[facility], [address] [place] [address] Urine, ketones presence 40 mg/dL Abnormal NEG - TRACE [facility] Comment on above: Order Comment: CBN Performed By: #### U A ####[facility], [address] [place] [address] Urine, nitrite presence Negative Normal NEGATIVE [facility] Comment on above: Order Comment: CBN Performed By: #### U A ####[facility], [address] [place] [address] Urine, specific gravity >=1.030 Abnormal 1.006-1.029 [facility] Comment on above: Order Comment: CBN Performed By: #### U A ####[facility], [address] [place] [address] Urine, urobilinogen 0.2 {Santiago'U}/dL Normal 0.2 - 1. 0 [facility] Comment on above: Order Comment: CBN Performed By: #### U A ####[facility], [address] [place] [address] WBC (Leukocytes) Negative Normal NEGATIVE [facility] Comment on above: Order Comment: CBN Performed By: #### U A ####[facility], [address] [place] [address] Specimen type (u) VOID Normal [facility] Comment on above: Order Comment: CBN Performed By: #### U A ####[facility], [address] [place] [address] XR CHEST 1 VIEWon 01-19-2017 XR CHEST [...] of acute chest abnormality. Interpreted By: Paulie Gutierres MDPreliminary Report By: Paulie Gutierres MDElectronically Signed By: Paulie Gutierres MD Dictated Date: 01/19/2017 1:32:02 AM Prelim Date: 01/19/2017 1:32:02 AM Sign Date: 01/19/2017 1:33:06 AM Normal [facility] pH (venous)on 01-19-2017 pH of blood 7.347 [pH] Low 7.380-7.460 [facility] Comment on above: Performed By: #### P HV ####[facility], [address] [place] [address] Vital Signs Date Time Vital Sign Value Performing Clinician Riai pham 05-21-2025 10:04-0500 Diastolic blood pressure 86 mm[Hg] Dr. Leydi Chun MD Work Phone: [facility] 05-21-2025 10:04-0500 Systolic blood pressure 132 mm[Hg] Dr. Leydi Chun MD Work Phone: [facility] 05-21-2025 07:28-0500 Body mass index (BMI) [Ratio] 46.9 kg/m2 Dr. Leydi Chun MD Work Phone: [facility] 05-21-2025 07:28-0500 Body weight 156.[address] Leydi Chun MD Work Phone: [facility] 05-21-2025 07:28-0500 Heart rate 69 /min Dr. Leydi Chun MD Work Phone: [facility] 05-21-2025 07:28-0500 Respiratory rate 18 /min Dr. Leydi Chun MD Work Phone: [facility] 05-21-2025 07:28-0500 SaO2% (BldA) [Mass fraction] 98 % Dr. Leydi Chun MD Work Phone: [facility] 05-06-2025 08:15-0400 Body temperature 97.7 [degF] Dr. Leydi Chun MD Work Phone: [facility] 05-06-2025 08:15-0400 Diastolic blood pressure 83 mm[Hg] Dr. Leydi Chun MD Work Phone: [facility] 05-06-2025 08:15-0400 Heart rate 68 /min Dr. Leydi Chun MD Work Phone: [facility] 05-06-2025 08:15-0400 Respiratory rate 18 /min Dr. Leydi Chun MD Work Phone: [facility] 05-06-2025 08:15-0400 SaO2% (BldA) [Mass fraction] 95 % Dr. Leydi Chun MD Work Phone: [facility] 05-06-2025 08:15-0400 Systolic blood pressure 130 mm[Hg] Dr. Leydi Chun MD Work Phone: [facility] 05-06-2025 06:41-0400 Body height 182.[address] Leydi Chun MD Work Phone: [facility] 05-06-2025 06:41-0400 Body mass index (BMI) [Ratio] 46.6 kg/m2 Dr. Leydi Chun MD Work Phone: [facility] 05-06-2025 06:41-0400 Body weight [address] Leydi Chun MD Work Phone: [facility] 03-06-2025 11:00-0400 Body height 182.[address] Leydi Chun MD Work Phone: [facility] 03-06-2025 11:00-0400 Body weight 153.[address] Leydi Chun MD Work Phone: [facility] 03-05-2025 08:24-0400 Body mass index (BMI) [Ratio] 45.9 kg/m2 Dr. Leydi Chun MD Work Phone: [facility] 02-19-2025 08:44-0400 Body mass index (BMI) [Ratio] 47.2 kg/m2 Dr. Leydi Chun MD Work Phone: [facility] 02-19-2025 08:44-0400 Body weight 157.[address] Leydi Chun MD Work Phone: [facility] 02-19-2025 08:44-0400 Diastolic blood pressure 96 mm[Hg] Dr. Leydi Chun MD Work Phone: [facility] 02-19-2025 08:44-0400 Heart rate 90 /min Dr. Leydi Chun MD Work Phone: [facility] 02-19-2025 08:44-0400 Respiratory rate 22 /min Dr. Leydi Chun MD Work Phone: [facility] 02-19-2025 08:44-0400 SaO2% (BldA) [Mass fraction] 96 % Dr. Leydi Chun MD Work Phone: [facility] 02-19-2025 08:44-0400 Systolic blood pressure 182 mm[Hg] Dr. Leydi Chun MD Work Phone: [facility] 02-04-2025 14:39-0400 Body height 182.[address] Leydi Chun MD Work Phone: [facility] 02-04-2025 14:39-0400 Body mass index (BMI) [Ratio] 46.9 kg/m2 Dr. Leydi Chun MD Work Phone: [facility] 02-04-2025 14:39-0400 Body weight 156.[address] Leydi Chun MD Work Phone: [facility] 02-04-2025 14:39-0400 Diastolic blood pressure 85 mm[Hg] Dr. Leydi Chun MD Work Phone: [facility] 02-04-2025 14:39-0400 Heart rate 93 /min Dr. Leydi Chun MD Work Phone: [facility] 02-04-2025 14:39-0400 Respiratory rate 17 /min Dr. Leydi Chun MD Work Phone: [facility] 02-04-2025 14:39-0400 SaO2% (BldA) [Mass fraction] 97 % Dr. Leydi Chun MD Work Phone: [facility] 02-04-2025 14:39-0400 Systolic blood pressure 136 mm[Hg] Dr. Leydi Chun MD Work Phone: [facility] 01-08-2025 11:55-0400 Body height 182.[address] Leydi Chun MD Work Phone: [facility] 01-08-2025 11:55-0400 Body mass index (BMI) [Ratio] 45.9 kg/m2 Dr. Leydi Chun MD Work Phone: [facility] 01-08-2025 11:55-0400 Body weight 153.[address] Leydi Chun MD Work Phone: [facility] 01-08-2025 11:55-0400 Diastolic blood pressure 82 mm[Hg] Dr. Leydi Chun MD Work Phone: [facility] 01-08-2025 11:55-0400 Heart rate 107 /min Dr. Leydi Chun MD Work Phone: [facility] 01-08-2025 11:55-0400 Respiratory rate 16 /min Dr. Leydi Chun MD Work Phone: [facility] 01-08-2025 11:55-0400 Systolic blood pressure 141 mm[Hg] Dr. Leydi Chun MD Work Phone: [facility] 01-04-2025 21:57-0400 Body temperature 98.1 [degF] Dr. Leydi Chun MD Work Phone: [facility] 01-04-2025 21:57-0400 Diastolic blood pressure 80 mm[Hg] Dr. Leydi Chun MD Work Phone: [facility] 01-04-2025 21:57-0400 Heart rate 95 /min Dr. Leydi Chun MD Work Phone: [facility] 01-04-2025 21:57-0400 Respiratory rate 20 /min Dr. Leydi Chun MD Work Phone: [facility] 01-04-2025 21:57-0400 SaO2% (BldA) [Mass fraction] 96 % Dr. Leydi Chun MD Work Phone: [facility] 01-04-2025 21:57-0400 Systolic blood pressure 149 mm[Hg] Dr. Leydi Chun MD Work Phone: [facility] 01-04-2025 21:00-0400 Inhaled oxygen flow rate 2 L/min Dr. Leydi Chun MD Work Phone: [facility] 01-04-2025 19:58-0400 Body mass index (BMI) [Ratio] 46.5 kg/m2 Dr. Leydi Chun MD Work Phone: [facility] 01-04-2025 19:58-0400 Body weight 155.[address] Leydi Chun MD Work Phone: [facility] 01-04-2025 16:56-0400 Body height 182.[address] Leydi Chun MD Work Phone: [facility] Encounters Encounter Date Encounter Type Care Provider Facility Start: 05-21-2025 End: 05-21-2025 ambulatory [facility] Start: 05-06-2025 ambulatory [facility] :[facility] Start: 05-06-2025 Non-patient / Non-visit Dr. Michael Rothman MD -[facility] Start: 05-06-2025 End: 05-06-2025 Admission to same day surgery center Dr. Ivon Rothman MD -Endoscopy Work Phone: Start: 05-06-2025 End: 05-06-[address] Leydi Chun MD Work Phone: -Endoscopy Start: 03-13-2025 End: 03-13-2025 Patient encounter procedure Rafia Vidal NP-Song -[facility] Work Phone: Start: 03-13-2025 End: 03-13-[address] Leydi Chun MD Work Phone: -[facility] Start: 03-06-2025 ambulatory [facility] :[facility] Start: 03-06-2025 Non-patient / Non-visit Dr. Sam mcintyre DO -[facility] [place] Start: 03-06-2025 End: 03-06-2025 Admission to same day surgery center Dr. Víctor Correia MD -Systems Test Engineer/Special Procedures Work Phone: Start: 03-06-2025 End: 03-06-[address] Leydi Chun MD Work Phone: -Systems Test Engineer/Special Procedures Start: 02-19-2025 End: 02-19-2025 Patient encounter procedure Rafia Vidal NP-Song -[facility] Work Phone: Start: 02-19-2025 End: 02-19-[address] Leydi Chun MD Work Phone: -[facility] Start: 02-04-2025 End: 02-04-[address] Ivon Rothman MD -[facility] Work Phone: Start: 02-04-2025 End: 02-04-[address] Leydi Chun MD Work Phone: -[facility] Start: 02-01-2025 ambulatory Leydi Chun Facility :[facility] Start: 02-01-2025 Non-patient / Non-visit [facility]. [place]e [place] [facility] Start: 02-01-2025 End: 02-01-[address] Leydi Chun MD Work Phone: -Cardiovascular Services Start: 02-01-2025 End: 02-01-2025 Patient encounter procedure Jillian MANCIA -Cardiovascular Services Work Phone: Start: 01-31-2025 End: 02-01-2025 ambulatory [facility] Facility:[facility] Start: 01-31-2025 Non-patient / Non-visit Dr. Renee [place] [facility] Start: 01-08-2025 End: 01-08-2025 Patient encounter procedure Jillian MANCIA -[facility] Work Phone: Start: 01-08-2025 End: 01-08-[address] Leydi Chun MD Work Phone: [facility] Work Phone: Start: 01-04-2025 End: 01-04-2025 Emergency department patient visit Dr. Leydi Chun MD Work Phone: -Emergency Department Work Phone: Start: 07-26-2024 End: 07-26-2024 ambulatory Leydi Sheriffner Facility:[facility] Start: 07-26-2024 End: 07-26-2024 ambulatory Leydi [facility] Facility:[facility] Start: 08-10-2023 End: 08-10-2023 ambulatory [facility] Work Phone: Start: 08-10-2023 End: 08-10-2023 Patient encounter procedure [facility]-Laboratory, Phy Office 3rd Flr Start: 12-26-2017 End: 12-31-2017 Ambulatory JAMIE SNYDER [facility] Start: 10-26-2017 End: 10-27-2017 Ambulatory JAMIE SNYDER [facility] Start: 07-22-2017 End: 07-27-2017 Ambulatory ASHVIN IVEY Facility:[facility] Start: 03-17-2017 Ambulatory NICK TOMLIN Facility:[facility] Start: 03-09-2017 End: 03-10-2017 Ambulatory [facility] Start: 01-19-2017 End: 01-19-2017 Evaluation and management of inpatient MTS [facility] Facility:[facility] Start: 01-19-2017 End: 01-19-2017 Emergency department patient visit ILANA DAO Facility:[facility] Procedures Date Procedure Procedure Detail Performing Clinician Start: 02-01-2025 Cardiovascular stres s test using pharmacologic stress agent Dr. Leydi Chun MD Work Phone: Start: 01-04-2025 Plain chest X-ray Dr. Delio Chun MD Work Phone: H/O: surgery History of neck surgery Comment on above: 2000 History of operative procedure on knee History of left knee surgery Comment on above: 1994 Plan of Treatment Date Care Activity Detail Author Start: 05-21-2025 Us retroperitoneal real time w/image complete Kidney and Bladder [facility] Start: 05-21-2025 End: 05-21-2025 Evaluation of diagnostic study results [facility] Start: 05-21-2025 End: 05-21-2025 Patient encounter procedure -[facility] Work Phone: Start: 05-06-2025 Colsc flx w/rmvl of tumor polyp lesion snare tq COLONOSCOPY W/LESION REMOVAL [facility] Start: 05-06-2025 Patient discharge [facility] Start: 03-13-2025 End: 03-13-2025 Evaluation of diagnostic study results [facility] Start: 03-06-2025 Cardioversion [facility] Start: 03-06-2025 Patient discharge [facility] Start: 02-19-2025 End: 02-19-2025 Evaluation of diagnostic study results [facility] Start: 02-01-2025 Echo tthrc r-t 2d w/wom-mode compl spec&colr d TTE W/DOPPLER COMPLETE [facility] Start: 01-08-2025 Evaluation of diagnostic study results [facility] Basic metabolic 2008 panel with ionized calcium - Serum or Plasma [facility] Cardioversion [facility] [place] Heart Views W str ess and W radionuclide IV [facility] Patient Education AFib Dc [facility] Work Phone: Patient referral [facility] Work Phone: [place] [facility] Immunizations Immunization Date Immunization Notes Care Provider Fa cility 11-06-2020 Covid (Moderna) [facility] Payers Date Payer Category Payer Self-pay [id number] 2024 Medicaid [id number] 2016 Unknown [id number] 2006 Unknown [facility] [id number] Unknown [facility] D *DO NOT USE* [id number] Unknown [id number] Unknown [id number] [id number] Unknown [id number] [id number] Unknown [id number] [id number] Unknown [id number] [id number] Unknown [id number] [id number] Unknown [id number] [id number] Unknown [id number] [id number] Unknown [id number] [id number] Unknown [id number] [id number] Unknown [id number] [id number] Unknown [id number] [id number] Unknown [id number] [id number] Unknown [id number] [id number] Unknown [id number] [id number] Unknown [id number] [id number] Unknown [id number] Social History Date Type Detail Facility Start: 10-31-2022 Tobacco smoking status MAIS Unknown if ever smoked [facility] Start: 07-15-[address] [facility] Start: 07-15-2017 Spouse/ Signif icant Other [facility] Start: 04-21-[address] [facility] Start: 1960 Sex Assigned At Male [facility] Start: 01-04-2025 End: 05-06-2025 Tobacco smoking status NHIS Ex-smoker (finding) [facility] Sex Male [facility] Medical Equipment Procedure Code Equipment Code Equipment Origin al Text Equipment Identifier Dates Safety [place] ( Bd Safetyglide Needle) 18 gauge x 1 1/2" needle Start: 07-07-2020 End: 07-07-2020 Safety [place] ( Bd Safetyglide Needle) 18 gauge x 1 1/2" needle Start: 07-07-2020 End: 07-07-2020 Safety [place] ( Bd Safetyglide Needle) 18 gauge x 1 1/2" needle Start: 07-07-2020 End: 07-14-2020 Syringe With Nee dle, Safety (Bd Eclipse Luer-Tasia) 3 mL 22 gauge x 1 1/2" syringe Start: 07-07-2020 End: 07-07-2020 Syringe With Nee dle, Safety (Bd Eclipse Luer-Tasia) 3 mL 22 gauge x 1 1/2" syringe Start: 07-07-2020 End: 07-07-2020 Syringe With Nee dle, Safety (Bd Eclipse Luer-Tasia) 3 mL 22 gauge x 1 1/2" syringe Start: 07-07-2020 End: 07-14-2020 Safety [place] ( Bd Safetyglide Needle) 18 gauge x 1 1/2" needle Start: 07-07-2020 End: 07-07-2020 Safety [place] ( Bd Safetyglide Needle) 18 gauge x 1 1/2" needle Start: 07-07-2020 End: 07-07-2020 Safety [place] ( Bd Safetyglide Needle) 18 gauge x 1 1/2" needle Start: 07-07-2020 End: 07-14-2020 Syringe With Nee dle, Safety (Bd Eclipse Luer-Tasia) 3 mL 22 gauge x 1 1/2" syringe Start: 07-07-2020 End: 07-07-2020 Syringe With Nee dle, Safety (Bd Eclipse Luer-Tasia) 3 mL 22 gauge x 1 1/2" syringe Start: 07-07-2020 End: 07-07-2020 Syringe With Nee dle, Safety (Bd Eclipse Luer-Tasia) 3 mL 22 gauge x 1 1/2" syringe Start: 07-07-2020 End: 07-14-2020 Safety [place] ( Bd Safetyglide Needle) 18 gauge x 1 1/2" needle Start: 07-07-2020 End: 07-07-2020 Safety [place] ( Bd Safetyglide Needle) 18 gauge x 1 1/2" needle Start: 07-07-2020 End: 07-07-2020 Safety [place] ( Bd Safetyglide Needle) 18 gauge x 1 1/2" needle Start: 07-07-2020 End: 07-14-2020 Syringe With Nee dle, Safety (Bd Eclipse Luer-Tasia) 3 mL 22 gauge x 1 1/2" syringe Start: 07-07-2020 End: 07-07-2020 Syringe With Nee dle, Safety (Bd Eclipse Luer-Tasia) 3 mL 22 gauge x 1 1/2" syringe Start: 07-07-2020 End: 07-07-2020 Syringe With Nee dle, Safety (Bd Eclipse Luer-Tasia) 3 mL 22 gauge x 1 1/2" syringe Start: 07-07-2020 End: 07-14-2020 Safety [place] ( Bd Safetyglide Needle) 18 gauge x 1 1/2" needle Start: 07-07-2020 End: 07-07-2020 Safety [place] ( Bd Safetyglide Needle) 18 gauge x 1 1/2" needle Start: 07-07-2020 End: 07-07-2020 Safety [place] ( Bd Safetyglide Needle) 18 gauge x 1 1/2" needle Start: 07-07-2020 End: 07-14-2020 Syringe With Nee dle, Safety (Bd Eclipse Luer-Tasia) 3 mL 22 gauge x 1 1/2" syringe Start: 07-07-2020 End: 07-07-2020 Syringe With Nee dle, Safety (Bd Eclipse Luer-Tasia) 3 mL 22 gauge x 1 1/2" syringe Start: 07-07-2020 End: 07-07-2020 Syringe With Nee dle, Safety (Bd Eclipse Luer-Tasia) 3 mL 22 gauge x 1 1/2" syringe Start: 07-07-2020 End: 07-14-2020 Safety [place] ( Bd Safetyglide Needle) 18 gauge x 1 1/2" needle Start: 07-07-2020 End: 07-07-2020 Safety [place] ( Bd Safetyglide Needle) 18 gauge x 1 1/2" needle Start: 07-07-2020 End: 07-07-2020 Safety [place] ( Bd Safetyglide Needle) 18 gauge x 1 1/2" needle Start: 07-07-2020 End: 07-14-2020 Syringe With Nee dle, Safety (Bd Eclipse Luer-Tasia) 3 mL 22 gauge x 1 1/2" syringe Start: 07-07-2020 End: 07-07-2020 Syringe With Nee dle, Safety (Bd Eclipse Luer-Tasia) 3 mL 22 gauge x 1 1/2" syringe Start: 07-07-2020 End: 07-07-2020 Syringe With Nee dle, Safety (Bd Eclipse Luer-Tasia) 3 mL 22 gauge x 1 1/2" syringe Start: 07-07-2020 End: 07-14-2020 Safety [place] ( Bd Safetyglide Needle) 18 gauge x 1 1/2" needle Start: 07-07-2020 End: 07-07-2020 Safety [place] ( Bd Safetyglide Needle) 18 gauge x 1 1/2" needle Start: 07-07-2020 End: 07-07-2020 Safety [place] ( Bd Safetyglide Needle) 18 gauge x 1 1/2" needle Start: 07-07-2020 End: 07-14-2020 Syringe With Nee dle, Safety (Bd Eclipse Luer-Tasia) 3 mL 22 gauge x 1 1/2" syringe Start: 07-07-2020 End: 07-07-2020 Syringe With Nee dle, Safety (Bd Eclipse Luer-Tasia) 3 mL 22 gauge x 1 1/2" syringe Start: 07-07-2020 End: 07-07-2020 Syringe With Nee dle, Safety (Bd Eclipse Luer-Tasia) 3 mL 22 gauge x 1 1/2" syringe Start: 07-07-2020 End: 07-14-2020 Safety [place] ( Bd Safetyglide Needle) 18 gauge x 1 1/2" needle Start: 07-07-2020 End: 07-07-2020 Safety [place] ( Bd Safetyglide Needle) 18 gauge x 1 1/2" needle Start: 07-07-2020 End: 07-07-2020 Safety [place] ( Bd Safetyglide Needle) 18 gauge x 1 1/2" needle Start: 07-07-2020 End: 07-14-2020 Syringe With Nee dle, Safety (Bd Eclipse Luer-Tasia) 3 mL 22 gauge x 1 1/2" syringe Start: 07-07-2020 End: 07-07-2020 Syringe With Nee dle, Safety (Bd Eclipse Luer-Tasia) 3 mL 22 gauge x 1 1/2" syringe Start: 07-07-2020 End: 07-07-2020 Syringe With Nee dle, Safety (Bd Eclipse Luer-Tasia) 3 mL 22 gauge x 1 1/2" syringe Start: 07-07-2020 End: 07-14-2020 Safety [place] ( Bd Safetyglide Needle) 18 gauge x 1 1/2" needle Start: 07-07-2020 End: 07-07-2020 Safety [place] ( Bd Safetyglide Needle) 18 gauge x 1 1/2" needle Start: 07-07-2020 End: 07-07-2020 Safety [place] ( Bd Safetyglide Needle) 18 gauge x 1 1/2" needle Start: 07-07-2020 End: 07-14-2020 Syringe With Nee dle, Safety (Bd Eclipse Luer-Tasia) 3 mL 22 gauge x 1 1/2" syringe Start: 07-07-2020 End: 07-07-2020 Syringe With Nee dle, Safety (Bd Eclipse Luer-Tasia) 3 mL 22 gauge x 1 1/2" syringe Start: 07-07-2020 End: 07-07-2020 Syringe With Nee dle, Safety (Bd Eclipse Luer-Tasia) 3 mL 22 gauge x 1 1/2" syringe Start: 07-07-2020 End: 07-14-2020 Safety [place] ( Bd Safetyglide Needle) 18 gauge x 1 1/2" needle Start: 07-07-2020 End: 07-07-2020 Safety [place] ( Bd Safetyglide Needle) 18 gauge x 1 1/2" needle Start: 07-07-2020 End: 07-07-2020 Safety [place] ( Bd Safetyglide Needle) 18 gauge x 1 1/2" needle Start: 07-07-2020 End: 07-14-2020 Syringe With Nee dle, Safety (Bd Eclipse Luer-Tasia) 3 mL 22 gauge x 1 1/2" syringe Start: 07-07-2020 End: 07-07-2020 Syringe With Nee dle, Safety (Bd Eclipse Luer-Tasia) 3 mL 22 gauge x 1 1/2" syringe Start: 07-07-2020 End: 07-07-2020 Syringe With Nee dle, Safety (Bd Eclipse Luer-Tasia) 3 mL 22 gauge x 1 1/2" syringe Start: 07-07-2020 End: 07-14-2020 Goals Date Patient Goal Desired Activity /State Mental Status Date Assessment Result Facility 05-06-2025 Cognitive function Level Of Consciousness Drowsy [facility] Work Phone: 05-06-2025 Cognitive function Voice/Name [facility] Work Phone: 01-04-2025 Cognitive function Awake;Alert;A ppropriate;Follow s Commands [facility] Work Phone: Clinical Notes 12-16-2024 to 05-06-2025 Note Date & Type Note Facility 05-06-2025 Procedure note [facility] 05-06-2025 Procedure note [facility] 05-06-2025 Consult note Note Date/Time May 06, 2025 9:01am [facility] Medical Records Department [address] [place] [address] Anesthesia Postop Eval I 05/06/25 08 MR#: [id number] Acct: [id number] Name: TOBY GARCIA Rep #:[id number] : 1960 64 From: Keenan Waters PCP: Dr. Leydi Chun MD Status:REG [facility] Y Race: AA Location: [place] [address] Anesthesia: Postop Eval I Current Vital Signs Temperature: 97.8 F Pulse Rate: 65 Blood Pressure: 114/75 Respiratory Rate: 16 Pulse Ox: 93 Oxygen Delivery Method: Room Air Assessment Airway patent: Yes Spontaneous unlabored respirations: Yes Mental status: Asleep nausea: No Vomiting: No Anesthesia Complication: No Fluid Hydration Crystalloid volume administer (ml): 500 Total IV fluid infused: 500 Progress Note Anesthesia document: Postop Eval 1 completed: Yes 05/06/25800 <Electronically signed by Keenan Waters > Date _ Keenan De Souza Signature: Date CC: ~ Signed [facility] Work Phone: 1(369) 680-900210-20-2025 History and physical note Author Ivon Rothman [facility] Note Date/Time May 06, 2025 8 :28am [facility] Medical Records Department [address] [place] [address] History & Physical Exam 05/06/25 0724 MR#: [id number] Acct: [id number] Name: TOBY GARCIA Rep #:[id number] : 1960 64 From: Ivon Rothman MD PCP: Dr. Leydi Chun MD Status:REG [facility] Location: [place] [address] HPI - General General Date of Service: 05/06/25 HPI Narrative TOBY GARCIA, is a 64 M who presents for screen colonoscopy due to history of 1.5 cm retention polyp [place] [address] Ivey. Patient denies any changes since his previous office visit. Did hold his Eliquis. Office visit 02/05/2025 HPI HPI: 64-year-old male presents for colonoscopy. Patient last colonoscopy was in [address]by Dr. Ivey patient had rectal bleeding due to a retention polyp 1.5 cm which was removed with snare at time of colonoscopy. Patient was recommended to have repeat colonoscopy in 5 years. Patient is currently on Eliquis due to A-fib recently diagnosed and patient did just complete echo as well as stress test still waiting to talk to cardiology about results. Patient states he does have bowel movements daily denies any blood. Patient is adopted does not know his family history. Patient states he has very occasional constipation which he takes magnesium citrate for which resolves the issue. [facility] Medical History Wears glasses History of edema History of cardioversion History of stress test History of echocardiogram Cardiology follow-up encounter Dysuria Urinary hesitancy Urinary frequency Persistent atrial fibrillation Osteoarthritis of right knee Dystrophic nail SAÚL (obstructive sleep apnea) Hypersomnia Paroxysmal A-fib Chronic pain GI bleed Former smoker CPAP (continuous positive airway pressure) dependence Irregular heart beat Primary hypogonadism in male Sleep apnea Hypertension Gout Arthritis Hypertension Hyperlipemia Vitamin D deficiency Diabetes Home Medications ?Medication ?Instructions ?Recorded ?Last Taken ?Type BP monitor #1 ea 09/17/21 Unknown Rx CPAP Machine #1 ea 09/08/23 Unknown Rx apixaban 5 mg tablet (Eliquis) 5 mg PO BID #180 tabs 0 09/07/24 05/03/25 Rx potassium chloride 20 mEq 20 meq PO DAILY #90 tabs Unknown Rx tablet,extended release(part/cryst) valsartan 320 1 tab PO DAILY #90 tabs 03/1 9/25 Unknown Rx mg-hydrochlorothiazide 25 mg tablet testosterone 1 % (50 mg/5 gram) 50 mg transdermal KIARA Y Check with 01/02/25 Unkn own Rx transdermal gel packet primary doctor #150 grams cholecalciferol (vitamin D3) 1,250 1,250 mcg PO SA sup plement 01/04/25 Unknown History mcg (50,000 unit) capsule atorvastatin 40 mg tablet 40 mg PO DAILY cholesterol 0 01/31/25 Unknown Rx lowering #90 tabs flecainide 100 mg tablet 100 mg PO Q12H #60 tabs 01/1605/06/25 Rx tamsulosin 0.4 mg capsule 0.8 mg (2 x 0.4 mg) PO DAILY Check 02/06/25 Unknown Rx with primary doctor #180 caps amlodipine 10 mg tablet 10 mg PO DAILY 03/06/2504/18 History metoprolol tartrate 50 mg tablet 50 mg PO BID #180 tab s 04/11/25 05/06/25 Rx Allergy/AdvReac Type Severity Reaction Status Date / Time No Known Allergies Allergy Verified 05/06/25 06:37 Family History Other Adopted Surgical History Hx [...] 3-4 times per week seatbelt use: always Past Medical/Surgical History Planned Operation Planned Operative Procedure(s): COLONOSCOPY Previous Hospitalizations/Surgeries HX Hospitalizations: No Any Problems With Anesthesia: No You/Your Family Experience Fever (Hyperthermia) With Anes: No Cholinesterase deficiency: No Cardiovascular Hx Chest Pain within Last 2 months: No Hx of Irregular Heartbeat and/or Afib: No Hx Heart Attack: No Hx Hypertension: Yes (CONTROLLED WITH MEDS) Hx Cardiac Surgery/Stents/Etc.: No Hx Pain in Legs when Walking/Leg Cramps: No Respiratory Hx Chronic Obstructive Pulmonary Disease (COPD): No Hx Emphysema: No Hx Sleep Apnea: Yes CPAP: Yes BIPAP: No Hx Respiratory Tract Infection/Cold (presently): No Result (for STOP score): Positive Hx Smoking: Yes Smoking Status: Former smoker Gastrointestinal Hx Gastrointestinal Bleed: Yes Hx Ulcer: No Difficulty Chewing/Swallowing: No Hx Unplanned Weight Loss of 20#: No Neurological Hx Seizures: No Hx Multiple Sclerosis: No Hx Parkinson's Disease: No Does patient have nerve stimulator: No Blood Disorder Hx Hepatitis: No Hx Cirrhosis: No Hx Anemia: No Hx Blood Disorders: No Reproduction : No Genitourinary Hx Renal Disease: No Hx Dialysis: No Musculoskeletal Hx Arthritis: No Hx Rheumatoid Arthritis: No Endocrine Hx Diabetes: Yes (type II) Thyroid Disease: No Psycho/Social Hx Substance Use: No Hx Alcohol Use: No Hx Anxiety: No Hx Depression: No Hx Dementia: No Miscellaneous Hx Cancer: No Recent Exposure to Contagious Disease: No Allergies No Known Allergies Allergy (Verified 05/06/25 06:37) Maternal: Family History Other Adopted No pertinent history Paternal: Family History Other Adopted No pertinent history Discharge After D/C, Where Do you Plan to Go: Return Home From the PAT History Number of Risk Factors: 2 Vital Signs Vital Signs Vital Signs: 05/06/25 06:41 05/06/25 06:41 05/06/25 07:05 Temperature 98.3 F 98.3 F Temperature Source Temporal Pulse Rate 71 71 Respiratory Rate 16 16 Respiratory Pattern Normal Blood Pressure 156/91 H 156/91 H Blood Pressure Mean 112 Blood Pressure Source Monitor Blood Pressure Position Sitting Blood Pressure Location Left Arm Pulse Ox 99 99 Oxygen Delivery Method Room Air Weight Weight: 343 lb 14.738 oz Body Mass Index (BMI) 46.6 Physical Exam Const alert, oriented x3 and no apparent distress HEENT normocephalic and head/scalp atraumatic Resp normal respiratory effort Cardio regular rate GI soft to palpation and non-tender; Negative for non-distended Palpation: Negative for guarding Extremity no clubbing, cyanosis or edema Skin no rashes or lesions noted Neuro CN's II-XII intact bilaterally Psych mental status grossly normal Assessment & Plan Assessment/Plan (1) Encounter for colonoscopy due to history of colonic polyp: (2) Anticoagulant long-term use: Surgery Risks - Colonoscopy I discussed with the patient the risks of the procedure: Yes Risks Include but are not Limited To: Risks include but are not limited to: Bleeding, perforation requiring further surgery, inability to complete colonoscopy requiring barium enema. 05/06/25 0728 <Electronically signed by Ivon Rothman MD> Cosigner Signature (if applicable): CC: Dr. Leydi Chun MD; Dr. Ivon Rothman MD~ Signed [facility] Work Phone: 1(466) 798-308110-20-2025 Consult note Author Geoff Hawkins [facility] Note Date/Time May 06, 2025 8 :05am [facility] Medical Records Department [address] [place] [address] Pre-Anesthesia Evaluation 05/06/25 0704 MR#: [id number] Acct: [id number] Name: TOBY GARCIA Rep #:[id number] : 1960 64 From: Geoff Hawkins MD PCP: Dr. Leydi Chun MD Status:REG SDC Y Race: AA Location: [place] [address] ASA Classification* ASA Classification ASA Classification: 3 Assessment & Plan Anesthesia* Anesthesia Assessment Anesthesia Assessment: Discussed sedation and/or anesthesia options, risks, benefits, and alternatives with patient/parents/legal guardian/POA. Questions invited. The patient/parents/legal guardian/POA seems to understand and agrees to proceedwith anesthesia plan. Reviewed the physical assessment, medical history, allergy history and patient home medications list prior to surgery/procedure/anesthetic and documented any changes. Performed airway and anesthesia risk assessments. Anesthesia Type Anesthesia Type: MAC Anesthesia Focused Assessment* Temperature: 98.3 F Pulse Rate: 71 Blood Pressure: 156/91 Respiratory Rate: 16 Pulse Ox: 99 Airway Assessment Mouth opens: >3 cm Mallampati Score: II Labs Anesthesia Preop lab: CBC WBC, (4.4-11.0) 7.7 K/mm3 01/04/25, 19:15 RBC, (4.6-6.2) 5.14 M/mm3 01/04/25, 19:15 Hgb, (13.0-16.5) 14.0 g/dL 01/04/25, 19:15 Hct, (40-54) 41.8 % 01/04/25, 19:15 Plt Count, (150-450) 262 K/mm3 01/04/25, 19:15 CHEMISTRY Potassium, (3.3-5.1) 3.4 mmol/L 02/19/25, 12:24 Sodium, (133-145) 138 mmol/L 02/19/25, 12:24 Magnesium, (1.5-2.2) 1.8 mg/dL 01/04/25, 18:25 Phosphorus, (2.5-4.9) 2.9 mg/dL 08/10/23, 12:08 BUN, (4-19) 24 mg/dL H 02/19/25, 12:24 Creatinine, (0.70-1.20) 0.96 mg/dL 02/19/25, 12:24 Glucose, (70-99) 125 mg/dL H 02/19/25, 12:24 POC Glucose, (74-106) 115 mg/dL H 03/06/25, 11:34 TSH, (0.358-3.740) 2.530 uIU/mL 07/26/24, 10:17 COAG PT, (11.7-14.9) 13.9 SECONDS 09/20/21, 18:50 Pre-Assessment Diagnosis/Proposed Procedure Planned Operative Procedure(s): COLONOSCOPY Anesthesia History 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 When Was Last Pacemaker Check QUESTION #4 FULL TEXT: You/Your Family Experience fever (hyperthermia) with Anesthesia Last Oral Intake Last Oral intake: Last Oral Intake NPO since 05:30 05/06/25 06:41 Meds taken in AM with sips of Yes 05/06/25 06:41 water? Meds patient instructed to take am of surgery PONV PONV - inspector experimental assembly: PONV - inspector experimental assembly Female No 05/02/25 13:49 HX of Motion Sickness No 05/02/25 13:49 HX of N/V After Surgery No 05/02/25 13:49 Non-Smoker Yes 05/02/25 13:49 Duration of Surgery greater No 05/02/25 13:49 than 60 minutes Number of Risk Factors 1 05/02/25 13:49 PONV Score Low Risk 05/02/25 13:49 Height & Weight Height & Weight: Anesthesia: Height & Weight Height 6 ft 05/06/25 06:41 Weight: 156 kg 05/06/25 06:41 Body Mass Index (BMI) 46.6 05/06/25 06:41 Respiratory Assessment Respiratory Assessment - inspector experimental assembly: Respiratory Tract Infection Hx - inspector experimental assembly Hx Respiratory Tract Infection No 05/02/25 13:49 STOP Sleep Apnea STOP Sleep Apnea - inspector experimental assembly: STOP Sleep Apnea - inspector experimental assembly Hx Hypertension Yes: CONTROLLED WITH MEDS 05/02/25 13:49 Hx Sleep Apnea Yes 05/02/25 13:49 CPAP Yes 05/02/25 13:49 BIPAP No 05/02/25 13:49 Do you snore loudly (louder than talking or can be heard Do you often feel tired/ fatigued/ sleepy during daytime? Has anyone observed you stop breathing during sleep? STOP Results Positive 05/02/25 13:49 QUESTION #5 FULL TEXT : Do you snore loudly (louder than talking or can be heard through closed doors)? 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 Specify any problems Hx of Preganancy in last 3 N/A 05/02/25 13:49 Months Nurse Filling Out Transfusion [email or web address] 05/02/25 13:49 & Questions: Date: 05/02/25 05/02/25 13:49 Time: 13:52 05/02/25 13:49 Patient unable to answer at this time (ie. confused, unrespo /Reproduction History /Reproductive History - inspector experimental assembly: /Reproductive Hx- inspector experimental assembly Hx Now No 05/02/25 13:49 Gestational Age (in weeks): EDC: Hx Hx Para Hx Section SAB No 05/02/25 13:49 Active Medications Active Medications: Current Medications Generic Name Dose Route Start Last Admin Trade Name Freq PRN Reason Stop Dose Admin Lactated Ringer's 1,000 mls @ 15 mls/hr 05/06/25 06:30 05/06/25 07:00 IV 15 mls/hr .Q48H DORI Administration PFSH Medical History Wears glasses History of edema History of cardioversion History of stress test History of echocardiogram Cardiology follow-up encounter Dysuria Urinary hesitancy Urinary frequency Persistent atrial fibrillation Osteoarthritis of right knee Dystrophic nail SAÚL (obstructive sleep apnea) Hypersomnia Paroxysmal A-fib Chronic pain GI bleed Former smoker CPAP (continuous positive airway pressure) dependence Irregular heart beat Primary hypogonadism in male Sleep apnea Hypertension Gout Arthritis Hypertension Hyperlipemia Vitamin D deficiency Diabetes Home Medications ?Medication ?Instructions ?Recorded ?Last Taken ?Type BP monitor #1 ea 09/17/21 Unknown Rx CPAP Machine #1 ea 09/08/23 Unknown Rx apixaban 5 mg tablet (Eliquis) 5 mg PO BID #180 tabs 0 09/07/24 05/03/25 Rx potassium chloride 20 mEq 20 meq PO DAILY #90 tabs Unknown Rx tablet,extended release(part/cryst) valsartan 320 1 tab PO DAILY #90 tabs 09/15 04/11 Unknown Rx mg-hydrochlorothiazide 25 mg tablet testosterone 1 % (50 mg/5 gram) 50 mg transdermal KIARA Y Check with 01/02/25 Unknown Rx transdermal gel packet primary doctor #150 grams cholecalciferol (vitamin D3) 1,250 1,250 mcg PO SA sup plement 01/04/25 Unknown History mcg (50,000 unit) capsule atorvastatin 40 mg tablet 40 mg PO DAILY cholesterol 0 01/31/25 Unknown Rx lowering #90 tabs flecainide 100 mg tablet 100 mg PO Q12H #60 tabs 01/1605/06/25 Rx tamsulosin 0.4 mg capsule 0.8 mg (2 x 0.4 mg) PO DAILY Check 02/06/25 Unknown Rx with primary doctor #180 caps amlodipine 10 mg tablet 10 mg PO DAILY 03/06/2504/18 History metoprolol tartrate 50 mg tablet 50 mg PO BID #180 tab s 04/11/25 05/06/25 Rx Allergy/AdvReac Type Severity Reaction Status Date / Time No Known Allergies Allergy Verified 05/06/25 06:37 Family History Other Adopted Surgical History Hx [...] 3-4 times per week seatbelt use: always Review of Systems (Anesthesia) ROS Narrative System reviewed and no additional complaints, except as documented. 05/06/25 0705 <Electronically signed by Geoff Hawkins MD > Date _ Geoff Hawkins MD Cosigner Signature: Date CC: ~ Signed [facility] Work Phone: 1(457) 331-845810-20-[address] [facility] Medical Records Department [address] [address] Anesthesia Postop Eval I 05/06/25 0800 MR#: [id number] Acct: [id number] Name: TOBY GARCIA Rep #:[id number] : 1960 64 From: Keenan Waters PCP: Dr. Leydi Chun MD Status:REG [facility] Y Race: AA Location: [place] [address] Anesthesia: Postop Eval I Current Vital Signs Temperature: 97.8 F Pulse Rate: 65 Blood Pressure: 114/75 Respiratory Rate: 16 Pulse Ox: 93 Oxygen Delivery Method: Room Air Assessment Airway patent: Yes Spontaneous unlabored respirations: Yes Mental status: Asleep nausea: No Vomiting: No Anesthesia Complication: No Fluid Hydration Crystalloid volume administer (ml): 500 Total IV fluid infused: 500 Progress Note Anesthesia document: Postop Eval 1 completed: Yes 05/06/25 0801 > Date _ Keenan De Souza Signature: Date CC: ~ Signed [facility]10-20-2025 History and physical note [facility] Medical Records Department [address] [place] [address] History & Physical Exam 05/06/25 0724 MR#: [id number] Acct: [id number] Name: TOBY GARCIA Rep #:[id number] : 1960 64 From: Ivon Rothman MD PCP: Dr. Leydi Chun MD Status:REG [facility] Location: [place] [address] HPI - General General Date of Service: 05/06/25 HPI Narrative TOBY GARCIA, is a 64 M who presents for screen colonoscopy due to history of 1.5 cm retention polyp [place] [address] Ivey. Patient denies any changes since his previous office visit. Did hold his Eliquis. Office visit 02/05/2025 HPI HPI: 64-year-old male presents for colonoscopy. Patient last colonoscopy was in 2018by Dr. Ivey patient had rectal bleeding due to a retention polyp 1.5 cm which was removed with snare at time of colonoscopy. Patient was recommended to have repeat colonoscopy in 5 years. Patient is currently on Eliquis due to A-fib recently diagnosed and patient did just complete echo as well as stress test still waiting to talk to cardiology about results. Patient states he does have bowel movements daily denies any blood. Patient is adopted does not know his family history. Patient states he has very occasional constipation which he takes magnesium citrate for which resolves the issue. [facility] Medical History Wears glasses History of edema History of cardioversion History of stress test History of echocardiogram Cardiology follow-up encounter Dysuria Urinary hesitancy Urinary frequency Persistent atrial fibrillation Osteoarthritis of right knee Dystrophic nail SAÚL (obstructive sleep apnea) Hypersomnia Paroxysmal A-fib Chronic pain GI bleed Former smoker CPAP (continuous positive airway pressure) dependence Irregular heart beat Primary hypogonadism in male Sleep apnea Hypertension Gout Arthritis Hypertension Hyperlipemia Vitamin D deficiency Diabetes Home Medications ?Medication ?Instructions ?Recorded ?Last Taken ?Type BP monitor #1 ea 09/17/21 Unknown Rx CPAP Machine #1 ea 09/08/23 Unknown Rx apixaban 5 mg tablet (Eliquis) 5 mg PO BID #180 tabs 0 09/07/24 05/03/25 Rx potassium chloride 20 mEq 20 meq PO DAILY #90 tabs Unknown Rx tablet,extended release(part/cryst) valsartan 320 1 tab PO DAILY #90 tabs 09/15 04/11 Unknown Rx mg-hydrochlorothiazide 25 mg tablet testosterone 1 % (50 mg/5 gram) 50 mg transdermal KIARA Y Check with 01/02/25 Unkn own Rx transdermal gel packet primary doctor #150 grams cholecalciferol (vitamin D3) 1,250 1,250 mcg PO SA sup plement 01/04/25 Unknown History mcg (50,000 unit) capsule atorvastatin 40 mg tablet 40 mg PO DAILY cholesterol 0 01/31/25 Unknown Rx lowering #90 tabs flecainide 100 mg tablet 100 mg PO Q12H #60 tabs 01/1605/06/25 Rx tamsulosin 0.4 mg capsule 0.8 mg (2 x 0.4 mg) PO DAILY Check 02/06/25 Unknown Rx with primary doctor #180 caps amlodipine 10 mg tablet 10 mg PO DAILY 03/06/2504/18 History metoprolol tartrate 50 mg tablet 50 mg PO BID #180 tab s 04/11/25 05/06/25 Rx Allergy/AdvReac Type Severity Reaction Status Date / Time No Known Allergies Allergy Verified 05/06/25 06:37 Family History Other Adopted Surgical History Hx [...] 3-4 times per week seatbelt use: always Past Medical/Surgical History Planned Operation Planned Operative Procedure(s): COLONOSCOPY Previous Hospitalizations/Surgeries HX Hospitalizations: No Any Problems With Anesthesia: No You/Your Family Experience Fever (Hyperthermia) With Anes: No Cholinesterase deficiency: No Cardiovascular Hx Chest Pain within Last 2 months: No Hx of Irregular Heartbeat and/or Afib: No Hx Heart Attack: No Hx Hypertension: Yes (CONTROLLED WITH MEDS) Hx Cardiac Surgery/Stents/Etc.: No Hx Pain in Legs when Walking/Leg Cramps: No Respiratory Hx Chronic Obstructive Pulmonary Disease (COPD): No Hx Emphysema: No Hx Sleep Apnea: Yes CPAP: Yes BIPAP: No Hx Respiratory Tract Infection/Cold (presently): No Result (for STOP score): Positive Hx Smoking: Yes Smoking Status: Former smoker Gastrointestinal Hx Gastrointestinal Bleed: Yes Hx Ulcer: No Difficulty Chewing/Swallowing: No Hx Unplanned Weight Loss of 20#: No Neurological Hx Seizures: No Hx Multiple Sclerosis: No Hx Parkinson's Disease: No Does patient have nerve stimulator: No Blood Disorder Hx Hepatitis: No Hx Cirrhosis: No Hx Anemia: No Hx Blood Disorders: No Reproduction : No Genitourinary Hx Renal Disease: No Hx Dialysis: No Musculoskeletal Hx Arthritis: No Hx Rheumatoid Arthritis: No Endocrine Hx Diabetes: Yes (type II) Thyroid Disease: No Psycho/Social Hx Substance Use: No Hx Alcohol Use: No Hx Anxiety: No Hx Depression: No Hx Dementia: No Miscellaneous Hx Cancer: No Recent Exposure to Contagious Disease: No Allergies No Known Allergies Allergy (Verified 05/06/25 06:37) Maternal: Family History Other Adopted No pertinent history Paternal: Family History Other Adopted No pertinent history Discharge After D/C, Where Do you Plan to Go: Return Home From the PAT History Number of Risk Factors: 2 Vital Signs Vital Signs Vital Signs: 05/06/25 06:41 05/06/25 06:41 05/06/25 07:05 Temperature 98.3 F 98.3 F Temperature Source Temporal Pulse Rate 71 71 Respiratory Rate 16 16 Respiratory Pattern Normal Blood Pressure 156/91 H 156/91 H Blood Pressure Mean 112 Blood Pressure Source Monitor Blood Pressure Position Sitting Blood Pressure Location Left Arm Pulse Ox 99 99 Oxygen Delivery Method Room Air Weight Weight: 343 lb 14.738 oz Body Mass Index (BMI) 46.6 Physical Exam Const alert, oriented x3 and no apparent distress HEENT normocephalic and head/scalp atraumatic Resp normal respiratory effort Cardio regular rate GI soft to palpation and non-tender; Negative for non-distended Palpation: Negative for guarding Extremity no clubbing, cyanosis or edema Skin no rashes or lesions noted Neuro CN's II-XII intact bilaterally Psych mental status grossly normal Assessment & Plan Assessment/Plan (1) Encounter for colonoscopy due to history of colonic polyp: (2) Anticoagulant long-term use: Surgery Risks - Colonoscopy I discussed with the patient the risks of the procedure: Yes Risks Include but are not Limited To: Risks include but are not limited to: Bleeding, perforation requiring further surgery, inability to complete colonoscopy requiring barium enema. 05/06/25727 Cosigner Signature (if applicable): CC: Dr. Leydi Chun MD; Dr. Ivon Rothman MD~ Signed [facility]10-20-[address] [facility] Medical Records Department [address] [address] Pre-Anesthesia Evaluation 05/06/25 0704 MR#: [id number] Acct: [id number] Name: TOBY GARCIA Rep #:[id number] : 1960 64 From: Geoff Hawkins MD PCP: Dr. Leydi Chun MD Status:REG SDC Y Race: AA Location: [place] [address] ASA Classification* ASA Classification ASA Classification: 3 Assessment & Plan Anesthesia* Anesthesia Assessment Anesthesia Assessment: Discussed sedation and/or anesthesia options, risks, benefits, and alternatives with patient/parents/legal guardian/POA. Questions invited. The patient/parents/legal guardian/POA seems to understand and agrees to proceedwith anesthesia plan. Reviewed the physical assessment, medical history, allergy history and patient home medications list prior to surgery/procedure/anesthetic and documented any changes. Performed airway and anesthesia risk assessments. Anesthesia Type Anesthesia Type: MAC Anesthesia Focused Assessment* Temperature: 98.3 F Pulse Rate: 71 Blood Pressure: 156/91 Respiratory Rate: 16 Pulse Ox: 99 Airway Assessment Mouth opens: >3 cm Mallampati Score: II Labs Anesthesia Preop lab: CBC WBC, (4.4-11.0) 7.7 K/mm3 01/04/25, 19:15 RBC, (4.6-6.2) 5.14 M/mm3 01/04/25, 19:15 Hgb, (13.0-16.5) 14.0 g/dL 01/04/25, 19:15 Hct, (40-54) 41.8 % 01/04/25, 19:15 Plt Count, (150-450) 262 K/mm3 01/04/25, 19:15 CHEMISTRY Potassium, (3.3-5.1) 3.4 mmol/L 02/19/25, 12:24 Sodium, (133-145) 138 mmol/L 02/19/25, 12:24 Magnesium, (1.5-2.2) 1.8 mg/dL 01/04/25, 18:25 Phosphorus, (2.5-4.9) 2.9 mg/dL 08/10/23, 12:08 BUN, (4-19) 24 mg/dL H 02/19/25, 12:24 Creatinine, (0.70-1.20) 0.96 mg/dL 02/19/25, 12:24 Glucose, (70-99) 125 mg/dL H 02/19/25, 12:24 POC Glucose, (74-106) 115 mg/dL H 03/06/25, 11:34 TSH, (0.358-3.740) 2.530 uIU/mL 07/26/24, 10:17 COAG PT, (11.7-14.9) 13.9 SECONDS 09/20/21, 18:50 Pre-Assessment Diagnosis/Proposed Procedure Planned Operative Procedure(s): COLONOSCOPY Anesthesia History 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 When Was Last Pacemaker Check QUESTION #4 FULL TEXT: You/Your Family Experience fever (hyperthermia) with Anesthesia Last Oral Intake Last Oral intake: Last Oral Intake NPO since 05:30 05/06/25 06:41 Meds taken in AM with sips of Yes 05/06/25 06:41 water? Meds patient instructed to take am of surgery PONV PONV - inspector experimental assembly: PONV - inspector experimental assembly Female No 05/02/25 13:49 HX of Motion Sickness No 05/02/25 13:49 HX of N/V After Surgery No 05/02/25 13:49 Non-Smoker Yes 05/02/25 13:49 Duration of Surgery greater No 05/02/25 13:49 than 60 minutes Number of Risk Factors 1 05/02/25 13:49 PONV Score Low Risk 05/02/25 13:49 Height & Weight Height & Weight: Anesthesia: Height & Weight Height 6 ft 05/06/25 06:41 Weight: 156 kg 05/06/25 06:41 Body Mass Index (BMI) 46.6 05/06/25 06:41 Respiratory Assessment Respiratory Assessment - inspector experimental assembly: Respiratory Tract Infection Hx - inspector experimental assembly Hx Respiratory Tract Infection No 05/02/25 13:49 STOP Sleep Apnea STOP Sleep Apnea - inspector experimental assembly: STOP Sleep Apnea - inspector experimental assembly Hx Hypertension Yes: CONTROLLED WITH MEDS 05/02/25 13:49 Hx Sleep Apnea Yes 05/02/25 13:49 CPAP Yes 05/02/25 13:49 BIPAP No 05/02/25 13:49 Do you snore loudly (louder than talking or can be heard Do you often feel tired/ fatigued/ sleepy during daytime? Has anyone observed you stop breathing during sleep? STOP Results Positive 05/02/25 13:49 QUESTION #5 FULL TEXT : Do you snore loudly (louder than talking or can be heard through closeddoors)? 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 Specify any problems Hx of Preganancy in last 3 N/A 05/02/25 13:49 Months Nurse Filling Out Transfusion [email or web address] 05/02/25 13:49 & Questions: Date: 05/02/25 05/02/25 13:49 Time: 13:52 05/02/25 13:49 Patient unable to answer at this time (ie. confused, unrespo /Reproduction History /Reproductive History - inspector experimental assembly: /Reproductive Hx- inspector experimental assembly Hx Now No 05/02/25 13:49 Gestational Age (in weeks): EDC: Hx Hx Para Hx Section SAB No 05/02/25 13:49 Active Medications Active Medications: Current Medications Generic Name Dose Route Start Last Admin Trade Name Freq PRN Reason Stop Dose Admin Lactated Ringer's 1,000 mls @ 15 mls/hr 05/06/25 06:30 05/06/25 07:00 IV 15 mls/hr .Q48H DORI Administration PFSH Medical History Wears glasses History of edema History of cardioversion History of stress test History of echocardiogram Cardiology follow-up encounter Dysuria Urinary hesitancy Urinary frequency Persistent atrial fibrillation Osteoarthritis of right knee Dystrophic nail SAÚL (obstructive sleep apnea) Hypersomnia Paroxysmal A-fib Chronic pain GI bleed Former smoker CPAP (continuous positive airway pressure) dependence Irregular heart beat Primary hypogonadism in male Sleep apnea Hypertension Gout Arthritis Hypertension Hyperlipemia Vitamin D deficiency Diabetes Home Medications ?Medication ?Instructions ?Recorded ?Last Taken ?Type BP monitor #1 ea 09/17/21 Unknown Rx CPAP Machine #1 ea 09/08/23 Unknown Rx apixaban 5 mg tablet (Eliquis) 5 mg PO BID #180 tabs 0 09/07/24 05/03/25 Rx potassium chloride 20 mEq 20 meq PO DAILY #90 tabs Unknown Rx tablet,extended release(part/cryst) valsartan 320 1 tab PO DAILY #90 tabs 09/15 04/11 Unknown Rx mg-hydrochlorothiazide 25 mg tablet testosterone 1 % (50 mg/5 gram) 50 mg transdermal KIARA Y Check with 01/02/25 Unknown Rx transdermal gel packet primary doctor #150 grams cholecalciferol (vitamin D3) 1,250 1,250 mcg PO SA sup plement 01/04/25 Unknown History mcg (50,000 unit) capsule atorvastatin 40 mg tablet 40 mg PO DAILY cholesterol 0 01/31/25 Unknown Rx lowering #90 tabs flecainide 100 mg tablet 100 mg PO Q12H #60 tabs 01/1605/06/25 Rx tamsulosin 0.4 mg capsule 0.8 mg (2 x 0.4 mg) PO DAILY Check 02/06/25 Unknown Rx with primary doctor #180 caps amlodipine 10 mg tablet 10 mg PO DAILY 03/06/2504/18 History metoprolol tartrate 50 mg tablet 50 mg PO BID #180 tab s 04/11/25 05/06/25 Rx Allergy/AdvReac Type Severity Reaction Status Date / Time No Known Allergies Allergy Verified 05/06/25 06:37 Family History Other Adopted Surgical History Hx [...] 3-4 times per week seatbelt use: always Review of Systems (Anesthesia) ROS Narrative System reviewed and no additional complaints, except as documented. 05/06/25 07 > Date _ Geoff Hawkins MD [facility] Signature: Date CC: ~ Signed [facility]10-20-2025 [facility] Medical Records Department [address] [place] [address] History Physical Exam 05/06/25723 MR#: [id number] Acct: [id number] Name: TOBY GARCIA Rep #: [id number] : 1960 64 From: Ivon Rothman MD PCP: Dr. Leydi Chun MD Status:REG [facility] Location: [place] [address] HPI - General General Date of Service: 05/06/25 HPI Narrative TOBY GARCIA, is a 64 M who presents for screen colonoscopy due to history of 1.5 cm retention polyp [place] [address] Ivey. Patient denies any changes since his previous office visit. Did hold his Eliquis. Office visit 02/05/2025 HPI HPI: 64-year-old male presents for colonoscopy. Patient last colonoscopy was in [address] Ivey patient had rectal bleeding due to a retention polyp 1.5 cm which was removed with snare at time of colonoscopy. Patient was recommended to have repeat colonoscopy in 5 years. Patient is currently on Eliquis due to A-fib recently diagnosed and patient did just complete echo as well as stress test still waiting to talk to cardiology about results. Patient states he does have bowel movements daily denies any blood. Patient is adopted does not know his family history. Patient states he has very occasional constipation which he takes magnesium citrate for which resolves the issue. [facility] Medical History Wears glasses History of edema History of cardioversion History of stress test History of echocardiogram Cardiology follow-up encounter Dysuria Urinary hesitancy Urinary frequency Persistent atrial fibrillation Osteoarthritis of right knee Dystrophic nail SAÚL (obstructive sleep apnea) Hypersomnia Paroxysmal A-fib Chronic pain GI bleed Former smoker CPAP (continuous positive airway pressure) dependence Irregular heart beat Primary hypogonadism in male Sleep apnea Hypertension Gout Arthritis Hypertension Hyperlipemia Vitamin D deficiency Diabetes Home Medications ???Medication ???Instructions ???Recorded ???Last Taken ???Type BP monitor #1 ea 09/17/21 Unknown Rx CPAP Machine #1 ea 09/08/23 Unknown Rx apixaban 5 mg tablet (Eliquis) 5 mg PO BID #180 tabs 09/07/24 Rx potassium chloride 20 mEq 20 meq PO DAILY #90 tabs 09/07/24 Unknown Rx tablet,extended release(part/cryst) valsartan 320 1 tab PO DAILY #90 tabs 10/03/24 U nknown Rx mg-hydrochlorothiazide 25 mg tablet testosterone 1 % (50 mg/5 gram) 50 mg transdermal DAILY Check with 01/02/25 Unknown Rx transdermal gel packet primary doctor #150 grams cholecalciferol (vitamin D3) 1,250 1,250 mcg PO SA supplement 01/04 Unknown History mcg (50,000 unit) capsule atorvastatin 40 mg tablet 40 mg PO DAILY cholesterol 5 Unknown Rx lowering #90 tabs flecainide 100 mg tablet 100 mg PO Q12H #60 tabs 02/06/25 1 Rx tamsulosin 0.4 mg capsule 0.8 mg (2 x 0.4 mg) PO DAILY Check 02/06/25 Unknown Rx with primary doctor #180 caps amlodipine 10 mg tablet 10 mg PO DAILY 03/06/25 05/06/25 H istory metoprolol tartrate 50 mg tablet 50 mg PO BID #180 tabs 04/11/25 Rx Allergy/AdvReac Type Severity Reaction Status Date / Time No Known Allergies Allergy Verified 05/06/25 06:37 Family History Other Adopted Surgical History Hx [...] 3-4 times per week seatbelt use: always Past Medical/Surgical History Planned Operation Planned Operative Procedure(s): COLONOSCOPY Previous Hospitalizations/Surgeries HX Hospitalizations: No Any Problems With Anesthesia: No You/Your Family Experience Fever (Hyperthermia) With Anes: No Cholinesterase deficiency: No Cardiovascular Hx Chest Pain within Last 2 months: No Hx of Irregular Heartbeat and/or Afib: No Hx Heart Attack: No Hx Hypertension: Yes (CONTROLLED WITH MEDS) Hx Cardiac Surgery/Stents/Etc.: No Hx Pain in Legs when Walking/Leg Cramps: No Respiratory Hx Chronic Obstructive Pulmonary Disease (COPD): No Hx Emphysema: No Hx Sleep Apnea: Yes CPAP: Yes BIPAP: No Hx Respiratory Tract Infection/Cold (presently): No Result (for STOP score): Positive Hx Smoking: Yes Smoking Status: Former smoker Gastrointestinal Hx Gastrointestinal Bleed: Yes Hx Ulcer: No Difficulty Chewing/Swallowing: No Hx Unplanned Weight Loss of 20#: No Neurolog (more content not included)...[facility]08-20-2025 Procedure note [facility] Medical Records Department [address] [place] [address] Procedure Report 03/06/25 1305 MR#: [id number] Acct: [id number] Name: TOBY GARCIA Rep #:[id number] : 1960 64 From: Sam Garcia DO PCP: Dr. Leydi Chun MD Status:REG [facility] Location: [facility] Procedures Pulmonary Pulmonary Procedures /Diagnostic Testin Con Sedation Non-invasive Procedural Procedure Information Date of Procedure: 03/06/25 Description of procedure: CONSCIOUS SEDATION REPORT DATE OF SERVICE: March 06, 2025 BRIEF HISTORY OF PRESENT ILLNESS: The patient is a 64-year-old male who presented to [facility] an electiveoutpatient cardioversion due to underlying atrial fibrillation. The patient reported that he is a lifelong non-smoker. He does carry a diagnosis of obstructive sleep apnea and currently utilizes nocturnal CPAP therapy. He denied any prior anesthetic complications. The patient is systemically anticoagulated on Eliquis. His last surface echocardiogram demonstrated an ejection fraction of approximately 45%. PHYSICAL EXAMINATION: VITAL SIGNS: Reviewed and were acceptable. GENERAL: The patient is an -[place] male, in no apparent distress, speaking in full sentences. HEENT: Normocephalic, atraumatic. Mucous membranes are moist and pink. Good mouth opening noted. Trachea is midline. Good neck mobility. CHEST: S1, S2 irregularly irregular. No murmurs, rubs or gallops were noted. LUNGS: Clear to auscultation bilaterally without appreciable wheezes, rales or rhonchi. ABDOMEN: Soft, nontender, nondistended. Positive bowel sounds. EXTREMITIES: There is no clubbing, cyanosis or edema. ASA Class: II DESCRIPTION OF PROCEDURE: After confirmation of informed consent, the patient's anesthesia plan was reviewed in detail. Propofol was chosen. Risks and benefits were reviewed and the patient agreed to proceed. At 1224, the patient was given his first bolus of propofol. In total, the patient required a total of 200 mg of propofol throughout the entire procedure to facilitate 3 separate attempts at cardioversion, the first at 300 J, the second at 360 J and the third at 360 J. Ultimately, the last attempted cardioversion was successful in restoring normal sinus rhythm. The patient was monitored until 1240, at which time he reached hisbaseline mental status and function. The patient tolerated the procedure well. COMPLICATIONS: None ESTIMATED BLOOD LOSS: None RECOMMENDATIONS: Okay to recover in usual fashion. 03/06/25 1308 Cosigner Signature (if applicable): CC: Dr. Víctor Correia MD; Dr. Sam Garcia DO; Dr. Leydi Chun MD~ Signed [facility]08-20-2025 Procedure note [facility] Medical Records Department [address] [address] Procedure Report 03/06/25 1242 MR#: [id number] Acct: [id number] Name: TOBY GARCIA Rep #:[id number] : 1960 64 From: Víctor Correia MD PCP: Dr. Leydi Chun MD Status:[facility] Location: [facility] Non-invasive Procedural Procedure Information Date of Procedure: 03/06/25 Pre-Procedure Diagnosis: Atrial fibrillation Post-Procedure Diagnosis: Atrial fibrillation Procedure Performed:: DC cardioversion Procedure Time Out: 12:15 Procedure Start Time: 12:20 Procedure Stop Time: 12:30 Special Medications: Intravenous propofol 200 mg Description of procedure: Patient was brought to cardiac catheterization lab in the postabsorptive nonsedated state. Informedconsent was obtained. Patient was seen by Dr. Garciaof the critical care division. Anterior-posterior pads were applied. The patient was administered 130 mg intravenous propofol and 300 J of biphasic DC cardioversion energy were applied atrial fibrillation persisted an additional 70mg of propofol was administered. 360 J of biphasic synchronized DC cardioversion energy were applied, atrial fibrillation persisted and then an additional 360 J of biphasic DC cardioversion energy were applied with prompt reversal to sinus rhythm. Patient tolerated the procedure well. Procedure findings: Continue current medications Reduce amlodipine to 10 mg a day Increase metoprolol to 50 mg twice a day Continue flecainide 100 mg twice a day Follow-up as per office protocol 03/06/25 1245 Cosigner Signature (if applicable): CC: Dr. Víctor Correia MD; Dr. Leydi Chun MD~ Signed [facility]07-21-2025 Evaluation note* Diagnosis Onset Date Resolution Status Admit Date Anticoagulant long-term use acute February 04, 2025 2:12pm Encounter for colonoscopy du e to history of colonic polyp acute February 04, 2025 2:12pm Umbilical hernia acute January 2:12pm Persistent atrial fibrillation acute February 19, 2025 10:27am Hyperlipemia chronic February 19, 2025 10:27am Hypertension chronic February 19, 2025 10:27am Anticoagulant long-term use acute May 06, 2025 6:13am Encounter for colonoscopy du e to history of colonic polyp acute 2024 6:13am Persistent atrial fibrillation acute May 21, 2025 9:35am Hyperlipemia chronic May 9:35am Hypertension chronic May 9:35am [facility] Work Phone: 1(318) 303-254706-24-2025 Evaluation note* Diagnosis Onset Date Resolution Status Admit Date Persistent atrial fibrillation acute January 08, 2025 12:53pm Hyperlipemia chronic January 08, 2 025 12:53pm Hypertension chronic January 08, 2 025 12:53pm [facility] Work Phone: 1(909) 951-651606-24-2025 Evaluation note* Diagnosis Onset Date Resolution Status Admit Date Persistent atrial fibrillation acute January 08, 2025 12:53pm Hyperlipemia chronic January 08, 2 025 12:53pm Hypertension chronic January 08, 2 025 12:53pm Anticoagulant long-term use acute February 04, 2025 2:12pm Encounter for colonoscopy du e to history of colonic polyp acute February 042024 2:12pm Umbilical hernia acute January 2:12pm [facility] Work Phone: 1(588) 468-867006-24-2025 Evaluation note* Diagnosis Onset Date Resolution Status Admit Date Persistent atrial fibrillation acute January 08, 2025 12:53pm Hyperlipemia chronic January 08, 2 025 12:53pm Hypertension chronic January 08, 2 025 12:53pm Anticoagulant long-term use acute February 04, 2025 2:12pm Encounter for colonoscopy du e to history of colonic polyp acute February 04, 2025 2:12pm Umbilical hernia acute January 2:12pm Persistent atrial fibrillation acute February 19, 2025 10:27am Hyperlipemia chronic February 19, 2025 10:27am Hypertension chronic February 19, 2025 10:27am [facility] Work Phone: 1(436) 333-509806-20-[address] [facility] Imaging Services [address] [place] [address] Chest 1 View (Portable) MR#: [id number] Acct: [id number] Name: TOBY GARCIA Rep #: [id number] : 1960 M 64 From: Alexandra Medrano MD PCP: Dr. Leydi Chun MD Status: REG ER Study:Chest 1 View (Portable) Date of Exam: 01/04/25 Exam# [id number] Ordering Dr: Priya Weeks DO EXAM: XR Chest, 1 View CLINICAL INDICATION: HYPERTENSION TECHNIQUE: Frontal view of the chest. COMPARISON: No relevant prior studies available. FINDINGS: LUNGS AND PLEURAL SPACES: Unremarkable. No consolidation. No pneumothorax. HEART: Cardiomegaly without overt failure. MEDIASTINUM: Unremarkable. Normal mediastinal contour. BONES/JOINTS: Unremarkable. No acute fracture. RAD/Chest 1 View (Portable) IMPRESSION: Cardiomegaly without overt failure. Reading Location: [facility] CC: Dr. Arturo Weeks DO; Dr. Leydi Chun MD ~ [employer] Professor: Signed [facility]06-01-2025 Consult note Author Geoff Hawkins [facility] Note Date/Time May 06, 2025 1 :37pm [facility] Medical Records Department [address] [place] [address] Anesthesia Postop Eval II 05/06/25 1237 MR#: [id number] Acct: [id number] Name: TOBY GARCIA Rep #:[id number] : 1960 64 From: Geoff Hawkins MD PCP: Dr. Leydi Chun MD Status:DEP [facility] Y Race: AA Location: EN Anesthesia Postop Eval I Sum Postop Eval Completion status Anesthesia document: Postop Eval 1 completed: Yes Anesthesia Postop Eval I Summary Anesthesia Postop Eval I Summary: Anesthesia Postop Eval I: Assessment Summary Airway patent Yes 05/06/25 08:01 [email or web address] Spontaneous unlabored Yes 05/06/25 08:01 [email or web address] respirations Mental status Asleep 05/06/25 08:01 [email or web address] nausea No 05/06/25 08:01 [email or web address] Vomiting No 05/06/25 08:01 [email or web address] Anesthesia Postop Eval I: Fluid Summary Crystalloid volume administer 500 05/06/25 08:01 [email or web address] (ml) Colloids volume administered ( ml) Blood Product volume administered (ml) Total IV fluid infused 500 05/06/25 08:01 [email or web address] Anesthesia Postop Eval I: Summary Notes Anesthesia Complication No 05/06/25 08:01 [email or web address] Anesthesia Complication Comment: Post-operative progress note Anesthesia: Postop Eval II Evaluation Mental status: Awake Pain Level: 0 nausea: No Vomiting: No 05/06/25 1237 <Electronically signed by Geoff Hawkins MD > Date _ Geoff Hawkins MD Cosigner Signature: Date CC: ~ Signed [facility] Work Phone: Consult note [facility] Medical Records Department [address] [place] [id number] Anesthesia Postop Eval II 05/06/25 1237 MR#: [id number] Acct: [id number] Name: TOBY GARCIA Rep #:[id number] : 1960 64 From: Geoff Hawkins MD PCP: Dr. Leydi Chun MD Status:[facility] Y Race: AA Location: EN Anesthesia Postop Eval I Sum Postop Eval Completion status Anesthesia document: Postop Eval 1 completed: Yes Anesthesia Postop Eval I Summary Anesthesia Postop Eval I Summary: Anesthesia Postop Eval I: Assessment Summary Airway patent Yes 05/06/25 08:01 [email or web address] Spontaneous unlabored Yes 05/06/25 08:01 [email or web address] respirations Mental status Asleep 05/06/25 08:01 [email or web address] nausea No 05/06/25 08:01 [email or web address] Vomiting No 05/06/25 08:01 [email or web address] Anesthesia Postop Eval I: Fluid Summary Crystalloid volume administer 500 05/06/25 08:01 [email or web address] (ml) Colloids volume administered ( ml) Blood Product volume administered (ml) Total IV fluid infused 500 05/06/25 08:01 [email or web address] Anesthesia Postop Eval I: Summary Notes Anesthesia Complication No 05/06/25 08:01 [email or web address] Anesthesia Complication Comment: Post-operative progress note Anesthesia: Postop Eval II Evaluation Mental status: Awake Pain Level: 0 nausea: No Vomiting: No 05/06/25 1237 > Date _ Geoff De Souza Signature: Date CC: ~ [facility]igned [facility] note[facility] assessment information available [facility] Work Phone: Evaluation note* Diagnosis Onset Date Resolution Status Admit Date Persistent atrial fibrillation acute January 08, 2025 12:53pm Hyperlipemia chronic January 08, 025 12:53pm Hypertension chronic January 08 025 12:53pm [facility] Work Phone: Hospital Discharge instructions Additional Instructions Continue your home medications including your Eliquis and your metoprolol Increase your metoprolol to 25 mg twice a day Please follow-up with cardiology on Tuesday, you are to call them and come in for rate rhythm and blood pressure check.. If you find your heart rate is significantly elevated he may return to emergency or contact on-call cardiology.[facility] Work Phone: Reason for referral (narrative)No reason for referral information [facility] Work Phone: Summary Purpose Family History No Family History Records Found Relationship Condition Age at Onset Recorded Date/T mohamud Not Specified Adopted Unknown Advance Directives No Advanced Directives Records Found Advance Directive Response Recorded Date/ Time Living Will Yes October 30, 2022 11:17pm Power of Telephone Ad Taker No October 30 11:17pm Advance Directive Response Recorded Date/ Time Do you have a Healthcare Power of Telephone Ad Taker? No January 04, 2025 6:11pm Advance Directive Response Recorded Date/ Time Advance Directives on File Yes Febus 2024 11:00am Living Will Yes March 06 11:00am Do you have a Healthcare Power of Telephone Ad Taker? Yes March 06, 2025 11:00am Name of Medical Power of Telephone Ad Taker son March 06, 2025 11:00am Advance Directives Yes March 06, 2025 11:00am Do you have a Healthcare Power of Telephone Ad Taker? No January 04, 2025 6:11pm Advance Directive Response Recorded Date/ Time Advance Directives on File Yes Febus t 2024 10:00am Living Will Yes March 06 10:00am Do you have a Healthcare Power of Telephone Ad Taker? Yes March 06, 2025 10:00am Name of Medical Power of Telephone Ad Taker son March 06, 2025 10:00am Advance Directives Yes March 06, 2025 10:00am Do you have a Healthcare Power of Telephone Ad Taker? Yes May 02, 2025 12:49pm Name of Medical Power of Telephone Ad Taker SISTER May 02, 2025 12:49pm Chief Complaint and Reason for Visit Chief Complaint Admit Date PALPITATIONS January 04, 2025 4:55 pm Chief Complaint Admit Date PALPITATIONS January 04, 2025 4:55 pm S/P ([facility] [place] 01/04) NEEDS EKG January 08, 2025 12:53pm Reason for Visit Admit Date Persistent atrial fibrillation December 12:53pm Hyperlipemia January 08, 2025 12:5 3pm Hypertension January 08, 2025 12:5 3pm Chief Complaint Admit Date PALPITATIONS January 04, 2025 4:55 pm S/P ([facility] [place] 6/20) NEEDS EKG January 08, 2025 12:53pm A-FIB, ARRHYTHMIA, SOB February 01, 2025 6 :00am A-FIB, ARRHYTHMIA, SOB February 01, 2025 1 2:49pm colonoscopy February 04, 2025 2:12 pm Reason for Visit Admit Date Persistent atrial fibrillation December 12:53pm Hyperlipemia January 08, 2025 12:5 3pm Hypertension January 08, 2025 12:5 3pm Anticoagulant long-term use February 04, 2 025 2:12pm Encounter for colonoscopy due to history of colonic polyp February 04, 2025 2:12pm Umbilical hernia February 04, 2025 2:12 pm Chief Complaint Admit Date PALPITATIONS January 04, 2025 4:55 pm S/P ([facility] [place] 6/) NEEDS EKG January 08, 2025 12:53pm A-FIB, ARRHYTHMIA, SOB February 01, 2025 6 :00am A-FIB, ARRHYTHMIA, SOB February 01, 2025 1 2:49pm colonoscopy February 04, 2025 2:12 pm Set Up DCCV/Needs EKG February 19, 2025 1 0:27am Reason for Visit Admit Date Persistent atrial fibrillation December 12:53pm Hyperlipemia January 08, 2025 12:5 3pm Hypertension January 08, 2025 12:5 3pm Anticoagulant long-term use February 04, 2 025 2:12pm Encounter for colonoscopy due to history of colonic polyp February 04, 2025 2:12pm Umbilical hernia February 04, 2025 2:12 pm Persistent atrial fibrillation February 10:27am Hyperlipemia February 19, 2025 10: 27am Hypertension February 19, 2025 10: 27am Chief Complaint Admit Date PALPITATIONS January 04, 2025 4:55 pm S/P ([facility] [place] 6/20) NEEDS EKG January 08, 2025 12:53pm A-FIB, ARRHYTHMIA, SOB February 01, 2025 6 :00am A-FIB, ARRHYTHMIA, SOB February 01, 2025 1 2:49pm colonoscopy February 04, 2025 2:12 pm Set Up DCCV/Needs EKG February 19, 2025 1 0:27am AFIB March 06, 2025 10 :40am Atrial fibrillation March 06, 2025 12 :42pm Atrial fibrillation March 06, 2025 1: 05pm Chief Complaint Admit Date PALPITATIONS January 04, 2025 4:55 pm S/P ([facility] [place] 01/04) NEEDS EKG January 08, 2025 12:53pm A-FIB, ARRHYTHMIA, SOB February 01, 2025 6 :00am A-FIB, ARRHYTHMIA, SOB February 01, 2025 1 2:49pm colonoscopy February 04, 2025 2:12 pm Set Up DCCV/Needs EKG February 19, 2025 1 0:27am AFIB March 06, 2025 10 :40am Atrial fibrillation March 06, 2025 12 :42pm Atrial fibrillation March 06, 2025 1: 05pm 1 WK DCCV March 13, 2025 10 :02am Chief Complaint Admit Date A-FIB, ARRHYTHMIA, SOB February 01, 2025 6 :00am A-FIB, ARRHYTHMIA, SOB February 01, 2025 1 2:49pm colonoscopy February 04, 2025 2:12 pm Set Up DCCV/Needs EKG February 19, 2025 1 0:27am AFIB March 06, 2025 10 :40am Atrial fibrillation March 06, 2025 12 :42pm Atrial fibrillation March 06, 2025 1: 05pm 1 WK DCCV March 13, 2025 10 :02am URINARY HESITANCY, DYSURIA -do post-void May 21, 2025 9:26am 3 M FU May 21, 2025 9 :35am Reason for Visit Admit Date Anticoagulant long-term use February 04, 2 025 2:12pm Encounter for colonoscopy due to history of colonic polyp February 04, 2025 2:12pm Umbilical hernia February 04, 2025 2:12 pm Persistent atrial fibrillation February 10:27am Hyperlipemia February 19, 2025 10: 27am Hypertension February 19, 2025 10: 27am Anticoagulant long-term use April 6:13am Encounter for colonoscopy due to history of colonic polyp May 06, 2025 6:13am Persistent atrial fibrillation May 21, 2025 9:35am Hyperlipemia May 21, 2025 9 :35am Hypertension May 21, 2025 9 :35am Additional Source Comments (unrecognized sect ion and content) No Status Records FoundNo Status Records FoundNo Status Records Found INFORMATION SOURCE (unrecogn ized section and content) DATE CREATED AUTHOR 01/03/2018 [facility] ([place]) DATE CREATED AUTHOR AUTHOR'S ORGANIZ ATION 01/11/2018 [facility] DATE CREATED AUTHOR AUTHOR'S ORGANIZ ATION 05/24/2025 [facility] Care Teams (unrecognized sec tion and content) [...] 08, 2025 End: January 08, 2025 Jillian MANCIA, PA Attending Provider Active Start: January 08, 2025 End: January 08, 2025 Team Status: Active Member Role/Relationship Status Dates Dr. Leydi Chun MD Primary Care Provider Active Team Status: Inactive Member Role/Relationship Status Dates Dr. Leydi Chun MD Primary Care Provider Active Start: January 04, 2025 End: January 04, 2025 Dr. Arturo Weeks DO Attending Provider Active Start: January 04, 2025 End: January 04, 2025 Dr. Arturo Weeks DO Referring Provider Active Start: January 04, 2025 End: January 04, 2025 Dr. Arturo Weeks DO Emergency Provider Active Start: January 04, 2025 End: January 04, 2025 Team Status: Inactive Member Role/Relationship Status Dates Dr. Leydi Chun MD Primary Care Provider Active Start: January 08, 2025 End: January 08, 2025 Dr. Leydi Chun MD Referring Provider Active Start: January 08, 2025 End: January 08, 2025 Jillian Prado PA, PA Attending Provider Active Start: January 08, 2025 End: January 08, 2025 Team Status: Active Member Role/Relationship Status Dates Dr. Leydi Chun MD Primary Care Provider Active Start: January 31, 2025 Dr. Víctor Correia MD Attending Provider Active S tart: January 31, 2025 Team Status: Active Member Role/Relationship Status Dates Dr. Leydi Chun MD Primary Care Provider Active Start: February 01, 2025 Jillian Prado PA, PA Attending Provider Active Start: February 01, 2025 Jillian Prado PA, PA Referring Provider Active Start: February 01, 2025 Team Status: Active Member Role/Relationship Status Dates Dr. Leydi Chun MD Primary Care Provider Active Start: February 01, 2025 Jillian Prado PA, PA Referring Provider Active Start: February 01, 2025 Jillian Prado PA, PA Other Provider Active Start: February 01, 2025 Dr. Víctor Correia MD Attending Provider Active S tart: February 01, 2025 Team Status: Inactive Member Role/Relationship Status Dates Dr. Leydi Chun MD Primary Care Provider Active Start: February 04, 2025 End: February 04, 2025 Dr. Leydi Chun MD Referring Provider Active Start: February 04, 2025 End: February 04, 2025 Dr. Ivon Rothman MD Attending Provider Active Start: February 04, 2025 End: February 04, 2025 Team Status: Inactive Member Role/Relationship Status Dates Dr. Leydi Chun MD Primary Care Provider Active Start: February 01, 2025 End: February 01, 2025 Jillian Prado PA, PA Attending Provider Active Start: February 01, 2025 End: February 01, 2025 Jillian Prado PA, PA Referring Provider Active Start: February 01, 2025 End: February 01, 2025 Team Status: Inactive Member Role/Relationship Status Dates Dr. Leydi Chun MD Primary Care Provider Active Start: February 19, 2025 End: February 19, 2025 Dr. Leydi Chun MD Referring Provider Active Start: February 19, 2025 End: February 19, 2025 Rafia Vidal MANAGER WEALTH MANAGEMENT, MANAGER WEALTH MANAGEMENT-C Attending Provider Active Start: February 19, 2025 End: February 19, 2025 Team Status: Inactive Member Role/Relationship Status Dates Dr. Leydi Chun MD Primary Care Provider Active Start: March 06, 2025 End: March 06, 2025 Dr. Víctor Correia MD Attending Provider Active S tart: March 06, 2025 End: March 06, 2025 Dr. Víctor Correia MD Referring Provider Active S tart: March 06, 2025 End: March 06, 2025 Team Status: Active Member Role/Relationship Status Dates Dr. Leydi Chun MD Primary Care Provider Active Start: March 06, 2025 Dr. Víctor Correia MD Attending Provider Active S tart: March 06, 2025 Dr. Víctor Correia MD Referring Provider Active S tart: March 06, 2025 Dr. Víctor Correia MD Other Provider Active Start : March 06, 2025 Team Status: Active Member Role/Relationship Status Dates Dr. Leydi Chun MD Primary Care Provider Active Start: March 06, 2025 Dr. Víctor Correia MD Referring Provider Active S tart: March 06, 2025 Dr. Víctor Correia MD Other Provider Active Start : March 06, 2025 Dr. Sam Garcia DO Attending Provider Active S tart: March 06, 2025 Team Status: Inactive Member Role/Relationship Status Dates Dr. Leydi Chun MD Primary Care Provider Active Start: March 13, 2025 End: March 13, 2025 Dr. Leydi Chun MD Referring Provider Active Start: March 13, 2025 End: March 13, 2025 Rafia Vidal MANAGER WEALTH MANAGEMENT, MANAGER WEALTH MANAGEMENT-C Attending Provider Active Start: March 13, 2025 End: March 13, 2025 Team Status: Active Member Role/Relationship Status Dates Dr. Leydi Chun MD Primary care physician Active Team Status: Active Member Role/Relationship Status Dates Dr. Leydi Chun MD Primary care physician Active Start: January 31, 2025 Dr. Víctor Correia MD Attending physician Active Start: January 31, 2025 Team Status: Inactive Member Role/Relationship Status Dates Dr. Leydi Chun MD Primary care physician Active Start: February 01, 2025 End: February 01, 2025 Jillian MANCIA PA Attending physician Active Start: February 01, 2025 End: February 01, 2025 Jillian Prado PA PA Referring Provider Active Start: February 01, 2025 End: February 01, 2025 Team Status: Active Member Role/Relationship Status Dates Dr. Leydi Chun MD Primary care physician Active Start: February 01, 2025 Jillian MANCIA, PA Referring Provider Active Start: February 01, 2025 Jillian Prado PA, PA Nurse Practitioner Active Start: February 01, 2025 Dr. Víctor Correia MD Attending physician Active Start: February 01, 2025 Team Status: Inactive Member Role/Relationship Status Dates Dr. Leydi Chun MD Primary care physician Active Start: February 04, 2025 End: February 04, 2025 Dr. Leydi Chun MD Referring Provider Active Start: February 04, 2025 End: February 04, 2025 Dr. Ivon Rothman MD Attending physician Active Start: February 04, 2025 End: February 04, 2025 Team Status: Inactive Member Role/Relationship Status Dates Dr. Leydi Chun MD Primary care physician Active Start: February 19, 2025 End: February 19, 2025 Dr. Leydi Chun MD Referring Provider Active Start: February 19, 2025 End: February 19, 2025 Rafia Vidal MANAGER WEALTH MANAGEMENT, MANAGER WEALTH MANAGEMENT-C Attending physician Active Start: February 19, 2025 End: February 19, 2025 Team Status: Inactive Member Role/Relationship Status Dates Dr. Leydi Chun MD Primary care physician Active Start: March 06, 2025 End: March 06, 2025 Dr. Víctor Correia MD Attending physician Active Start: March 06, 2025 End: March 06, 2025 Dr. Víctor Correia MD Referring Provider Active S tart: March 06, 2025 End: March 06, 2025 Team Status: Active Member Role/Relationship Status Dates Dr. Leydi Chun MD Primary care physician Active Start: March 06, 2025 Dr. Víctor Correia MD Attending physician Active Start: March 06, 2025 Dr. Víctor Correia MD Referring Provider Active S tart: March 06, 2025 Dr. Víctor Correia MD Nurse Practitioner Active S tart: March 06, 2025 Team Status: Active Member Role/Relationship Status Dates Dr. Leydi Chun MD Primary care physician Active Start: March 06, 2025 Dr. Víctor Correia MD Referring Provider Active S tart: March 06, 2025 Dr. Víctor Correia MD Nurse Practitioner Active S tart: March 06, 2025 Dr. Sam Garcia DO Attending physician Active Start: March 06, 2025 Team Status: Inactive Member Role/Relationship Status Dates Dr. Leydi Chun MD Primary care physician Active Start: March 13, 2025 End: March 13, 2025 Dr. Leydi Chun MD Referring Provider Active Start: March 13, 2025 End: March 13, 2025 Rafia Vidal NP, MANAGER WEALTH MANAGEMENT-C Attending physician Active Start: March 13, 2025 End: March 13, 2025 Team Status: Inactive Member Role/Relationship Status Dates Dr. Leydi Chun MD Primary care physician Active Start: May 06, 2025 End: May 06, 2025 Dr. Leydi Chun MD Referring Provider Active Start: May 06, 2025 End: May 06, 2025 Dr. Ivon Rothman MD Attending physician Active Start: May 06, 2025 End: May 06, 2025 Team Status: Active Member Role/Relationship Status Dates Dr. Leydi Chun MD Primary care physician Active Start: May 06, 2025 Dr. Leydi Chun MD Referring Provider Active Start: May 06, 2025 Dr. Ivon Rothman MD Attending physician Active Start: May 06, 2025 Dr. Ivon Rothman MD Nurse Practitioner Active Start: May 06, 2025 Team Status: Active Member Role/Relationship Status Dates Dr. Leydi Chun MD Primary care physician Active Start: May 21, 2025 Dr. Leydi Chun MD Attending physician Active Start: May 21, 2025 Dr. Leydi Chun MD Referring Provider Active Start: May 21, 2025 Team Status: Inactive Member Role/Relationship Status Dates Dr. Leydi Chun MD Primary care physician Active Start: May 21, 2025 End: May 21, 2025 Dr. Leydi Chun MD Referring Provider Active Start: May 21, 2025 End: May 21, 2025 Rafia Vidal NP, MANAGER WEALTH MANAGEMENT-C Attending physician Active Start: May 21, 2025 End: May 21, 2025 Goals (unrecognized section and content) Goals [...] BE BASED ON THE PRIMARY CLINICAL RECORDS. [employer] provides no warranty or guarantee of the accuracy or completeness of information in this document.
[2025-06-14 12:31] VITALS: BP 133/89; PULSE 61; RESP 17; TEMP 36.4; O2SAT 94
== END 2025-06-14 12:43 | disposition home or self-care (01) ==
PROVIDERS: Emergency Provider Emergency Medicine; PCP Internal Medicine; Visit Provider Emergency Medicine
DX: T44.7X1A Poisoning by beta-adrenoreceptor antagonists, accidental (unintentional), initial encounter (principal); I48.19 Other persistent atrial fibrillation; R11.11 Vomiting without nausea; I10 Essential (primary) hypertension; E78.5 Hyperlipidemia, unspecified; Z79.01 Long term (current) use of anticoagulants; Z79.899 Other long term (current) drug therapy; Z87.891 Personal history of nicotine dependence
CPT/HCPCS: 80048; 85025; 99284; A4216